=== PATIENT | female | born 1960 | race Caucasian/White ===

== ENCOUNTER 2024-11-28 14:58 | Emergency (ER) | payer OTHER, SELFPAY ==
[2024-11-28 15:00] VITALS: BP 120/83
[2024-11-28 15:05] VITALS: BP 120/83
--- NOTE | 2024-11-28 15:10 | ED.GENMED ---
History of Present Illness
General
Chief Complaint: Change in Mental Status
Time Seen by Provider: 11/28/24 15:04
History of Present Illness
History of Present Illness:
64-year-old female presents to the emergency department for evaluation of multiple falls. EMS responded to 2 occasions due to reported falls, they were called to the house by family. Patient has been complaining of right leg paresthesias
intermittently since earlier this afternoon but denies this complaint currently. She apparently fell into a dresser but had no reported head strike. 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 She is quite somnolent on arrival
and falls asleep almost immediately after discussion
Review of Systems
Review of Systems
Allergies reviewed?: Yes
All Other Systems: ROS reviewed and negative except as documented in HPI and ROS
Phy Exam
Physical Exam
Physical Exam:
GEN: Somnolent, arouses to voice, falls asleep almost immediately after removal of stimulus
HEENT: Oral mucosa moist, no scleral icterus, no nasal congestion
Cardiac: Regular rate and rhythm, no murmurs
Lung: No respiratory distress, no tachypnea, lungs clear to auscultation bilaterally
MSK: No gross deformity or injuries. Sensation to right leg intact entirely, dorsalis pedis and posterior tibialis pulses are strong by Doppler on the right
Skin: Good color, no pallor or jaundice, no rashes
Neuro: Somnolent but easily aroused AO x3; baseline right facial droop with minimal correction with smile, otherwise cranial nerves II through XII grossly intact BUE strength 5/5 in all canales, sensation intact and symmetric. BLE strength 5/5 in all
canales, sensation intact and symmetric
Psych: Calm, cooperative
Course
Orders/Labs/Results
Orders:
Orders
11/28/24 15:09
CT Head W/o Iv Contrast Urgent
Comment:
Reason For Exam: fall, AMS
11/28/24 15:13
Alcohol Urgent
Ammonia Urgent
Complete Blood Count/With Diff Urgent
Comprehensive Metabolic Panel Urgent
Venous Blood Gas Urgent
%Oxygen/Room Air: 95
11/28/24 15:26
CR Chest Portable - 1 View Urgent
Comment:
Reason For Exam: SOB/AMS
Reason Study Needs to be Portable: Other
11/28/24 15:37
Electrocardiogram (*1) Urgent
Reason for Study: QTc Monitoring
EKG- Treatment ONCE
11/28/24 15:55
Urinalysis Reflex To Culture Urgent
Date Specimen was Collected: 11/28/24
Time Specimen was Collected: 15:55
Urine Microscopic Reflex Cult Urgent
Urine Culture Urgent
[email or web address] Source: U
Specimen Description:
Date Specimen was Collected: 11/28/24
Time Specimen was Collected: 15:55
11/28/24 18:44
Cefdinir [Omnicef] 300 mg PO NOW STA
Doxycycline [Vibramycin] 100 mg PO NOW STA
Abnormal Lab Results
11/28/24 11/28/24
15:13 15:55
WBC 19.0 H 10^3/uL
(4.8-10.8)
MCHC 31.1 L g/dL
(33.0-37.0)
Abs Immat Gran (auto) 0.1 H 10^3/uL
(0-0.05)
Absolute Neuts (auto) 15.2 H 10^3/uL
(1.4-6.5)
Absolute Monos (auto) 1.5 H 10^3/uL
(0.1-0.6)
Immature Gran % 0.6 H %
(0-0.5)
Neutrophils % 79.9 H %
(42.2-75.2)
Lymphocytes % 11.3 L %
(20.5-51.1)
VBG pCO2 59 H mmHg
(35-48)
VBG HCO3 31.8 H mmol/L
(22-27)
Chloride 96 L mmol/L
(98-107)
Carbon Dioxide 32 H mmol/L
(22-30)
Creatinine 1.1 H mg/dL
(0.6-1.0)
Glucose 102 H mg/dl
(70-99)
AST 143 H U/L
(14-36)
ALT 95 H U/L
(0-35)
Ammonia < 9 L umol/L
(9-30)
Ur Occult Blood Reflex 4+ A
(Negative)
Leukocyte Esterase Rfl 1+ A
(Negative)
Urine Albumin (Reflex) 2+ A
(Neg - Trace)
11/28/24 15:13
11/28/24 15:13
Vital Signs
Initial and Last Documented VS:
Initial Vital Signs
BP
120/83
11/28/24 15:00
Last Documented Vital Signs
Temp Pulse Resp BP Pulse Ox
99.7 F 74 21 130/67 96
11/28/24 15:05 11/28/24 17:30 11/28/24 17:30 11/28/24 16:00 11/28/24 17:30
MDM/Problems Addressed
MDM/Problems Addressed:
Patient's mental status gradually improved during emergency department stay. I suspect the alteration mental status is predominantly polypharmacy given she is on short and long-acting opioids as well as cyclobenzaprine, gabapentin, and has been
using dextromethorphan based cough triggers. She is advised to discontinue dextromethorphan use. She does have leukocytosis which I suspect to be due to pneumonia based on her wet cough although chest x-ray was not revealing of any acute
infiltrate. Her major workup is reassuring. She was able to ambulate with walker assistance department. I suspect her right lower extremity paresthesias are related to chronic lumbar degenerative disc disease as she has strong pulses by Doppler
and intact sensation/motor function in the ED. Patient was offered admission however she declined which is reasonable medically at this time.
*Critical Care Note
Total Time (30-74mins, 75-104mins- exclusive of procedures): Not Applicable
ED Attending Note
-
Portions of this chart may have been created with voice recognition software.� Occasional wrong word or��sound alike� substitutions may have occurred due to the inherent limitations of voice recognition software.
Discharge Plan
Departure
Patient Disposition: Home (Routine Discharge)
Date of Disposition: 11/28/24
Time of Disposition: 18:44
Patient with high blood pressure during this ER visit?: No
Discharge Problem:
Pneumonia, Chronic right-sided lumbar radiculopathy
Instructions: Pneumonia in adults
Prescriptions:
New
cefdinir 300 mg capsule
300 mg PO BID Qty: 9 0RF
doxycycline hyclate 100 mg capsule
100 mg PO BID Qty: 9 0RF
Referrals:
Gabriel Campbell DO [Family Provider] -
Interventions
Interventions:
*Risk Screen - Suicide Last Done: 11/28/24 15:15
*General Assessment Last Done: 11/28/24 15:15
*Neglect/Abuse Screening Last Done: 11/28/24 15:15
ED- Fall Risk Assessment Last Done: 11/28/24 15:15
*ED COVID-19 Vaccine History Last Done: 11/28/24 15:15
ED- Neurological Assessment Last Done: 11/28/24 15:15
ED- Cardiac Assessment Last Done: 11/28/24 15:15
Discharge Date and Time
Print Language: ROMANIAN
[2024-11-28 15:15] VITALS: BMI 48.7
[2024-11-28 15:21] LABS: % Basophils 0.4 % (0-2); % Eosinophils 0.2 % (0-6); % Immature Granulocytes 0.6 % (0-0.5); % Lymphocytes 11.3 % (20.5-51.1); % Monocytes 7.6 % (1.7-9.3); % Neutrophils 79.9 % (42.2-75.2); Absolute Basophils 0.1 10^3/uL (0-0.2); Absolute Immature Granulocytes 0.1 10^3/uL (0-0.05); Absolute Lymphocytes 2.1 10^3/uL (1.2-3.4); Absolute Monocytes 1.5 10^3/uL (0.1-0.6); Absolute Neutrophils 15.2 10^3/uL (1.4-6.5); Hematocrit 42.1 % (37.0-47.0); Hemoglobin 13.1 g/dL (12.0-16.0); Mean Corp Hgb Conc. 31.1 g/dL (33.0-37.0); Mean Corpuscular Hgb 28.5 pg (27.0-31.0); Mean Corpuscular Volume 91.7 fL (81.0-99.0); Mean Platelet Volume 8.6 fL (7.4-10.4); Nucleated Red Blood Cells % 0 %; Platelet Count 230 10^3/uL (130-400); Red Blood Cell Count 4.59 10^6/uL (4.20-5.40); Red Cell Dist. Width 12.4 % (11.5-14.5); Venous Blood Gas B.E. 4.4 mmol/L (-4 to +4); Venous Blood Gas HCO3 31.8 mmol/L (22-27); Venous Blood Gas O2 Sat % 67.8 %; Venous Blood Gas pCO2 59 mmHg (35-48); Venous Blood Gas pH 7.34 (7.32-7.43); Venous Blood Gas pO2 38 mmHg (30-50)
[2024-11-28 15:30] VITALS: BP 135/79
[2024-11-28 15:39] LABS: Blood Urea Nitrogen 16 mg/dl (7-17); Estimated Creatinine Clearance 75 ml/min; Glucose 102 mg/dl (70-99); Sodium 136 mmol/L (135-145); eGFR 56.46
[2024-11-28 15:40] LABS: ALT (SGPT) 95 U/L (0-35); AST (SGOT) 143 U/L (14-36); Albumin 4.2 g/dl (3.5-5.0); Alkaline Phosphatase 110 U/L (38-126); Calcium 9.7 mg/dl (8.4-10.2); Carbon Dioxide 32 mmol/L (22-30); Chloride 96 mmol/L (98-107); Potassium 3.7 mmol/L (3.5-5.1); Total Bilirubin 1.1 mg/dl (0.2-1.3); Total Protein 6.3 g/dl (6.3-8.2)
[2024-11-28 16:00] VITALS: BP 130/67
[2024-11-28 16:03] LABS: Ammonia < 9 umol/L (9-30)
[2024-11-28 16:07] LABS: Alcohol None Detected
[2024-11-28 16:09] LABS: Urine Albumin 2+ (Neg - Trace); Urine Bilirubin Negative (Negative); Urine Character Clear (Clear); Urine Color Yellow; Urine Glucose Negative (Negative); Urine Ketone Negative (Negative); Urine Leukocyte 1+ (Negative); Urine Nitrite Negative (Negative); Urine Occult Blood 4+ (Negative); Urine Specific Gravity 1.015 (<1.030); Urine Urobilinogen 1+ (Neg - 1+)
[2024-11-28 17:56] LABS: Urine Red Blood Cell 0-2 /HPF (0-2); Urine Squamous Cell 0-2 /LPF (Few)
[2024-11-28] MEDS: VIBRAMYCIN 100 MG PO (19:08)
[2024-11-28] MEDS: OMNICEF 300 MG PO (19:08)
== END 2024-11-28 20:00 | disposition home or self-care (01) ==
LOC: EMR 14:58
PROVIDERS: Physician Assistant; EMERGENCY PHYSICIAN Emergency Medicine; FAMILY PHYSICIAN Family Medicine
DX: J18.9 Pneumonia, unspecified organism (principal); M54.16 Radiculopathy, lumbar region; R29.6 Repeated falls; W22.03XA Walked into furniture, initial encounter
CPT/HCPCS: 99285; 70450; 71045; 80053; 81003; 81015; 82077; 82140; 82805; 85025; 87086; 93005

== ENCOUNTER 2024-12-02 12:33 | Emergency (ER) | payer OTHER, SELFPAY ==
[2024-12-02 12:38] VITALS: BP 151/92
--- NOTE | 2024-12-02 14:33 | ED.MUSCINJ ---
HPI-Injury
General
Chief Complaint: Fall
Source: patient
Exam Limitations: none
Time Seen by Provider: 12/02/24 13:21
History of Present Illness-Injury
Initial Injury comments:
64-year-old female on Xarelto presents via EMS after fall at home. She was moving around heavy bags of groceries and sliding boxes sewed across the floor lost her balance and fell. She hit her head on the cabinet on the way down. She is brought
here in cervical collar by EMS. No loss conscious. She denies headache. No other complaints at this time
Phy Exam
Physical Exam
Physical Exam:
General: Well-appearing female no acute respiratory distress
HEENT: Normocephalic abrasion noted to the right posterior scalp. Pupils equal round reactive to light
Heart: Regular rate and rhythm
Lungs: Clear no wheeze
Musculoskeletal exam: The spine is nontender. Good range of motion all extremities
Injury Course
Orders/Labs/Results
Orders:
Orders
12/02/24 12:34
CT Cervical Spine W/o Iv Contr Urgent
Comment:
Reason For Exam: Head strike, fall on xarelto
CT Head W/o Iv Contrast Urgent
Comment:
Reason For Exam: Trauma/ on xarelto
MDM/Problems Addressed
Differential Diagnosis Includes:
Mechanical fall. CT of head and cervical spine ordered without evidence of intracranial hemorrhage or cervical spine fracture. Patient reassured. She expresses her desire to go home. No indication for admission
*Critical Care Note
Total Time (30-74mins, 75-104mins- exclusive of procedures): Not Applicable
ED Attending Note
-
Portions of this chart may have been created with voice recognition software.� Occasional wrong word or��sound alike� substitutions may have occurred due to the inherent limitations of voice recognition software.
Discharge Plan
Departure
Patient Disposition: Home (Routine Discharge)
Date of Disposition: 12/02/24
Time of Disposition: 14:37
Patient with high blood pressure during this ER visit?: No
Discharge Problem:
Fall
Instructions: Preventing falls in adults
Prescriptions:
No Action
cefdinir 300 mg capsule
300 mg PO BID Qty: 9 0RF
doxycycline hyclate 100 mg capsule
100 mg PO BID Qty: 9 0RF
Referrals:
Gabriel Campbell DO [Family Provider] -
Activity Restrictions/Additional Instructions:
You may use Tylenol if needed for pain. Return if worse otherwise follow-up with your doctor
Discharge Date and Time
Print Language: UZBEK
== END 2024-12-02 17:01 | disposition home or self-care (01) ==
LOC: EMR 12:33
PROVIDERS: EMERGENCY PHYSICIAN Emergency Medicine; FAMILY PHYSICIAN Family Medicine
DX: Z04.89 Encounter for examination and observation for other specified reasons (principal); W18.39XA Other fall on same level, initial encounter; Z79.01 Long term (current) use of anticoagulants
CPT/HCPCS: 99284; 70450; 72125

== ENCOUNTER 2025-04-17 21:30 | Emergency (ER) | payer OTHER, SELFPAY ==
[2025-04-17 21:32] VITALS: BP 119/83
--- NOTE | 2025-04-17 23:54 | ED.GENMED ---
History of Present Illness
General
Chief Complaint: Fall
Time Seen by Provider: 04/17/25 23:54
History of Present Illness
History of Present Illness:
TIME OF INITIAL EVALUATION
- 12 AM
REVIEW OF OLD RECORDS
- I reviewed records, the patient was seen here after a fall in November.
CHIEF COMPLAINT(S)
- Rib pain following a fall.
HISTORY OF PRESENT ILLNESS
The patient is a 64-year-old female who presented with rib pain after a fall earlier today. She explained that she was walking with her walker when it tilted, causing her to fall and strike the right side of her back on a wooden part of the sofa.
She reported immediate pain in the area and difficulty breathing due to the pain. The pain was exacerbated by deep breaths. She denied any loss of consciousness or head injury. She also denied any injury to her arms or legs and reported no abdominal
pain. The patient was brought to the hospital by ambulance.
On examination and imaging, she was found to have three subtle rib fractures that were minimally displaced, which were confirmed to not require surgical intervention. She is currently on medications including oxycodone and morphine for chronic pain
management and expressed concern about returning home due to potential issues with ambulation and pain control.
CHRONIC MEDICAL CONDITIONS SIGNIFICANTLY AFFECTING CARE
The patient is on chronic pain management with oxycodone and morphine.
SOCIAL DETERMINANTS AFFECTING HEALTH
The patient resides with her 85-year-old mother and 53-year-old sister, who assist in caring for her mother. She is unable to drive due to her current condition and expressed concerns about transportation. There were no steps in her home, and all
living areas are on the first floor.
MEDICATIONS
- Oxycodone 10 mg, four times a day.
- Morphine, 10-15 mg, as needed, once a day.
REVIEW OF SYSTEMS
- Respiratory: Right-sided back pain and difficulty breathing due to pain.
- Musculoskeletal: Pain in the right side of the back, confirmed rib fractures.
PHYSICAL EXAM
- General: She appears somewhat chronically debilitated, but does not appear to be in any significant distress
- Head: No craniofacial trauma
- C-spine: No midline c-spine tenderness; normal AROM of C-spine
- Back: Normal AROM thoracolumbar spine
- HEENT: Moist oral mucosa, no blood
- Cardiovascular: No murmurs, normal heart rate, regular rhythm, mild to moderate chest wall tenderness on the right side
- Pulmonary: No respiratory distress, breath sounds are clear and equal
- Abdomen: Soft with no peritoneal signs, no tenderness
- Neurologic: Fair strength all extremities, no coordination deficits
- Psychiatric: Appropriate mental status, normal insight and judgement
- Extremities: Nontender, no edema, moves all extremities equally
- Skin: No rash, no lesions
PROBLEM LIST
Acute:
- Right-sided rib fractures (three, minimally displaced).
PLAN
- Administer a dose of oxycodone for pain management.
- Provide a drink as requested by the patient.
- Arrange for ambulance transportation to return the patient home.
- Ensure home care support is in place for mobility and safety due to the patients inability to drive and pain management needs.
DIFFERENTIAL DIAGNOSIS
The Differential Diagnosis includes, in no particular order and is not limited to:
- Rib fractures
- Contusion
- Costochondritis
- Pleurisy
- Pneumothorax
- Muscular strain
- Osteoporosis-related fracture
- Hemothorax
- Lung contusion
- Soft tissue injury
RADIOLOGY
- Chest x-ray with rib series shows fractures on the right 5th, 6th and 7th that are minimally if any bit displaced
- X-rays of left hip, pelvis, femur show advanced DJD at the left hip
UPDATE
-SUMMARY OF ENCOUNTER
The patient, a 64-year-old female, presented to the emergency department with right-sided rib pain following a fall. She was walking with her walker when it tilted and she fell, striking her right side on a wooden part of the sofa, causing immediate
pain and difficulty breathing. The pain worsened with deep breaths. Imaging revealed three subtly displaced rib fractures that did not require surgical intervention. She is on chronic pain management with oxycodone and morphine. Concerns were raised
about her ability to manage pain and ambulate safely at home however she did state that she feels comfortable going home.
DISPOSITION
Discharge
ASSESSMENT
The patient has minimally displaced right-sided rib fractures secondary to a fall.
EMERGENCY TREATMENTS ADMINISTERED
A dose of oxycodone was administered for pain management.
PLAN
To administer pain management medication and arrange for ambulance transportation for the patient to return home. Ensure home care support is in place to assist with mobility and safety, considering the patient�s inability to drive and manage pain
effectively without assistance.
INDEPENDENT REVIEW OF LABS AND INTERPRETATION OF TESTS
My independent interpretation of the chest x-ray indicates three subtle, minimally displaced rib fractures.
PATIENT EDUCATION AND COUNSELING
The patient was educated about the nature of her rib fractures and the importance of managing pain. Counseling was provided on the risks of further injury and the need for assistance at home until her condition improves.
FOLLOW-UP INSTRUCTIONS
The patient is advised to follow up with her primary care provider to monitor her recovery and reassess her pain management strategy.
MEDICATION RECONCILIATION
Administered medications include oxycodone. The patient continues on her chronic pain management regimen of oxycodone 10 mg four times a day and morphine 10-15 mg as needed once a day. No additional narcotics provided
MEDICAL DECISION MAKING
- Number and Complexity of Problems Addressed: Chronic conditions affecting care include ongoing management with oxycodone and morphine. Differential diagnosis considered rib fractures, contusion, pleurisy, pneumothorax, muscular strain,
osteoporosis-related fracture.
- Data:
Category 1:
My independent interpretation of the chest x-ray shows minimally displaced rib fractures.
Category 3:
Discussion of management occurred with the patient regarding pain management and the risk factors associated with her inability to drive and ambulate independently.
- Risk: Prescription medication management includes oxycodone and morphine, which require careful monitoring due to potential for overuse and dependency.
Consideration of Admission/Observation: Escalation of care including admission/observation was considered given the complexity and risk of the patients presenting complaint, exam findings, and/or their underlying comorbidities. However, ultimately I
feel the patient is safe for outpatient management with close follow-up. Reasoning: Work-up reassuring, does not reveal any acute life/organ threatening processes, patients symptoms well controlled upon reevaluation, reexamination is reassuring,
vitals are stable, patient agreeable with discharge, reliable for follow-up.
DIAGNOSIS
Rib fractures, right side, minimally displaced (S22.41XA).
I did inform patient of the rather significant degenerative joint disease in the left hip�she states she has had Ortho evaluation but likely will not proceed with hip replacement
Phy Exam
Physical Exam
Physical Exam:
See HPI
Course
Orders/Labs/Results
Orders:
Orders
04/17/25 21:35
CR Ribs-right 3 Vw W/pa Chest* Urgent
Comment:
Reason For Exam: injury
04/18/25 00:13
Oxycodone [Roxicodone] 10 mg PO NOW STA
04/18/25 00:45
CR Femur - Left Min 2 Vw Urgent
Comment:
Reason For Exam: trauma
CR Hip - LT w/wo Pel 2-3 Vw* Urgent
Comment:
Reason For Exam: fall
Include a pelvis x-ray?: Yes
Vital Signs
Initial and Last Documented VS:
Initial Vital Signs
Temp Pulse Resp BP Pulse Ox
36.7 C 73 20 119/83 97
04/17/25 21:32 04/17/25 21:32 04/17/25 21:32 04/17/25 21:32 04/17/25 21:32
Last Documented Vital Signs
Temp Pulse Resp BP Pulse Ox
36.7 C 76 14 136/74 97
04/17/25 21:32 04/18/25 00:45 04/18/25 00:45 04/18/25 00:09 04/18/25 00:08
*Pulse Oximetry
SaO2: 97
Oxygen Mode of Delivery: Room air
Patient hypoxic: no
*Critical Care Note
Total Time (30-74mins, 75-104mins- exclusive of procedures): Not Applicable
ED Attending Note
-
Portions of this chart may have been created with voice recognition software.� Occasional wrong word or��sound alike� substitutions may have occurred due to the inherent limitations of voice recognition software.
Discharge Plan
Departure
Patient Disposition: Home (Routine Discharge)
Date of Disposition: 04/18/25
Time of Disposition: 00:13
Patient with high blood pressure during this ER visit?: Yes
Discharge Problem:
Multiple rib fractures
Instructions: Rib Fracture
Prescriptions:
No Action
cefdinir 300 mg capsule
300 mg PO BID Qty: 9 0RF
doxycycline hyclate 100 mg capsule
100 mg PO BID Qty: 9 0RF
Activity Restrictions/Additional Instructions:
You do have subtle rib fractures which are minimally displaced if at all on the right side (#5, #6 and #7). Use incentive spirometer to help exercise the lung. Continue your normal pain medication. There is no sign of lung injury or need for any
other procedure to treat these injuries.
Interventions
Interventions:
*Risk Screen - Suicide Last Done: 04/18/25 00:05
*General Assessment Last Done: 04/17/25 21:32
*Neglect/Abuse Screening Last Done: 04/18/25 00:05
*ED- Fall Risk Assessment Last Done: 04/18/25 00:05
*ED COVID-19 Vaccine History Last Done: 04/18/25 00:05
ED-Musculoskeletal Assessment Last Done: 04/18/25 00:09
ED- Neurological Assessment Last Done: 04/18/25 00:09
ED-Skin Assessment Last Done: 04/18/25 00:09
Discharge Date and Time
Print Language: MAORI
[2025-04-18 00:02] VITALS: BMI 47.9
[2025-04-18 00:09] VITALS: BP 136/74
[2025-04-18] MEDS: ROXICODONE 10 MG PO (00:19)
[2025-04-18 02:15] VITALS: BP 124/76
== END 2025-04-18 03:04 | disposition home or self-care (01) ==
LOC: EMR 21:30
PROVIDERS: EMERGENCY PHYSICIAN Emergency Medicine; FAMILY PHYSICIAN Nurse Practitioner Adult Health
DX: S22.41XA Multiple fractures of ribs, right side, initial encounter for closed fracture (principal); W01.190A Fall on same level from slipping, tripping and stumbling with subsequent striking against furniture, initial encounter; G89.29 Other chronic pain; Z79.891 Long term (current) use of opiate analgesic
CPT/HCPCS: 99284; 71101; 73502; 73552

== ENCOUNTER 2025-06-16 17:41 | Inpatient (IN) | payer OTHER, SELFPAY ==
[2025-06-16] VITALS (17 sets, daily range): BP systolic 113–171; BP diastolic 66–128; BMI 46.8
--- NOTE | 2025-06-16 11:50 | ED.GENMED ---
History of Present Illness
General
Chief Complaint: Weakness
Source: patient and records
Exam Limitations: none
Time Seen by Provider: 06/16/25 11:39
Nursing documentation reviewed up to this point in time: agreed with
History of Present Illness
History of Present Illness:
65-year-old female with a past medical history of hypertension, hyperlipidemia, atrial fibrillation, asthma, Lewis's palsy with facial droop and prior TIA history who presents to the emergency department via EMS for evaluation of weakness and
lethargy. Patient reports symptoms started this morning and have been constant all morning�she says that she sat on the couch and was very lethargic and it sounds like her parents had trouble waking her which prompted EMS call. She denies any
falls or injuries. She does take chronic pain medications but says there has not been any acute change and that she did not take any of her medication for pain this morning. She was noted to be febrile on arrival and notes that she has been
coughing recently. She denies any recent vomiting or diarrhea. She denies any recent urinary symptoms. No chest pain, shortness of breath, abdominal pain or any other acute complaints.
Review of Systems
Review of Systems
All Other Systems: ROS reviewed and negative except as documented in HPI and ROS
Constitutional: Reports fever and fatigue
EENT: Denies sore throat
Respiratory: Reports cough; Denies trouble breathing
Cardiac: Denies chest pain
ABD/GI: Denies abdominal pain, nausea, vomiting or diarrhea
: Denies dysuria or flank pain
Neurological: Reports other (Lethargic); Denies headache
Phy Exam
Physical Exam
Physical Exam:
General: Laying in bed sleeping on my entering but arousable to voice, oriented x 3, not acutely in distress
Head: Normocephalic, atraumatic
Eyes: Conjunctiva normal, pupils approximately 4 mm and reactive to light bilaterally
Throat: Airway intact, somewhat dry mucous membranes
Neck: Trachea midline, supple without meningismus
Lungs: Left focal rhonchi appreciated, hacking cough throughout assessment, low normal pulse ox 92% on room air, mild tachypnea respiratory rate 22-24 on my assessment
Heart: Regular rate and rhythm, no murmurs, gallops, or rubs appreciated
Abd: Soft, non distended, nontender
Neuro: Chronic mild right facial droop, cranial nerves otherwise intact, moving all extremities equally with no focal deficit noted
Extremities: No edema in extremities, warm and well-perfused
Scores
Heart Failure Risk
Heart Failure Risk Score: Not Applicable
Heart Score for Chest Pain Patients
STEMI patient?: Not applicable
Withdrawal Assessment of Alcohol
Withdrawal Assessment Completed?: Not applicable
Sepsis
Sepsis Screening
Sepsis Assessment: Sepsis
Sepsis Screen
Sepsis Screen: Sepsis
Date: 06/16/25
Time: 17:23
Course
Orders/Labs/Results
Orders:
Orders
06/16/25 11:43
Electrocardiogram (*1) Urgent
Reason for Study: Fatigue / Weakness
EKG- Treatment ONCE
06/16/25 11:49
CR Chest Single View Urgent
Reason For Exam: one view due to safety issue---cough, fever
06/16/25 11:50
Acetaminophen [Tylenol] 1,000 mg PO NOW STA
06/16/25 11:55
0.9% Sodium Chloride 1000 ml [Nss] 1,000 ml IV BOLUS
06/16/25 13:23
Complete Blood Count/With Diff Urgent
Comprehensive Metabolic Panel Urgent
Influenza A+B Rapid Molecular Urgent
RAYMUNDO Source: Nasal Swab
Specimen Description:
06/16/25 13:24
COVID-19 Antigen Urgent
Source: Nasal Swab
Lactate Level [Lactic Acid] Urgent
Urinalysis Reflex To Culture Urgent
Date Specimen was Collected: 06/16/25
Time Specimen was Collected: 12:59
Urine Microscopic Reflex Cult Urgent
Urine Culture Urgent
RAYMUNDO Source: U
Specimen Description:
Date Specimen was Collected: 06/16/25
Time Specimen was Collected: 12:59
06/16/25 13:38
Acetaminophen 1000MG/100Ml [Ofirmev] 1,000 mg in 100 ml IV ONCE
Acetaminophen IV Indication:: ED Narcotic Naive Pt-ONCE
06/16/25 14:03
Naloxone [Narcan] 2 mg .ROUTE .STK-MED ONE
06/16/25 14:08
Naloxone [Narcan] 0.2 mg IV NOW STA
06/16/25 14:09
Azithromycin 500 mg/250 ml [Zithromax Infusion] 500 mg in 250 ml IV NOW
CefTRIAXone [Rocephin] 1,000 mg IV NOW STA
06/16/25 14:10
CT Chest W/o Iv Contrast Urgent
Comment:
Reason For Exam: cough, fever, cf pna (CXR limited)
CT Head W/o Iv Contrast Urgent
Comment:
Reason For Exam: CHANGE IN MENTATION
06/16/25 14:28
Blood Culture Q30M
RAYMUNDO Source: Blood/Venous
Specimen Description:
Sputum Culture [Respiratory Culture/Gram Stain] Urgent
RAYMUNDO Source: Sputum
Specimen Description:
Date Specimen was Collected: 06/16/25
Time Specimen was Collected: 14:27
06/16/25 14:29
Blood Culture Q30M
RAYMUNDO Source: Blood/Venous
Specimen Description:
06/16/25 16:47
ABG [Arterial Blood Gas] Urgent
%Oxygen/Room Air: 92%
06/16/25 17:03
Naloxone [Narcan] 0.4 mg IV NOW STA
06/16/25 17:17
Admit/Transfer Patient As Directed
Co-Sign Provider:
Level of Care: Inpatient admission
Assign to:: ICU
Physician / Group: Dr Frye
Diagnosis: Sepsis. Encephalopathy.
Reason for Hospitalization: Sepsis. Encephalopathy.
Expected length of stay greater than two midnights?: Yes
ELOS- Estimated Length of Stay in days: 2
I certify the patient meets the requirements for IP care: Yes
PRN Pain Medication Management As Directed
May give lesser potent ordered pain med per pt: Yes
preference::
Protocol:: Medication orders for pain may be administered in a
manner that supports deferring to patient preference
when the pt is:
- Requesting an ordered lesser potent pain medication.
Least to most potent pain medications are defined
as: acetaminophen < NSAID < tramadol < opioids
(morphine, oxycodone, hydromorphone).
- Requesting a lesser dose of the same medication IF
ORDERED.
- Requesting a less intrusive route of administration
if both routes are prescribed by the provider (PO <
IV).
06/16/25 17:18
Code Status As Directed
Resuscitation Status: Full Code
Consult Africana Studies Professor [Africana Studies Professor Consult] Urgent
Consulting Provider: Kolton Maharaj
Was physician already notified: Yes
06/16/25 17:19
Consult Africana Studies Professor [Africana Studies Professor Consult] Urgent
Consulting Provider: Kolton Maharaj
Was physician already notified: Yes
Reason for consult: Sepsis and concerns for airway protection due to encephalopathy
06/16/25 18:00
Lactated Ringers [Lr] 1,000 ml IV 125 mls/hr
Abnormal Lab Results
06/16/25 06/16/25 06/16/25
13:23 13:24 16:47
WBC 18.0 H 10^3/uL
(4.8-10.8)
MCHC 31.7 L g/dL
(33.0-37.0)
Abs Immat Gran (auto) 0.1 H 10^3/uL
(0-0.05)
Absolute Neuts (auto) 14.3 H 10^3/uL
(1.4-6.5)
Absolute Monos (auto) 1.0 H 10^3/uL
(0.1-0.6)
Neutrophils % 79.7 H %
(42.2-75.2)
Lymphocytes % 13.7 L %
(20.5-51.1)
pH 7.32 L
(7.35-7.45)
pCO2 52 H mmHg
(32-35)
pO2 80 L mmHg
(83-108)
Glucose 115 H mg/dl
(70-99)
AST 41 H U/L
(14-36)
Alkaline Phosphatase 133 H U/L
(38-126)
Leukocyte Esterase Rfl 2+ A
(Negative)
Urine Bacteria (Reflex) Few A
(Negative)
06/16/25 13:23
06/16/25 13:23
Vital Signs
Initial and Last Documented VS:
Initial Vital Signs
Temp Pulse Resp BP Pulse Ox
38.1 C H 81 20 136/117 92
06/16/25 11:43 06/16/25 11:43 06/16/25 11:43 06/16/25 11:43 06/16/25 11:43
Last Documented Vital Signs
Temp Pulse Resp BP Pulse Ox
38.1 C H 71 26 117/71 96
06/16/25 11:43 06/16/25 15:30 06/16/25 15:30 06/16/25 15:00 06/16/25 15:30
MDM/Problems Addressed
Differential Diagnosis Includes:
Fever and lethargy: Viral syndrome, UTI, pneumonia
MDM/Problems Addressed:
65-year-old female presents for increased lethargy this morning noted to be febrile on arrival here. She has had a recent cough. Vitals and exam as above. Will plan to check labs including CBC and a CMP, lactate and blood cultures. Will check
COVID and flu swabs. Check chest x-ray and EKG. Will send off a urinalysis. Will provide Tylenol for fever. Provide IV fluids. Monitor closely reassess after the above.
Labs reviewed: CBC shows leukocytosis to 18. Lactate less than 2. Chemistry no clinically significant abnormalities. Her urinalysis is contaminated but not clearly infected. Chest x-ray very limited by body habitus. She is continue to have
significant coughing with increased secretions. Will order sputum culture. Treat empirically for pneumonia and concern for sepsis. She is having some increased lethargy here. Pupils are somewhat constricted and she has a history of opioid use
will trial a low-dose of Narcan. She has a history of falls with a denies any recent falls and no signs of acute trauma; nevertheless we will check CT head. Will also send for CT chest to better visualize lungs. Plan for admission.
CT head no acute abnormalities noted. CT chest shows signs consistent with pneumonia. Clinical reassessment patient has had periods of severe lethargy to the point that she even received some Narcan here. At the same time she has periods where
she is much more awake�when she returned from CT she had a full phone call. Case was discussed at bedside at length with the hospitalist. Currently she is very lethargic but she does completely wake to physical stimulation before quickly drifting
off again. She appears to be protecting her airway for the time being but concerned that mental status is decompensating. We checked a blood gas and her pH is 7.34 pCO2 only 43. Will discuss with social research assistant for evaluation and if mental status
not improving may need intubation.
Discussed with social research assistant will admit to ICU plan for close monitoring and serial gases with low threshold for intubation if clinical status worsening.
*Radiology
Radiology exam reviewed: preliminary read by ED provider and radiology read reviewed
*Pulse Oximetry
SaO2: 92
Oxygen Mode of Delivery: Room air
Patient hypoxic: no (92%)
*Critical Care Note
Total Time (30-74mins, 75-104mins- exclusive of procedures): Not Applicable
Data Reviewed
Source: patient, records and ambulance crew
Patient Management
Discussion with other providers: Hospitalist (Discussed with hospitalist) and [employer] T[employer] T[employer] (Discussed with social research assistant)
Escalation/DeEscalation of care consider admission/obs:
Admission indicated
ED Attending Note
-
Portions of this chart may have been created with voice recognition software.� Occasional wrong word or��sound alike� substitutions may have occurred due to the inherent limitations of voice recognition software.
Discharge Plan
Departure
Patient Disposition: Admit
Date of Disposition: 06/16/25
Time of Disposition: 16:06
Admit to doctor: Igor
Presentation/result/management discussed w/ accepting MD/DO: Hospitalist
Discharge Problem:
Sepsis, Pneumonia, Encephalopathy
Prescriptions:
No Action
cyclobenzaprine [Flexeril] 10 mg Tablet
10 mg PO TIDPRN PRN (Reason: spasms)
atorvastatin [Lipitor] 40 mg Tablet
40 mg PO DAILY
gabapentin 600 mg Tablet
600 mg PO TID
alprazolam [Xanax] 1 mg Tablet
1 mg PO TIDPRN PRN (Reason: anxiety)
ferrous sulfate 325 mg (65 mg iron) Tablet
650 mg PO DAILY
montelukast [Singulair] 10 mg Tablet
10 mg PO HS
morphine 15 mg Tablet Extended Release
15 mg PO DAILY
metoprolol succinate [Toprol XL] 25 mg Tablet Extended Release 24 Hr
25 mg PO DAILY
paroxetine HCl [Paxil] 40 mg Tablet
40 mg PO DAILY
ezetimibe [Zetia] 10 mg Tablet
10 mg PO DAILY
budesonide-formoterol [Symbicort] 160-4.5 mcg/actuation Hfa Aerosol Inhaler
1 inh INHALATION R DAILY
oxycodone 10 mg Tablet
10 mg PO Q6HPRN PRN (Reason: severe pains)
Xarelto 20 mg Tablet
20 mg PO DAILY
potassium chloride 20 mEq Tablet Extended Release
20 meq PO DAILY
Interventions
Interventions:
*Risk Screen - Suicide Last Done: 06/16/25 11:43
*General Assessment Last Done: 06/16/25 11:43
*Neglect/Abuse Screening Last Done: 06/16/25 11:43
*ED- Fall Risk Assessment Last Done: 06/16/25 11:43
ED- Cardiac Assessment Last Done: 06/16/25 11:43
ED- Neurological Assessment Last Done: 06/16/25 16:00
ED- Pulmonary Assessment Last Done: 06/16/25 11:43
Discharge Date and Time
Print Language: NEPALI
[2025-06-16] MEDS: NSS 1000 IV (13:00)
[2025-06-16 13:44] LABS: Hematocrit 39.8 % (37.0-47.0); Hemoglobin 12.6 g/dL (12.0-16.0); Mean Corp Hgb Conc. 31.7 g/dL (33.0-37.0); Mean Corpuscular Volume 87.3 fL (81.0-99.0); Nucleated Red Blood Cells % 0 %; Platelet Count 258 10^3/uL (130-400); Red Cell Dist. Width 12.7 % (11.5-14.5)
[2025-06-16 13:45] LABS: Urine Character Clear (Clear)
[2025-06-16] MEDS: OFIRMEV 100 IV (13:45)
[2025-06-16 13:56] LABS: ALT (SGPT) 24 U/L (0-35); AST (SGOT) 41 U/L (14-36); Albumin 4.1 g/dl (3.5-5.0); Alkaline Phosphatase 133 U/L (38-126); Blood Urea Nitrogen 15 mg/dl (7-17); Calcium 9.5 mg/dl (8.4-10.2); Carbon Dioxide 29 mmol/L (22-30); Chloride 103 mmol/L (98-107); Estimated Creatinine Clearance 97 ml/min; Glucose 115 mg/dl (70-99); Potassium 3.8 mmol/L (3.5-5.1); Sodium 139 mmol/L (135-145); Total Protein 6.6 g/dl (6.3-8.2); eGFR > 60.00
[2025-06-16 13:58] LABS: Urine Squamous Cell >30 /LPF (Few)
[2025-06-16 14:02] LABS: Urine Red Blood Cell 0-2 /HPF (0-2)
[2025-06-16 14:10] LABS: COVID-19 Antigen Negative (Negative)
[2025-06-16] MEDS: NARCAN 0.2 MG IV (14:12)
[2025-06-16] MEDS: ROCEPHIN 1000 MG IV (14:26)
[2025-06-16] MEDS: ZITHROMAX INFUSION 250 IV (14:43)
--- NOTE | 2025-06-16 16:28 | HPS.HSE ---
Addendum entered and electronically signed by Montrell Frye MD 06/16/25 18:15:
Discussed with test examiner and placed consult in
Original Note:
Family Physician
-
Family Physician: Bree Martinez
Chief Complaint
-
Fever
History of Present Illness
Patient is 65 years old female history of hypertension, hyperlipidemia, A-fib, asthma, Lewis's palsy, TIA, came into the hospital with fever and mental status changes. Unable to obtain accurate information from patient due to her mental status. She
does open eyes to verbal stimuli but then quickly falls asleep. She is semi-obtunded and diaphoretic but at time of my evaluation but she also had received some Narcan. I discussed with the ER physician at bedside as well. She moves spontaneously
all 4 extremities. As per report patient has been complaining of cough and shortness of breath for the last few days and she has been having some generalized weakness. She was noticed to have fever in the ER 100.6 Fahrenheit. Patient also was
noted to have white count of 18,000 and tachypneic. She is on chronic narcotics and given Narcan. Chest x-ray no acute chest pathology and CT scan of the chest ordered. She was also given broad-spectrum IV antibiotics and IV fluids. She had a CT
scan of the head. She was referred to the hospitalist service for further evaluation.
Medical History
Past Medical History
Past Medical History: Reports Other (Hypertension, hyperlipidemia, asthma/COPD, depression anxiety, paroxysmal atrial fibrillation, Lewis's palsy, TIA.)
Past Surgical History: Reports None
Social History
Tobacco: Non-smoker
Alcohol: None
Drug: None
Family History
Family History: Not pertinent
Allergies / Home Medications
Allergies reflects when Allergies were last updated in [employer].
Home Medications with original date entered in [employer]
Allergy/Medication List:
Allergies
Allergy/AdvReac Type Severity Reaction Status Date / Time
carbamazepine (From Tegretol) Allergy Reports Verified 04/17/25 21:32
acts like
she's on
LSD.
moxifloxacin (From Avelox) Allergy Unknown Verified 04/17/25 21:32
Home Medications
alprazolam 1 mg tablet (Xanax) 1 mg PO TIDPRN PRN anxiety 06/16/25
atorvastatin 40 mg tablet (Lipitor) 40 mg PO DAILY 06/16/25
budesonide-formoterol HFA 160 mcg-4.5 mcg/actuation aerosol inhaler (Symbicort) 1 inh inhalation R DAILY 06/16/25
cyclobenzaprine 10 mg tablet 10 mg PO TIDPRN PRN spasms 06/16/25
ezetimibe 10 mg tablet (Zetia) 10 mg PO DAILY 06/16/25
ferrous sulfate 325 mg (65 mg iron) tablet 650 mg PO DAILY 06/16/25
gabapentin 600 mg tablet 600 mg PO TID 06/16/25
metoprolol succinate 25 mg tablet,extended release 24 hr (Toprol XL) 25 mg PO DAILY 06/16/25
montelukast 10 mg tablet (Singulair) 10 mg PO HS 06/16/25
morphine 15 mg tablet,extended release 15 mg PO DAILY 06/16/25
oxycodone 10 mg tablet 10 mg PO Q6HPRN PRN severe pains 06/16/25
paroxetine HCl 40 mg tablet (Paxil) 40 mg PO DAILY 06/16/25
potassium chloride 20 mEq tablet,extended release 20 meq PO DAILY 06/16/25
rivaroxaban 20 mg tablet (Xarelto) 20 mg PO DAILY 06/16/25
Review of Systems
-
A 12 point ROS was completed and negative except as noted: Yes
Physical Exam
Vital Signs
Vital Signs
Temp Pulse Resp BP Pulse Ox
100.6 F H 71 26 117/71 96
06/16/25 11:43 06/16/25 15:30 06/16/25 15:30 06/16/25 15:00 06/16/25 15:30
Physical exam:
General: Acutely ill
HEENT: Normocephalic, Atraumatic and Moist Mucous Membranes. Pupils reactive to light but also they are mildly dilated.
Respiratory: Few rhonchi in the right base; Negative Wheezes, Rales
Cardiac: Regular Rhythm and S1/S2
GI: Soft, Nontender and Nondistended. Obese
Musculoskeletal: Bilateral erythema in both legs. She is currently diaphoretic. No Clubbing, No Cyanosis and mild bilateral lower extremity edema
Neuro: Lethargic, does respond to questions and was spontaneously all 4 extremity
Psych: Limited judgment and insight at the moment
Physical Exam
General: Other
Laboratory Results
-
06/16/25 13:23
06/16/25 13:23
Laboratory Results
Lactic Acid 1.1 mmol/L (0.7-2.0) 06/16/25 13:24
Total Bilirubin 0.8 mg/dl (0.2-1.3) 06/16/25 13:23
AST 41 U/L (14-36) H 06/16/25 13:23
ALT 24 U/L (0-35) 06/16/25 13:23
Alkaline Phosphatase 133 U/L (38-126) H 06/16/25 13:23
Data Reviewed
-
Diagnostic Radiology: Image Personally Visualized and interpreted
CT Scan: Image Personally Visualized and interpreted
Lab Data: Labs Reviewed by me
Impression/Plan
-
IMPRESSION:
Patient is 65 years old female with multiple comorbidities came into the hospital with fever and leukocytosis SIRS likely related to sepsis and acute encephalopathy. Patient had increased risk morbidity mortality and life-threatening condition that
will require inpatient hospitalization and careful monitoring.
PLAN:
Sepsis:
Likely source aspiration pneumonia.
Patient with fever, tachypneic, (not tachycardic but on beta-blockers), leukocytosis with left shift, mental status changes.
Continue broad-spectrum IV antibiotics with Rocephin and azithromycin. Consider switching to ampicillin sulbactam or piperacillin tazobactam if worsening.
Lactate 1.1
Follow-up blood cultures
Seen chest x-ray and difficult to interpret based on body habitus and technique
Seen CT scan of the chest and on my interpretation it appears to have a right lower lobe consolidation but pending radiology report
Continue IV fluid
Acute toxic metabolic encephalopathy:
Suspect related to sepsis but cannot rule out other etiologies such as opiates or other
Low threshold to intubate her for airway protection but currently she is maintaining so we will watch her very closely.
Cultures with narcotics and benzodiazepines
Seen CT scan of the head and no acute intracranial abnormalities but chronic changes although pending radiology report as well
Monitor mental status
Obtain ABG and do ETCO2 and serial gases if necessary
Chronic pain with narcotic dependence:
Given Narcan already
Watch her before restarting narcotics
Paroxysmal atrial fibrillation:
On rate control, beta-blockers
On anticoagulation, Xarelto
Hypertension:
Continue home antihypertensives
Hyperlipidemia:
Continue home statin
Trend LFTs
Depression anxiety:
Will resume home antidepressant
DVT prophylaxis:
Xarelto-currently on hold. SCDs for now
CODE STATUS:
Full code
Total Critical Care Time___55__ minutes. I was immediately available to the patient and staff. I personally examined, reviewed labs, diagnostic images/reports, interpretations, treatment plans, discussed patient care with other providers and
family or caregivers (if patient is unable to make decisions), entered orders as appropriate and documented the medical record.
[2025-06-16 16:55] LABS: B.E. -0.1 mmol/L; HCO3 26.8 mmol/L (21-28); O2 Saturation % 98.0 % (94-98); PCO2 52 mmHg (32-35); PO2 80 mmHg (83-108)
--- NOTE | 2025-06-16 19:27 | PTCARENOTE ---
Patient received from the ED via stretcher accompanied by RN x 2, transferred and admitted to ICU 3361. Placed on CM, Afib on CM. See cloth painter charted on worklist flowsheet. Patient is currently awake and alert, cooperative and oriented.
However, noted that some conversation is confused and she is forgetful. Sats 98% on 4L/nc, decreased oxygen to 2L/nc. BBS diminished with right lung with fine scattered crackles t/o and left lung with expiratory wheezes. Prolonged expiratory phase.
S1S2 distant. Positive pulses x 4 extremities, BLE edema 2+. Abdomen obese with positive bowel sounds. Left buttock with area of purplish discoloration that is blanchable. Right knee with abrasions secondary to old fall. Perineum/labia with MASD.
Purewick catheter in place. IVF hung per order. IV sites left arm x 2 with good blood return and flush easily. Currently denies pain. During conversation, patient falls asleep. Rouses easily but falls asleep easily. Labs and orders noted. Bed in low
and locked position, bed alarm on, call rosas within reach.
[2025-06-16] MEDS: LR 1000 IV (19:39)
[2025-06-16 20:12] LABS: Magnesium 1.8 mg/dl (1.6-2.3)
[2025-06-16 20:58] LABS: INR 1.60; PT 19.3 Sec (11.4-14.6)
[2025-06-16 20:59] LABS: APTT 36.5 Sec (23.4-35.0)
--- NOTE | 2025-06-16 23:30 | PTCARENOTE ---
Patient appears to be sleeping comfortably, lying still, respirations with prolonged expiration and occasional snoring but non labored. Sats 97% on 2L/nc. Rouses from sleep easily. Repositioned. No complaints offered. No other notable change in
patient physical assessment. Afebrile, VSS.
[2025-06-17] VITALS (20 sets, daily range): BP systolic 109–165; BP diastolic 67–141; PULSE 73–74; O2SAT 99–100
[2025-06-17] MEDS: LR 1000 IV ×3 (02:57→20:02)
--- NOTE | 2025-06-17 04:00 | PTCARENOTE ---
Addendum entered by Negra Quintanilla RN 06/17/25 04:28:
Am labs drawn.
Original Note:
Patient has slept well t/o night. Rouses easily. Remains afebrile. HNV since arrival to ICU. Patient states slight urge to void but states is unfamiliar with purewick. Instructed with regard to external catheter. Advised will need to bladder scan if
unable to void soon. Verbalizes understanding. Occasional loose NPC. Sats 100% on 2L/nc. VSS. Afib on CM. BBS with fine scattered crackles and diminished t/o right, left lung diminished but clear. No c/o pain.
[2025-06-17 05:01] LABS: Blood Urea Nitrogen 12 mg/dl (7-17); Calcium 8.6 mg/dl (8.4-10.2); Carbon Dioxide 30 mmol/L (22-30); Chloride 105 mmol/L (98-107); Estimated Creatinine Clearance 113 ml/min; Glucose 98 mg/dl (70-99); Hematocrit 32.9 % (37.0-47.0); Hemoglobin 10.6 g/dL (12.0-16.0); Magnesium 1.9 mg/dl (1.6-2.3); Mean Corp Hgb Conc. 32.2 g/dL (33.0-37.0); Mean Corpuscular Volume 88.7 fL (81.0-99.0); Nucleated Red Blood Cells % 0 %; Platelet Count 181 10^3/uL (130-400); Potassium 3.5 mmol/L (3.5-5.1); Red Cell Dist. Width 12.6 % (11.5-14.5); Sodium 138 mmol/L (135-145); eGFR > 60.00
--- NOTE | 2025-06-17 05:30 | PTCARENOTE ---
Patient has yet to void. Denies discomfort with mild urge to void. Purewick in place. Bladder scanned for 411cc. Skyler DHILLON notified. Since patient is not uncomfortable will hold off on straight cath for now.
--- NOTE | 2025-06-17 07:12 | PTCARENOTE ---
Report given verbally to oncoming shift, Humberto TORRES. Bedside rounds complete. Questions answered.
[2025-06-17] MEDS: STERILE WATER FOR INJECTION 10 ML IV (08:44)
[2025-06-17] MEDS: ROCEPHIN 1000 MG IV (08:44)
--- NOTE | 2025-06-17 08:51 | PTOTSP ---
Speech-Language Therapy Evaluation
Pt seen for bedside swallow assessment. Pt presents with baseline right sided facial paralysis secondary to Lewis's Palsy. Oral phase WFL with adequate acceptance, mastication, bolus formation, transfers, and clearance. No overt s/sx of aspiration
observed. Pt at risk for aspiration given history of asthma, missing dentition, and current results of CXR (right lung consistent with pneumonia). Pt has a wet cough at baseline. Per pt report, wet cough started about a month ago. Results of CXR
06/16 indicated 'consolidative opacities with surrounding groundglass opacities throughout the right lung consistent with pneumonia.'�
Recommendations:�
1. IDDSI Level 7 Regular Solids, IDDSI Level 0 Thin liquids
2. Medication as best tolerated
3. Standard aspiration precautions
4. SALON ASSISTANT to follow up to ensure diet tolerance
[2025-06-17] MEDS: ZITHROMAX INFUSION 250 IV (09:28)
[2025-06-17] MEDS: SYMBICORT 160/4.5 MCG INHALER 1 PUFF INH (10:02)
[2025-06-17] MEDS: TOPROL XL 25 MG PO (10:38)
[2025-06-17] MEDS: DESENEX/MITRAZOL/ZEASORB 1 APPLIC TOPICAL ×2 (10:38→20:03)
[2025-06-17] MEDS: LIPITOR 40 MG PO (10:38)
[2025-06-17] MEDS: FEOSOL 650 MG PO (10:38)
[2025-06-17] MEDS: KCL 20 MEQ PO (10:39)
[2025-06-17] MEDS: PAXIL 40 MG PO (10:39)
[2025-06-17] MEDS: ZETIA 10 MG PO (10:39)
[2025-06-17] MEDS: ROXICODONE 10 MG PO ×3 (10:44→23:58)
[2025-06-17] MEDS: MS CONTIN (EXTENDED RELEASE) 15 MG PO (11:17)
--- NOTE | 2025-06-17 11:46 | W.PN.HOSP.TC ---
Today's Communication/Plan
-
Antibiotics. PT OT
Assessment / Plan
Assessment / Plan
Physical exam:
General: Acutely ill
HEENT: Normocephalic, Atraumatic and Moist Mucous Membranes
Respiratory: Crackles on the right base; Negative Wheezes, Rales or Rhonchi
Cardiac: Regular Rhythm and S1/S2
GI: Soft, Nontender and Nondistended
Musculoskeletal: No Clubbing, No Cyanosis and No Edema
Neuro: Awake, Alert and Oriented, no neurological deficit
Psych: Calm
A/P:
Sepsis due to pneumonia:
Continue IV antibiotics
Stop IV fluid
Transfer out of ICU
PT OT eval
Acute toxic metabolic encephalopathy:
Improved
Back to her baseline
Resume rest of chronic medications including narcotics and benzos and monitor
Chronic pain with narcotic dependence:
Resume her medications
Paroxysmal atrial fibrillation:
On rate control, beta-blockers
On anticoagulation, Xarelto
Hypertension:
Resume home antihypertensives
Hyperlipidemia:
Continue home statin
Trend LFTs
Depression anxiety:
Will resume home antidepressant
DVT prophylaxis:
Xarelto
CODE STATUS:
Full code
Total time spent on today's encounter was 55 minutes which included time spent in counseling the patient/family regarding diagnosis and treatment plan as listed above, goals of care, and symptom management. Case was discussed with nursing staff,
specialists, and care coordinators/case management. All labs and imaging personally reviewed by me. Remainder the time spent in detailed review of previous records, lab data, imaging, and other medical provider documentation.
Anticipated Discharge: 24 - 48 hours
Subjective/Interval History
-
Date of Service: June 17, 2025
Patient more alert today. She is having some cough with yellow and greenish sputum production. Feels better overall today.
Objective Data
-
Labs:
Laboratory Results
06/17/25
04:03
WBC 6.9
Hgb 10.6 L
Hct 32.9 L
Plt Count 181 D
Sodium 138
Potassium 3.5
Chloride 105
Carbon Dioxide 30
BUN 12
Creatinine 0.7
Glucose 98
Calcium 8.6
Vital Signs:
Vital Signs
Temp Pulse Resp BP Pulse Ox
99 F 75 18 157/93 98
06/17/25 11:09 06/17/25 11:19 06/17/25 11:19 06/17/25 11:19 06/17/25 11:00
I&O
06/16/25 06/17/25 06/18/25
06:59 06:59 06:59
Intake Total 50 / 50
Balance 50 / 50
--- NOTE | 2025-06-17 14:06 | CM ---
Initial assessment completed with patient who lives with her mother in a 1 story home with no basement, 1 step to enter. BEADER patient was independent in ADL's and ambulation with the use of a RW all the time. She also has an electric w/ch and
rollator. No in-home services. No VA benefits. No psychiatric hospitalizations. No HC-POA. PROOFER APPRENTICE is Bree Martinez. Pharmacy is [facility] on [address] in [place].
Discharge POC: NN vs HH.
--- NOTE | 2025-06-17 15:17 | TRANSFER ---
Report given to RN, patient transferred with all belongings via bed accompanied by RN and PCT. Transferred directly to room 336-1.
--- NOTE | 2025-06-17 15:26 | PTCARENOTE ---
Patient transferred from ICU to 3 West this shift. Report received from BRIAN Paul. Patient oriented to room and staff. No pain reported at this time, all needs met. Plan of care ongoing.
[2025-06-17] MEDS: NEURONTIN 600 MG PO ×2 (16:03→21:18)
[2025-06-17] MEDS: XARELTO 20 MG PO (17:30)
[2025-06-17] MEDS: SINGULAIR 10 MG PO (21:18)
[2025-06-18] MEDS: XANAX 1 MG PO
[2025-06-18] MEDS: SYMBICORT 160/4.5 MCG INHALER 1 PUFF INH ×3 (00:16→20:10)
[2025-06-18 03:15] VITALS: BP 156/78
[2025-06-18 06:36] LABS: Hematocrit 34.0 % (37.0-47.0); Hemoglobin 11.2 g/dL (12.0-16.0); Mean Corp Hgb Conc. 32.9 g/dL (33.0-37.0); Mean Corpuscular Volume 87.6 fL (81.0-99.0); Nucleated Red Blood Cells % 0 %; Platelet Count 190 10^3/uL (130-400); Red Cell Dist. Width 12.5 % (11.5-14.5)
[2025-06-18 07:01] LABS: ALT (SGPT) 15 U/L (0-35); AST (SGOT) 17 U/L (14-36); Albumin 3.2 g/dl (3.5-5.0); Alkaline Phosphatase 107 U/L (38-126); Blood Urea Nitrogen 7 mg/dl (7-17); Calcium 8.6 mg/dl (8.4-10.2); Carbon Dioxide 29 mmol/L (22-30); Chloride 106 mmol/L (98-107); Estimated Creatinine Clearance > 125 ml/min; Glucose 87 mg/dl (70-99); Potassium 3.3 mmol/L (3.5-5.1); Sodium 140 mmol/L (135-145); Total Protein 5.4 g/dl (6.3-8.2); eGFR > 60.00
--- NOTE | 2025-06-18 07:20 | W.PN.HOSP.TC ---
Today's Communication/Plan
-
Antibiotics. Discharge planning
Assessment / Plan
Assessment / Plan
Physical exam:
General: No acute distress. Nontoxic appearance
HEENT: Normocephalic, Atraumatic and Moist Mucous Membranes
Respiratory: Clear to auscultation bilateral; Negative Wheezes, Rales or Rhonchi
Cardiac: Regular Rhythm and S1/S2
GI: Soft, Nontender and Nondistended
Musculoskeletal: No Clubbing, No Cyanosis and No Edema
Neuro: Awake, Alert and Oriented, no neurological deficit
Psych: Calm
A/P:
Sepsis due to pneumonia:
Improving
Continue IV antibiotics, Rocephin and azithromycin. Will change to oral cefdinir and azithromycin tomorrow.
Off IV fluid
PT OT recommends skilled rehab. Patient hesitant and would like to go home but she understands that she is very weak so we will reevaluate over the next 24 hours. She needs moderate to max assistance today for mobility assistance. She is also the
caregiver for her mother.
Acute toxic metabolic encephalopathy:
Improved
Back to her baseline
Resume rest of chronic medications including narcotics and benzos and stable so far
Hypokalemia:
Replete extra and trend in a.m.
Check mag level
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
Resumed her chronic narcotic medications and doing well
Paroxysmal atrial fibrillation:
On rate control, beta-blockers
On anticoagulation, Xarelto
Hypertension:
Continue home antihypertensives
Hyperlipidemia:
Continue home statin
Depression anxiety:
Continue home antidepressant
DVT prophylaxis:
Xarelto
CODE STATUS:
Full code
Time spent 36 minutes
Anticipated Discharge: Within 24 hours
Subjective/Interval History
-
Date of Service: June 18, 2025
Patient overall much better. Less cough and shortness of breath. No chest pain. Afebrile. Generalized weakness present. On room air
Objective Data
-
Labs:
Laboratory Results
06/18/25
05:24
WBC 6.0
Hgb 11.2 L
Hct 34.0 L
Plt Count 190
Sodium 140
Potassium 3.3 L
Chloride 106
Carbon Dioxide 29
BUN 7
Creatinine 0.6
Glucose 87
Calcium 8.6
Total Bilirubin 0.7
AST 17
ALT 15
Alkaline Phosphatase 107
Vital Signs:
Vital Signs
Temp Pulse Resp BP Pulse Ox
98.5 F 62 16 156/78 95
06/18/25 03:15 06/18/25 03:15 06/18/25 03:15 06/18/25 03:15 06/18/25 03:15
I&O
06/17/25 06/18/25 06/19/25
06:59 06:59 06:59
Intake Total 50 / 50 240 / 240
Output Total 1100 / 1100
Balance 50 / 50 -860 / -860
[2025-06-18 08:09] VITALS: BP 137/67
[2025-06-18] MEDS: MS CONTIN (EXTENDED RELEASE) 15 MG PO (09:07)
[2025-06-18] MEDS: ZETIA 10 MG PO (09:07)
[2025-06-18] MEDS: TOPROL XL 25 MG PO (09:07)
[2025-06-18] MEDS: NEURONTIN 600 MG PO ×3 (09:07→21:09)
[2025-06-18] MEDS: LIPITOR 40 MG PO (09:08)
[2025-06-18] MEDS: KCL 40 MEQ PO (09:08)
[2025-06-18] MEDS: KCL 20 MEQ PO (09:08)
[2025-06-18] MEDS: FEOSOL 650 MG PO (09:09)
[2025-06-18] MEDS: PAXIL 40 MG PO (09:09)
[2025-06-18] MEDS: DESENEX/MITRAZOL/ZEASORB 1 APPLIC TOPICAL ×2 (09:12→21:08)
[2025-06-18] MEDS: ZITHROMAX INFUSION 250 IV (10:19)
[2025-06-18] MEDS: ROCEPHIN 1000 MG IV (10:21)
[2025-06-18] MEDS: STERILE WATER FOR INJECTION 10 ML IV (10:21)
--- NOTE | 2025-06-18 10:53 | VATNOTE ---
Attempted PIV restart x2 unsuccessfully, 2nd VAT RN to attempt.
[2025-06-18 12:19] VITALS: BP 152/80
--- NOTE | 2025-06-18 12:57 | PTCARENOTE ---
pt with less cough, less SOB, still weak. requiring mod assists x2 with rolling walker with transfer from bed to [facility], has refused to sit oob as recommended. vss, will continue to monitor.
[2025-06-18] MEDS: ROXICODONE 10 MG PO (15:31)
[2025-06-18 16:17] VITALS: BP 117/86
[2025-06-18] MEDS: XARELTO 20 MG PO (17:06)
[2025-06-18 19:10] VITALS: BP 121/71
[2025-06-18] MEDS: SINGULAIR 10 MG PO (21:09)
[2025-06-18 23:04] VITALS: BP 144/80
[2025-06-19] VITALS (8 sets, daily range): BP systolic 108–166; BP diastolic 63–108; PULSE 63–65; O2SAT 97–98; BMI 46.8
[2025-06-19] MEDS: ROXICODONE 10 MG PO ×3 (00:10→21:21)
[2025-06-19] MEDS: SYMBICORT 160/4.5 MCG INHALER 2 PUFF INH ×2 (07:27→19:19)
[2025-06-19 07:38] LABS: Hematocrit 34.8 % (37.0-47.0); Hemoglobin 11.2 g/dL (12.0-16.0); Mean Corp Hgb Conc. 32.2 g/dL (33.0-37.0); Mean Corpuscular Volume 85.9 fL (81.0-99.0); Nucleated Red Blood Cells % 0 %; Platelet Count 195 10^3/uL (130-400); Red Cell Dist. Width 12.6 % (11.5-14.5)
[2025-06-19 08:01] LABS: Blood Urea Nitrogen 7 mg/dl (7-17); Calcium 8.8 mg/dl (8.4-10.2); Carbon Dioxide 30 mmol/L (22-30); Chloride 106 mmol/L (98-107); Estimated Creatinine Clearance > 125 ml/min; Glucose 104 mg/dl (70-99); Magnesium 2.0 mg/dl (1.6-2.3); Potassium 3.7 mmol/L (3.5-5.1); Sodium 140 mmol/L (135-145); eGFR > 60.00
[2025-06-19] MEDS: NEURONTIN 600 MG PO ×3 (08:19→22:31)
[2025-06-19] MEDS: ZITHROMAX 500 MG PO (08:21)
[2025-06-19] MEDS: PAXIL 40 MG PO (08:21)
[2025-06-19] MEDS: LIPITOR 40 MG PO (08:21)
[2025-06-19] MEDS: OMNICEF 300 MG PO ×2 (08:22→20:26)
[2025-06-19] MEDS: MS CONTIN (EXTENDED RELEASE) 15 MG PO (08:23)
[2025-06-19] MEDS: ZETIA 10 MG PO (08:23)
[2025-06-19] MEDS: TOPROL XL 25 MG PO (08:23)
[2025-06-19] MEDS: KCL 20 MEQ PO (08:23)
[2025-06-19] MEDS: FEOSOL 650 MG PO (08:24)
[2025-06-19] MEDS: DESENEX/MITRAZOL/ZEASORB 1 APPLIC TOPICAL ×2 (08:25→20:26)
[2025-06-19] MEDS: XANAX 1 MG PO ×2 (12:30→22:31)
--- NOTE | 2025-06-19 13:24 | W.PN.HOSP.TC ---
Today's Communication/Plan
-
Continue antibiotic
Discharge tomorrow
Assessment / Plan
Assessment / Plan
A/P:
Sepsis due to pneumonia:
Improving
Continue IV antibiotics, Rocephin and azithromycin. Will change to oral cefdinir and azithromycin tomorrow.
Off IV fluid
PT OT recommends skilled rehab. Patient hesitant and would like to go home but she understands that she is very weak so we will reevaluate over the next 24 hours. She needs moderate to max assistance today for mobility assistance. She is also the
caregiver for her mother.
Discharge tomorrow
Acute toxic metabolic encephalopathy:
Improved
Back to her baseline
Resume rest of chronic medications including narcotics and benzos and stable so far
Hypokalemia:
Replete extra and trend in a.m.
Check mag level
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
Resumed her chronic narcotic medications and doing well
Paroxysmal atrial fibrillation:
On rate control, beta-blockers
On anticoagulation, Xarelto
Hypertension:
Continue home antihypertensives
Hyperlipidemia:
Continue home statin
Depression anxiety:
Continue home antidepressant
CODE STATUS: Full code
DVT prophylaxis: Xarelto
Diet: Regular diet
Total time spent on today's encounter was 55 minutes which included time spent in counseling the patient/family regarding diagnosis and treatment plan as listed above, goals of care, and symptom management. Case was discussed with nursing staff,
specialists, and care coordinators/case management. All labs and imaging personally reviewed by me. Remainder the time spent in detailed review of previous records, lab data, imaging, and other medical provider documentation.
Anticipated Discharge: Within 24 hours
Subjective/Interval History
-
Date of Service: June 19, 2025
Patient seen and examined at bedside, denies any chest pain, improved coughing and shortness of breath, no abdominal pain, no nausea, no vomiting, no diarrhea or constipation.
Objective Data
-
Labs:
Laboratory Results
06/19/25
07:17
WBC 5.2
Hgb 11.2 L
Hct 34.8 L
Plt Count 195
Sodium 140
Potassium 3.7
Chloride 106
Carbon Dioxide 30
BUN 7
Creatinine 0.6
Glucose 104 H
Calcium 8.8
Vital Signs:
Vital Signs
Temp Pulse Resp BP Pulse Ox
99.9 F 71 18 123/76 98
06/19/25 11:00 06/19/25 11:00 06/19/25 11:00 06/19/25 11:00 06/19/25 11:00
I&O
06/18/25 06/19/25 06/20/25
06:59 06:59 06:59
Intake Total 240 / 240 480 / 480
Output Total 1100 / 1100
Balance -860 / -860 480 / 480
Physical Exam
-
General: Well Developed, Well Nourished, No Apparent Distress and Comfortable
HEENT: Normocephalic, Atraumatic, Moist Mucous Membranes, No Ptosis, PERRLA and Nose Appears Normal
Respiratory: Rales, Rhonchi and Non Labored Respirations
Cardiac: Regular Rhythm and S1/S2
Breast: Deferred by me
GI: Soft, Nontender, Nondistended and Normal Bowel Sounds
Genito-urinary: No Costovertebral Tender
Musculoskeletal: No Clubbing, No Cyanosis and No Edema
Skin: Warm
Neuro: Awake, Alert, Oriented, AO x 3 and No Motor Deficits
Psych: Calm
--- NOTE | 2025-06-19 14:36 | CM ---
CM following for discharge planning. Concepcion is agreeable to home health services at discharge and has chosen [facility].
Order for home care requested for insurance authorization.
Plan: Pt to return home tomorrow with [facility].
--- NOTE | 2025-06-19 14:53 | VNURNOTE ---
Home Health Liaison met with patient at bedside to discuss [facility] nurse/therapy, visits, schedule and homebound status. Patient is agreeable and understands that visits at home will be 2-3 x per week to assess and teach medical management. Patient
is aware that [facility] will contact them for start of care in 1-2 days after discharge from . Provided contact number for [facility].
[facility] referral completed in [facility].
[2025-06-19] MEDS: XARELTO 20 MG PO (17:14)
[2025-06-19] MEDS: SINGULAIR 10 MG PO (22:31)
[2025-06-20 03:04] VITALS: BP 133/80
[2025-06-20] MEDS: ROXICODONE 10 MG PO ×2 (04:59→14:45)
[2025-06-20 07:00] VITALS: BP 158/91
[2025-06-20] MEDS: SYMBICORT 160/4.5 MCG INHALER INH (07:58)
[2025-06-20] MEDS: DESENEX/MITRAZOL/ZEASORB 1 APPLIC TOPICAL (08:00)
[2025-06-20] MEDS: MS CONTIN (EXTENDED RELEASE) 15 MG PO (08:00)
[2025-06-20] MEDS: ZITHROMAX 500 MG PO (08:01)
[2025-06-20] MEDS: LIPITOR 40 MG PO (08:01)
[2025-06-20] MEDS: KCL 20 MEQ PO (08:01)
[2025-06-20] MEDS: FEOSOL 650 MG PO (08:01)
[2025-06-20] MEDS: OMNICEF 300 MG PO (08:01)
[2025-06-20] MEDS: NEURONTIN 600 MG PO ×2 (08:01→16:24)
[2025-06-20] MEDS: PAXIL 40 MG PO (08:02)
[2025-06-20] MEDS: ZETIA 10 MG PO (08:02)
[2025-06-20] MEDS: TOPROL XL 25 MG PO (08:03)
[2025-06-20 09:03] LABS: Hematocrit 36.3 % (37.0-47.0); Hemoglobin 11.9 g/dL (12.0-16.0); Mean Corp Hgb Conc. 32.8 g/dL (33.0-37.0); Mean Corpuscular Volume 85.8 fL (81.0-99.0); Platelet Count 195 10^3/uL (130-400); Red Cell Dist. Width 12.5 % (11.5-14.5)
--- NOTE | 2025-06-20 09:34 | W.DCSUMMARY ---
Addendum entered and electronically signed by Edmundo Romero MD 06/21/25 12:35:
BMI: 46.8
Morbid obesity, POA
Original Note:
Discharge Summary
Discharge Data
Date of Admission: 06/16/25
Date of Discharge: 06/20/25
Total time spent discharging patient (in min): 40
-
Pending Results: No
Hospital Course
Physical Exam
-
General: Well Developed, Well Nourished, No Apparent Distress and Comfortable
HEENT: Normocephalic, Atraumatic, Moist Mucous Membranes, No Ptosis, PERRLA and Nose Appears Normal
Respiratory: Rales, Rhonchi, wheezing and Non Labored Respirations
Cardiac: Regular Rhythm and S1/S2
Breast: Deferred by me
GI: Soft, Nontender, Nondistended and Normal Bowel Sounds
Genito-urinary: No Costovertebral Tender
Musculoskeletal: No Clubbing, No Cyanosis and No Edema
Skin: Warm
Neuro: Awake, Alert, Oriented, AO x 3 and No Motor Deficits
Psych: Calm
Hospital course
Patient is 65 years old female history of hypertension, hyperlipidemia, A-fib, asthma, Lewis's palsy, TIA, came into the hospital with fever and mental status changes. Unable to obtain accurate information from patient due to her mental status. She
does open eyes to verbal stimuli but then quickly falls asleep. She is semi-obtunded and diaphoretic but at time of my evaluation but she also had received some Narcan. I discussed with the ER physician at bedside as well. She moves spontaneously
all 4 extremities. As per report patient has been complaining of cough and shortness of breath for the last few days and she has been having some generalized weakness. She was noticed to have fever in the ER 100.6 Fahrenheit. Patient also was
noted to have white count of 18,000 and tachypneic. She is on chronic narcotics and given Narcan. Chest x-ray no acute chest pathology and CT scan of the chest ordered. She was also given broad-spectrum IV antibiotics and IV fluids. She had a CT
scan of the head. She was referred to the hospitalist service for further evaluation.
Patient started on IV antibiotic, mental status continue to improve, seen by physical therapy recommended rehab but patient wants to go home.
Will discharge home on cefdinir and azithromycin to complete antibiotic course for pneumonia.
Arrange for home health nurse.
During hospitalization patient was treated from the following
Sepsis due to pneumonia:
Improving
Continue IV antibiotics, Rocephin and azithromycin. Will change to oral cefdinir and azithromycin tomorrow.
Off IV fluid
PT OT recommends skilled rehab. Patient hesitant and would like to go home but she understands that she is very weak so we will reevaluate over the next 24 hours. She needs moderate to max assistance today for mobility assistance. She is also the
caregiver for her mother.
Discharge tomorrow
Acute toxic metabolic encephalopathy:
Improved
Back to her baseline
Resume rest of chronic medications including narcotics and benzos and stable so far
Hypokalemia:
Replete extra and trend in a.m.
Check mag level
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
Resumed her chronic narcotic medications and doing well
Paroxysmal atrial fibrillation:
On rate control, beta-blockers
On anticoagulation, Xarelto
Hypertension:
Continue home antihypertensives
Hyperlipidemia:
Continue home statin
Depression anxiety:
Continue home antidepressant
CODE STATUS: Full code
DVT prophylaxis: Xarelto
Diet: Regular diet
Total time spent on today's encounter was 40 minutes which included time spent in counseling the patient/family regarding diagnosis and treatment plan as listed above, goals of care, and symptom management. Case was discussed with nursing staff,
specialists, and care coordinators/case management. All labs and imaging personally reviewed by me. Remainder the time spent in detailed review of previous records, lab data, imaging, and other medical provider documentation.
Anticipated Discharge: Today
Discharge Plan
-
Patient Disposition: Home with Home Care
Discharge Diagnosis/Procedures: Sepsis due to pneumonia.
Acute toxic metabolic encephalopathy.
Hypokalemia
Diet: As tolerated
Activity: As tolerated
Other Services: PT and OT
Referrals:
Bree Martinez CRNP [Family Provider, General]
Prescriptions:
New
azithromycin 250 mg Tablet
500 mg PO DAILY 3 Days Qty: 6 0RF
cefdinir 300 mg Capsule
300 mg PO Q12 5 Days Qty: 10 0RF
Continued
cyclobenzaprine 10 mg Tablet
10 mg PO TIDPRN PRN (Reason: spasms)
atorvastatin [Lipitor] 40 mg Tablet
40 mg PO DAILY
gabapentin 600 mg Tablet
600 mg PO TID
alprazolam [Xanax] 1 mg Tablet
1 mg PO TIDPRN PRN (Reason: anxiety)
ferrous sulfate 325 mg (65 mg iron) Tablet
650 mg PO DAILY
montelukast [Singulair] 10 mg Tablet
10 mg PO HS
morphine 15 mg Tablet Extended Release
15 mg PO DAILY
metoprolol succinate [Toprol XL] 25 mg Tablet Extended Release 24 Hr
25 mg PO DAILY
paroxetine HCl [Paxil] 40 mg Tablet
40 mg PO DAILY
ezetimibe [Zetia] 10 mg Tablet
10 mg PO DAILY
budesonide-formoterol [Symbicort] 160-4.5 mcg/actuation Hfa Aerosol Inhaler
1 inh INHALATION BID
oxycodone 10 mg Tablet
10 mg PO Q6HPRN PRN (Reason: severe pains)
Xarelto 20 mg Tablet
20 mg PO DAILY
potassium chloride 20 mEq Tablet Extended Release
20 meq PO DAILY
Discharge Orders:
Discharge Patient (As Directed); Ordered 06/20/25
Ordered By: Edmundo Romero
Discharge Date and Time
Print Language: MALTESE
[2025-06-20 09:49] LABS: Blood Urea Nitrogen 6 mg/dl (7-17); Calcium 9.0 mg/dl (8.4-10.2); Carbon Dioxide 32 mmol/L (22-30); Chloride 105 mmol/L (98-107); Estimated Creatinine Clearance > 125 ml/min; Glucose 91 mg/dl (70-99); Potassium 4.0 mmol/L (3.5-5.1); Sodium 139 mmol/L (135-145); eGFR > 60.00
[2025-06-20 11:00] VITALS: BP 135/65
--- NOTE | 2025-06-20 14:50 | PN.CDI ---
CDI
- -
CDI:
Physician Documentation Request
Admit Date: 06/16/25 17:41
Dear Doctor Heather,
Patient admitted with sepsis.
Please review the following and provide your response in the progress notes.
Clinical Indicators:
Height: 5'6'
Weight: 290 lb 2 oz
BMI: 46.8
If possible, please provide an associated diagnosis related to the abnormal BMI, such as:
Morbid obesity
Obesity
Other
BMI > or = to 40
Overweight
Obesity:
Due to excess calories
Drug induced
Due to other cause
Severe or morbid obesity:
With alveolar hypoventilation (Obesity hypoventilation syndrome)
Without alveolar hypoventilation
Use of terms such as suspected, likely, concern for, or probable (associated with a specific diagnosis that is being evaluated, monitored, or treated as if it exists) are acceptable and can be coded in the inpatient setting, when documented at the
time of discharge.
Thank you,
Shiloh PADILLA,RN,CCDS
CDI Specialist
Available via [employer] text
Please use your independent medical judgment in providing your response.
[2025-06-20 15:00] VITALS: BP 136/68
== END 2025-06-20 16:59 | disposition home health service (06) | DRG 871 ==
LOC: 3 WEST ACU 17:41
PROVIDERS: ADMITTING PHYSICIAN Hospitalist; ATTENDING PHYSICIAN General Practice; EMERGENCY PHYSICIAN Emergency Medicine; FAMILY PHYSICIAN Nurse Practitioner Adult Health
DX: A41.9 Sepsis, unspecified organism (principal); G92.8 Other toxic encephalopathy; J69.0 Pneumonitis due to inhalation of food and vomit; J44.0 Chronic obstructive pulmonary disease with (acute) lower respiratory infection; F11.20 Opioid dependence, uncomplicated; Z68.42 Body mass index [BMI] 45.0-49.9, adult; I10 Essential (primary) hypertension; E66.01 Morbid (severe) obesity due to excess calories; E78.5 Hyperlipidemia, unspecified; I48.0 Paroxysmal atrial fibrillation; E87.6 Hypokalemia; F32.A Depression, unspecified; F41.9 Anxiety disorder, unspecified; G51.0 Bell's palsy; G89.29 Other chronic pain; Z79.01 Long term (current) use of anticoagulants; Z79.51 Long term (current) use of inhaled steroids; Z79.899 Other long term (current) drug therapy; Z11.52 Encounter for screening for COVID-19; Z86.73 Personal history of transient ischemic attack (TIA), and cerebral infarction without residual deficits
CPT/HCPCS: 70450; 71045; 71250; 80048; 80053; 81003; 81015; 82805; 83605; 83735; 84100; 85025; 85027; 85610; 85730; 87040; 87070; 87086; 87147; 87186; 87205; 87502; 87811; 92610; 93005; 94640; 96361; 96365; 96375; 96376; 97116; 97163; 97167; 97535; 99285

== ENCOUNTER 2025-06-27 13:38 | Inpatient (IN) | payer OTHER, SELFPAY ==
[2025-06-27] VITALS (10 sets, daily range): BP systolic 95–157; BP diastolic 51–83; BMI 48.2
[2025-06-27 07:43] LABS: Hematocrit 37.5 % (37.0-47.0); Hemoglobin 12.0 g/dL (12.0-16.0); Mean Corp Hgb Conc. 32.0 g/dL (33.0-37.0); Mean Corpuscular Volume 87.6 fL (81.0-99.0); Nucleated Red Blood Cells % 0 %; Platelet Count 203 10^3/uL (130-400); Red Cell Dist. Width 13.1 % (11.5-14.5)
[2025-06-27 07:58] LABS: ALT (SGPT) 11 U/L (0-35); AST (SGOT) 18 U/L (14-36); Albumin 4.1 g/dl (3.5-5.0); Alkaline Phosphatase 100 U/L (38-126); Blood Urea Nitrogen 11 mg/dl (7-17); Calcium 9.3 mg/dl (8.4-10.2); Carbon Dioxide 29 mmol/L (22-30); Chloride 101 mmol/L (98-107); Estimated Creatinine Clearance 115 ml/min; Glucose 121 mg/dl (70-99); Potassium 3.8 mmol/L (3.5-5.1); Sodium 135 mmol/L (135-145); Total Protein 6.7 g/dl (6.3-8.2); eGFR > 60.00
--- NOTE | 2025-06-27 08:02 | ED.GENMED ---
History of Present Illness
General
Chief Complaint: Fever
Source: patient and records
Exam Limitations: none
Time Seen by Provider: 06/27/25 07:52
History of Present Illness
History of Present Illness:
65yoF with a history of atrial fibrillation, hypertension, hyperlipidemia, TIA, asthma, and chronic back pain on oxycodone presenting via EMS for evaluation of confusion. Patient was recently hospitalized from 06/16-06/20/25 after presenting for
mental status change and fever. She was treated for pneumonia during her hospitalization with IV Rocephin and azithromycin. Physical therapy recommended rehab which patient declined. Patient states her fevers have continued since being
discharged. She was discharged in cefdinir and azithromycin which she states she finished yesterday. She reports generalized malaise but denies other symptoms. She is wheezing on arrival which patient states she gets from time to time from the
weather changes. She denies any chest pain, shortness of breath, abdominal pain, vomiting, diarrhea, dysuria.
Phy Exam
General Physical Exam
General Presentation: no apparent distress
General age: appears older than age
General Skin: warm and dry
General Habitus: elderly
General Mental: alert
ENT Exam
ENT Exam: normocephalic
Cardiovascular Exam
Cardiovascular Exam: regular rate/rhythm
Pulmonary Exam
Pulmonary Exam: generalized wheezing and other (Diffuse wheezing and cough noted. Speaking in full sentences without difficulty. )
Gastrointestinal Exam
Gastrointestinal Exam: non tender, soft and non distended
Neurological Exam
Neurological Exam: other (Oriented to person and place. Able to state that it is June but thought 2020 was the year. )
Skin Exam
Skin Exam: normal color and warm/dry
Psychiatric Exam
Psychiatric Exam: normal mood/affect
Course
Orders/Labs/Results
Orders:
Orders
06/27/25 07:29
Electrocardiogram (*1) Urgent
Reason for Study: Other
Other Reason for Exam: Possible Sepsis
Cardiac Monitoring- Treatment ONCE
CR Chest - 2 Views Urgent
Comment:
Reason For Exam: suspected infection
06/27/25 07:30
EKG- Treatment ONCE
06/27/25 07:31
Complete Blood Count/With Diff Urgent
Comprehensive Metabolic Panel Urgent
Lactic Acid Q4H
Comment: ON ICE, CANCEL 2ND ORDER IF FIRST LACTIC ACID LEVEL <2
Blood Culture Q20M
RAYMUNDO Source: Blood/Venous
Specimen Description:
Comment: Urgent from separate sites. If patient screens positive for possible sepsis
06/27/25 07:33
COVID-19 Antigen Urgent
Source: Nasal Swab
Blood Culture Q20M
RAYMUNDO Source: Blood/Venous
Specimen Description:
Comment: Urgent from separate sites. If patient screens positive for possible sepsis
Influenza A+B Rapid Molecular Urgent
RAYMUNDO Source: Nasal Swab
Specimen Description:
06/27/25 08:01
0.9% Sodium Chloride 1000 ml [Nss] 1,000 ml IV BOLUS
Acetaminophen [Tylenol] 1,000 mg PO NOW STA
06/27/25 09:23
Cefepime HCl [Maxipime] 2,000 mg IV NOW STA
06/27/25 09:27
CT Chest W/o Iv Contrast Urgent
Comment:
Reason For Exam: fever, suspected pneumonia
06/27/25 09:49
Urinalysis Reflex To Culture Urgent
Date Specimen was Collected: 06/27/25
Time Specimen was Collected: 09:27
Urine Microscopic Reflex Cult Urgent
Urine Culture Urgent
RAYMUNDO Source: U
Specimen Description:
Date Specimen was Collected: 06/27/25
Time Specimen was Collected: 09:27
06/27/25 09:57
Vancomycin [Vancocin] 2,000 mg 0.9% Sodium Chloride 500 ml [Nss] 500 ml IV NOW
06/27/25 11:30
Lactic Acid Q4H
Comment: ON ICE, CANCEL 2ND ORDER IF FIRST LACTIC ACID LEVEL <2
06/27/25 12:02
Oxycodone [Roxicodone] 10 mg PO NOW STA
06/27/25 13:02
Admit/Transfer Patient As Directed
Co-Sign Provider:
Level of Care: Inpatient admission
Assign to:: Telemetry
Physician / Group: rashel
Diagnosis: sepsis pneumonia
Reason for Telemetry: Arrhythmia
Date to Stop Telemetry: 06/30/25
Time to Stop Telemetry: 11:00
Reason for Hospitalization: sepsis pneumonia
Expected length of stay greater than two midnights?: Yes
ELOS- Estimated Length of Stay in days: 2
I certify the patient meets the requirements for IP care: Yes
Code Status As Directed
Resuscitation Status: Full Code
PRN Pain Medication Management As Directed
May give lesser potent ordered pain med per pt: Yes
preference::
Protocol:: Medication orders for pain may be administered in a
manner that supports deferring to patient preference
when the pt is:
- Requesting an ordered lesser potent pain medication.
Least to most potent pain medications are defined
as: acetaminophen < NSAID < tramadol < opioids
(morphine, oxycodone, hydromorphone).
- Requesting a lesser dose of the same medication IF
ORDERED.
- Requesting a less intrusive route of administration
if both routes are prescribed by the provider (PO <
IV).
06/27/25 13:05
Legionella Urinary Antigen Urgent
RAYMUNDO Source: Urine
Specimen Description:
MRSA Screen Routine
RAYMUNDO Source: Nose
Specimen Description:
Respiratory Culture/Gram Stain Urgent
RAYMUNDO Source: Sputum
Specimen Description:
Strep pneumoniae Antigen Urgent
RAYMUNDO Source: Urine
Specimen Description:
06/30/25 11:00
DC Protocol for Telemetry ONCE
Abnormal Lab Results
06/27/25 06/27/25
07:31 09:49
WBC 14.1 H 10^3/uL
(4.8-10.8)
MCHC 32.0 L g/dL
(33.0-37.0)
Absolute Neuts (auto) 11.8 H 10^3/uL
(1.4-6.5)
Absolute Monos (auto) 0.7 H 10^3/uL
(0.1-0.6)
Neutrophils % 83.4 H %
(42.2-75.2)
Lymphocytes % 10.1 L %
(20.5-51.1)
Glucose 121 H mg/dl
(70-99)
Ur Occult Blood Reflex 2+ A
(Negative)
Leukocyte Esterase Rfl 2+ A
(Negative)
Urine Bacteria (Reflex) Few A
(Negative)
Urine Albumin (Reflex) 1+ A
(Neg - Trace)
06/27/25 07:31
06/27/25 07:31
Vital Signs
Initial and Last Documented VS:
Initial Vital Signs
Temp Pulse Resp Pulse Ox
102.3 F H 88 20 96
06/27/25 07:19 06/27/25 07:19 06/27/25 07:19 06/27/25 07:19
Last Documented Vital Signs
Temp Pulse Resp BP Pulse Ox
102.1 F H 89 13 117/79 94
06/27/25 10:50 06/27/25 13:00 06/27/25 13:00 06/27/25 13:00 06/27/25 12:00
MDM/Problems Addressed
Differential Diagnosis Includes:
65yoF presenting after daughter called EMS for confusion. Febrile to 102.3 on arrival. Recently hospitalized for similar presentation and treated for pneumonia. She is oriented to person and place. Thought it was 2020 but able to accurately state
month. Diffuse wheezing noted on lung exam. Differential diagnosis includes but is not limited to: Sepsis, pneumonia, UTI, viral syndrome
Initial ED plan: Septic workup including blood cultures, UA, COVID/flu swab, and chest x-ray. Tylenol and IV fluid bolus.
*Pulse Oximetry
SaO2: 94
Oxygen Mode of Delivery: Room air
Patient hypoxic: no
*Critical Care Note
Total Time (30-74mins, 75-104mins- exclusive of procedures): Not Applicable
Update Note
Update Note:
Labs reveal a leukocytosis with a white count of 14.1 with a left shift. Lactate normal. Viral testing negative. No overt signs of infection on urinalysis. Chest x-ray is limited although no obvious abnormalities noted. A follow-up chest CT was
ordered which shows nonspecific red glass opacities in the right lung which may represent pneumonia or pneumonitis. IV cefepime and vancomycin ordered. Patient admitted for further management.
ED Attending Note
-
Portions of this chart may have been created with voice recognition software.� Occasional wrong word or��sound alike� substitutions may have occurred due to the inherent limitations of voice recognition software.
Discharge Plan
Departure
Patient Disposition: Admit
Date of Disposition: 06/27/25
Time of Disposition: 12:33
Presentation/result/management discussed w/ accepting MD/DO: Hospitalist
Discharge Problem:
Sepsis
Interventions
Interventions:
*Risk Screen - Suicide Last Done: 06/27/25 07:19
*General Assessment Last Done: 06/27/25 07:19
*Neglect/Abuse Screening Last Done: 06/27/25 07:19
*ED- Fall Risk Assessment Last Done: 06/27/25 13:42
*ED COVID-19 Vaccine History Last Done: 06/27/25 07:19
*Nursing Disposition Last Done: 06/27/25 13:55
ED- Neurological Assessment Last Done: 06/27/25 07:39
ED-Skin Assessment Last Done: 06/27/25 07:39
[2025-06-27 08:05] LABS: COVID-19 Antigen Negative (Negative)
[2025-06-27] MEDS: TYLENOL 1000 MG PO (08:10)
[2025-06-27] MEDS: NSS 1000 IV ×2 (08:13→16:11)
[2025-06-27] MEDS: MAXIPIME 2000 MG IV (09:53)
[2025-06-27 10:04] LABS: Urine Character Clear (Clear)
[2025-06-27 10:43] LABS: Urine Squamous Cell >30 /LPF (Few)
[2025-06-27 10:44] LABS: Urine Urothelial Cell 0-2 /LPF (FEW)
--- NOTE | 2025-06-27 10:44 | PHANOTE ---
Med History Note
Patient unable to answer questions. Medication list compiled from pharmacy records. All have been filled within the time frame for medication fill and amount dispensed.
[2025-06-27 10:45] LABS: Urine Red Blood Cell 0-2 /HPF (0-2)
[2025-06-27] MEDS: VANCOCIN 540 MG IV (11:32)
[2025-06-27] MEDS: ROXICODONE 10 MG PO ×2 (12:05→21:59)
--- NOTE | 2025-06-27 13:06 | HPS.HSE ---
Family Physician
-
Family Physician: NOT KNOW UNKNOWN - PT DOES
Chief Complaint
-
Allergies
Allergy/AdvReac Type Severity Reaction Status Date / Time
carbamazepine (From Tegretol) Allergy Reports Verified 06/27/25 07:39
acts like
she's on
LSD.
moxifloxacin (From Avelox) Allergy Unknown Verified 06/27/25 07:39
Home Medications
alprazolam 1 mg tablet (Xanax) 1 mg PO TIDPRN PRN anxiety 06/16/25
atorvastatin 40 mg tablet (Lipitor) 40 mg PO DAILY High Cholesterol 06/16/25
budesonide-formoterol HFA 160 mcg-4.5 mcg/actuation aerosol inhaler (Symbicort) 1 inh inhalation BID Lung/Breathing Issues 06/16/25
cyclobenzaprine 10 mg tablet 10 mg PO TIDPRN PRN spasms 06/16/25
ezetimibe 10 mg tablet (Zetia) 10 mg PO DAILY High Cholesterol 06/16/25
ferrous sulfate 325 mg (65 mg iron) tablet 650 mg PO DAILY Supplement 06/16/25
gabapentin 600 mg tablet 600 mg PO TID Neurological Condition 06/16/25
metoprolol succinate 25 mg tablet,extended release 24 hr (Toprol XL) 25 mg PO DAILY Blood Pressure 06/16/25
montelukast 10 mg tablet (Singulair) 10 mg PO HS Allergies 06/16/25
morphine 15 mg tablet,extended release 15 mg PO DAILY Pain 06/16/25
oxycodone 10 mg tablet 10 mg PO Q6HPRN PRN severe pains 06/16/25
paroxetine HCl 40 mg tablet (Paxil) 40 mg PO DAILY Depression 06/16/25
potassium chloride 20 mEq tablet,extended release 20 meq PO DAILY Electrolyte Repletion 06/16/25
rivaroxaban 20 mg tablet (Xarelto) 20 mg PO DAILY Blood Clot Prevention/Tx 06/16/25
pantoprazole 40 mg tablet,delayed release 40 mg PO DAILY 06/27/25
History of Present Illness
65-year-old female past medical history of hypertension, hyperlipidemia, paroxysmal atrial fibrillation, asthma, Lewis's palsy, TIA, chronic pain with RSD, anxiety/depression presenting to the hospital for confusion and feeling wobbly. Sister called
[phone].
She has cough which is improved from recent admission.
She was recently hospitalized from 06/16 to 06/20 for mental status change and fever. She was treated for pneumonia Rocephin and azithromycin. Physical therapy recommended rehab which patient declined. Her fevers have continued since being
discharged. Discharged on cefdinir and azithromycin which she completed yesterday. She has generalized malaise but denies any other complaints. She is wheezing on arrival. She denies any chest pain or shortness of breath or abdominal pain or
vomiting or diarrhea or urinary symptoms.
Denies smoking or alcohol use.
Medical History
Past Medical History
Past Medical History: Reports Other (hypertension, hyperlipidemia, paroxysmal atrial fibrillation, asthma, Lewis's palsy, TIA, chronic pain with RSD, anxiety/depression)
Past Surgical History: Reports None
Social History
Tobacco: Non-smoker
Alcohol: None
Drug: None
Family History
Family History: Not pertinent
Allergies / Home Medications
Allergies reflects when Allergies were last updated in [facility].
Home Medications with original date entered in [facility]
Allergy/Medication List:
Allergies
Allergy/AdvReac Type Severity Reaction Status Date / Time
carbamazepine (From Tegretol) Allergy Reports Verified 06/27/25 07:39
acts like
she's on
LSD.
moxifloxacin (From Avelox) Allergy Unknown Verified 06/27/25 07:39
Home Medications
alprazolam 1 mg tablet (Xanax) 1 mg PO TIDPRN PRN anxiety 06/16/25
atorvastatin 40 mg tablet (Lipitor) 40 mg PO DAILY High Cholesterol 06/16/25
budesonide-formoterol HFA 160 mcg-4.5 mcg/actuation aerosol inhaler (Symbicort) 1 inh inhalation BID Lung/Breathing Issues 06/16/25
cyclobenzaprine 10 mg tablet 10 mg PO TIDPRN PRN spasms 06/16/25
ezetimibe 10 mg tablet (Zetia) 10 mg PO DAILY High Cholesterol 06/16/25
ferrous sulfate 325 mg (65 mg iron) tablet 650 mg PO DAILY Supplement 06/16/25
gabapentin 600 mg tablet 600 mg PO TID Neurological Condition 06/16/25
metoprolol succinate 25 mg tablet,extended release 24 hr (Toprol XL) 25 mg PO DAILY Blood Pressure 06/16/25
montelukast 10 mg tablet (Singulair) 10 mg PO HS Allergies 06/16/25
morphine 15 mg tablet,extended release 15 mg PO DAILY Pain 06/16/25
oxycodone 10 mg tablet 10 mg PO Q6HPRN PRN severe pains 06/16/25
paroxetine HCl 40 mg tablet (Paxil) 40 mg PO DAILY Depression 06/16/25
potassium chloride 20 mEq tablet,extended release 20 meq PO DAILY Electrolyte Repletion 06/16/25
rivaroxaban 20 mg tablet (Xarelto) 20 mg PO DAILY Blood Clot Prevention/Tx 06/16/25
pantoprazole 40 mg tablet,delayed release 40 mg PO DAILY 06/27/25
Review of Systems
-
History Source: Patient
A 12 point ROS was completed and negative except as noted: Yes
Constitutional: Reports No Symptoms
EENT: Reports No Symptoms
Respiratory: Reports See HPI
Cardiac: Reports No Symptoms
Abdomen/GI: Reports No Symptoms
: Reports No Symptoms
Musculoskeletal: Reports No Symptoms
Skin: Reports No Symptoms
Neurological: Reports No Symptoms
Endocrine: Reports No Symptoms
Hematologic/Lymphatic: Reports No Symptoms
Psych: Reports No Symptoms
Physical Exam
Vital Signs
Vital Signs
Temp Pulse Resp BP Pulse Ox
102.1 F H 81 16 116/64 94
06/27/25 10:50 06/27/25 12:00 06/27/25 12:03 06/27/25 12:00 06/27/25 12:00
Physical Exam
General: Well Developed, Well Nourished and No Apparent Distress
HEENT: NormoCephalic, Moist mucous membranes and Atraumatic
Respiratory: Wheezes
Cardiac: S1/S2 and Regular Rhythm; No Murmur or Rub
GI: Soft, Non Tender, Non Distended and Normal Bowel Sounds; No Organomegaly
Rectal: Deferred by Provider
Musculoskeletal: No Clubbing, No Cyanosis and No Edema
Skin: No Rash
Neuro: Nonfocal/grossly intact
Laboratory Results
-
06/27/25 07:31
06/27/25 07:31
Laboratory Results
Lactic Acid 1.4 mmol/L (0.7-2.0) 06/27/25 07:31
Total Bilirubin 1.3 mg/dl (0.2-1.3) 06/27/25 07:31
AST 18 U/L (14-36) 06/27/25 07:31
ALT 11 U/L (0-35) 06/27/25 07:31
Alkaline Phosphatase 100 U/L (38-126) 06/27/25 07:31
Data Reviewed
-
Lab Data: Labs Reviewed by me
Old Records: Reviewed
Impression/Plan
-
IMPRESSION:
PLAN:
# Sepsis (persistent fever, leukocytosis) unclear if inadequate treatment of PNA vs cryptogenic organizing pneumonia versus pneumonitis ILD versus other process
- CT scan shows nonspecific ground glass opacities and centrilobular nodules within the right lung, small focus of patchy consolidative changes within the posterior right upper lobe adjacent to the fissure, patchy alveolar consolidation within the
posterior right lower lobe improved compared to prior CT
-COVID-negative
- Completed course of antibiotics
-Check blood cultures
-Check sputum culture, strep antigen, Legionella, MRSA
-IV fluids
-Empiric vancomycin/Zosyn
- May require steroids
- Pulmonary consulted
Essential hypertension
- Continue metoprolol
Hyperlipidemia
- Continue statin, Zetia
Paroxysmal atrial fibrillation
- Continue Xarelto
Asthma
- Continue Symbicort, montelukast
Lewis's palsy
History of TIA
Chronic pain/RSD
- Continue gabapentin, oxycodone, morphine
Anxiety/depression
- Continue Xanax, paroxetine
Full code
DVT prophylaxis�close
Regular diet
--- NOTE | 2025-06-27 13:55 | CM ---
CM reviewed chart and met with pt bedside in ED. Lives with her parents and sister in 1 story home, no basement, 1 TOYA.
Independent in ADLs, personal care and ambulation, uses RW. Also has electric wheelchair.
Confirms prescription coverage.
Current with [facility] since recent hospital discharge 06/20, no hx SNF
PCP: Bree Martinez [employer]
Pharmacy: [facility], CM will continue to follow.
--- NOTE | 2025-06-27 15:17 | PHA.VAN.IN ---
Assessment
- Assessment
Renal Function: Appears similar to baseline
Maximum Temperature: 102.3F
Concomitant Antimicrobials: Zosyn
AUC Dosing Plan
- Dosing Variables
Dosing Weight (kg): 135.4
Dosing CrCl (ml/min): 115
Vd coefficient (L/kg): 0.5
- Empiric Dosing
Initial / Loading Dose: 2000 mg
Maintenance Regimen: 1500 mg Q12H
Estimated AUC (mcg*h/mL): 477
Estimated Peak (mcg*h/mL): 31.7
Estimated Trough (mcg/ml): 11.7
Estimated Half Life (H): 6.9
- Monitoring
No levels ordered at this time: Awaiting steady state
MRSA Screen: Ordered per protocol
Pharmacokinetics Vancomycin I
- -
Patient Age: 65
Patient Sex: Female
Vancomycin Day #: 1
Indication: Pulmonary/Respiratory
Requesting Provider: Toan
Pertinent Antimicrobial Allergies:
Moxifloxacin (unknown reaction)
Height / Weight:
Height 5 ft 6 in
Actual Weight 135.4 kg
Adjusted BW in k.9
Pertinent Past Medical History: Recent admission for PNA (CTX > cefdinir, azithromycin course complete)
- Vital Signs / Lab Results
Temp Pulse Resp BP Pulse Ox
102.1 F H 89 13 117/79 94
06/27/25 10:50 06/27/25 13:00 06/27/25 13:00 06/27/25 13:00 06/27/25 12:00
Lab Results - Hematology
06/27/25
07:31
WBC 14.1 H
Lab Results - Chemistry
06/27/25
07:31
BUN 11
Creatinine 0.7
Estimated Creat Clear 115
Albumin 4.1
06/27/25
07:31
Lactic Acid 1.4
Lab Results - Urine
06/27/25
09:49
Urine Nitrite (Reflex) Negative
Leukocyte Esterase Rfl 2+ A
Urine WBC (Reflex) 3-5
Ur Squamous Epith Cells >30
Urine Bacteria (Reflex) Few A
Microbiology Results
06/27/25 07:33 Influenza Types A & B (LINDA) - Final
Nasal Swab Negative for Influenza A & B, NAAT
Negative results must be combined with clinical observations
and patient history.
Nucleic Acid Amplification test (NAAT)performed on the
[employer] platform.
[2025-06-27] MEDS: NEURONTIN 600 MG PO ×2 (16:12→21:59)
[2025-06-27] MEDS: ZOSYN 50 IV ×2 (16:12→22:28)
[2025-06-27] MEDS: SYMBICORT 160/4.5 MCG INHALER 1 PUFF INH (19:52)
[2025-06-27] MEDS: VANCOCIN 530 MG IV (20:34)
[2025-06-27] MEDS: SINGULAIR 10 MG PO (21:59)
[2025-06-28 03:00] VITALS: BP 138/61
[2025-06-28] MEDS: ZOSYN 50 IV ×4 (04:17→22:07)
[2025-06-28] MEDS: NSS 1000 IV ×2 (04:17→18:14)
[2025-06-28] MEDS: VANCOCIN 530 MG IV ×2 (05:59→18:06)
[2025-06-28] MEDS: SYMBICORT 160/4.5 MCG INHALER 1 PUFF INH ×2 (07:11→19:57)
[2025-06-28 07:49] LABS: Hematocrit 33.1 % (37.0-47.0); Hemoglobin 10.8 g/dL (12.0-16.0); Mean Corp Hgb Conc. 32.6 g/dL (33.0-37.0); Mean Corpuscular Volume 88.7 fL (81.0-99.0); Nucleated Red Blood Cells % 0 %; Platelet Count 175 10^3/uL (130-400); Red Cell Dist. Width 13.0 % (11.5-14.5)
[2025-06-28 07:53] VITALS: BP 139/68
[2025-06-28 08:00] VITALS: BMI 48.2
[2025-06-28 08:09] LABS: ALT (SGPT) < 10 U/L (0-35); AST (SGOT) 13 U/L (14-36); Albumin 3.0 g/dl (3.5-5.0); Alkaline Phosphatase 82 U/L (38-126); Blood Urea Nitrogen 8 mg/dl (7-17); Calcium 8.5 mg/dl (8.4-10.2); Carbon Dioxide 29 mmol/L (22-30); Chloride 108 mmol/L (98-107); Estimated Creatinine Clearance > 125 ml/min; Glucose 97 mg/dl (70-99); Potassium 3.4 mmol/L (3.5-5.1); Sodium 139 mmol/L (135-145); Total Protein 5.3 g/dl (6.3-8.2); eGFR > 60.00
[2025-06-28] MEDS: NEURONTIN 600 MG PO ×3 (08:10→22:07)
[2025-06-28] MEDS: LIPITOR 40 MG PO (08:10)
[2025-06-28] MEDS: FEOSOL 650 MG PO (08:10)
[2025-06-28] MEDS: DESENEX/MITRAZOL/ZEASORB 1 APPLIC TOPICAL ×2 (08:10→19:53)
[2025-06-28] MEDS: MS CONTIN (EXTENDED RELEASE) 15 MG PO (08:11)
[2025-06-28] MEDS: ZETIA 10 MG PO (08:11)
[2025-06-28] MEDS: PAXIL 40 MG PO (08:11)
[2025-06-28] MEDS: PROTONIX 40 MG PO (08:11)
[2025-06-28] MEDS: TOPROL XL 25 MG PO (08:11)
[2025-06-28] MEDS: KCL 20 MEQ PO ×2 (08:18→12:56)
--- NOTE | 2025-06-28 08:52 | PHA.VAN.FU ---
Vancomycin Assessment / Plan
- Assessment
Renal Function: Stable
WBC's are: Trending Down (7.1 from 14.1)
In the past 24 hrs, patient has been: Febrile (Tmax 102.1 06/27/25 @1050, afebrile since then)
Concomitant Antimicrobials: Zosyn
- Dosing Plan
Continue: 1500MG Q12H
- Monitoring Plan
Peak Level: 06/28/25 @2130
Trough Level: 06/29/25 @0530
- Follow Up
Pharmacy will continue to follow.
Vancomycin Follow UP
- -
Patient Age: 65
Patient Sex: Female
Vancomycin Day #: 2
Indication: Pulmonary/Respiratory
Requesting Provider: Toan
Pertinent Antimicrobial Allergies:
Moxifloxacin (unknown reaction)
Height / Weight:
Height 5 ft 6 in
Actual Weight 135.4 kg
Adjusted BW in k.9
Pertinent Past Medical History: Recent admission for PNA (CTX > cefdinir, azithromycin course complete)
- Vital Signs / Lab Results
Temp Pulse Resp BP Pulse Ox
98.4 F 61 16 139/68 95
06/28/25 07:53 06/28/25 08:11 06/28/25 07:53 06/28/25 08:11 06/28/25 07:53
Lab Results - Hematology
06/27/25 06/28/25
07:31 07:23
WBC 14.1 H 7.1
Lab Results - Chemistry
06/27/25 06/28/25
07:31 07:23
BUN 11 8
Creatinine 0.7 0.6
Estimated Creat Clear 115 > 125
Albumin 4.1 3.0 L
06/27/25 06/27/25
07:31 15:51
Lactic Acid 1.4 1.0
Lab Results - Urine
06/27/25
09:49
Urine Nitrite (Reflex) Negative
Leukocyte Esterase Rfl 2+ A
Ur Squamous Epith Cells >30
Microbiology Results
06/27/25 07:31 Blood Culture - Preliminary
Blood/Venous No Growth in 24 hours- Final report to follow
06/27/25 07:33 Blood Culture - Preliminary
Blood/Venous No Growth in 24 hours- Final report to follow
06/27/25 Unknown Legionella Urinary Antigen - Final
Urine Negative for Legionella pneumophila Serogroup 1 antigen.
A negative result does not rule out the possiblity of
Legionella infection due to other serogroups or species of
Legionella. Clinical correlation is recommended.
Streptococcus pneumoniae Antigen (M - Final
Negative for Streptococcus pneumoniae antigen.
A negative result does not exclude infection with
Streptococcus pneumoniae. Clinical correlation is
recommended.
06/27/25 16:43 Nasal Screen MRSA (PCR) - Final
Nose
06/27/25 07:33 Influenza Types A & B (LINDA) - Final
Nasal Swab Negative for Influenza A & B, NAAT
Negative results must be combined with clinical observations
and patient history.
Nucleic Acid Amplification test (NAAT)performed on the
[employer] platform.
--- NOTE | 2025-06-28 10:45 | VNURNOTE ---
Chart reviewed. Patient is current with [facility]. Will continue to follow hospital course and DC plans.
--- NOTE | 2025-06-28 11:11 | CM ---
Patient seen at bedside
current with [facility]
notified liaison - referral to be entered in [facility]
PLAN: Home, [facility] when stable
[2025-06-28 11:29] VITALS: BP 134/67
--- NOTE | 2025-06-28 11:56 | W.PN.HOSP.TC ---
Today's Communication/Plan
-
Monitor vital signs see plan
Continue with antibiotics
Follow cultures
Replete potassium
Speech evaluation
Pulmonary
Assessment / Plan
Assessment / Plan
General: Well Developed, Well Nourished and No Apparent Distress
HEENT: NormoCephalic, Moist mucous membranes and Atraumatic
Respiratory: Wheezes
Cardiac: S1/S2 and Regular Rhythm; No Murmur or Rub
GI: Soft, Non Tender, Non Distended and Normal Bowel Sounds
Rectal: Deferred by Provider
Musculoskeletal: No Clubbing, No Cyanosis and No Edema
Skin: No Rash
Neuro: Nonfocal/grossly intact
Sepsis (persistent fever, leukocytosis) unclear if inadequate treatment of PNA vs cryptogenic organizing pneumonia versus pneumonitis ILD versus other process
- CT scan shows nonspecific ground glass opacities and centrilobular nodules within the right lung, small focus of patchy consolidative changes within the posterior right upper lobe adjacent to the fissure, patchy alveolar consolidation within the
posterior right lower lobe improved compared to prior CT
-COVID-negative
- Completed course of antibiotics from last admission
-blood cultures NGTD
Strep, Legionella negative, COVID, flu neg
-IV fluids
-Empiric vancomycin/Zosyn
- May require steroids
- Pulmonary consulted
speech evaluation
Hypokalemia
Monitor
Essential hypertension
- Continue metoprolol
Hyperlipidemia
- Continue statin, Zetia
Paroxysmal atrial fibrillation
- Continue Xarelto
Asthma
- Continue Symbicort, montelukast
Lewis's palsy
History of TIA
Chronic pain/RSD
- Continue gabapentin, oxycodone, morphine, monitor for excessive sedation
Anxiety/depression
- Continue Xanax, paroxetine
Full code
DVT prophylaxis�xarelto
Anticipated Discharge: 24 - 48 hours
Subjective/Interval History
-
Date of Service: June 28, 2025
denies pain
Objective Data
-
Labs:
Laboratory Results
06/28/25
07:23
WBC 7.1
Hgb 10.8 L
Hct 33.1 L
Plt Count 175
Sodium 139
Potassium 3.4 L
Chloride 108 H
Carbon Dioxide 29
BUN 8
Creatinine 0.6
Glucose 97
Calcium 8.5
Total Bilirubin 0.8
AST 13 L
ALT < 10
Alkaline Phosphatase 82
Vital Signs:
Vital Signs
Temp Pulse Resp BP Pulse Ox
98.2 F 69 16 134/67 95
06/28/25 11:29 06/28/25 11:29 06/28/25 11:29 06/28/25 11:29 06/28/25 11:29
I&O
06/27/25 06/28/25 06/29/25
06:59 06:59 06:59
Intake Total 2540 / 2540
Balance 2540 / 2540
--- NOTE | 2025-06-28 12:13 | CON.PUL ---
Consultation
Consultation Request
Date/Time Consultation Requested: 06/28/2025
Date/Time Consultation Performed: 06/28/2025
Requesting Provider: Dr. Samaniego
Performing Provider: Dr. Alexi Hull
Reason for Consultation: Abnormal CT chest-pneumonia
Medical History
-
History of Present Illness:
65-year-old female with past medical history significant for hypertension, hyperlipidemia, atrial fibrillation, asthma, Lewis's palsy, TIA chronic pain syndrome from RSD, anxiety and depression presented with confusion and feeling unsteady. Her
sister called 911 for evaluation.
Patient reports coughing. She was admitted from 06/16/2025 to 06/20/2025 for mental status change and fever. She was found to have right sided pneumonia and treated with Rocephin and azithromycin with improvement.
She was advised to go to rehab but she declined.
Patient reports the fever had continued.
Denies any swallowing problems, nausea, vomiting or diarrhea.
Patient is a non-smoker.
No reports of swallowing problems per patient.
CT of the chest continues to report right sided infiltrate. Slightly improved compared to prior.
-
We were consulted for evaluation of abnormal CT chest and persistent respiratory symptoms.
Past Medical History
Past Medical History: Other (See assessment and plan)
Social History
Tobacco: Non-smoker
Alcohol: None
Drug: None
Family History
Family History: Reviewed & Not Pertinent
Allergies / Home Medications
Allergies
Allergy/AdvReac Type Severity Reaction Status Date / Time
carbamazepine (From Tegretol) Allergy Reports Verified 06/27/25 07:39
acts like
she's on
LSD.
moxifloxacin (From Avelox) Allergy Unknown Verified 06/27/25 07:39
Home Medications
�Medication �Instructions �Recorded �Confirmed �Last Taken �Type
alprazolam 1 mg tablet (Xanax) 1 mg PO TIDPRN PRN anxiety 06/16/25 06/27/25 Unknown History
atorvastatin 40 mg tablet (Lipitor) 40 mg PO DAILY High Cholesterol 06/16/25 06/27/25 Unknown History
budesonide-formoterol HFA 160 1 inh inhalation BID 06/16/25 06/27/25 Unknown History
mcg-4.5 mcg/actuation aerosol Lung/Breathing Issues
inhaler (Symbicort)
cyclobenzaprine 10 mg tablet 10 mg PO TIDPRN PRN spasms 06/16/25 06/27/25 Unknown History
ezetimibe 10 mg tablet (Zetia) 10 mg PO DAILY High Cholesterol 06/16/25 06/27/25 Unknown History
ferrous sulfate 325 mg (65 mg 650 mg PO DAILY Supplement 06/16/25 06/27/25 Unknown History
iron) tablet
gabapentin 600 mg tablet 600 mg PO TID Neurological 06/16/25 06/27/25 Unknown History
Condition
metoprolol succinate 25 mg 25 mg PO DAILY Blood Pressure 06/16/25 06/27/25 Unknown History
tablet,extended release 24 hr
(Toprol XL)
montelukast 10 mg tablet 10 mg PO HS Allergies 06/16/25 06/27/25 Unknown History
(Singulair)
morphine 15 mg tablet,extended 15 mg PO DAILY Pain 06/16/25 06/27/25 Unknown History
release
oxycodone 10 mg tablet 10 mg PO Q6HPRN PRN severe pains 06/16/25 06/27/25 Unknown History
paroxetine HCl 40 mg tablet (Paxil) 40 mg PO DAILY Depression 06/16/25 06/27/25 Unknown History
potassium chloride 20 mEq 20 meq PO DAILY Electrolyte 06/16/25 06/27/25 Unknown History
tablet,extended release Repletion
rivaroxaban 20 mg tablet (Xarelto) 20 mg PO DAILY Blood Clot 06/16/25 06/27/25 Unknown History
Prevention/Tx
pantoprazole 40 mg tablet,delayed 40 mg PO DAILY 06/27/25 06/27/25 Unknown History
release
Review of Systems
-
History Source: Patient
All other systems: Negative unless noted
Vitals / Labs / Diagnostic Testing
Vital Signs
Temp Pulse Resp BP Pulse Ox
98.2 F 69 16 134/67 95
06/28/25 11:29 06/28/25 11:29 06/28/25 11:29 06/28/25 11:29 06/28/25 11:29
Lab Data
06/28/25 07:23
06/28/25 07:23
Microbiology
06/27/25 09:49 Urine Urine Culture - Final
06/27/25 07:31 Blood/Venous Blood Culture - Preliminary
No Growth in 24 hours- Final report to follow
06/27/25 07:33 Blood/Venous Blood Culture - Preliminary
No Growth in 24 hours- Final report to follow
06/27/25 Unknown Urine Legionella Urinary Antigen - Final
Negative for Legionella pneumophila Serogroup 1 antigen.
A negative result does not rule out the possiblity of
Legionella infection due to other serogroups or species of
Legionella. Clinical correlation is recommended.
06/27/25 Unknown Urine Streptococcus pneumoniae Antigen (M - Final
Negative for Streptococcus pneumoniae antigen.
A negative result does not exclude infection with
Streptococcus pneumoniae. Clinical correlation is
recommended.
06/27/25 16:43 Nose Nasal Screen MRSA (PCR) - Final
06/27/25 07:33 Nasal Swab Influenza Types A & B (LINDA) - Final
Negative for Influenza A & B, NAAT
Negative results must be combined with clinical observations
and patient history.
Nucleic Acid Amplification test (NAAT)performed on the
[employer] platform.
Diagnostic Testing:
Physical Exam
-
HEENT: Normocephalic
Cardiovascular: S1/S2
Respiratory: Non-Labored Respirations
GI: Soft and Non Distended
Neurology: Awake and AO x 3
Skin: Warm
General: Comfortable
Assessment
-
Abnormal CT chest 06/27/2025
Ground glass opacities and centrilobular nodules within the right lung. Small focus of patchy consolidation in the right upper lobe. Patchy alveolar consolidation right lower lobe improved compared to prior CT. Left lung is clear. Prominent
mediastinal lymph nodes. Multiple subacute appearing right sided rib fractures.
Recent admission for pneumonia status post antibiotics 06/2024
Sputum + 06/16/2025 MSSA
Fevers
Conditions present prior admission:
Hypertension
Hyperlipidemia
Paroxysmal atrial fibrillation on Xarelto
Mild persistent asthma
Lewis's palsy
History of TIA
Chronic pain syndrome-RSD
Anxiety and depression
Non-smoker
Assessment and plan:
Unilateral lung abnormalities suggest more infectious etiology done inflammatory pneumonitis or cryptogenic pneumonia.
-
Comparing CAT scans from 06/16/2025 to 06/26/2025 consolidations have improved there is residual ground glass opacities which are nonspecific.
With fevers should think about partially treated pneumonia.
Continues to have a wet cough and difficulty expectorating at times.
Not bronchospastic on exam.
Not requiring supplemental oxygen
No respiratory distress able to speak in full sentences-has a strong cough effort.
-
Other possibilities recurrent microaspiration-speech evaluation during last admission place her at high risk for aspiration.
Will reevaluate-Will place speech therapy consult
I discussed above with patient but she denies any swallowing dysfunction. Patient does have poor dentition
Patient unable to ambulate due to orthopedic issues only uses a walker and eventually states that she will be transition to a scooter.
-
Repeated sputum culture/blood cultures- pending.
-
Currently on vancomycin/Zosyn.
Fever improved
Monitor leukocytosis
-
Repeat MRSA screening if negative discontinue vancomycin
May need to treat with Unasyn or Augmentin upon discharge if she improves with antibiotics.
Negative Legionella and strep antigen
Negative influenza
Negative COVID
Blood cultures so far negative urine culture contaminant
Repeat sputum culture-sputum culture from previous admission showed MSSA.
UA: Few bacteria. 3-5 white blood cells does not suggest active infection.
-
Continue inhaler
No indication for IV corticosteroids so far
Nebulizers as needed-she is reluctant to use nebulizers [id number] due to atrial fibrillation
Will add Acapella device
-
Will continue to monitor closely
Will need follow-up for radiographic clearance
-
Not bronchospastic on exam continue inhalers
-

Data review:
CT chest 06/27/2025
Ground glass opacities and centrilobular nodules within the right lung. Small focus of patchy consolidation in the right upper lobe. Patchy alveolar consolidation right lower lobe improved compared to prior CT. Left lung is clear. Prominent
mediastinal lymph nodes. Multiple subacute appearing right sided rib fractures.
-
CT chest 06/16/2025:
Consolidative opacity within surrounding ground glass throughout the right lung consistent with pneumonia.
Right perihilar mass like consolidation related to pneumonia or lymph node.
Multiple mildly enlarged mediastinal lymph nodes which may be reactive. Numerous prior right sided rib fractures likely subacute.
-
-
[2025-06-28 15:26] VITALS: BP 144/82
--- NOTE | 2025-06-28 15:42 | PTOTSP ---
Dysphagia Evaluation:
During bedside swallow evaluation, pt demonstrated no overt s/s of aspiration. However, pt presents w/ repeated PNAs and additional risk factors (TIA, Lewis's Palsy) for dysphagia. Instrumental swallow study (FEES) is recommended to objectively rule
out silent aspiration.
Recommendations:
1. Regular, Thins
2. Medications as best tolerated
3. Partial assistance/supervision w/ meals
4. Strategies: Sitting upright when eating, small sips/bites, slowed rate, alternating sips and bites
5. Instrumental swallow study to objectively determine aspiration occurrence and identify best tolerated diet level.
[2025-06-28] MEDS: ROXICODONE 10 MG PO ×2 (16:32→22:36)
[2025-06-28] MEDS: XARELTO 20 MG PO (18:08)
[2025-06-28 19:25] VITALS: BP 116/86
[2025-06-28] MEDS: SINGULAIR 10 MG PO (22:07)
[2025-06-28 23:31] VITALS: BP 129/67
[2025-06-28] MEDS: XANAX 1 MG PO (23:36)
[2025-06-29 03:23] VITALS: BP 124/74
[2025-06-29] MEDS: ZOSYN 50 IV ×4 (04:04→22:29)
[2025-06-29] MEDS: NSS 1000 IV (06:29)
[2025-06-29 06:53] LABS: Hematocrit 35.3 % (37.0-47.0); Hemoglobin 11.3 g/dL (12.0-16.0); Mean Corp Hgb Conc. 32.0 g/dL (33.0-37.0); Mean Corpuscular Volume 89.6 fL (81.0-99.0); Nucleated Red Blood Cells % 0 %; Platelet Count 201 10^3/uL (130-400); Red Cell Dist. Width 13.0 % (11.5-14.5)
[2025-06-29] MEDS: VANCOCIN 530 MG IV (07:03)
[2025-06-29 07:13] LABS: ALT (SGPT) 11 U/L (0-35); AST (SGOT) 15 U/L (14-36); Albumin 3.2 g/dl (3.5-5.0); Alkaline Phosphatase 84 U/L (38-126); Blood Urea Nitrogen 6 mg/dl (7-17); Calcium 8.3 mg/dl (8.4-10.2); Carbon Dioxide 27 mmol/L (22-30); Chloride 110 mmol/L (98-107); Estimated Creatinine Clearance 115 ml/min; Glucose 80 mg/dl (70-99); Potassium 3.8 mmol/L (3.5-5.1); Sodium 140 mmol/L (135-145); Total Protein 5.5 g/dl (6.3-8.2); eGFR > 60.00
[2025-06-29] MEDS: SYMBICORT 160/4.5 MCG INHALER 1 PUFF INH ×2 (07:31→19:19)
[2025-06-29 07:48] VITALS: BP 140/73
[2025-06-29] MEDS: MS CONTIN (EXTENDED RELEASE) 15 MG PO (07:50)
[2025-06-29] MEDS: PAXIL 40 MG PO (07:51)
[2025-06-29] MEDS: ZETIA 10 MG PO (07:51)
[2025-06-29] MEDS: NEURONTIN 600 MG PO ×3 (07:51→22:29)
[2025-06-29] MEDS: LIPITOR 40 MG PO (07:51)
[2025-06-29] MEDS: PROTONIX 40 MG PO (07:51)
[2025-06-29] MEDS: KCL 20 MEQ PO ×2 (07:51→13:03)
[2025-06-29] MEDS: DESENEX/MITRAZOL/ZEASORB 1 APPLIC TOPICAL ×2 (07:52→22:31)
[2025-06-29] MEDS: TOPROL XL 25 MG PO (07:52)
[2025-06-29] MEDS: FEOSOL 650 MG PO (07:52)
--- NOTE | 2025-06-29 09:19 | PN.CDI ---
CDI
- -
CDI:
Physician Documentation Request
Admit Date: 06/27/25 13:38
Dear Doctor Aden,
Clinical Indicators:
Height: 5 ft 6 in
Weight: 298 lbs 8.0 oz
BMI: 48.2
If possible, please provide an associated diagnosis related to the abnormal BMI, such as:
Morbid obesity
Obesity
Other
BMI > or = to 40
Overweight
Obesity:
Due to excess calories
Drug induced
Due to other cause
Severe or morbid obesity:
With alveolar hypoventilation (Obesity hypoventilation syndrome)
Without alveolar hypoventilation
Use of terms such as suspected, likely, concern for, or probable (associated with a specific diagnosis that is being evaluated, monitored, or treated as if it exists) are acceptable and can be coded in the inpatient setting, when documented at the
time of discharge.
Thank you,
Amber Castillo RN
CDI Specialist
available via tiger text
Please use your independent medical judgment in providing your response.
--- NOTE | 2025-06-29 09:23 | PN.CDI ---
CDI
- -
CDI:
Physician Documentation Request
Admit Date: 06/27/25 13:38
Dear Doctor Aden,
Clinical Indicators:
Patient admitted with sepsis.
PMH includes: Chronic pain/RSD
Home medications include: Morphine 15 mg tablet,extended release 15 mg PO DAILY
Oxycodone 10 mg tablet 10 mg PO Q6HPRN PRN severe
Based on the above, could you clarify in the progress notes, the appropriate diagnosis, if significant, that supports the above medication usage:
Opioid use with dependence
Opioid use only
Other
Use of terms such as suspected, likely, concern for, or probable (associated with a specific diagnosis that is being evaluated, monitored, or treated as if it exists) are acceptable and can be coded in the inpatient setting, when documented at the
time of discharge.
Thank you,
VALERIE Moreno RN
CDI Specialist
available via tiger text
Please use your independent medical judgment in providing your response.
[2025-06-29 10:55] VITALS: BP 142/84
--- NOTE | 2025-06-29 11:12 | W.PN.PUL3 ---
Today's Communication / Plan
-
Nebulizers as needed
Consider transition to oral antibiotics Augmentin and complete 7 days
Incentive spirometry
Symptomatic management for coughing
Continue inhalers
Okay to discharge from my perspective
Patient needs close outpatient follow-up and radiographic [id number] pulmonary evaluation.
Assessment
-
Abnormal CT chest 06/27/2025
Ground glass opacities and centrilobular nodules within the right lung. Small focus of patchy consolidation in the right upper lobe. Patchy alveolar consolidation right lower lobe improved compared to prior CT. Left lung is clear. Prominent
mediastinal lymph nodes. Multiple subacute appearing right sided rib fractures.
Recent admission for pneumonia status post antibiotics 06/2024
Sputum + 06/16/2025 MSSA
Fevers
Conditions present prior admission:
Hypertension
Hyperlipidemia
Paroxysmal atrial fibrillation on Xarelto
Mild persistent asthma
Lewis's palsy
History of TIA
Chronic pain syndrome-RSD
Anxiety and depression
Non-smoker
Assessment and plan:
Unilateral lung abnormalities suggest more infectious etiology than inflammatory pneumonitis or cryptogenic pneumonia(Less likely).
-
Comparing CAT scans from 06/16/2025 to 06/26/2025 consolidations have improved there is residual ground glass opacities which are nonspecific.
With fevers should think about partially treated pneumonia.
Fever resolved 06/29/2024
Leukocytosis resolved 06/29/2025
Continues to have a wet cough and difficulty expectorating at times.
Not bronchospastic on exam.
Not requiring supplemental oxygen
No respiratory distress able to speak in full sentences-has a strong cough effort.
During my exam laying down flat in bed without distress.
-
Still suspect recurrent microaspiration-speech evaluation during last admission place her at high risk for aspiration.
Speech evaluation noted-modified barium swallow without overt aspiration.
Still can occur intermittently due to poor dentition.
-
Patient unable to ambulate due to orthopedic issues only uses a walker and eventually states that she will be transition to a scooter.
-
Repeated sputum culture/blood cultures-has not been able to expectorate
-
Currently on vancomycin/Zosyn.
Due to clinical improvement can consider transition to Augmentin at discharge and complete total 7 days-close outpatient monitoring recommended.
Fever improved
Monitor leukocytosis
-
MRSA screen negative-discontinue vancomycin.
Negative Legionella and strep antigen
Negative influenza
Negative COVID
Blood cultures so far negative urine culture contaminant
Repeat sputum culture-sputum culture from previous admission showed MSSA.
UA: Few bacteria. 3-5 white blood cells does not suggest active infection.
-
Continues to have harsh cough: Symptomatic management.
If continues to have bronchitic symptoms can consider prolonged macrolide therapy with azithromycin 250 mg every other day until symptoms improved. This could be decided in the outpatient setting.
Continue inhaler
Montelukast continue
No indication for IV corticosteroids so far
Nebulizers as needed-she is reluctant to use nebulizers [id number] due to atrial fibrillation
Continue Acapella device
If continues to have bronchitic symptoms can consider mucolytic/antitussives as necessary.
Not bronchospastic on exam continue inhalers-Symbicort.
-
Will need follow-up for radiographic clearance in the outpatient setting. Recommend pulmonary evaluation.
-
Hopefully discharge planning soon

Data review:
CT chest 06/27/2025
Ground glass opacities and centrilobular nodules within the right lung. Small focus of patchy consolidation in the right upper lobe. Patchy alveolar consolidation right lower lobe improved compared to prior CT. Left lung is clear. Prominent
mediastinal lymph nodes. Multiple subacute appearing right sided rib fractures.
-
CT chest 06/16/2025:
Consolidative opacity within surrounding ground glass throughout the right lung consistent with pneumonia.
Right perihilar mass like consolidation related to pneumonia or lymph node.
Multiple mildly enlarged mediastinal lymph nodes which may be reactive. Numerous prior right sided rib fractures likely subacute.
-
-
Subjective Data
-
Date of Service:
Date of Service: June 29, 2025
Chief Complaint: Pulmonary Follow Up (Abnormal CT chest)
Review of Systems
Cardiopulmonary: Dyspnea (Improved), Cough (Ongoing) and Sputum Production (Difficulty expected)
Objective Data
Data Reviewed
Vital Signs / I&O / Oxygen:
Vital Signs
Temp Pulse Resp BP Pulse Ox
98.3 F 104 16 142/84 98
06/29/25 10:55 06/29/25 10:55 06/29/25 10:55 06/29/25 10:55 06/29/25 10:55
Intake and Output
06/28/25 06/29/25 06/30/25
06:59 06:59 06:59
Intake Total 2540 / 2540 1060 / 1060
Balance 2540 / 2540 1060 / 1060
SaO2 98
Nasal Cannula flow liters per 2
minute
Physical Exam
General: Comfortable
HEENT: Normocephalic
Cardiovascular: S1-S2
Respiratory: Non-Labored Respirations
GI: Soft and Non Distended
Neurology: Awake and Oriented
Skin: Warm
Labs/Micro/Reports
Lab Data
06/29/25 06:13
06/29/25 06:13
Microbiology
06/27/25 07:33 Blood/Venous Blood Culture - Preliminary
No Growth in 48 hours- Final report to follow
06/27/25 07:31 Blood/Venous Blood Culture - Preliminary
No Growth in 48 hours- Final report to follow
06/27/25 16:43 Nose MRSA Screen - Final
No Methicillin Resistant Staphylococcus aureus isolated.
06/27/25 09:49 Urine Urine Culture - Final
06/27/25 Unknown Urine Legionella Urinary Antigen - Final
Negative for Legionella pneumophila Serogroup 1 antigen.
A negative result does not rule out the possiblity of
Legionella infection due to other serogroups or species of
Legionella. Clinical correlation is recommended.
06/27/25 Unknown Urine Streptococcus pneumoniae Antigen (M - Final
Negative for Streptococcus pneumoniae antigen.
A negative result does not exclude infection with
Streptococcus pneumoniae. Clinical correlation is
recommended.
06/27/25 16:43 Nose Nasal Screen MRSA (PCR) - Final
06/27/25 07:33 Nasal Swab Influenza Types A & B (LINDA) - Final
Negative for Influenza A & B, NAAT
Negative results must be combined with clinical observations
and patient history.
Nucleic Acid Amplification test (NAAT)performed on the
[employer] platform.
--- NOTE | 2025-06-29 11:18 | CM ---
Patient seen at bedside
ST eval-Oral Intake Recommendations: Regular, Thin
tt hospitalist PT/OT orders
current with VN
PLAN: Await PT/OT
[2025-06-29] MEDS: LOPRESSOR 5 MG IV (11:50)
[2025-06-29] MEDS: NSS IV (12:06)
--- NOTE | 2025-06-29 12:25 | W.PN.HOSP.TC ---
Today's Communication/Plan
-
Monitor vital signs and see plan
Lopressor
Check echo
Monitor telemetry
Continue with antibiotic
check Mag,TSH
Assessment / Plan
Assessment / Plan
General: Well Developed, Well Nourished and No Apparent Distress
HEENT: NormoCephalic, Moist mucous membranes and Atraumatic
Respiratory: CTA,mild wheezing
Cardiac: S1/S2 and irregular Rhythm
GI: Soft, Non Tender, Non Distended and Normal Bowel Sounds
Musculoskeletal: No Edema
Neuro: Nonfocal/grossly intact
Sepsis (persistent fever, leukocytosis) unclear if inadequate treatment of PNA vs cryptogenic organizing pneumonia versus pneumonitis ILD versus other process
- CT scan shows nonspecific ground glass opacities and centrilobular nodules within the right lung, small focus of patchy consolidative changes within the posterior right upper lobe adjacent to the fissure, patchy alveolar consolidation within the
posterior right lower lobe improved compared to prior CT
-COVID-negative
- Completed course of antibiotics from last admission
-blood cultures NGTD
Strep, Legionella negative, COVID, flu neg
DC further vancomycin
zosyn
Pulmonary following
Speech evaluated, status post FEES. ok for regular
speech evaluation
Hypokalemia
With
Essential hypertension
- Continue metoprolol
Hyperlipidemia
- Continue statin, Zetia
Paroxysmal atrial fibrillation
Went into A-fib with RVR 06/29
- Continue Xarelto
cw metoprolol
Check mag, TSH
Check echo
Asthma
- Continue Symbicort, montelukast
Lewis's palsy
History of TIA
Chronic pain/RSD
Opioid use with dependence
- Continue gabapentin, oxycodone, morphine, monitor for excessive sedation
Anxiety/depression
- Continue Xanax, paroxetine
Full code
DVT prophylaxis�xarelto
I spent a total of 52 minutes with the patient or on the floor. More than 50% of this time involved counseling and coordination of care.
Anticipated Discharge: Within 24 hours
Subjective/Interval History
-
Date of Service: June 29, 2025
denies pain
Objective Data
-
Labs:
Laboratory Results
06/29/25
06:13
WBC 6.6
Hgb 11.3 L
Hct 35.3 L
Plt Count 201
Sodium 140
Potassium 3.8
Chloride 110 H
Carbon Dioxide 27
BUN 6 L
Creatinine 0.7
Glucose 80
Calcium 8.3 L
Total Bilirubin 0.6
AST 15
ALT 11
Alkaline Phosphatase 84
Vital Signs:
Vital Signs
Temp Pulse Resp BP Pulse Ox
98.3 F 101 16 128/94 98
06/29/25 10:55 06/29/25 11:50 06/29/25 10:55 06/29/25 11:50 06/29/25 10:55
I&O
06/28/25 06/29/25 06/30/25
06:59 06:59 06:59
Intake Total 2540 / 2540 1060 / 1060
Balance 2540 / 2540 1060 / 1060
[2025-06-29 13:01] LABS: Magnesium 2.2 mg/dl (1.6-2.3)
[2025-06-29] MEDS: ROXICODONE 10 MG PO ×2 (13:41→22:30)
[2025-06-29 15:22] VITALS: BP 143/91
[2025-06-29] MEDS: XARELTO 20 MG PO (17:36)
--- NOTE | 2025-06-29 18:20 | PTCARENOTE ---
Around 11am, pt's HR afib on the monitor 90s-110s. Rate increases to 130s when getting to bedside commode. Pt denied chest pain but felt SOB with movement. made aware. ECG obtained- pt in afib with RVR. IV lopressor ordered and administered. Pt
sent to echo. Rate now 65 on monitor. Pt denies chest pain and SOB at this time. Call rosas is within reach. POC ongoing.
[2025-06-29 19:00] VITALS: BP 110/61
[2025-06-29 22:26] VITALS: BP 138/80
[2025-06-29] MEDS: SINGULAIR 10 MG PO (22:29)
[2025-06-29] MEDS: XANAX 1 MG PO (23:40)
[2025-06-30] VITALS (7 sets, daily range): BP systolic 97–150; BP diastolic 71–80; PULSE 68; O2SAT 99
[2025-06-30] MEDS: ZOSYN 50 IV ×2 (05:13→10:49)
[2025-06-30 07:17] LABS: Hematocrit 35.9 % (37.0-47.0); Hemoglobin 11.9 g/dL (12.0-16.0); Mean Corp Hgb Conc. 33.1 g/dL (33.0-37.0); Mean Corpuscular Volume 85.1 fL (81.0-99.0); Nucleated Red Blood Cells % 0 %; Platelet Count 202 10^3/uL (130-400); Red Cell Dist. Width 13.0 % (11.5-14.5)
[2025-06-30 07:44] LABS: ALT (SGPT) 11 U/L (0-35); AST (SGOT) 14 U/L (14-36); Albumin 3.4 g/dl (3.5-5.0); Alkaline Phosphatase 95 U/L (38-126); Blood Urea Nitrogen 6 mg/dl (7-17); Calcium 8.6 mg/dl (8.4-10.2); Carbon Dioxide 28 mmol/L (22-30); Chloride 108 mmol/L (98-107); Estimated Creatinine Clearance 115 ml/min; Glucose 88 mg/dl (70-99); Potassium 3.9 mmol/L (3.5-5.1); Sodium 140 mmol/L (135-145); Total Protein 5.8 g/dl (6.3-8.2); eGFR > 60.00
[2025-06-30] MEDS: SYMBICORT 160/4.5 MCG INHALER 1 PUFF INH (08:16)
[2025-06-30] MEDS: PROTONIX 40 MG PO (08:47)
[2025-06-30] MEDS: ZETIA 10 MG PO (08:48)
[2025-06-30] MEDS: LIPITOR 40 MG PO (08:48)
[2025-06-30] MEDS: NEURONTIN 600 MG PO ×2 (08:48→15:18)
[2025-06-30] MEDS: PAXIL 40 MG PO (08:48)
[2025-06-30] MEDS: FEOSOL 650 MG PO (08:49)
[2025-06-30] MEDS: KCL 20 MEQ PO (08:51)
[2025-06-30] MEDS: TOPROL XL 25 MG PO (08:53)
[2025-06-30] MEDS: MS CONTIN (EXTENDED RELEASE) 15 MG PO (08:53)
[2025-06-30] MEDS: DESENEX/MITRAZOL/ZEASORB 1 APPLIC TOPICAL (08:56)
--- NOTE | 2025-06-30 11:36 | W.PN.HOSP.TC ---
Addendum entered and electronically signed by Lasha Samaniego MD 06/30/25 13:13:
Vital stable, discharge today
Time of discharge 38 minutes
Original Note:
Today's Communication/Plan
-
Monitor vital signs and see plan
Going in and out of the A-fib however rate is much better controlled. Denies any palpitation, dizziness. Continue with metoprolol
Switch to p.o. antibiotic on discharge
Likely discharge later today if heart rate stable
Assessment / Plan
Assessment / Plan
General: Well Developed, Well Nourished and No Apparent Distress
HEENT: Normocephalic, Moist mucous membranes and Atraumatic
Respiratory: CTA,mild wheezing
Cardiac: S1/S2 and irregular Rhythm
GI: Soft, Non Tender, Non Distended and Normal Bowel Sounds
Musculoskeletal: No Edema
Neuro: Nonfocal/grossly intact
Sepsis (persistent fever, leukocytosis) unclear if inadequate treatment of PNA vs cryptogenic organizing pneumonia versus pneumonitis ILD versus other process
- CT scan shows nonspecific ground glass opacities and centrilobular nodules within the right lung, small focus of patchy consolidative changes within the posterior right upper lobe adjacent to the fissure, patchy alveolar consolidation within the
posterior right lower lobe improved compared to prior CT
-COVID-negative
- Completed course of antibiotics from last admission
-blood cultures NGTD
Strep, Legionella negative, COVID, flu neg
DC further vancomycin
zosyn, switch to augmentin on dc
Pulmonary following
Speech evaluated, status post FEES. ok for regular
speech evaluation
Hypokalemia
improving
Essential hypertension
- Continue metoprolol
Hyperlipidemia
- Continue statin, Zetia
Paroxysmal atrial fibrillation
Went into A-fib with RVR 06/29. now rates much controlled.
- Continue Xarelto
cw metoprolol
TSH normal
Echo with preserved EF, no regional wall motion normality
f/u with cardilology outpatient
Asthma
- Continue Symbicort, montelukast
Lewis's palsy
History of TIA
Chronic pain/RSD
Opioid use with dependence
- Continue gabapentin, oxycodone, morphine, monitor for excessive sedation
Anxiety/depression
- Continue Xanax, paroxetine
Morbid obesity secondary to excess calories
Full code
DVT prophylaxis�xarelto
Anticipated Discharge: Today
Subjective/Interval History
-
Date of Service: June 30, 2025
denies pain
Objective Data
-
Labs:
Laboratory Results
06/30/25
07:04
WBC 5.8
Hgb 11.9 L
Hct 35.9 L
Plt Count 202
Sodium 140
Potassium 3.9
Chloride 108 H
Carbon Dioxide 28
BUN 6 L
Creatinine 0.7
Glucose 88
Calcium 8.6
Total Bilirubin 0.8
AST 14
ALT 11
Alkaline Phosphatase 95
Vital Signs:
Vital Signs
Temp Pulse Resp BP Pulse Ox
98.3 F 65 19 97/71 98
06/30/25 11:00 06/30/25 11:00 06/30/25 11:00 06/30/25 11:00 06/30/25 11:00
I&O
06/29/25 06/30/25 07/01/25
06:59 06:59 06:59
Intake Total 1060 / 1060 720 / 720 960 / 960
Balance 1060 / 1060 720 / 720 960 / 960
--- NOTE | 2025-06-30 13:47 | CM ---
patient discharged today
IMM n/a
current with [facility]
PT rec home health
PLAN: Home with [facility]
--- NOTE | 2025-06-30 15:14 | W.DCSUMMARY ---
Discharge Summary
Discharge Data
Date of Admission: 06/27/25
Date of Discharge: 06/30/25
-
Pending Results: No
Hospital Course
65-year-old female with past medical history of asthma, Lewis's palsy, TIA, chronic pain/RSD, anxiety, depression, morbid obesity, paroxysmal atrial fibrillation came to the hospital with sepsis secondary to possible pneumonia. Patient was seen by
pulmonary throughout hospitalization. Patient was also seen by speech therapy who recommended swallow study however after further evaluation speech cleared the patient for regular diet. Patient was initially treated with IV antibiotic which was
later transitioned to p.o. antibiotic prior to discharge. While she was in the hospital she also went into A-fib with which continue to improve with metoprolol. Echocardiogram was done which showed preserved EF without any wall motion abnormality.
Patient instructed to follow-up with cardiology outpatient. Patient was also evaluated by physical therapy who recommended home. Once her symptoms continue to improve, she was then discharged home with instructions to follow-up with all her
physicians outpatient.
Discharge Plan
-
Patient Disposition: Home (Routine Discharge)
Discharge Diagnosis/Procedures: Pneumonia
Paroxysmal atrial fibrillation
Condition: Fair
Diet: As tolerated
Activity: As tolerated
Driving Restrictions: As prior to admission
Bathing Restrictions: None
Others Tests: Chest x-ray in 1 month with pulmonary
Activity Restrictions/Additional Instructions:
Follow-up with your activity leader outpatient
Referrals:
Alexi Arriaza MD [Active, Pulmonary Medicine] - in two to three weeks
Referral Note: May see [facility]TELLIGENCE ANALYST
UNKNOWN - PT DOES,NOT KNOW [Family Provider] - in less than 1 week
Prescriptions:
New
miconazole nitrate [Miconazorb AF] 2 % Powder
1 applic topical BID Qty: 85 0RF
amoxicillin-pot clavulanate 875-125 mg tablet
1 tab PO BID Qty: 10 0RF
Continued
cyclobenzaprine 10 mg Tablet
10 mg PO TIDPRN PRN (Reason: spasms)
atorvastatin [Lipitor] 40 mg Tablet
40 mg PO DAILY
gabapentin 600 mg Tablet
600 mg PO TID
alprazolam [Xanax] 1 mg Tablet
1 mg PO TIDPRN PRN (Reason: anxiety)
ferrous sulfate 325 mg (65 mg iron) Tablet
650 mg PO DAILY
montelukast [Singulair] 10 mg Tablet
10 mg PO HS
morphine 15 mg Tablet Extended Release
15 mg PO DAILY
metoprolol succinate [Toprol XL] 25 mg Tablet Extended Release 24 Hr
25 mg PO DAILY
paroxetine HCl [Paxil] 40 mg Tablet
40 mg PO DAILY
ezetimibe [Zetia] 10 mg Tablet
10 mg PO DAILY
budesonide-formoterol [Symbicort] 160-4.5 mcg/actuation Hfa Aerosol Inhaler
1 inh INHALATION BID
oxycodone 10 mg Tablet
10 mg PO Q6HPRN PRN (Reason: severe pains)
Xarelto 20 mg Tablet
20 mg PO DAILY
potassium chloride 20 mEq Tablet Extended Release
20 meq PO DAILY
pantoprazole 40 mg tablet,delayed release (DR/EC)
40 mg PO DAILY
Discharge Orders:
Discharge Patient (As Directed); Ordered 06/30/25
Ordered By: Lasha Samaniego
Discharge Date and Time
Discharge Date/Time: 06/30/25 16:31
Print Language: THAI
[2025-06-30] MEDS: ROXICODONE 10 MG PO (15:29)
== END 2025-06-30 16:31 | disposition home health service (06) | DRG 871 ==
LOC: 3 WEST ACU 13:38
PROVIDERS: Physician Assistant; ADMITTING PHYSICIAN Hospitalist; ATTENDING PHYSICIAN Internal Medicine; CONSULT PHYSICIAN Internal Medicine Critical Care Medicine; EMERGENCY PHYSICIAN Emergency Medicine
DX: A41.9 Sepsis, unspecified organism (principal); J18.9 Pneumonia, unspecified organism; Z68.42 Body mass index [BMI] 45.0-49.9, adult; F11.20 Opioid dependence, uncomplicated; E87.6 Hypokalemia; I48.0 Paroxysmal atrial fibrillation; I10 Essential (primary) hypertension; D72.829 Elevated white blood cell count, unspecified; E78.00 Pure hypercholesterolemia, unspecified; G51.0 Bell's palsy; F41.9 Anxiety disorder, unspecified; F32.A Depression, unspecified; E66.01 Morbid (severe) obesity due to excess calories; G89.4 Chronic pain syndrome; J45.30 Mild persistent asthma, uncomplicated; Z79.01 Long term (current) use of anticoagulants; Z79.899 Other long term (current) drug therapy; Z86.73 Personal history of transient ischemic attack (TIA), and cerebral infarction without residual deficits; Z11.52 Encounter for screening for COVID-19
CPT/HCPCS: 71046; 71250; 80053; 80202; 81003; 81015; 83605; 83735; 84443; 85025; 87040; 87070; 87086; 87449; 87502; 87641; 87811; 87899; 92610; 93005; 93306; 94640; 96361; 96374; 96375; 97163; 97167; 99285

== ENCOUNTER 2025-07-07 00:39 | Inpatient (IN) | payer OTHER, SELFPAY ==
[2025-07-06] VITALS (11 sets, daily range): BP systolic 111–157; BP diastolic 61–132; BMI 50.2
[2025-07-06 21:27] LABS: Hematocrit 37.0 % (37.0-47.0); Hemoglobin 12.1 g/dL (12.0-16.0); Mean Corp Hgb Conc. 32.7 g/dL (33.0-37.0); Mean Corpuscular Volume 85.8 fL (81.0-99.0); Nucleated Red Blood Cells % 0 %; Platelet Count 176 10^3/uL (130-400); Red Cell Dist. Width 13.3 % (11.5-14.5)
[2025-07-06 21:52] LABS: Urine Character Clear (Clear)
[2025-07-06 21:58] LABS: Urine Squamous Cell 0-2 /LPF (Few)
[2025-07-06 21:59] LABS: Urine White Cell 0-2 /HPF (0-5)
[2025-07-06] MEDS: TYLENOL 1000 MG PO (22:10)
[2025-07-06] MEDS: NSS 1000 IV (22:14)
[2025-07-06 22:25] LABS: ALT (SGPT) 12 U/L (0-35); AST (SGOT) 23 U/L (14-36); Albumin 3.9 g/dl (3.5-5.0); Alkaline Phosphatase 116 U/L (38-126); Blood Urea Nitrogen 12 mg/dl (7-17); Calcium 8.9 mg/dl (8.4-10.2); Carbon Dioxide 25 mmol/L (22-30); Chloride 102 mmol/L (98-107); Estimated Creatinine Clearance 118 ml/min; Glucose 97 mg/dl (70-99); Potassium 4.1 mmol/L (3.5-5.1); Sodium 135 mmol/L (135-145); Total Protein 6.3 g/dl (6.3-8.2); eGFR > 60.00
[2025-07-06 22:37] LABS: COVID-19 Antigen Negative (Negative)
--- NOTE | 2025-07-06 23:29 | ED.GENMED ---
History of Present Illness
General
Chief Complaint: Weakness
Time Seen by Provider: 07/06/25 21:34
History of Present Illness
History of Present Illness:
65-year-old female with past medical history of asthma, Lewis's palsy, TIA, chronic pain/RSD, anxiety, depression, morbid obesity, paroxysmal atrial fibrillation on Eliquis presenting to the hospital for change in mental status. Patient is living
with her sister and was found down in one of the rooms of the house, altered. Unclear if patient fell. Patient on arrival is awake and alert, limited historian. She does not remember preceding events. Patient arrives with fever, recent history
of admission 06/27 to 06/30 for sepsis from pneumonia. Patient denies any present cough or difficulty breathing. Denies abdominal pain. Denies any pain with urination. Denies any chest pain. No additional history obtained at this time
Phy Exam
Physical Exam
Physical Exam:
General: Well-appearing, no clinical signs of dehydration, nontoxic and in no acute distress
HEENT: protecting airway, right facial droop reported as chronic
Neck: appears supple
CV: Normal heart rate, regular rhythm, no evidence of cyanosis
Resp: No accessory muscle use, no increased work of breathing
Abd: Soft and non-distended, no tenderness to palpation, normal bowel sounds
Extremities: No deformities, bilateral symmetric swelling to the lower extremities
Neuro: alert, disoriented to self and time
: deferred
Rectal: deferred
Psych: Normal affect
Skin: Intact
Sepsis
Sepsis Screening
Sepsis Assessment: Sepsis
Sepsis Screen
Sepsis Screen: Sepsis
Date: 07/07/25
Time: 02:50
Course
Orders/Labs/Results
Orders:
Orders
07/06/25 21:13
Electrocardiogram (*1) Urgent
Reason for Study: Other
Other Reason for Exam: Possible Sepsis
Cardiac Monitoring- Treatment ONCE
EKG- Treatment ONCE
IV Insert/Care/Rem.- Treatment PRN
Straight cath- Treatment ONCE
CR Chest - 2 Views Urgent
Comment:
Reason For Exam: suspected infection
O2 Therapy [RESP] Urgent
Titrate/Wean O2 to maintain O2 sat greater than (%): 93
Special Instructions: TO MAINTAIN CONTINUOUS O2 SATS > OR = 93%
Pulse Ox/cont/shift [RESP] Urgent
Quantity: 1
Special Instructions: CONTINUOUS
07/06/25 21:17
Complete Blood Count/With Diff Urgent
Lactic Acid Q4H
Comment: ON ICE, CANCEL 2ND ORDER IF FIRST LACTIC ACID LEVEL <2
Blood Culture Q20M
RAYMUNDO Source: Blood/Venous
Specimen Description:
Comment: Urgent from separate sites. If patient screens positive for possible sepsis
07/06/25 21:45
Urinalysis Reflex To Culture Urgent
Date Specimen was Collected: 07/06/25
Time Specimen was Collected: 21:13
Urine Microscopic Reflex Cult Urgent
07/06/25 21:49
Comprehensive Metabolic Panel Urgent
Blood Culture Q20M
RAYMUNDO Source: Blood/Venous
Specimen Description:
Comment: Urgent from separate sites. If patient screens positive for possible sepsis
07/06/25 22:05
CT Head W/o Iv Contrast Urgent
Comment:
Reason For Exam: fall on eliquis
07/06/25 22:06
0.9% Sodium Chloride 1000 ml [Nss] 1,000 ml IV BOLUS
Acetaminophen [Tylenol] 1,000 mg PO NOW STA
07/06/25 22:17
COVID-19 Antigen Urgent
Source: Nasal Swab
Influenza A+B Rapid Molecular Urgent
RAYMUNDO Source: Nasal Swab
Specimen Description:
07/06/25 23:29
Cefepime HCl [Maxipime] 2,000 mg IV NOW STA
07/06/25 23:35
Vancomycin [Vancocin] 2,000 mg 0.9% Sodium Chloride 500 ml [Nss] 500 ml IV NOW
07/07/25 00:11
Admit/Transfer Patient As Directed
Co-Sign Provider:
Level of Care: Inpatient admission
Assign to:: Telemetry
Physician / Group: Gray
Diagnosis: Sepsis, Pneumonia
Reason for Telemetry: Arrhythmia
Date to Stop Telemetry: 07/10/25
Time to Stop Telemetry: 11:00
Reason for Hospitalization: Sepsis, Pneumonia
Expected length of stay greater than two midnights?: Yes
ELOS- Estimated Length of Stay in days: 3
I certify the patient meets the requirements for IP care: Yes
PRN Pain Medication Management As Directed
May give lesser potent ordered pain med per pt: Yes
preference::
Protocol:: Medication orders for pain may be administered in a
manner that supports deferring to patient preference
when the pt is:
- Requesting an ordered lesser potent pain medication.
Least to most potent pain medications are defined
as: acetaminophen < NSAID < tramadol < opioids
(morphine, oxycodone, hydromorphone).
- Requesting a lesser dose of the same medication IF
ORDERED.
- Requesting a less intrusive route of administration
if both routes are prescribed by the provider (PO <
IV).
07/07/25 00:15
Code Status As Directed
Resuscitation Status: Full Code
07/07/25 02:00
Acetaminophen [Tylenol] 650 mg PO Q4HPRN PRN
Albuterol Nebs [Ventolin Nebules] 2.5 mg INH R Q4HPRN PRN
VANCOMYCIN Pharmacy to Dose [VANCOCIN Pharmacy to Dose] 1 each Pharmacy To Prepare [Call Pharmacy To Prepare] 0 ml IV PER PROTOCOL
07/07/25 02:00
Consult Notification Routine
Specialty to Notify: Pulmonary
PULMONARY CONSULT Routine
Consulting Provider: Park Butterfield
Was physician already notified: No
Reason for consult: Recurrent Pneumonia
TSH Reflex To Free T4 Routine
Activity As Directed
Activity Level: Ambulate
With Assistance
EKG with chest pain [ECG as needed] As Directed
ECG as needed for:: Chest Pain
I/O [Intake/ Output] As Directed
Frequency: Per unit guidelines
Precautions As Directed
Type of Precautions: Aspiration
Vital Signs As Directed
Frequency: Per unit guidelines
Weight As Directed
Frequency: Daily
Chest PT [Rx Chest Pt] [RESP] Routine
Special Instructions: BID
Incentive Spirometry [Rx Incentive Spirometry] [RESP] Routine
Frequency: q1h while awake
Oxygen Therapy [O2 Therapy] [RESP] Routine
Titrate/Wean O2 to maintain O2 sat greater than (%): 94
07/07/25 Breakfast
NPO
Allow oral meds: Yes
Allow clear liquids: Sips of Clears
Basic Metabolic Panel IN AM
Complete Blood Count/No Diff IN AM
07/07/25 08:00
Atorvastatin [Lipitor] 40 mg PO DAILY
Budesonide [Pulmicort] 0.5 mg INH R BID
Gabapentin [Neurontin] 600 mg PO TID
Metoprolol Xl [Toprol Xl] 25 mg PO DAILY
Morphine Sulfate Extended Rel. [Ms Contin (Extended Release)] 15 mg PO DAILY
Paroxetine [Paxil] 40 mg PO DAILY
Potassium Chloride [KCl] 20 meq PO DAILY
Rivaroxaban [Xarelto] 20 mg PO DAILY
07/07/25 12:00
Cefepime HCl [Maxipime] 2,000 mg IV Q12H
07/07/25 22:00
Montelukast Sodium [Singulair] 10 mg PO HS
07/10/25 11:00
DC Protocol for Telemetry ONCE
Abnormal Lab Results
07/06/25 07/06/25
21:17 21:45
WBC 11.0 H 10^3/uL
(4.8-10.8)
MCHC 32.7 L g/dL
(33.0-37.0)
Absolute Neuts (auto) 8.8 H 10^3/uL
(1.4-6.5)
Neutrophils % 80.0 H %
(42.2-75.2)
Lymphocytes % 12.8 L %
(20.5-51.1)
Ur Occult Blood Reflex 2+ A
(Negative)
Urine RBC 3-6 A /HPF
(0-2)
Urine Bacteria (Reflex) Few A
(Negative)
07/06/25 21:17
07/06/25 21:49
Vital Signs
Initial and Last Documented VS:
Initial Vital Signs
Temp Pulse Resp BP Pulse Ox
100.2 F 91 20 139/97 90
07/06/25 21:05 07/06/25 21:05 07/06/25 21:05 07/06/25 21:05 07/06/25 21:05
Last Documented Vital Signs
Temp Pulse Resp BP Pulse Ox
98.4 F 69 19 104/69 99
07/07/25 02:07 07/07/25 02:07 07/07/25 02:07 07/07/25 02:07 07/07/25 02:07
MDM/Problems Addressed
MDM/Problems Addressed:
65-year-old female with past medical history of asthma, Lewis's palsy, TIA, chronic pain/RSD, anxiety, depression, morbid obesity, paroxysmal atrial fibrillation presenting to the hospital for confusion. Vital signs on arrival significant for fever.
On exam patient is in no acute distress, however does appear confused. No physical signs of trauma, however reportedly found on the ground. Patient known to be on Eliquis, prior history of CVA so will obtain CT brain imaging. However, suspect
confusion is more likely to infection with presenting fever. Possibly pneumonia versus UTI. Plan for laboratory analysis, cultures, lactic acid, chest x-ray, viral swabs, urinalysis.
23:30 - Patient's labs consistent with leukocytosis, however lactic acid within normal limit blood pressure remains normal without concern for severe sepsis or septic shock. Urine without signs of infection. Chest x-ray shows concern for possible
pneumonia. We will treat with broad-spectrum antibiotics and admit to the hospital given presenting confusion. CT brain negative for acute process
*Pulse Oximetry
SaO2: 93
Nasal Cannula flow liters per minute: 2
Oxygen Mode of Delivery: Room air
Patient hypoxic: yes
*Critical Care Note
Total Time (30-74mins, 75-104mins- exclusive of procedures): Not Applicable
ED Attending Note
-
Portions of this chart may have been created with voice recognition software.� Occasional wrong word or��sound alike� substitutions may have occurred due to the inherent limitations of voice recognition software.
Discharge Plan
Departure
Patient Disposition: Admit
Date of Disposition: 07/06/25
Time of Disposition: 23:41
Presentation/result/management discussed w/ accepting MD/DO: Hospitalist
Patient with high blood pressure during this ER visit?: No
Condition: Fair
Discharge Problem:
Altered mental status, Pneumonia
Interventions
Interventions:
*Risk Screen - Suicide Last Done: 07/06/25 21:52
*General Assessment Last Done: 07/06/25 21:52
*Neglect/Abuse Screening Last Done: 07/06/25 21:52
*ED- Fall Risk Assessment Last Done: 07/06/25 21:52
*ED COVID-19 Vaccine History Last Done: 07/06/25 21:52
*ED Influenza Vaccine History Last Done: 07/06/25 21:52
*Nursing Disposition Last Done: 07/07/25 01:41
ED- Cardiac Assessment Last Done: 07/06/25 21:52
ED- Neurological Assessment Last Done: 07/06/25 21:52
ED- Pulmonary Assessment Last Done: 07/06/25 21:52
Discharge Date and Time
Discharge Date/Time: 07/07/25 01:43
[2025-07-06] MEDS: MAXIPIME 2000 MG IV (23:36)
[2025-07-06] MEDS: VANCOCIN 540 MG IV (23:53)
[2025-07-07] VITALS (11 sets, daily range): BP systolic 103–127; BP diastolic 46–81; PULSE 60; O2SAT 100; BMI 48.9; BMI 50.2
--- NOTE | 2025-07-07 00:21 | HPS.HSE ---
Family Physician
-
Family Physician: Bree Martinez
Chief Complaint
-
Found down
History of Present Illness
Patient is a 65y F with PMH significant for RSD / chronic pain and chronic opioid dependence who presents to ED after being 'found down' at home. Patient lives with her sister and was found lying on the floor of the bedroom earlier this evening.
It is not clear whether the patient suffered an initial fall / injury / syncope / etc. Patient was admitted at 06/16 - 06/20 and again 06/27 - 06/30 for pneumonia / sepsis. She was evaluated by Pulmonary and Speech therapy on the second stay.
Patient completed courses of abx on both occasions. Her most recent course of Augmentin completed yesterday.
In the ED, patient offers no complaints. She has variable confusion - at times seeming oriented per nursing but confused during my exam. Oriented to self and place only. Unable to provide any significant historical details leading up to today's
visit.
Patient was febrile in the ED to 102.7.
Medical History
Past Medical History
Past Medical History: Reports Other
Additional Past Medical History:
Hypertension
Paroxysmal Atrial Fibrillation
Reflex Sympathetic Dystrophy
Chronic Pain Syndrome
Chronic Opioid Dependence
Mild Persistent Asthma
Lewis's Palsy
Anxiety / Depression
Past Surgical History: Reports Other
Additional Past Surgical History:
None Known
Social History
Tobacco: Non-smoker
Alcohol: None
Drug: None
Family History
Family History: Unable to Obtain
Allergies / Home Medications
Allergies reflects when Allergies were last updated in [employer].
Home Medications with original date entered in [employer]
Allergy/Medication List:
Allergies
Allergy/AdvReac Type Severity Reaction Status Date / Time
carbamazepine (From Tegretol) Allergy Reports Verified 06/27/25 07:39
acts like
she's on
LSD.
moxifloxacin (From Avelox) Allergy Unknown Verified 06/27/25 07:39
Home Medications
alprazolam 1 mg tablet (Xanax) 1 mg PO TIDPRN PRN anxiety 06/16/25
atorvastatin 40 mg tablet (Lipitor) 40 mg PO DAILY High Cholesterol 06/16/25
budesonide-formoterol HFA 160 mcg-4.5 mcg/actuation aerosol inhaler (Symbicort) 1 inh inhalation BID Lung/Breathing Issues 06/16/25
cyclobenzaprine 10 mg tablet 10 mg PO TIDPRN PRN spasms 06/16/25
ezetimibe 10 mg tablet (Zetia) 10 mg PO DAILY High Cholesterol 06/16/25
ferrous sulfate 325 mg (65 mg iron) tablet 650 mg PO DAILY Supplement 06/16/25
gabapentin 600 mg tablet 600 mg PO TID Neurological Condition 06/16/25
metoprolol succinate 25 mg tablet,extended release 24 hr (Toprol XL) 25 mg PO DAILY Blood Pressure 06/16/25
montelukast 10 mg tablet (Singulair) 10 mg PO HS Allergies 06/16/25
morphine 15 mg tablet,extended release 15 mg PO DAILY Pain 06/16/25
oxycodone 10 mg tablet 10 mg PO Q6HPRN PRN severe pains 06/16/25
paroxetine HCl 40 mg tablet (Paxil) 40 mg PO DAILY Depression 06/16/25
potassium chloride 20 mEq tablet,extended release 20 meq PO DAILY Electrolyte Repletion 06/16/25
rivaroxaban 20 mg tablet (Xarelto) 20 mg PO DAILY Blood Clot Prevention/Tx 06/16/25
pantoprazole 40 mg tablet,delayed release 40 mg PO DAILY Gastrointestinal Issue 06/27/25
miconazole nitrate 2 % topical powder (Miconazorb AF) 1 applic topical BID #85 grams 06/30/25
Review of Systems
-
Unable to obtain full review of systems at this time due to: Other (confusion)
History Source: Patient
A 12 point ROS was completed and negative except as noted: Yes
Constitutional: Reports Fever and Fatigue; Denies Chills
Respiratory: Reports Cough; Denies Trouble Breathing
Cardiac: Denies Chest Pain or Palpitations
Abdomen/GI: Denies Abdominal Pain, Nausea, Vomiting or Diarrhea
: Reports Dysuria and Frequency
Physical Exam
Vital Signs
Vital Signs
Temp Pulse Resp BP Pulse Ox
102.7 F H 78 14 111/77 93
07/06/25 21:55 07/07/25 00:00 07/07/25 00:00 07/06/25 23:45 07/06/25 23:33
Physical Exam
General: Other (65y F in no acute distress. Diaphoretic. Wakes to verbal stimuli. Answers some questions - occasionally staring / unresponsive. )
HEENT: Other (Dry MM. Thick neck. )
Respiratory: Other (Decreased at both bases. Scattered rhonchi. No wheezing.)
Cardiac: S1/S2 and Irregular Rhythm; No Murmur
GI: Soft, Non Tender, Non Distended and Normal Bowel Sounds
Musculoskeletal: No Clubbing, No Cyanosis and Other (RUE ecchymoses / edema.)
Neuro: Awake, Alert and Other (R facial asymmetry / known Lewis's Palsy); No Oriented
Laboratory Results
-
07/06/25 21:17
07/06/25 21:49
Laboratory Results
Lactic Acid 1.9 mmol/L (0.7-2.0) 07/06/25 21:17
Total Bilirubin 0.8 mg/dl (0.2-1.3) 07/06/25 21:49
AST 23 U/L (14-36) 07/06/25 21:49
ALT 12 U/L (0-35) 07/06/25 21:49
Alkaline Phosphatase 116 U/L (38-126) 07/06/25 21:49
Impression/Plan
-
A/P: Patient is a 65y F with PMH significant for asthma, chronic pain and recent admissions for recurrent pneumonia who presents to ED for evaluation after being found down at home today.
RLL Pneumonia
Sepsis secondary to the above
Acute Hypoxemic Respiratory Insufficiency secondary to the above
- Admit for further evaluation and treatment.
- 3rd admission with similar presentation in the past 30 days.
- Patient presents with fever, tachypnea and CXR with R sided infiltrates.
- IV abx with Vanco / cefepime for now and follow fever curve, clinical improvement, etc.
- COVID, flu negative in the ED today. Urine studies done and were normal last admission.
- With recurrent presentations question A) recurrent aspiration due to sedating meds versus B) R hilar mass lesion / partial obstruction?
- Will ask Pulmonary to re-evaluate.
- Follow for clinical improvement.
Acute Metabolic Encephalopathy
- ? secondary to sepsis / fever versus secondary to med effect / sedation and resulting in aspiration / infection / fever.
- Attempt to significantly decrease sedating medications.
- Speech eval during recent visit with no evidence of mechanical / functional aspiration.
- Follow for improvement in clarity / cognition.
RSD / Chronic Pain Syndrome
Chronic Opioid Dependence
- Continue morphine and gabapentin - holding for excessive sedation.
- Hold other / as-needed sedating medications acutely.
Asthma
- Stable. No wheezing on exam. Observe off of IV steroids.
- Continue inhaled steroids, nebs PRN.
Paroxysmal Atrial Fibrillation
- Stable. Continue metoprolol and Xarelto.
Lewis's Palsy
- Chronic R facial paralysis - unchanged.
Morbid Obesity due to excess calories
- Affects all aspects of care.
- Encourage healthy diet and increased exercise with goal of weight loss.
DVT Prophylaxis: On Xarelto
Code Status: Full
--- NOTE | 2025-07-07 02:30 | PTCARENOTE ---
patient arrived from ED via stretcher. patient pulled over into bed by staff members. patient AOx3 although slightly confused. bed alarm placed. patient on O2 at 2liters. tele placed per order. patient oriented to room. call rosas within reach.
[2025-07-07 05:57] LABS: Hematocrit 33.6 % (37.0-47.0); Hemoglobin 10.8 g/dL (12.0-16.0); Mean Corp Hgb Conc. 32.1 g/dL (33.0-37.0); Mean Corpuscular Volume 89.8 fL (81.0-99.0); Platelet Count 183 10^3/uL (130-400); Red Cell Dist. Width 13.4 % (11.5-14.5)
[2025-07-07 06:02] LABS: Blood Urea Nitrogen 13 mg/dl (7-17); Calcium 8.6 mg/dl (8.4-10.2); Carbon Dioxide 27 mmol/L (22-30); Chloride 105 mmol/L (98-107); Estimated Creatinine Clearance 102 ml/min; Glucose 104 mg/dl (70-99); Potassium 3.9 mmol/L (3.5-5.1); Sodium 138 mmol/L (135-145); eGFR > 60.00
--- NOTE | 2025-07-07 07:31 | W.PN.HOSP.TC ---
Today's Communication/Plan
-
Continue antibiotics.
Oxygen
Assessment / Plan
Assessment / Plan
Impression:
Patient is a 65y F with PMH significant for RSD / chronic pain and chronic opioid dependence who presents to ED after being 'found down' at home. Patient lives with her sister and was found lying on the floor of the bedroom earlier this evening.
It is not clear whether the patient suffered an initial fall / injury / syncope / etc. Patient was admitted at 06/16 - 06/20 and again 06/27 - 06/30 for pneumonia / sepsis. She was evaluated by Pulmonary and Speech therapy on the second stay.
Patient completed courses of abx on both occasions. Her most recent course of Augmentin the day before admission.
Seen by speech and cleared for regular
Assessment/plan:
Severe sepsis with acute organ dysfunction secondary to right lower lobe pneumonia.
Acute organ dysfunction in form of acute metabolic encephalopathy and acute Hypoxemic Respiratory failure.
Patient meets sepsis criteria on admission with fever, leukocytosis
3 admissions on last 30 days, will cover hospital-acquired pneumonia
CXR with R sided infiltrates.
Continue IV abx with Vanco / cefepime for now and follow fever curve, clinical improvement, etc.
COVID, flu negative.
Concern if there is recurrent aspiration due to sedating meds versus hilar mass lesion / partial obstruction?
Seen by speech, and passed swallow
Pulmonology consulted, note appreciated
Acute hypoxemic respiratory failure.
Continue oxygen for now.
Wean as able
Acute Metabolic Encephalopathy
Secondary to sepsis.
Also secondary to medications.
Attempt to decrease sedating medications
Mental status improved
RSD / Chronic Pain Syndrome
Chronic Opioid Dependence
- Continue morphine and gabapentin - holding for excessive sedation.
- Hold other / as-needed sedating medications acutely.
Asthma
- Stable. No wheezing on exam. Observe off of IV steroids.
- Continue inhaled steroids, nebs PRN.
Paroxysmal Atrial Fibrillation
- Stable. Continue metoprolol and Xarelto.
Lewis's Palsy
- Chronic R facial paralysis - unchanged.
Morbid Obesity due to excess calories
- Affects all aspects of care.
- Encourage healthy diet and increased exercise with goal of weight loss.
CODE STATUS: Full code
DVT prophylaxis: Xarelto
Diet: cardiac diet
Disposition: Continue antibiotic
Total time spent on today's encounter was 55 minutes which included time spent in counseling the patient/family regarding diagnosis and treatment plan as listed above, goals of care, and symptom management. Case was discussed with nursing staff,
specialists, and care coordinators/case management. All labs and imaging personally reviewed by me. Remainder the time spent in detailed review of previous records, lab data, imaging, and other medical provider documentation.
Anticipated Discharge: > 48 hours
Subjective/Interval History
-
Date of Service: July 07, 2025
Patient seen and examined at bedside, denies any chest pain , shortness of breath and cough improved, more awake and oriented
Objective Data
-
Labs:
Laboratory Results
07/06/25 07/06/25 07/07/25
21:17 21:49 05:30
WBC 11.0 H 12.6 H
Hgb 12.1 10.8 L
Hct 37.0 33.6 L
Plt Count 176 183
Sodium Cancelled 135 138
Potassium Cancelled 4.1 3.9
Chloride Cancelled 102 105
Carbon Dioxide Cancelled 25 27
BUN Cancelled 12 13
Creatinine Cancelled 0.7 0.8
Glucose Cancelled 97 104 H
Calcium Cancelled 8.9 8.6
Total Bilirubin Cancelled 0.8
AST Cancelled 23
ALT Cancelled 12
Alkaline Phosphatase Cancelled 116
Vital Signs:
Vital Signs
Temp Pulse Resp BP Pulse Ox
98.4 F 69 19 104/69 99
07/07/25 02:07 07/07/25 02:07 07/07/25 02:07 07/07/25 02:07 07/07/25 02:07
Physical Exam
-
General: Well Developed, Well Nourished, No Apparent Distress and Comfortable
HEENT: Normocephalic, Atraumatic, Moist Mucous Membranes, No Ptosis, PERRLA and Nose Appears Normal
Respiratory: Rales, Rhonchi and Non Labored Respirations
Cardiac: Regular Rhythm and S1/S2
Breast: Deferred by me
GI: Soft, Nontender, Nondistended and Normal Bowel Sounds
Genito-urinary: No Costovertebral Tender
Musculoskeletal: No Clubbing, No Cyanosis and No Edema
Skin: Warm
Neuro: Awake, Alert, Oriented, AO x 3 and No Motor Deficits
Psych: Calm
Data Reviewed
-
Diagnostic Radiology: Image personally visualized and interpreted and Report Reviewed by me
CT Scan: Image personally visualized and interpreted and Report Reviewed by me
Ultrasound: Image personally visualized and interpreted and Report Reviewed by me
MRI: Image personally visualized and interpreted and Report Reviewed by me
Medical Tests (Nuc Med, Echo etc): Image personally visualized and interpreted and Report Reviewed by me
Labs: Labs Reviewed by me
Old Records: Reviewed
[2025-07-07] MEDS: PULMICORT 0.5 MG INH ×2 (08:06→19:27)
--- NOTE | 2025-07-07 08:17 | VNURNOTE ---
Addendum entered by Shiloh Forde RN 07/11/25 16:17:
[facility] Resumption referral placed in [facility].
Original Note:
Chart reviewed. Patient is current with [facility]. Will continue to follow hospital course and DC plans.
[2025-07-07] MEDS: LIPITOR 40 MG PO (08:53)
[2025-07-07] MEDS: NEURONTIN 600 MG PO ×3 (08:53→21:27)
[2025-07-07] MEDS: MS CONTIN (EXTENDED RELEASE) 15 MG PO (08:54)
[2025-07-07] MEDS: TOPROL XL 25 MG PO (08:54)
[2025-07-07] MEDS: PAXIL 40 MG PO (08:54)
[2025-07-07] MEDS: KCL 20 MEQ PO (08:54)
[2025-07-07] MEDS: XARELTO 20 MG PO (08:54)
[2025-07-07] MEDS: DESENEX/MITRAZOL/ZEASORB 1 APPLIC TOPICAL ×2 (08:55→20:03)
--- NOTE | 2025-07-07 09:45 | CON.PUL ---
Consultation
Consultation Request
Date/Time Consultation Requested: 07/07/2025
Date/Time Consultation Performed: 07/07/2025
Requesting Provider: Dr. Castellano
Performing Provider: Dr. Alexi Hull
Reason for Consultation: Recurrent respiratory sufficiency/pneumonia
Medical History
-
History of Present Illness:
65-year-old female with past medical history significant for hypertension, hyperlipidemia, atrial fibrillation, asthma, Lewis's palsy, TIA chronic pain syndrome from RSD, anxiety and depression presented recently discharged from the hospital
06/30/2025 for possible pneumonia. She was admitted from 06/16/2025 to 06/20/2025 for mental status change and fever as well . Both admissions treated with antibiotics for pneumonia with improvement.
There was suspicion of possible recurrent microaspiration.
-
Now readmitted on 07/06/2025--> after she was found down at home. Patient lives with her sister and she was found in the floor of the bathroom.
It is noted that she completed her course of Augmentin yesterday.
In the emergency room apparently there was no complaints.
Intermittently confused.
Unable to provide detailed history.
She was found to be febrile up to 102 �F.
Chest x-ray with a right lower lobe infiltrate similar to prior.
-
Prior history:
She was advised to go to rehab but she declined.
Denies any swallowing problems, nausea, vomiting or diarrhea.
Patient is a non-smoker.
-
We were consulted for recurrent infiltrate/pneumonia 07/06/2025
Past Medical History
Past Medical History: Other (See assessment and plan)
Social History
Tobacco: Non-smoker
Alcohol: None
Drug: None
Family History
Family History: Reviewed & Not Pertinent
Allergies / Home Medications
Allergies
Allergy/AdvReac Type Severity Reaction Status Date / Time
carbamazepine (From Tegretol) Allergy Reports Verified 06/27/25 07:39
acts like
she's on
LSD.
moxifloxacin (From Avelox) Allergy Unknown Verified 06/27/25 07:39
Home Medications
�Medication �Instructions �Recorded �Confirmed �Last Taken �Type
alprazolam 1 mg tablet (Xanax) 1 mg PO TIDPRN PRN anxiety 06/16/25 07/07/25 Unknown History
atorvastatin 40 mg tablet (Lipitor) 40 mg PO DAILY High Cholesterol 06/16/25 07/07/25 Unknown History
budesonide-formoterol HFA 160 1 inh inhalation BID 06/16/25 07/07/25 Unknown History
mcg-4.5 mcg/actuation aerosol Lung/Breathing Issues
inhaler (Symbicort)
cyclobenzaprine 10 mg tablet 10 mg PO TIDPRN PRN spasms 06/16/25 07/07/25 Unknown History
ezetimibe 10 mg tablet (Zetia) 10 mg PO DAILY High Cholesterol 06/16/25 07/07/25 Unknown History
ferrous sulfate 325 mg (65 mg 650 mg PO DAILY Supplement 06/16/25 07/07/25 Unknown History
iron) tablet
gabapentin 600 mg tablet 600 mg PO TID Neurological 06/16/25 07/07/25 Unknown History
Condition
metoprolol succinate 25 mg 25 mg PO DAILY Blood Pressure 06/16/25 07/07/25 Unknown History
tablet,extended release 24 hr
(Toprol XL)
montelukast 10 mg tablet 10 mg PO HS Allergies 06/16/25 07/07/25 Unknown History
(Singulair)
morphine 15 mg tablet,extended 15 mg PO DAILY Pain 06/16/25 07/07/25 Unknown History
release
oxycodone 10 mg tablet 10 mg PO Q6HPRN PRN severe pains 06/16/25 07/07/25 Unknown History
paroxetine HCl 40 mg tablet (Paxil) 40 mg PO DAILY Depression 06/16/25 07/07/25 Unknown History
potassium chloride 20 mEq 20 meq PO DAILY Electrolyte 06/16/25 07/07/25 Unknown History
tablet,extended release Repletion
rivaroxaban 20 mg tablet (Xarelto) 20 mg PO DAILY Blood Clot 06/16/25 07/07/25 Unknown History
Prevention/Tx
pantoprazole 40 mg tablet,delayed 40 mg PO DAILY Gastrointestinal 06/27/25 07/07/25 Unknown History
release Issue
miconazole nitrate 2 % topical 1 applic topical BID #85 grams 06/30/25 07/07/25 Unknown Rx
powder (Miconazorb AF)
Review of Systems
-
Unable to Obtain full review of systems at this time due to: Other (Difficult to obtain due to acuity)
Vitals / Labs / Diagnostic Testing
Vital Signs
Temp Pulse Resp BP Pulse Ox
97.9 F 65 16 119/64 99
07/07/25 08:09 07/07/25 08:54 07/07/25 08:11 07/07/25 08:54 07/07/25 08:11
Lab Data
07/07/25 05:30
07/07/25 05:30
Microbiology
07/06/25 22:17 Nasal Swab Influenza Types A & B (LINDA) - Final
Negative for Influenza A & B, NAAT
Negative results must be combined with clinical observations
and patient history.
Nucleic Acid Amplification test (NAAT)performed on the
[employer] platform.
Diagnostic Testing:
Physical Exam
-
HEENT: Normocephalic
Cardiovascular: S1/S2
Respiratory: Clear and Non-Labored Respirations
GI: Soft and Non Distended
Neurology: Awake, Alert and Other (Intermittently confused)
Skin: Warm
General: Comfortable
Assessment
-
65-year-old female with past medical history significant for hypertension, hyperlipidemia, atrial fibrillation, asthma, Lewis's palsy, TIA chronic pain syndrome from RSD, anxiety and depression presented recently discharged from the hospital
06/30/2025 for possible pneumonia. She was admitted from 06/16/2025 to 06/20/2025 for mental status change and fever as well . Both admissions treated with antibiotics for pneumonia with improvement.
There was suspicion of possible recurrent microaspiration.
-
Now readmitted on 07/06/2025--> after she was found down at home
Found to be febrile and with a right lower lobe infiltrate similar to prior.
?Recurrent pneumonia-fever/persistent right lower lobe infiltrate.
Chest x-ray 07/06/2025: Right mid to lower lung field infiltrate-fairly stable compared to CAT scan June 27, 2025.
CT chest 06/27/2025:ground glass opacities and centrilobular nodules within the right lung. Small focus of patchy consolidation in the right upper lobe. Patchy alveolar consolidation right lower lobe improved compared to prior CT. Left lung is
clear. Prominent mediastinal lymph nodes. Multiple subacute appearing right sided rib fractures.
Recent admission for pneumonia status post antibiotics 06/2024 twice.
Sputum + 06/16/2025 MSSA
Influenza negative/COVID-negative
Previous Legionella/strep urine antigen - 06/27/2025.
MRSA screening negative
Leukocytosis/fever
Fevers/altered mental status-suspect toxic metabolic
CT head 07/06/2025: No acute intracranial abnormality.
Conditions present prior admission:
Admission to [facility] 06/16/2025, also discharged on 06/30/2025 for recurrent fever/mental status and abnormal chest x-ray.
Hypertension
Hyperlipidemia
Paroxysmal atrial fibrillation on Xarelto
Mild persistent asthma- Symbicort.
Lewis's palsy
History of TIA
Chronic pain syndrome-RSD
Anxiety and depression
Non-smoker
Assessment and plan:
Again, unilateral lung abnormalities suggest more infectious etiology than inflammatory pneumonitis or cryptogenic pneumonia(Less likely).
Chest x-ray this admission similar to previous CT of the chest from 06/27/2025.
-
Comparing CAT scans from 06/16/2025 to 06/27/2025 consolidations have improved there is residual ground glass opacities which are nonspecific.
Again admitted with fevers.
Previously fever resolved 06/29/2024 with antibiotics. Suggest infectious etiology.
Never received corticosteroids.
In previous admission leukocytosis resolved 06/29/2025 after antibiotics.
-
Continues to have a wet cough and difficulty expectorating at times.
Not bronchospastic on exam.
Not requiring supplemental oxygen
No respiratory distress able to speak in full sentences-has a strong cough effort.
During my exam laying down flat in bed without distress.
-
Again, unilateral abnormality suggest more of an infectious etiology more than interstitial lung disease or cryptogenic pneumonia.
Still suspect recurrent microaspiration-speech evaluation during last admission place her at high risk for aspiration.
Speech evaluation noted-modified barium swallow without overt aspiration.
Still can occur intermittently due to poor dentition, use of sedatives, chronic narcotic use for pain.
-
Patient unable to ambulate due to orthopedic issues only uses a walker and eventually states that she will be transition to a scooter.
-
Patient just completed a course of Augmentin day prior to admission.
For now continue broad-spectrum antibiotics-cefepime/vancomycin
I favor discontinue vancomycin rather quickly if cultures negative. Previous MRSA screening negative.
-
Will obtain a sputum culture if patient able to expectorate
Currently urinalysis does not suggest infection.
-
Previous microbiology: 06/27/2025.
MRSA screen negative-discontinue vancomycin.
Negative Legionella and strep antigen
Negative influenza
Negative COVID
Blood cultures so far negative urine culture contaminant
Repeat sputum culture-sputum culture from previous admission showed MSSA.
UA: Few bacteria. 3-5 white blood cells does not suggest active infection.
-
Will obtain procalcitonin.
Will obtain CRP sedimentation rate
Will obtain PRISCILA as well
-
Will plan for repeat CAT scan in the next 24 hours-if there is new/persistent infiltrates can consider bronchoscopy for cultures and perhaps transbronchial biopsies depending on appearance of CAT scan.
I will place an order for a CAT scan without IV contrast for tomorrow. Hopefully by then mental status will be back to baseline.
-
Continues to have harsh cough: Symptomatic management.
Upon discharge would start azithromycin 250 mg every other day for anti-inflammatory properties.
hold Symbicort.
Start DuoNebs as needed to aid with secretion clearance -she is reluctant to use nebulizers [id number] due to atrial fibrillation
Acapella device if able.
Montelukast continue
No indication for IV corticosteroids. Not bronchospastic on exam.
Nebulizers as needed-
-
Will need follow-up for radiographic clearance in the outpatient setting. Recommend pulmonary evaluation.
-
Will continue to follow.

Data review:
-
Chest x-ray 07/06/2025: Persistent right lower lobe infiltrate similar to prior CAT scan.
-
CT chest 06/27/2025
Ground glass opacities and centrilobular nodules within the right lung. Small focus of patchy consolidation in the right upper lobe. Patchy alveolar consolidation right lower lobe improved compared to prior CT. Left lung is clear. Prominent
mediastinal lymph nodes. Multiple subacute appearing right sided rib fractures.
-
CT chest 06/16/2025:
Consolidative opacity within surrounding ground glass throughout the right lung consistent with pneumonia.
Right perihilar mass like consolidation related to pneumonia or lymph node.
Multiple mildly enlarged mediastinal lymph nodes which may be reactive. Numerous prior right sided rib fractures likely subacute.
-
-
--- NOTE | 2025-07-07 10:02 | PTOTSP ---
Addendum entered and electronically signed by Stephanie Perkins MS, ST, CCC, [employer] [employer] 07/07/25 10:24:
5. Intermittent throat clear during meals.
Original Note:
Speech Therapy Swallowing Assessment
Oral pharyngeal swallow deemed within functional limits during today's bedsides assessment without signs of aspiration. This correlates with findings of FEES completed during last admission 06/29 that did not show aspiration. Aspiration and reflux
precautions recommended given risk factors for dysphagia and reflux.
Recommend
1. Regular solids and thin liquids
2. Meds as tolerated -
3. Upright with meals and for 30 minutes post intake.
4. Oral care at least 3 times daily
[address] not indicated. Reconsult as needed.
--- NOTE | 2025-07-07 10:05 | PHA.VAN.IN ---
Assessment
- Assessment
Renal Function: Appears similar to baseline
Maximum Temperature: 102.7
Minimum Temperature: 97.9
Concomitant Antimicrobials: cefepime
AUC Dosing Plan
- Dosing Variables
Dosing Weight (kg): 137
Dosing CrCl (ml/min): 100
Vd coefficient (L/kg): 0.5 (BMI 49)
- Empiric Dosing
Initial / Loading Dose: 2000 mg 10/3 (23:53)
Maintenance Regimen: vanc 1500 mg q12h
Estimated AUC (mcg*h/mL): 534
Estimated Peak (mcg*h/mL): 33.7
Estimated Trough (mcg/ml): 13.5
Estimated Half Life (H): 7.9
- Monitoring
No levels ordered at this time: consider level in a few days
MRSA Screen: Ordered per protocol (PCR)
Pharmacokinetics Vancomycin I
- -
Patient Age: 65
Patient Sex: Female
Vancomycin Day #: 1
Indication: Pulmonary/Respiratory
Requesting Provider: Dr Castellano
Pertinent Antimicrobial Allergies:
moxifloxacin (From Avelox) Allergy (Verified 06/27/25 07:39) Unknown
Height / Weight:
Height 5 ft 6 in
Actual Weight 137.438 kg
Pertinent Past Medical History: recent hospitalizations for PNA; BMI ~49
- Vital Signs / Lab Results
Temp Pulse Resp BP Pulse Ox
97.9 F 65 16 119/64 99
07/07/25 08:09 07/07/25 08:54 07/07/25 08:11 07/07/25 08:54 07/07/25 08:11
Lab Results - Hematology
07/06/25 07/07/25
21:17 05:30
WBC 11.0 H 12.6 H
Lab Results - Chemistry
07/06/25 07/06/25 07/07/25
21:17 21:49 05:30
BUN Cancelled 12 13
Creatinine Cancelled 0.7 0.8
Estimated Creat Clear Cancelled 118 102
Albumin Cancelled 3.9
07/06/25
21:17
Lactic Acid 1.9
Lab Results - Urine
07/06/25
21:45
Urine Nitrite (Reflex) Negative
Leukocyte Esterase Rfl Negative
Urine WBC (Reflex) 0-2
Ur Squamous Epith Cells 0-2
Urine Bacteria (Reflex) Few A
Microbiology Results
07/06/25 22:17 Influenza Types A & B (LINDA) - Final
Nasal Swab Negative for Influenza A & B, NAAT
Negative results must be combined with clinical observations
and patient history.
Nucleic Acid Amplification test (NAAT)performed on the
[employer] platform.
[2025-07-07] MEDS: VANCOCIN 530 MG IV ×2 (11:10→18:01)
[2025-07-07] MEDS: STERILE WATER FOR INJECTION 10 ML IV (11:46)
[2025-07-07] MEDS: MAXIPIME 2000 MG IV (11:46)
[2025-07-07] MEDS: VENTOLIN NEBULES 2.5 MG INH (19:27)
[2025-07-07] MEDS: ROXICODONE 10 MG PO (20:07)
[2025-07-07] MEDS: SINGULAIR 10 MG PO (21:27)
[2025-07-08] MEDS: STERILE WATER FOR INJECTION 10 ML IV ×2 (00:01→13:15)
[2025-07-08] MEDS: ROXICODONE 10 MG PO ×2 (02:41→19:57)
[2025-07-08 03:00] VITALS: BP 152/69
[2025-07-08 03:21] VITALS: BMI 49.4
[2025-07-08] MEDS: VANCOCIN 530 MG IV (05:23)
[2025-07-08 07:16] LABS: Hematocrit 31.7 % (37.0-47.0); Hemoglobin 10.4 g/dL (12.0-16.0); Mean Corp Hgb Conc. 32.8 g/dL (33.0-37.0); Mean Corpuscular Volume 88.5 fL (81.0-99.0); Platelet Count 150 10^3/uL (130-400); Red Cell Dist. Width 13.1 % (11.5-14.5)
[2025-07-08 07:35] LABS: Blood Urea Nitrogen 9 mg/dl (7-17); Calcium 8.3 mg/dl (8.4-10.2); Carbon Dioxide 29 mmol/L (22-30); Chloride 108 mmol/L (98-107); Estimated Creatinine Clearance > 125 ml/min; Glucose 88 mg/dl (70-99); Magnesium 2.0 mg/dl (1.6-2.3); Potassium 3.5 mmol/L (3.5-5.1); Sodium 139 mmol/L (135-145); eGFR > 60.00
[2025-07-08 07:37] LABS: C-Reactive Protein 53.90 mg/L (0.0-10.00)
[2025-07-08 07:47] LABS: Procalcitonin 2.74 ng/ml (0.0-0.25)
--- NOTE | 2025-07-08 07:58 | PHA.VAN.FU ---
Vancomycin Assessment / Plan
- Assessment
Renal Function: Stable
WBC's are: Trending Down
In the past 24 hrs, patient has been: Afebrile
Concomitant Antimicrobials: CEFEPIME
- Dosing Plan
Continue: 1500MG Q12H
- Monitoring Plan
Peak Level: 07/09 @2130
Trough Level: 07/10 @0530
MRSA Screen: Ordered per protocol
- Follow Up
Pharmacy will continue to follow.
Vancomycin Follow UP
- -
Patient Age: 65
Patient Sex: Female
Vancomycin Day #: 2
Indication: Pulmonary/Respiratory
Requesting Provider: Dr Castellano
Pertinent Antimicrobial Allergies:
moxifloxacin (From Avelox) Allergy (Verified 06/27/25 07:39) Unknown
Height / Weight:
Height 5 ft 6 in
Actual Weight 138.709 kg
Pertinent Past Medical History: recent hospitalizations for PNA; BMI ~49
- Vital Signs / Lab Results
Temp Pulse Resp BP Pulse Ox
98.7 F 56 18 152/69 97
07/08/25 03:00 07/08/25 03:00 07/08/25 03:00 07/08/25 03:00 07/08/25 03:00
Lab Results - Hematology
07/06/25 07/07/25 07/08/25
21:17 05:30 06:55
WBC 11.0 H 12.6 H 5.8
Lab Results - Chemistry
07/06/25 07/06/25 07/07/25
21:17 21:49 05:30
BUN Cancelled 12 13
Creatinine Cancelled 0.7 0.8
Estimated Creat Clear Cancelled 118 102
Albumin Cancelled 3.9
07/08/25
06:55
BUN 9
Creatinine 0.6
Estimated Creat Clear > 125
Albumin
07/06/25
21:17
Lactic Acid 1.9
Microbiology Results
07/06/25 21:49 Blood Culture - Preliminary
Blood/Venous No Growth in 24 hours- Final report to follow
07/06/25 21:17 Blood Culture - Preliminary
Blood/Venous No Growth in 24 hours- Final report to follow
07/07/25 10:21 Nasal Screen MRSA (PCR) - Final
Nose MRSA not detected - performed by PCR methodology.
07/06/25 22:17 Influenza Types A & B (LINDA) - Final
Nasal Swab Negative for Influenza A & B, NAAT
Negative results must be combined with clinical observations
and patient history.
Nucleic Acid Amplification test (NAAT)performed on the
[employer] platform.
[2025-07-08 08:00] VITALS: BP 155/76
[2025-07-08] MEDS: PULMICORT 0.5 MG INH ×2 (08:01→18:09)
[2025-07-08] MEDS: MS CONTIN (EXTENDED RELEASE) 15 MG PO (08:42)
[2025-07-08] MEDS: NEURONTIN 600 MG PO ×3 (08:42→21:50)
[2025-07-08] MEDS: PAXIL 40 MG PO (08:42)
[2025-07-08] MEDS: LIPITOR 40 MG PO (08:42)
[2025-07-08] MEDS: TOPROL XL 25 MG PO (08:43)
[2025-07-08] MEDS: XARELTO 20 MG PO (08:44)
[2025-07-08] MEDS: DESENEX/MITRAZOL/ZEASORB 1 APPLIC TOPICAL ×2 (08:45→21:50)
[2025-07-08] MEDS: KCL 20 MEQ PO (08:45)
[2025-07-08 11:10] VITALS: BP 132/67
--- NOTE | 2025-07-08 11:21 | W.PN.HOSP.TC ---
Today's Communication/Plan
-
Continue antibiotic
CT chest
Possible need bronchoscopy.
Assessment / Plan
Assessment / Plan
Impression:
Patient is a 65y F with PMH significant for RSD / chronic pain and chronic opioid dependence who presents to ED after being 'found down' at home. Patient lives with her sister and was found lying on the floor of the bedroom earlier this evening.
It is not clear whether the patient suffered an initial fall / injury / syncope / etc. Patient was admitted at 06/16 - 06/20 and again 06/27 - 06/30 for pneumonia / sepsis. She was evaluated by Pulmonary and Speech therapy on the second stay.
Patient completed courses of abx on both occasions. Her most recent course of Augmentin the day before admission.
Seen by speech and cleared for regular
Resume home oxycodone.
Seen by pulmonology, with persistent pneumonia to consider bronchoscopy
Assessment/plan:
Severe sepsis with acute organ dysfunction secondary to right lower lobe pneumonia.
Acute organ dysfunction in form of acute metabolic encephalopathy and acute Hypoxemic Respiratory failure.
Patient meets sepsis criteria on admission with fever, leukocytosis
3 admissions on last 30 days, will cover hospital-acquired pneumonia
CXR with R sided infiltrates.
Continue IV abx with Vanco / cefepime for now and follow fever curve, clinical improvement, etc.
COVID, flu negative.
Concern if there is recurrent aspiration due to sedating meds versus hilar mass lesion / partial obstruction?
Seen by speech, and passed swallow
Pulmonology consulted, note appreciated
Pulmonology commending repeat CAT scan i
if there is new/persistent infiltrates can consider bronchoscopy for cultures -/+ transbronchial biopsies depending on appearance of CAT scan.
Acute hypoxemic respiratory failure.
Continue oxygen for now.
Wean as able
Acute Metabolic Encephalopathy
Secondary to sepsis.
Also secondary to medications.
Attempt to decrease sedating medications
Mental status improved
RSD / Chronic Pain Syndrome
Chronic Opioid Dependence
- Continue morphine and gabapentin - holding for excessive sedation.
- Hold other / as-needed sedating medications acutely.
Asthma
- Stable. No wheezing on exam. Observe off of IV steroids.
- Continue inhaled steroids, nebs PRN.
Paroxysmal Atrial Fibrillation
- Stable. Continue metoprolol and Xarelto.
Lewis's Palsy
- Chronic R facial paralysis - unchanged.
Morbid Obesity due to excess calories
- Affects all aspects of care.
- Encourage healthy diet and increased exercise with goal of weight loss.
CODE STATUS: Full code
DVT prophylaxis: Xarelto
Diet: cardiac diet
Disposition: Continue antibiotic
CT chest
Possible need bronchoscopy.
Total time spent on today's encounter was 55 minutes which included time spent in counseling the patient/family regarding diagnosis and treatment plan as listed above, goals of care, and symptom management. Case was discussed with nursing staff,
specialists, and care coordinators/case management. All labs and imaging personally reviewed by me. Remainder the time spent in detailed review of previous records, lab data, imaging, and other medical provider documentation.
Anticipated Discharge: > 48 hours
Subjective/Interval History
-
Date of Service: July 08, 2025
Patient seen and examined at bedside, denies any chest pain , coughing and shortness of breath Improved, no abdominal pain, no nausea, no vomiting, no diarrhea or constipation.
Objective Data
-
Labs:
Laboratory Results
07/08/25
06:55
WBC 5.8
Hgb 10.4 L
Hct 31.7 L
Plt Count 150
Sodium 139
Potassium 3.5
Chloride 108 H
Carbon Dioxide 29
BUN 9
Creatinine 0.6
Glucose 88
Calcium 8.3 L
Vital Signs:
Vital Signs
Temp Pulse Resp BP Pulse Ox
98.8 F 71 16 132/67 97
07/08/25 11:10 07/08/25 11:10 07/08/25 11:10 07/08/25 11:10 07/08/25 11:10
I&O
07/07/25 07/08/25 07/09/25
06:59 06:59 06:59
Intake Total 19890 / 1030
Balance 1989 103
Physical Exam
-
General: Well Developed, Well Nourished, No Apparent Distress and Comfortable
HEENT: Normocephalic, Atraumatic, Moist Mucous Membranes, No Ptosis, PERRLA and Nose Appears Normal
Respiratory: Rales, Rhonchi and Non Labored Respirations
Cardiac: Regular Rhythm and S1/S2
Breast: Deferred by me
GI: Soft, Nontender, Nondistended and Normal Bowel Sounds
Genito-urinary: No Costovertebral Tender
Musculoskeletal: No Clubbing, No Cyanosis and No Edema
Skin: Warm
Neuro: Awake, Alert, Oriented, AO x 3 and No Motor Deficits
Psych: Calm
--- NOTE | 2025-07-08 12:16 | W.PN.PUL3 ---
Today's Communication / Plan
-
- D/c Vancomycin
- Await CT
- Aspiration precautions
Assessment
-
65-year-old female with past medical history significant for hypertension, hyperlipidemia, atrial fibrillation, asthma, Lewis's palsy, TIA chronic pain syndrome from RSD, anxiety and depression presented recently discharged from the hospital
06/30/2025 for possible pneumonia. She was admitted from 06/16/2025 to 06/20/2025 for mental status change and fever as well . Both admissions treated with antibiotics for pneumonia with improvement.
There was suspicion of possible recurrent microaspiration.
-
Now readmitted on 07/06/2025--> after she was found down at home
Found to be febrile and with a right lower lobe infiltrate similar to prior.
?Recurrent pneumonia-fever/persistent right lower lobe infiltrate.
Chest x-ray 07/06/2025: Right mid to lower lung field infiltrate-fairly stable compared to CAT scan June 27, 2025.
CT chest 06/27/2025:ground glass opacities and centrilobular nodules within the right lung. Small focus of patchy consolidation in the right upper lobe. Patchy alveolar consolidation right lower lobe improved compared to prior CT. Left lung is
clear. Prominent mediastinal lymph nodes. Multiple subacute appearing right sided rib fractures.
Recent admission for pneumonia status post antibiotics 06/2024 twice.
Sputum + 06/16/2025 MSSA
Influenza negative/COVID-negative
Previous Legionella/strep urine antigen - 06/27/2025.
MRSA screening negative
Leukocytosis/fever
Fevers/altered mental status-suspect toxic metabolic
CT head 07/06/2025: No acute intracranial abnormality.
Conditions present prior admission:
Admission to [facility] 06/16/2025, also discharged on 06/30/2025 for recurrent fever/mental status and abnormal chest x-ray.
Hypertension
Hyperlipidemia
Paroxysmal atrial fibrillation on Xarelto
Mild persistent asthma- Symbicort.
Lewis's palsy
History of TIA
Chronic pain syndrome-RSD
Anxiety and depression
Non-smoker
Assessment and plan:
Again, unilateral lung abnormalities suggest more infectious etiology than inflammatory pneumonitis or cryptogenic pneumonia(Less likely).
Chest x-ray this admission similar to previous CT of the chest from 06/27/2025.
-
Comparing CAT scans from 06/16/2025 to 06/27/2025 consolidations have improved there is residual ground glass opacities which are nonspecific.
Again admitted with fevers.
Previously fever resolved 06/29/2024 with antibiotics. Suggest infectious etiology.
Never received corticosteroids.
In previous admission leukocytosis resolved 06/29/2025 after antibiotics.
-
Continues to have a wet cough and difficulty expectorating at times.
Not bronchospastic on exam.
Not requiring supplemental oxygen
No respiratory distress able to speak in full sentences-has a strong cough effort.
During my exam laying down flat in bed without distress.
-
Again, unilateral abnormality suggest more of an infectious etiology more than interstitial lung disease or cryptogenic pneumonia.
Still suspect recurrent microaspiration-speech evaluation during last admission place her at high risk for aspiration.
Speech evaluation noted-modified barium swallow without overt aspiration.
Still can occur intermittently due to poor dentition, use of sedatives, chronic narcotic use for pain.
-
Patient unable to ambulate due to orthopedic issues only uses a walker and eventually states that she will be transition to a scooter.
-
Patient just completed a course of Augmentin day prior to admission.
For now continue broad-spectrum antibiotics-cefepime/vancomycin
I favor discontinue vancomycin rather quickly if cultures negative. Previous MRSA screening negative.
-
Will obtain a sputum culture if patient able to expectorate
Currently urinalysis does not suggest infection.
-
Previous microbiology: 06/27/2025.
MRSA screen negative-discontinue vancomycin.
Negative Legionella and strep antigen
Negative influenza
Negative COVID
Blood cultures so far negative urine culture contaminant
Repeat sputum culture-sputum culture from previous admission showed MSSA.
UA: Few bacteria. 3-5 white blood cells does not suggest active infection.
-
Elevated procalcitonin. MRSA screen negative, d/c Vancomycin
Will obtain CRP sedimentation rate
Will obtain PRISCILA as well
-
Will plan for repeat CAT scan in the next 24 hours-if there is new/persistent infiltrates can consider bronchoscopy for cultures and perhaps transbronchial biopsies depending on appearance of CAT scan.
I will place an order for a CAT scan without IV contrast for tomorrow. Hopefully by then mental status will be back to baseline.
-
Continues to have harsh cough: Symptomatic management.
Upon discharge would start azithromycin 250 mg every other day for anti-inflammatory properties.
hold Symbicort.
Start DuoNebs as needed to aid with secretion clearance -she is reluctant to use nebulizers [id number] due to atrial fibrillation
Acapella device if able.
Montelukast continue
No indication for IV corticosteroids. Not bronchospastic on exam.
Nebulizers as needed-
-
Will need follow-up for radiographic clearance in the outpatient setting. Recommend pulmonary evaluation. Will consider inspection bronchoscopy in future based on her clinical course and radiological findings.
-
Will continue to follow.

Data review:
-
Chest x-ray 07/06/2025: Persistent right lower lobe infiltrate similar to prior CAT scan.
-
CT chest 06/27/2025
Ground glass opacities and centrilobular nodules within the right lung. Small focus of patchy consolidation in the right upper lobe. Patchy alveolar consolidation right lower lobe improved compared to prior CT. Left lung is clear. Prominent
mediastinal lymph nodes. Multiple subacute appearing right sided rib fractures.
-
CT chest 06/16/2025:
Consolidative opacity within surrounding ground glass throughout the right lung consistent with pneumonia.
Right perihilar mass like consolidation related to pneumonia or lymph node.
Multiple mildly enlarged mediastinal lymph nodes which may be reactive. Numerous prior right sided rib fractures likely subacute.
-
-
Subjective Data
-
Date of Service:
Date of Service: July 08, 2025
Subjective:
Patient comfortably lying in bed, in no acute distress
Review of Systems
Genitourinary: Other (Non new symptoms reported)
Objective Data
Data Reviewed
Vital Signs / I&O / Oxygen:
Vital Signs
Temp Pulse Resp BP Pulse Ox
98.8 F 71 16 132/67 97
07/08/25 11:10 07/08/25 11:10 07/08/25 11:10 07/08/25 11:10 07/08/25 11:10
Intake and Output
07/07/25 07/08/25 07/09/25
06:59 06:59 06:59
Intake Total 1989 1030 / 1030
Balance 1989 1030 / 1030
SaO2 97
Nasal Cannula flow liters per 2
minute
Physical Exam
General: Comfortable
HEENT: Normocephalic
Cardiovascular: S1-S2
Respiratory: Clear
GI: Soft and Non Distended
Neurology: Awake and Alert
Skin: Warm
Labs/Micro/Reports
Lab Data
07/08/25 06:55
07/08/25 06:55
Microbiology
07/06/25 21:49 Blood/Venous Blood Culture - Preliminary
No Growth in 24 hours- Final report to follow
07/06/25 21:17 Blood/Venous Blood Culture - Preliminary
No Growth in 24 hours- Final report to follow
07/07/25 10:21 Nose Nasal Screen MRSA (PCR) - Final
MRSA not detected - performed by PCR methodology.
07/06/25 22:17 Nasal Swab Influenza Types A & B (LINDA) - Final
Negative for Influenza A & B, NAAT
Negative results must be combined with clinical observations
and patient history.
Nucleic Acid Amplification test (NAAT)performed on the
[employer] platform.
[2025-07-08] MEDS: MAXIPIME 2000 MG IV ×2 (13:16)
[2025-07-08 15:12] VITALS: BP 132/69
[2025-07-08] MEDS: VENTOLIN NEBULES 2.5 MG INH (18:09)
[2025-07-08 19:40] VITALS: BP 150/69
[2025-07-08] MEDS: XANAX 1 MG PO (21:49)
[2025-07-08] MEDS: SINGULAIR 10 MG PO (21:50)
[2025-07-08 23:20] VITALS: BP 147/56
[2025-07-09] MEDS: MAXIPIME 2000 MG IV ×2 (00:05→11:17)
[2025-07-09] MEDS: STERILE WATER FOR INJECTION 10 ML IV ×2 (00:06→11:17)
[2025-07-09 03:48] VITALS: BMI 49.0
[2025-07-09 03:49] VITALS: BP 150/94
[2025-07-09 06:47] LABS: Hematocrit 33.8 % (37.0-47.0); Hemoglobin 10.8 g/dL (12.0-16.0); Mean Corp Hgb Conc. 32.0 g/dL (33.0-37.0); Mean Corpuscular Volume 86.9 fL (81.0-99.0); Platelet Count 161 10^3/uL (130-400); Red Cell Dist. Width 13.2 % (11.5-14.5)
[2025-07-09 07:00] VITALS: BP 146/74
[2025-07-09 07:29] LABS: Blood Urea Nitrogen 6 mg/dl (7-17); Calcium 8.6 mg/dl (8.4-10.2); Carbon Dioxide 31 mmol/L (22-30); Chloride 104 mmol/L (98-107); Estimated Creatinine Clearance > 125 ml/min; Glucose 87 mg/dl (70-99); Magnesium 2.1 mg/dl (1.6-2.3); Potassium 3.5 mmol/L (3.5-5.1); Sodium 139 mmol/L (135-145); eGFR > 60.00
[2025-07-09] MEDS: PULMICORT 0.5 MG INH ×2 (07:35→19:28)
[2025-07-09] MEDS: XARELTO 20 MG PO (08:48)
[2025-07-09] MEDS: MS CONTIN (EXTENDED RELEASE) 15 MG PO (08:48)
[2025-07-09] MEDS: LIPITOR 40 MG PO (08:48)
[2025-07-09] MEDS: NEURONTIN 600 MG PO ×3 (08:48→22:07)
[2025-07-09] MEDS: PAXIL 40 MG PO (08:48)
[2025-07-09] MEDS: KCL 20 MEQ PO (08:48)
[2025-07-09] MEDS: TOPROL XL 25 MG PO (08:49)
[2025-07-09] MEDS: DESENEX/MITRAZOL/ZEASORB 1 APPLIC TOPICAL ×2 (08:51→22:08)
--- NOTE | 2025-07-09 09:37 | CM ---
CM met with pt at bedside.
Pt lives alone in a 1SH with 1 small step to enter front door.
Pt is ind with RW for ambulation and ind with adl's.
Confirmed PC P is [facility] and pharmacy is [facility].
Pt explains she is currently looking to move closer to daughters homes in either [facility] or near [facility], but is limited by monthly SSI and moving in with daughter's is not feasible.
Currently open with [facility]. Preference is to return home and resume home care services. No SNF history.
Pt in agreement for sending a VN referral to [facility] for resumption of services via [facility].
[2025-07-09 11:00] VITALS: BP 141/62
--- NOTE | 2025-07-09 11:44 | W.PN.HOSP.TC ---
Today's Communication/Plan
-
Continue antibiotic
Plan for bronchoscopy.
Hold Xarelto for 48 hours
Assessment / Plan
Assessment / Plan
Impression:
Patient is a 65y F with PMH significant for RSD / chronic pain and chronic opioid dependence who presents to ED after being 'found down' at home. Patient lives with her sister and was found lying on the floor of the bedroom earlier this evening.
It is not clear whether the patient suffered an initial fall / injury / syncope / etc. Patient was admitted at 06/16 - 06/20 and again 06/27 - 06/30 for pneumonia / sepsis. She was evaluated by Pulmonary and Speech therapy on the second stay.
Patient completed courses of abx on both occasions. Her most recent course of Augmentin the day before admission.
Seen by speech and cleared for regular
Resume home oxycodone.
Seen by pulmonology, with persistent pneumonia to consider bronchoscopy
CT chest showed:
1. MODERATE RIGHT LUNG VOLUME LOSS with moderate left to right mediastinal shift and moderate elevation of the right hemidiaphragm.
2. SEVERE RIGHT LUNG BRONCHITIS in the right upper, lower, and middle lobes.
3. Severe narrowing of the proximal right middle lobe bronchus which could be secondary to extrinsic compression by soft tissue in the right hilum (possibly right hilar lymphadenopathy). Inflammatory or infectious luminal narrowing is also a
diagnostic possibility.
4. Moderate peribronchial ground-glass opacity in the right lung which could be subsegmental atelectasis or infection.
5. 1.3 cm centrilobular pulmonary nodule in the infrahilar right lower lobe. Diagnostic possibilities are (1) infection or (2) lung cancer.
6. Mild right paratracheal and subcarinal lymphadenopathy.
7. Severe calcific atherosclerotic plaque in the coronary arteries.
8. Small hiatal hernia.
9. Multiple subacute nondisplaced healing right posterior and lateral rib fractures.
Xarelto held for bronchoscopy.
Assessment/plan:
Severe sepsis with acute organ dysfunction secondary to right lower lobe pneumonia.
Acute organ dysfunction in form of acute metabolic encephalopathy and acute Hypoxemic Respiratory failure.
Patient meets sepsis criteria on admission with fever, leukocytosis
3 admissions on last 30 days, will cover hospital-acquired pneumonia
CXR with R sided infiltrates.
Continue IV abx with Vanco / cefepime for now and follow fever curve, clinical improvement, etc.
COVID, flu negative.
Concern if there is recurrent aspiration due to sedating meds versus hilar mass lesion / partial obstruction?
Seen by speech, and passed swallow
Pulmonology consulted, note appreciated
Pulmonology commending repeat CAT scan i
CT scan showed:
1. MODERATE RIGHT LUNG VOLUME LOSS with moderate left to right mediastinal shift and moderate elevation of the right hemidiaphragm.
2. SEVERE RIGHT LUNG BRONCHITIS in the right upper, lower, and middle lobes.
3. Severe narrowing of the proximal right middle lobe bronchus which could be secondary to extrinsic compression by soft tissue in the right hilum (possibly right hilar lymphadenopathy). Inflammatory or infectious luminal narrowing is also a
diagnostic possibility.
4. Moderate peribronchial ground-glass opacity in the right lung which could be subsegmental atelectasis or infection.
5. 1.3 cm centrilobular pulmonary nodule in the infrahilar right lower lobe. Diagnostic possibilities are (1) infection or (2) lung cancer.
6. Mild right paratracheal and subcarinal lymphadenopathy.
7. Severe calcific atherosclerotic plaque in the coronary arteries.
8. Small hiatal hernia.
9. Multiple subacute nondisplaced healing right posterior and lateral rib fractures.
Plan for bronchoscopy.
Hold Xarelto for 48 h
Acute hypoxemic respiratory failure.
Continue oxygen for now.
Wean as able
Acute Metabolic Encephalopathy
Secondary to sepsis.
Also secondary to medications.
Attempt to decrease sedating medications
Mental status improved
RSD / Chronic Pain Syndrome
Chronic Opioid Dependence
- Continue morphine and gabapentin - holding for excessive sedation.
- Hold other / as-needed sedating medications acutely.
Asthma
- Stable. No wheezing on exam. Observe off of IV steroids.
- Continue inhaled steroids, nebs PRN.
Paroxysmal Atrial Fibrillation
- Stable. Continue metoprolol and Xarelto.
Lewis's Palsy
- Chronic R facial paralysis - unchanged.
Morbid Obesity due to excess calories
- Affects all aspects of care.
- Encourage healthy diet and increased exercise with goal of weight loss.
CODE STATUS: Full code
DVT prophylaxis: Xarelto
Diet: cardiac diet
Disposition: Continue antibiotic
Plan for bronchoscopy.
Hold Xarelto for 48 hours
Total time spent on today's encounter was 55 minutes which included time spent in counseling the patient/family regarding diagnosis and treatment plan as listed above, goals of care, and symptom management. Case was discussed with nursing staff,
specialists, and care coordinators/case management. All labs and imaging personally reviewed by me. Remainder the time spent in detailed review of previous records, lab data, imaging, and other medical provider documentation.
Anticipated Discharge: > 48 hours
Subjective/Interval History
-
Date of Service: July 09, 2025
Patient seen and examined at bedside, denies any chest pain , coughing improved, shortness of breath Improved, no abdominal pain, no nausea, no vomiting, no diarrhea or constipation.
Reviewed CT finding with the patient and plan for bronchoscopy as per pulmonary.
Objective Data
-
Labs:
Laboratory Results
07/09/25
05:51
WBC 6.0
Hgb 10.8 L
Hct 33.8 L
Plt Count 161
Sodium 139
Potassium 3.5
Chloride 104
Carbon Dioxide 31 H
BUN 6 L
Creatinine 0.6
Glucose 87
Calcium 8.6
Vital Signs:
Vital Signs
Temp Pulse Resp BP Pulse Ox
99.0 F 64 18 141/62 97
07/09/25 11:00 07/09/25 11:00 07/09/25 11:00 07/09/25 11:00 07/09/25 11:00
I&O
07/08/25 07/09/25 07/10/25
06:59 06:59 06:59
Intake Total 1989 2950 / 2950
Balance 1989 2950 / 2950
Physical Exam
-
General: Well Developed, Well Nourished, No Apparent Distress and Comfortable
HEENT: Normocephalic, Atraumatic, Moist Mucous Membranes, No Ptosis, PERRLA and Nose Appears Normal
Respiratory: Rales, Rhonchi and Non Labored Respirations
Cardiac: Regular Rhythm and S1/S2
Breast: Deferred by me
GI: Soft, Nontender, Nondistended and Normal Bowel Sounds
Genito-urinary: No Costovertebral Tender
Musculoskeletal: No Clubbing, No Cyanosis and No Edema
Skin: Warm
Neuro: Awake, Alert, Oriented, AO x 3 and No Motor Deficits
Psych: Calm
--- NOTE | 2025-07-09 14:19 | W.PN.PUL3 ---
Today's Communication / Plan
-
- Continue current antibiotics
- Hold Xarelto
- Patient will need bronchoscopy, inpatient versus outpatient to be determined
Assessment
-
65-year-old female with past medical history significant for hypertension, hyperlipidemia, atrial fibrillation, asthma, Lewis's palsy, TIA chronic pain syndrome from RSD, anxiety and depression presented recently discharged from the hospital
06/30/2025 for possible pneumonia. She was admitted from 06/16/2025 to 06/20/2025 for mental status change and fever as well . Both admissions treated with antibiotics for pneumonia with improvement.
There was suspicion of possible recurrent microaspiration.
-
Now readmitted on 07/06/2025--> after she was found down at home
Found to be febrile and with a right lower lobe infiltrate similar to prior.
?Recurrent pneumonia-fever/persistent right lower lobe infiltrate.
Chest x-ray 07/06/2025: Right mid to lower lung field infiltrate-fairly stable compared to CAT scan June 27, 2025.
CT chest 06/27/2025:ground glass opacities and centrilobular nodules within the right lung. Small focus of patchy consolidation in the right upper lobe. Patchy alveolar consolidation right lower lobe improved compared to prior CT. Left lung is
clear. Prominent mediastinal lymph nodes. Multiple subacute appearing right sided rib fractures.
Recent admission for pneumonia status post antibiotics 06/2024 twice.
Sputum + 06/16/2025 MSSA
Influenza negative/COVID-negative
Previous Legionella/strep urine antigen - 06/27/2025.
MRSA screening negative
Leukocytosis/fever
Fevers/altered mental status-suspect toxic metabolic
CT head 07/06/2025: No acute intracranial abnormality.
Conditions present prior admission:
Admission to [facility] 06/16/2025, also discharged on 06/30/2025 for recurrent fever/mental status and abnormal chest x-ray.
Hypertension
Hyperlipidemia
Paroxysmal atrial fibrillation on Xarelto
Mild persistent asthma- Symbicort.
Lewis's palsy
History of TIA
Chronic pain syndrome-RSD
Anxiety and depression
Non-smoker
Assessment and plan:
#. Recurrent, persistent right lower lobe pneumonia
- Patient was treated with antibiotic in June for similar symptoms
- CT scan reviewed from June and then again from 07/08. Concern for right middle lobe syndrome with external compression from ?lymphadenopathy along with right lower lobe nodule, consolidation and axillary lymphadenopathy
- In view of persistent and recurrent pneumonia in same location, abnormal CT findings, need robotic bronchoscopy and EBUS-TBNA for further evaluation. Patient is clinically improving and responding well to antibiotics. Patient is afebrile, WBC
count has normalized, cough and expectoration both have improved.
- Inpatient versus outpatient bronchoscopy to be determined
- Continue cefepime. MRSA screen is negative hence vancomycin has been discontinued
- Microaspiration also a concern with recurrent right lower lobe pneumonia. Speech therapy on case
- Hold Xarelto starting 07/09
Cough and expectoration are improving
Not bronchospastic on exam.
No respiratory distress able to speak in full sentences-has a strong cough effort.
During my exam laying down flat in bed without distress.
-
Patient unable to ambulate due to orthopedic issues only uses a walker and eventually states that she will be transition to a scooter.
-
Patient just completed a course of Augmentin day prior to admission.
For now continue broad-spectrum antibiotics-cefepime/vancomycin
-
Will obtain a sputum culture if patient able to expectorate
Currently urinalysis does not suggest infection.
-
Previous microbiology: 06/27/2025.
MRSA screen negative-discontinued vancomycin.
Negative Legionella and strep antigen
Negative influenza
Negative COVID
Blood cultures so far negative urine culture contaminant
Repeat sputum culture-sputum culture from previous admission showed MSSA.
UA: Few bacteria. 3-5 white blood cells does not suggest active infection.
-
Elevated procalcitonin. MRSA screen negative, d/c Vancomycin
Will obtain CRP sedimentation rate
Will obtain PRISCILA as well
Start DuoNebs as needed to aid with secretion clearance -she is reluctant to use nebulizers [id number] due to atrial fibrillation
Acapella device if able.
Montelukast continue
No indication for IV corticosteroids. Not bronchospastic on exam.
Nebulizers as needed-
-
Will need follow-up for radiographic clearance in the outpatient setting. Recommend pulmonary evaluation. Will consider inspection bronchoscopy in future based on her clinical course and radiological findings.
-
Will continue to follow.

Data review:
CT Chest 07/08/2025: 1. MODERATE RIGHT LUNG VOLUME LOSS with moderate left to right mediastinal shift and moderate elevation of the right hemidiaphragm.
2. SEVERE RIGHT LUNG BRONCHITIS in the right upper, lower, and middle lobes.
3. Severe narrowing of the proximal right middle lobe bronchus which could be secondary to extrinsic compression by soft tissue in the right hilum (possibly right hilar lymphadenopathy). Inflammatory or infectious luminal narrowing is also a
diagnostic possibility.
4. Moderate peribronchial ground-glass opacity in the right lung which could be subsegmental atelectasis or infection.
5. 1.3 cm centrilobular pulmonary nodule in the infrahilar right lower lobe. Diagnostic possibilities are (1) infection or (2) lung cancer.
6. Mild right paratracheal and subcarinal lymphadenopathy.
7. Severe calcific atherosclerotic plaque in the coronary arteries.
8. Small hiatal hernia.
9. Multiple subacute nondisplaced healing right posterior and lateral rib fractures.
-
Chest x-ray 07/06/2025: Persistent right lower lobe infiltrate similar to prior CAT scan.
-
CT chest 06/27/2025
Ground glass opacities and centrilobular nodules within the right lung. Small focus of patchy consolidation in the right upper lobe. Patchy alveolar consolidation right lower lobe improved compared to prior CT. Left lung is clear. Prominent
mediastinal lymph nodes. Multiple subacute appearing right sided rib fractures.
-
CT chest 06/16/2025:
Consolidative opacity within surrounding ground glass throughout the right lung consistent with pneumonia.
Right perihilar mass like consolidation related to pneumonia or lymph node.
Multiple mildly enlarged mediastinal lymph nodes which may be reactive. Numerous prior right sided rib fractures likely subacute.
-
-
Subjective Data
-
Date of Service:
Date of Service: July 09, 2025
Objective Data
Data Reviewed
Vital Signs / I&O / Oxygen:
Vital Signs
Temp Pulse Resp BP Pulse Ox
99.0 F 64 18 141/62 97
07/09/25 11:00 07/09/25 11:00 07/09/25 11:00 07/09/25 11:00 07/09/25 11:00
Intake and Output
07/08/25 07/09/25 07/10/25
06:59 06:59 06:59
Intake Total 960 / 1989 2950 / 2950
Balance 960 / 1989 2950 / 2950
SaO2 97
Nasal Cannula flow liters per 2
minute
Physical Exam
General: Comfortable
HEENT: Normocephalic
Cardiovascular: S1-S2
Respiratory: Clear
GI: Soft and Non Distended
Neurology: Awake and Alert
Skin: Warm
Labs/Micro/Reports
Lab Data
07/09/25 05:51
07/09/25 05:51
Microbiology
07/06/25 21:49 Blood/Venous Blood Culture - Preliminary
No Growth in 48 hours- Final report to follow
07/06/25 21:17 Blood/Venous Blood Culture - Preliminary
No Growth in 48 hours- Final report to follow
07/07/25 10:21 Nose Nasal Screen MRSA (PCR) - Final
MRSA not detected - performed by PCR methodology.
07/06/25 22:17 Nasal Swab Influenza Types A & B (LINDA) - Final
Negative for Influenza A & B, NAAT
Negative results must be combined with clinical observations
and patient history.
Nucleic Acid Amplification test (NAAT)performed on the
[employer] platform.
[2025-07-09 15:00] VITALS: BP 137/86
[2025-07-09] MEDS: ROXICODONE 10 MG PO ×2 (15:57→22:06)
[2025-07-09 19:00] VITALS: BP 135/63
[2025-07-09] MEDS: SINGULAIR 10 MG PO (22:07)
[2025-07-09] MEDS: TYLENOL 650 MG PO (22:07)
[2025-07-09 22:49] VITALS: BP 150/72
[2025-07-10] MEDS: XANAX 1 MG PO (00:37)
[2025-07-10] MEDS: MAXIPIME 2000 MG IV ×2 (00:37→11:34)
[2025-07-10] MEDS: STERILE WATER FOR INJECTION 10 ML IV ×2 (00:38→11:33)
[2025-07-10 02:56] VITALS: BP 154/67
[2025-07-10 02:59] VITALS: BMI 48.8
[2025-07-10 07:18] VITALS: BP 155/68
[2025-07-10 07:23] LABS: Hematocrit 35.0 % (37.0-47.0); Hemoglobin 11.2 g/dL (12.0-16.0); Mean Corp Hgb Conc. 32.0 g/dL (33.0-37.0); Mean Corpuscular Volume 86.4 fL (81.0-99.0); Platelet Count 170 10^3/uL (130-400); Red Cell Dist. Width 13.1 % (11.5-14.5)
[2025-07-10 07:25] LABS: Blood Urea Nitrogen 8 mg/dl (7-17); Calcium 8.6 mg/dl (8.4-10.2); Carbon Dioxide 31 mmol/L (22-30); Chloride 106 mmol/L (98-107); Estimated Creatinine Clearance > 125 ml/min; Glucose 87 mg/dl (70-99); Magnesium 2.1 mg/dl (1.6-2.3); Potassium 3.6 mmol/L (3.5-5.1); Sodium 139 mmol/L (135-145); eGFR > 60.00
[2025-07-10] MEDS: PULMICORT 0.5 MG INH ×2 (07:33→19:37)
[2025-07-10] MEDS: MS CONTIN (EXTENDED RELEASE) 15 MG PO (07:49)
[2025-07-10] MEDS: TOPROL XL PO (07:49)
[2025-07-10] MEDS: PAXIL 40 MG PO (07:50)
[2025-07-10] MEDS: NEURONTIN 600 MG PO ×3 (07:50→20:33)
[2025-07-10] MEDS: KCL 20 MEQ PO (07:50)
[2025-07-10] MEDS: LIPITOR 40 MG PO (07:50)
[2025-07-10] MEDS: DESENEX/MITRAZOL/ZEASORB 1 APPLIC TOPICAL ×2 (07:51→20:34)
[2025-07-10 09:14] LABS: ANA, IgG Reflex to HEp-2 None Detected (None Detected)
--- NOTE | 2025-07-10 09:23 | W.PN.PUL3 ---
Today's Communication / Plan
-
Preoperative w/u for procedure, no prior PFTs or cardiac w/u noted
Repeat ABG, needs OP sleep study
Cardiac silhouette appears R sided, reviewed with Rads
She has RLL nodule ideally should be sampled as OP for ION capabilities, next available date 07/24
PET/CT would also be helpful given numerous nodes/axillary which would be helpful for EBUS planning
Discussed with care team
If there is a preference for her to stay as inpatient, she may receive an incomplete diagnostic procedure
Assessment
-
65-year-old female with past medical history significant for hypertension, hyperlipidemia, atrial fibrillation, asthma, Lewis's palsy, TIA chronic pain syndrome from RSD, anxiety and depression presented recently discharged from the hospital
06/30/2025 for possible pneumonia. She was admitted from 06/16/2025 to 06/20/2025 for mental status change and fever as well . Both admissions treated with antibiotics for pneumonia with improvement. There was suspicion of possible recurrent
microaspiration. Now readmitted on 07/06/2025--> after she was found down at home. Found to be febrile and with a right lower lobe infiltrate similar to prior. We are consulted for evaluation.
Recurrent pneumonia-fever/persistent right lower lobe infiltrate.
Chest x-ray 07/06/2025: Right mid to lower lung field infiltrate-fairly stable compared to CAT scan June 27, 2025.
CT chest 06/27/2025:ground glass opacities and centrilobular nodules within the right lung. Small focus of patchy consolidation in the right upper lobe. Patchy alveolar consolidation right lower lobe improved compared to prior CT. Left lung is
clear. Prominent mediastinal lymph nodes. Multiple subacute appearing right sided rib fractures.
Recent admission for pneumonia status post antibiotics 06/2024 twice.
Sputum + 06/16/2025 MSSA
Influenza negative/COVID-negative
Previous Legionella/strep urine antigen - 06/27/2025.
MRSA screening negative
Leukocytosis/fever
Fevers/altered mental status-suspect toxic metabolic
CT head 07/06/2025: No acute intracranial abnormality.
Conditions present prior admission:
Admission to 06/16/2025, also discharged on 06/30/2025 for recurrent fever/mental status and abnormal chest x-ray.
Hypertension
Hyperlipidemia
Paroxysmal atrial fibrillation on Xarelto
Mild persistent asthma- Symbicort
Lewis's palsy
History of TIA
Chronic pain syndrome-RSD
Anxiety and depression
Non-smoker
Plan
Recurrent, persistent right lower lobe pneumonia
Patient was treated with antibiotic in June for similar symptoms
CT scan reviewed from June and then again from 07/08--Concern for right middle lobe syndrome with external compression from ?lymphadenopathy along with right lower lobe nodule, consolidation and axillary lymphadenopathy
In view of persistent and recurrent pneumonia in same location, abnormal CT findings, need robotic bronchoscopy and EBUS-TBNA for further evaluation.
Patient is clinically improving and responding well to antibiotics. Patient is afebrile, WBC count has normalized, cough and expectoration both have improved.
She does not wish to be discharged to follow as OP ---she has not yet been seen as OP by our office
Will need to start pre-operative w/u and then proceed
Continue cefepime. MRSA screen is negative hence vancomycin has been discontinued
Microaspiration also a concern with recurrent right lower lobe pneumonia. Speech therapy on case
Hold Xarelto starting 07/10, she received 10/5 AM dose
ABG showing Co2 retention at baseline, at risk for NARENDRA/OHS has never had a sleep study
BMI 48
Will add on empiric BIPAP nightly, check ABG again
Last ECHO in 06/2025 normal function, has PAF
Would need cardiac clearance/holding OAC
We will obtain baseline PFT for history of asthma
None prior for review
Cough and expectoration are improving
Not bronchospastic on exam.
No respiratory distress able to speak in full sentences-has a strong cough effort.
During my exam laying down flat in bed without distress.
Patient unable to ambulate due to orthopedic issues only uses a walker and eventually states that she will be transition to a scooter.
Previous microbiology: 06/27/2025.
MRSA screen negative-discontinued vancomycin.
Negative Legionella and strep antigen
Negative influenza
Negative COVID
Blood cultures so far negative urine culture contaminant
Repeat sputum culture-sputum culture from previous admission showed MSSA.
UA: Few bacteria. 3-5 white blood cells does not suggest active infection.
Start DuoNebs as needed to aid with secretion clearance -she is reluctant to use nebulizers [id number] due to atrial fibrillation
Acapella device if able.
Montelukast continue
No indication for IV corticosteroids. Not bronchospastic on exam.
Nebulizers as needed-
-
Will need follow-up for radiographic clearance in the outpatient setting. Recommend pulmonary evaluation.
Will consider inspection bronchoscopy in future based on her clinical course and radiological findings.
-
Will continue to follow.
Data review:
CT Chest 07/08/2025: 1. MODERATE RIGHT LUNG VOLUME LOSS with moderate left to right mediastinal shift and moderate elevation of the right hemidiaphragm.
2. SEVERE RIGHT LUNG BRONCHITIS in the right upper, lower, and middle lobes.
3. Severe narrowing of the proximal right middle lobe bronchus which could be secondary to extrinsic compression by soft tissue in the right hilum (possibly right hilar lymphadenopathy). Inflammatory or infectious luminal narrowing is also a
diagnostic possibility.
4. Moderate peribronchial ground-glass opacity in the right lung which could be subsegmental atelectasis or infection.
5. 1.3 cm centrilobular pulmonary nodule in the infrahilar right lower lobe. Diagnostic possibilities are (1) infection or (2) lung cancer.
6. Mild right paratracheal and subcarinal lymphadenopathy.
7. Severe calcific atherosclerotic plaque in the coronary arteries.
8. Small hiatal hernia.
9. Multiple subacute nondisplaced healing right posterior and lateral rib fractures.
-
Chest x-ray 07/06/2025: Persistent right lower lobe infiltrate similar to prior CAT scan.
-
CT chest 06/27/2025: Ground glass opacities and centrilobular nodules within the right lung. Small focus of patchy consolidation in the right upper lobe. Patchy alveolar consolidation right lower lobe improved compared to prior CT. Left lung is
clear. Prominent mediastinal lymph nodes. Multiple subacute appearing right sided rib fractures.
-
CT chest 06/16/2025: Consolidative opacity within surrounding ground glass throughout the right lung consistent with pneumonia. Right perihilar mass like consolidation related to pneumonia or lymph node. Multiple mildly enlarged mediastinal lymph
nodes which may be reactive. Numerous prior right sided rib fractures likely subacute.
ECHO 06/29/25- 1. Normal biventricular size and function without regional wall motion abnormalities.
2. LVEF is 55-60% by visual estimation.
3. No significant valvular disease.
4. No prior study available for comparison.
Total time spent on this consultation/encounter __71__ minutes which includes review of history, physical exam, medications, laboratory data, personal review of imaging, extensive review of outpatient records, discussion with care team and
respiratory therapy.
Subjective Data
-
Date of Service:
Date of Service: July 10, 2025
Chief Complaint: Pulmonary Follow Up
Subjective:
No new complaints, stable on RA
Does not want to go home as she has lack of transport to obtain care as OP
Objective Data
Data Reviewed
Vital Signs / I&O / Oxygen:
Vital Signs
Temp Pulse Resp BP Pulse Ox
97.2 F 54 16 155/68 97
07/10/25 07:18 07/10/25 07:49 07/10/25 07:35 07/10/25 07:49 07/10/25 07:35
Intake and Output
07/09/25 07/10/25 07/11/25
06:59 06:59 06:59
Intake Total 2950 / 2950 1440 / 1440
Output Total 700 / 700
Balance 2950 / 2950 740 / 740
SaO2 97
Nasal Cannula flow liters per 2
minute
Physical Exam
General: Comfortable and Good Appetite
HEENT: Normocephalic, Anicteric and Moist Mucous Membranes
Cardiovascular: S1-S2 and Regular Rhythm
Respiratory: Clear and Non-Labored Respirations
GI: Soft, Non Distended and Non Tender
Neurology: Awake, Alert and Oriented
Skin: Warm, Dry and Good Color
Labs/Micro/Reports
Lab Data
07/10/25 06:32
07/10/25 06:32
Microbiology
07/06/25 21:49 Blood/Venous Blood Culture - Preliminary
No Growth in 72 hours- Final report to follow
07/06/25 21:17 Blood/Venous Blood Culture - Preliminary
No Growth in 72 hours- Final report to follow
07/07/25 10:21 Nose Nasal Screen MRSA (PCR) - Final
MRSA not detected - performed by PCR methodology.
[2025-07-10 11:06] VITALS: BP 151/84
[2025-07-10] MEDS: ROXICODONE 10 MG PO ×2 (13:13→22:01)
--- NOTE | 2025-07-10 14:23 | W.PN.HOSP.TC ---
Today's Communication/Plan
-
Continue antibiotic
Plan for bronchoscopy.
Cardiology consult for clearance
Assessment / Plan
Assessment / Plan
Impression:
Patient is a 65y F with PMH significant for RSD / chronic pain and chronic opioid dependence who presents to ED after being 'found down' at home. Patient lives with her sister and was found lying on the floor of the bedroom earlier this evening.
It is not clear whether the patient suffered an initial fall / injury / syncope / etc. Patient was admitted at 06/16 - 06/20 and again 06/27 - 06/30 for pneumonia / sepsis. She was evaluated by Pulmonary and Speech therapy on the second stay.
Patient completed courses of abx on both occasions. Her most recent course of Augmentin the day before admission.
Seen by speech and cleared for regular
Resume home oxycodone.
Seen by pulmonology, with persistent pneumonia to consider bronchoscopy
CT chest showed:
1. MODERATE RIGHT LUNG VOLUME LOSS with moderate left to right mediastinal shift and moderate elevation of the right hemidiaphragm.
2. SEVERE RIGHT LUNG BRONCHITIS in the right upper, lower, and middle lobes.
3. Severe narrowing of the proximal right middle lobe bronchus which could be secondary to extrinsic compression by soft tissue in the right hilum (possibly right hilar lymphadenopathy). Inflammatory or infectious luminal narrowing is also a
diagnostic possibility.
4. Moderate peribronchial ground-glass opacity in the right lung which could be subsegmental atelectasis or infection.
5. 1.3 cm centrilobular pulmonary nodule in the infrahilar right lower lobe. Diagnostic possibilities are (1) infection or (2) lung cancer.
6. Mild right paratracheal and subcarinal lymphadenopathy.
7. Severe calcific atherosclerotic plaque in the coronary arteries.
8. Small hiatal hernia.
9. Multiple subacute nondisplaced healing right posterior and lateral rib fractures.
Rin held for bronchoscopy.
Assessment/plan:
Severe sepsis with acute organ dysfunction secondary to right lower lobe pneumonia.
Acute organ dysfunction in form of acute metabolic encephalopathy and acute Hypoxemic Respiratory failure.
Patient meets sepsis criteria on admission with fever, leukocytosis
3 admissions on last 30 days, will cover hospital-acquired pneumonia
CXR with R sided infiltrates.
Continue IV abx with Vanco / cefepime for now and follow fever curve, clinical improvement, etc.
COVID, flu negative.
Concern if there is recurrent aspiration due to sedating meds versus hilar mass lesion / partial obstruction?
Seen by speech, and passed swallow
Pulmonology consulted, note appreciated
Pulmonology commending repeat CAT scan i
CT scan showed:
1. MODERATE RIGHT LUNG VOLUME LOSS with moderate left to right mediastinal shift and moderate elevation of the right hemidiaphragm.
2. SEVERE RIGHT LUNG BRONCHITIS in the right upper, lower, and middle lobes.
3. Severe narrowing of the proximal right middle lobe bronchus which could be secondary to extrinsic compression by soft tissue in the right hilum (possibly right hilar lymphadenopathy). Inflammatory or infectious luminal narrowing is also a
diagnostic possibility.
4. Moderate peribronchial ground-glass opacity in the right lung which could be subsegmental atelectasis or infection.
5. 1.3 cm centrilobular pulmonary nodule in the infrahilar right lower lobe. Diagnostic possibilities are (1) infection or (2) lung cancer.
6. Mild right paratracheal and subcarinal lymphadenopathy.
7. Severe calcific atherosclerotic plaque in the coronary arteries.
8. Small hiatal hernia.
9. Multiple subacute nondisplaced healing right posterior and lateral rib fractures.
Plan for bronchoscopy.
Hold Xarelto for 48 h
07/10
Patient with multiple admissions with pneumonia, pulmonology recommending bronchoscopy.
Patient has severe narrowing of the proximal right middle lobe bronchus which could be secondary to extrinsic compression.
Patient will need bronchoscopy and biopsy (Xarelto on hold).
Will consult cardiology for clearance as per pulmonology request.
Acute hypoxemic respiratory failure.
Continue oxygen for now.
Wean as able
Acute Metabolic Encephalopathy
Secondary to sepsis.
Also secondary to medications.
Attempt to decrease sedating medications
Mental status improved
RSD / Chronic Pain Syndrome
Chronic Opioid Dependence
- Continue morphine and gabapentin - holding for excessive sedation.
- Hold other / as-needed sedating medications acutely.
Asthma
- Stable. No wheezing on exam. Observe off of IV steroids.
- Continue inhaled steroids, nebs PRN.
Paroxysmal Atrial Fibrillation
- Stable. Continue metoprolol and Xarelto.
Lewis's Palsy
- Chronic R facial paralysis - unchanged.
Morbid Obesity due to excess calories
- Affects all aspects of care.
- Encourage healthy diet and increased exercise with goal of weight loss.
CODE STATUS: Full code
DVT prophylaxis: Xarelto
Diet: cardiac diet
Disposition: Continue antibiotic
Plan for bronchoscopy.
Cardiology consult for clearance
Total time spent on today's encounter was 55 minutes which included time spent in counseling the patient/family regarding diagnosis and treatment plan as listed above, goals of care, and symptom management. Case was discussed with nursing staff,
specialists, and care coordinators/case management. All labs and imaging personally reviewed by me. Remainder the time spent in detailed review of previous records, lab data, imaging, and other medical provider documentation.
Anticipated Discharge: 24 - 48 hours
Subjective/Interval History
-
Date of Service: July 10, 2025
Patient seen and examined at bedside, denies any chest pain , coughing and shortness of breath Improved, no abdominal pain, no nausea, no vomiting, no diarrhea or constipation.
Objective Data
-
Labs:
Laboratory Results
07/10/25 07/10/25
06:32 14:05
WBC 5.4
Hgb 11.2 L
Hct 35.0 L
Plt Count 170
HCO3 Pending
Sodium 139
Potassium 3.6
Chloride 106
Carbon Dioxide 31 H
BUN 8
Creatinine 0.6
Glucose 87
Calcium 8.6
Vital Signs:
Vital Signs
Temp Pulse Resp BP Pulse Ox
98.8 F 53 18 151/84 97
07/10/25 11:06 07/10/25 11:06 07/10/25 11:06 07/10/25 11:06 07/10/25 11:06
I&O
07/09/25 07/10/25 07/11/25
06:59 06:59 06:59
Intake Total 2950 / 2950 1440 / 1440
Output Total 700 / 700
Balance 2950 / 2950 740 / 740
Physical Exam
-
General: Well Developed, Well Nourished, No Apparent Distress and Comfortable
HEENT: Normocephalic, Atraumatic, Moist Mucous Membranes, No Ptosis, PERRLA and Nose Appears Normal
Respiratory: Rales, Rhonchi and Non Labored Respirations
Cardiac: Regular Rhythm and S1/S2
Breast: Deferred by me
GI: Soft, Nontender, Nondistended and Normal Bowel Sounds
Genito-urinary: No Costovertebral Tender
Musculoskeletal: No Clubbing, No Cyanosis and No Edema
Skin: Warm
Neuro: Awake, Alert, Oriented, AO x 3 and No Motor Deficits
Psych: Calm
[2025-07-10 14:26] LABS: B.E. 4.7 mmol/L; HCO3 29.2 mmol/L (21-28); O2 Saturation % 96.0 % (94-98); PCO2 42 mmHg (32-35); PO2 69 mmHg (83-108)
--- NOTE | 2025-07-10 14:41 | CON.CAR ---
Addendum entered and electronically signed by Ulysses Solis MD 07/10/25 15:43:
Cardiology will sign off at this time. Please call with any additional questions or concerns.
Addendum entered and electronically signed by Ulysses Solis MD 07/10/25 15:42:
I saw and evaluated the patient, and I provided the substantive portion of the medical decision making.
I reviewed and agree with the note by EMILIE and it accurately reflects our care.
I personally performed the medical decision making of the this encounter and my assessment and plan is below:
65-year-old female with paroxysmal atrial fibrillation on Xarelto who presents after being found down at home, found to have sepsis in the setting of pneumonia. Cardiology is consulted for preoperative risk stratification prior to bronchoscopy.
Patient denies any ongoing angina, heart failure symptoms, or palpitations.
Physical exam: RRR, no murmurs, rhonchorous lung sounds bilaterally, no lower extremity edema
Telemetry: Sinus rhythm with frequent supraventricular ectopy
ECG 07/06/2025: Sinus rhythm with frequent premature atrial complexes
TTE 06/29/2025: LVEF 55-60%, no VHD
Preoperative risk stratification: She has no signs/symptoms of unstable angina, decompensated heart failure, or unstable arrhythmias that would preclude a low risk procedure (bronchoscopy). She had a normal echocardiogram recently. She is at
acceptable risk to undergo bronchoscopy without any further cardiovascular testing.
Paroxysmal atrial fibrillation: Currently in sinus rhythm. Continue metoprolol as able with bradycardia. Okay to hold Xarelto for 48 hours prior to bronchoscopy. It should be resumed as soon as safe from a procedural standpoint.
Severe coronary artery calcifications: Seen on chest CT. She is already on statin. No aspirin due to systemic anticoagulation.
Original Note:
Consultation
Consultation Request
Date/Time Consultation Requested: 07/10/2025 14:20
Date/Time Consultation Performed: 07/10/2025 14:56
Requesting Provider: Dr. Romero
Performing Provider: EMILIE Vazquez for Dr. Solis
Reason for Consultation: Cardiac risk assessment
Medical History
-
Chief Complaint: Weakness
History of Present Illness:
Concepcion Ritchie is Danielle Joaquina Ritchie is a 65-year-old female (known to her primary photographic specialist, Dr. North) , with opioid dependence in the setting of RSD, Lewis's palsy, TIA, asthma, and paroxysmal atrial fibrillation who presented on 07/06/2025
after being found down at home. She was found on the floor by her sister. She reports that she had collapsed and did not have a syncopal episode. She did not lose consciousness. She became so profoundly weak that she fell to the floor and was
unable to get herself off the floor. She was admitted with sepsis in the setting of RLL PNA. She had 2 admissions last month with pneumonia. She completed a course of Augmentin the day prior to admission. Cardiology was consulted for risk
assessment. Pulmonary is planning for a bronchoscopy. Inpatient versus outpatient has yet to be determined.
Past Medical History
Past Medical History: Arrhythmias (Paroxysmal atrial fibrillation [on rivaroxaban]), Asthma and Other (RSD with opioid dependence, Lewis's palsy, TIA)
Social History
Tobacco: Non-Smoker
Living: Alone
Employment: Retired
Family History
Family History: Reviewed & Not Pertinent
Allergies / Home Medications
Allergy/AdvReac Type Severity Reaction Status Date / Time
carbamazepine (From Tegretol) Allergy Reports Verified 06/27/25 07:39
acts like
she's on
LSD.
moxifloxacin (From Avelox) Allergy Unknown Verified 06/27/25 07:39
�Medication �Instructions �Recorded �Confirmed �Type
alprazolam 1 mg tablet (Xanax) 1 mg PO TIDPRN PRN anxiety 06/16/25 07/07/25 History
atorvastatin 40 mg tablet (Lipitor) 40 mg PO DAILY High Cholesterol 06/16/25 07/07/25 History
budesonide-formoterol HFA 160 1 inh inhalation BID 06/16/25 07/07/25 History
mcg-4.5 mcg/actuation aerosol Lung/Breathing Issues
inhaler (Symbicort)
cyclobenzaprine 10 mg tablet 10 mg PO TIDPRN PRN spasms 06/16/25 07/07/25 History
ezetimibe 10 mg tablet (Zetia) 10 mg PO DAILY High Cholesterol 06/16/25 07/07/25 History
ferrous sulfate 325 mg (65 mg 650 mg PO DAILY Supplement 06/16/25 07/07/25 History
iron) tablet
gabapentin 600 mg tablet 600 mg PO TID Neurological 06/16/25 07/07/25 History
Condition
metoprolol succinate 25 mg 25 mg PO DAILY Blood Pressure 06/16/25 07/07/25 History
tablet,extended release 24 hr
(Toprol XL)
montelukast 10 mg tablet 10 mg PO HS Allergies 06/16/25 07/07/25 History
(Singulair)
morphine 15 mg tablet,extended 15 mg PO DAILY Pain 06/16/25 07/07/25 History
release
oxycodone 10 mg tablet 10 mg PO Q6HPRN PRN severe pains 06/16/25 07/07/25 History
paroxetine HCl 40 mg tablet (Paxil) 40 mg PO DAILY Depression 06/16/25 07/07/25 History
potassium chloride 20 mEq 20 meq PO DAILY Electrolyte 06/16/25 07/07/25 History
tablet,extended release Repletion
rivaroxaban 20 mg tablet (Xarelto) 20 mg PO DAILY Blood Clot 06/16/25 07/07/25 History
Prevention/Tx
pantoprazole 40 mg tablet,delayed 40 mg PO DAILY Gastrointestinal 06/27/25 07/07/25 History
release Issue
miconazole nitrate 2 % topical 1 applic topical BID #85 grams 06/30/25 07/07/25 Rx
powder (Miconazorb AF)
Review of Systems
-
History Source: Patient
All other systems: Negative unless noted
Constitutional: Fatigue
EENT: No Symptoms
Respiratory: Cough
Cardiac: No Symptoms
Abdomen/GI: No Symptoms
: No Symptoms
Musculoskeletal: No Symptoms
Skin: No Symptoms
Neurological: No Symptoms
Endocrine: No Symptoms
Hematologic/Lymphatic: No Symptoms
Physical Exam
Vital Signs
Temp Pulse Resp BP Pulse Ox
98.8 F 53 18 151/84 97
07/10/25 11:06 07/10/25 11:06 07/10/25 11:06 07/10/25 11:06 07/10/25 11:06
Lab Results
07/10/25 06:32
07/10/25 06:32
Physical Exam
General: Well Developed, Well Nourished, No Apparent Distress and Comfortable
HEENT: Normocephalic, Anicteric and Moist Mucous Membranes
Respiratory: Clear and Non Labored Respirations
Cardiac: S1/S2, Regular Rhythm and Peripheral Edema (trace LE)
Breast: Deferred by me
GI: Soft, Non Tender, Non Distended and Normal Bowel Sounds
Rectal: Deferred by Provider
Genito-urinary: No Costovertebral Tender
Musculoskeletal: No Clubbing and No Cyanosis
Skin: Warm and Dry
Neuro: AO x 3
Hematologic/Lymphatic: No Lymphadenopathy
Psych: Calm
Impression / Plan
-
I/P: 65F opioid dependence in the setting of RSD, Lewis's palsy, TIA, asthma, and paroxysmal atrial fibrillation who presented on 07/06/2025 after being found down at home. Admitted sepsis in the setting of RLL PNA. Cardiology consult for risk
assessment for bronchoscopy.
Outpatient photographic specialist:
Cardiac risk assessment - bronchoscopy, inpatient versus outpatient
- Does not appear to be in acute/decompensated heart failure, denies past diagnoses of heart failure
- She has never had an MS and denies anginal complaints
- EKG stable on admission with a stable TTE last week
- Rivaroxaban on hold, duration per pulmonary
- Preprocedure EKG ordered
Paroxysmal atrial fibrillation
- Sinus rhythm with PACs, metoprolol succinate was held this morning for heart rate <60 BPM
- Oral Anticoagulation: Rivaroxaban 20 mg
- [id number]: score at least 3 (prior Stroke/TIA, female gender)
Sepsis, in the setting of RLL PNA, per primary and pulmonology
Atherosclerotic plaque on coronary arteries on CT, continue atorvastatin and Zetia
Prior TIA, on atorvastatin, Zetia, and rivaroxaban for paroxysmal atrial fibrillation
Obesity, BMI 48, affects all aspects of care, she would benefit from weight loss
DATA:
TTE, 06/29/25:
SUMMARY
1. Normal biventricular size and function without regional wall motion abnormalities.
2. LVEF is 55-60% by visual estimation.
3. No significant valvular disease.
4. No prior study available for comparison.
Data Reviewed
-
EKG: Report Reviewed by me
Radiology: Report Reviewed by me
Medical Tests (Nuc Med, Echo etc): Report Reviewed by me
Labs: Labs Reviewed by me
Old Records: Reviewed
[2025-07-10 15:00] VITALS: BP 161/71
[2025-07-10 19:00] VITALS: BP 116/81
[2025-07-10] MEDS: SINGULAIR 10 MG PO (20:33)
[2025-07-10] MEDS: TYLENOL 650 MG PO (22:00)
[2025-07-10 23:00] VITALS: BP 138/71
[2025-07-11] MEDS: MAXIPIME 2000 MG IV ×2 (00:02→12:04)
[2025-07-11] MEDS: STERILE WATER FOR INJECTION 10 ML IV ×2 (00:02→12:04)
[2025-07-11] MEDS: XANAX 1 MG PO (00:07)
--- NOTE | 2025-07-11 02:29 | PTCARENOTE ---
Pt aaox3, able to make needs known. Residual R sided weakness. NSR/SB with PACs on monitor. Palpable pedals, trace blle edema. BARTON, occasional moist cough, nonproductive. Coarse lung sounds, inspiratory and expiratory wheezes throughout. Continent
of bowel/bladder. Assist x1 to BSC with RW. Round obese abdomen. Active bowel sounds. MASD to groin, desenex applied. Call rosas and belongings within reach, VSS, care ongoing.
[2025-07-11 03:00] VITALS: BP 158/64
[2025-07-11 05:45] VITALS: BMI 47.3
[2025-07-11 07:10] VITALS: BP 157/78
[2025-07-11 07:42] LABS: Hematocrit 35.7 % (37.0-47.0); Hemoglobin 12.0 g/dL (12.0-16.0); Mean Corp Hgb Conc. 33.6 g/dL (33.0-37.0); Mean Corpuscular Volume 85.6 fL (81.0-99.0); Platelet Count 174 10^3/uL (130-400); Red Cell Dist. Width 12.9 % (11.5-14.5)
[2025-07-11] MEDS: PULMICORT 0.5 MG INH (07:51)
--- NOTE | 2025-07-11 08:18 | W.PN.HOSP.TC ---
Today's Communication/Plan
-
Discharge planning
Assessment / Plan
Assessment / Plan
Physical exam:
General: Well Developed, Well Nourished and No Apparent Distress
HEENT: Normocephalic, Atraumatic and Moist Mucous Membranes
Respiratory: Clear to Auscultation; Negative Wheezes, Rales or Rhonchi
Cardiac: Regular Rhythm and S1/S2
GI: Soft, Nontender and Nondistended
Musculoskeletal: No Clubbing, No Cyanosis and No Edema
Neuro: Awake, Alert and Oriented, no neuro-deficit
Psych: Calm
Impression:
Patient is a 65y F with PMH significant for RSD / chronic pain and chronic opioid dependence who presents to ED after being 'found down' at home. Patient lives with her sister and was found lying on the floor of the bedroom earlier this evening.
It is not clear whether the patient suffered an initial fall / injury / syncope / etc. Patient was admitted at 06/16 - 06/20 and again 06/27 - 06/30 for pneumonia / sepsis. She was evaluated by Pulmonary and Speech therapy on the second stay.
Patient completed courses of abx on both occasions. Her most recent course of Augmentin the day before admission.
Seen by speech and cleared for regular
Resume home oxycodone.
Seen by pulmonology, with persistent pneumonia to consider bronchoscopy
CT chest showed:
1. MODERATE RIGHT LUNG VOLUME LOSS with moderate left to right mediastinal shift and moderate elevation of the right hemidiaphragm.
2. SEVERE RIGHT LUNG BRONCHITIS in the right upper, lower, and middle lobes.
3. Severe narrowing of the proximal right middle lobe bronchus which could be secondary to extrinsic compression by soft tissue in the right hilum (possibly right hilar lymphadenopathy). Inflammatory or infectious luminal narrowing is also a
diagnostic possibility.
4. Moderate peribronchial ground-glass opacity in the right lung which could be subsegmental atelectasis or infection.
5. 1.3 cm centrilobular pulmonary nodule in the infrahilar right lower lobe. Diagnostic possibilities are (1) infection or (2) lung cancer.
6. Mild right paratracheal and subcarinal lymphadenopathy.
7. Severe calcific atherosclerotic plaque in the coronary arteries.
8. Small hiatal hernia.
9. Multiple subacute nondisplaced healing right posterior and lateral rib fractures.
Xarelto held for bronchoscopy.
Assessment/plan:
Severe sepsis with acute organ dysfunction secondary to right lower lobe pneumonia.
Acute organ dysfunction in form of acute metabolic encephalopathy and acute Hypoxemic Respiratory failure.
Patient meets sepsis criteria on admission with fever, leukocytosis
3 admissions on last 30 days, will cover hospital-acquired pneumonia
CXR with R sided infiltrates.
Continue IV abx with Vanco / cefepime for now and follow fever curve, clinical improvement, etc.
COVID, flu negative.
Concern if there is recurrent aspiration due to sedating meds versus hilar mass lesion / partial obstruction?
Seen by speech, and passed swallow
Pulmonology consulted, note appreciated
Pulmonology commending repeat CAT scan i
CT scan showed:
1. MODERATE RIGHT LUNG VOLUME LOSS with moderate left to right mediastinal shift and moderate elevation of the right hemidiaphragm.
2. SEVERE RIGHT LUNG BRONCHITIS in the right upper, lower, and middle lobes.
3. Severe narrowing of the proximal right middle lobe bronchus which could be secondary to extrinsic compression by soft tissue in the right hilum (possibly right hilar lymphadenopathy). Inflammatory or infectious luminal narrowing is also a
diagnostic possibility.
4. Moderate peribronchial ground-glass opacity in the right lung which could be subsegmental atelectasis or infection.
5. 1.3 cm centrilobular pulmonary nodule in the infrahilar right lower lobe. Diagnostic possibilities are (1) infection or (2) lung cancer.
6. Mild right paratracheal and subcarinal lymphadenopathy.
7. Severe calcific atherosclerotic plaque in the coronary arteries.
8. Small hiatal hernia.
9. Multiple subacute nondisplaced healing right posterior and lateral rib fractures.
Plan for bronchoscopy.
Hold Xarelto for 48 h
07/10
Patient with multiple admissions with pneumonia, pulmonology recommending bronchoscopy.
Patient has severe narrowing of the proximal right middle lobe bronchus which could be secondary to extrinsic compression.
Patient will need bronchoscopy and biopsy (Xarelto on hold).
Will consult cardiology for clearance as per pulmonology request.
07/11
Cardiology cleared her for bronchoscopy but after discussion with pulmonary and patient arrangements have been made for outpatient bronchoscopy. Bronchoscopy tentatively for 07/[address] outpatient sleep testing.
Resume anticoagulation today upon discharge.
Pulmonary cleared her for discharge today.
Switch to oral antibiotic for 5 more days outpatient.
Continue inhalers including Symbicort and Spiriva.
Case management for home health services.
Plan to discharge today
Acute hypoxemic respiratory failure.
Continue oxygen for now.
Wean as able
Acute Metabolic Encephalopathy
Secondary to sepsis.
Also secondary to medications.
Attempt to decrease sedating medications
Mental status improved
RSD / Chronic Pain Syndrome
Chronic Opioid Dependence
- Continue morphine and gabapentin - holding for excessive sedation.
- Hold other / as-needed sedating medications acutely.
Asthma
- Stable. No wheezing on exam. Observe off of IV steroids.
- Continue inhaled steroids, nebs PRN.
Paroxysmal Atrial Fibrillation
- Stable. Continue metoprolol and Xarelto.
Lewis's Palsy
- Chronic R facial paralysis - unchanged.
Morbid Obesity due to excess calories
- Affects all aspects of care.
- Encourage healthy diet and increased exercise with goal of weight loss.
CODE STATUS: Full code
DVT prophylaxis: Xarelto
Diet: cardiac diet
Disposition: Discharge today
Anticipated Discharge: Today
Subjective/Interval History
-
Date of Service: July 11, 2025
Patient feels well overall. Afebrile.
Objective Data
-
Labs:
Laboratory Results
07/11/25
07:19
WBC 4.7 L
Hgb 12.0
Hct 35.7 L
Plt Count 174
Sodium Pending
Potassium Pending
Chloride Pending
Carbon Dioxide Pending
BUN Pending
Creatinine Pending
Glucose Pending
Calcium Pending
Vital Signs:
Vital Signs
Temp Pulse Resp BP Pulse Ox
98.2 F 61 14 157/78 97
07/11/25 07:10 07/11/25 07:53 07/11/25 07:53 07/11/25 07:10 07/11/25 07:53
I&O
07/10/25 07/11/25 07/12/25
06:59 06:59 06:59
Intake Total 1440 / 1440 1410 / 1410
Output Total 700 / 700
Balance 740 / 740 1410 / 1410
[2025-07-11 08:26] LABS: Blood Urea Nitrogen 9 mg/dl (7-17); Calcium 8.8 mg/dl (8.4-10.2); Carbon Dioxide 29 mmol/L (22-30); Chloride 105 mmol/L (98-107); Estimated Creatinine Clearance > 125 ml/min; Glucose 91 mg/dl (70-99); Potassium 3.6 mmol/L (3.5-5.1); Sodium 139 mmol/L (135-145); eGFR > 60.00
[2025-07-11] MEDS: KCL 20 MEQ PO (08:36)
[2025-07-11] MEDS: TOPROL XL 25 MG PO (08:36)
[2025-07-11] MEDS: NEURONTIN 600 MG PO ×2 (08:37→16:07)
[2025-07-11] MEDS: PAXIL 40 MG PO (08:37)
[2025-07-11] MEDS: MS CONTIN (EXTENDED RELEASE) 15 MG PO (08:37)
[2025-07-11] MEDS: LIPITOR 40 MG PO (08:37)
[2025-07-11] MEDS: DESENEX/MITRAZOL/ZEASORB 1 APPLIC TOPICAL (08:38)
--- NOTE | 2025-07-11 09:37 | W.PN.PUL3 ---
Today's Communication / Plan
-
PFT with moderate obstruction, will start maximum inhaler medications to continue at home
Cardiac evaluation appreciated
Will need OP sleep study as well
Outpatient ION, PET/CT eval
She was agreeable to be discharged home, to follow as OP
Earliest ION date is 07/24--she is aware
D/c planning per team
Assessment
-
65-year-old female with past medical history significant for hypertension, hyperlipidemia, atrial fibrillation, asthma, Lewis's palsy, TIA chronic pain syndrome from RSD, anxiety and depression presented recently discharged from the hospital
06/30/2025 for possible pneumonia. She was admitted from 06/16/2025 to 06/20/2025 for mental status change and fever as well . Both admissions treated with antibiotics for pneumonia with improvement. There was suspicion of possible recurrent
microaspiration. Now readmitted on 07/06/2025--> after she was found down at home. Found to be febrile and with a right lower lobe infiltrate similar to prior. We are consulted for evaluation.
Recurrent pneumonia-fever/persistent right lower lobe infiltrate.
Chest x-ray 07/06/2025: Right mid to lower lung field infiltrate-fairly stable compared to CAT scan June 27, 2025.
CT chest 06/27/2025:ground glass opacities and centrilobular nodules within the right lung. Small focus of patchy consolidation in the right upper lobe. Patchy alveolar consolidation right lower lobe improved compared to prior CT. Left lung is
clear. Prominent mediastinal lymph nodes. Multiple subacute appearing right sided rib fractures.
Recent admission for pneumonia status post antibiotics 06/2024 twice.
Sputum + 06/16/2025 MSSA
Influenza negative/COVID-negative
Previous Legionella/strep urine antigen - 06/27/2025.
MRSA screening negative
Leukocytosis/fever
Fevers/altered mental status-suspect toxic metabolic
CT head 07/06/2025: No acute intracranial abnormality.
Moderate persistent asthma
Conditions present prior admission:
Admission to 06/16/2025, also discharged on 06/30/2025 for recurrent fever/mental status and abnormal chest x-ray.
Hypertension
Hyperlipidemia
Paroxysmal atrial fibrillation on Xarelto
Mild persistent asthma- Symbicort
Lewis's palsy
History of TIA
Chronic pain syndrome-RSD
Anxiety and depression
Non-smoker
Plan
Recurrent, persistent right lower lobe pneumonia
Patient was treated with antibiotic in June for similar symptoms
CT scan reviewed from June and then again from 07/08--Concern for right middle lobe syndrome with external compression from ?lymphadenopathy along with right lower lobe nodule, consolidation and axillary lymphadenopathy
In view of persistent and recurrent pneumonia in same location, abnormal CT findings, need robotic bronchoscopy and EBUS-TBNA for further evaluation.
Patient is clinically improving and responding well to antibiotics. Patient is afebrile, WBC count has normalized, cough and expectoration both have improved.
She does not wish to be discharged to follow as OP ---she has not yet been seen as OP by our office
Will need to start pre-operative w/u and then proceed
I reviewed CT extensively with rads regarding her R sided structures, not likely situs inversus per rads
She has traction bronchiectasis and recurrent PNAs
She has RLL that would be best sampled via ION
PET/CT planning would be needed to evaluate her LNs for better EBUS planning, possibly access axillary as well
I reviewed this with her in detail, if we proceed with inpatient she is likely to have a limited incomplete diagnostic test
She understands needing to proceed as OP
Continue cefepime. MRSA screen is negative hence vancomycin has been discontinued
Microaspiration also a concern with recurrent right lower lobe pneumonia. Speech therapy on case
Hold Xarelto starting 07/10, she received 10/5 AM dose
ABG showing Co2 retention at baseline, at risk for NARENDRA/OHS has never had a sleep study
BMI 48
Repeat ABG without CO2 retention
Last ECHO in 06/2025 normal function, has PAF
Would need cardiac clearance/holding OAC
Appreciate eval, she has severe CAD on CT
We will obtain baseline PFT for history of asthma
Moderate obstruction with mild restriction noted
Add asthma medications today--was taking her Symbicort not as directed
None prior for review/comparison
Cough and expectoration are improving
Not bronchospastic on exam.
No respiratory distress able to speak in full sentences-has a strong cough effort.
During my exam laying down flat in bed without distress.
Patient unable to ambulate due to orthopedic issues only uses a walker and eventually states that she will be transition to a scooter.
Previous microbiology: 06/27/2025.
MRSA screen negative-discontinued vancomycin.
Negative Legionella and strep antigen
Negative influenza
Negative COVID
Blood cultures so far negative urine culture contaminant
Repeat sputum culture-sputum culture from previous admission showed MSSA.
UA: Few bacteria. 3-5 white blood cells does not suggest active infection.
Start DuoNebs as needed to aid with secretion clearance -she is reluctant to use nebulizers [id number] due to atrial fibrillation
Acapella device if able.
Montelukast continue
No indication for IV corticosteroids. Not bronchospastic on exam.
Nebulizers as needed-
-
Will need follow-up for radiographic clearance in the outpatient setting. Recommend pulmonary evaluation.
Will consider inspection bronchoscopy in future based on her clinical course and radiological findings.
Discharge planning
Data review:
CT Chest 07/08/2025: 1. MODERATE RIGHT LUNG VOLUME LOSS with moderate left to right mediastinal shift and moderate elevation of the right hemidiaphragm.
2. SEVERE RIGHT LUNG BRONCHITIS in the right upper, lower, and middle lobes.
3. Severe narrowing of the proximal right middle lobe bronchus which could be secondary to extrinsic compression by soft tissue in the right hilum (possibly right hilar lymphadenopathy). Inflammatory or infectious luminal narrowing is also a
diagnostic possibility.
4. Moderate peribronchial ground-glass opacity in the right lung which could be subsegmental atelectasis or infection.
5. 1.3 cm centrilobular pulmonary nodule in the infrahilar right lower lobe. Diagnostic possibilities are (1) infection or (2) lung cancer.
6. Mild right paratracheal and subcarinal lymphadenopathy.
7. Severe calcific atherosclerotic plaque in the coronary arteries.
8. Small hiatal hernia.
9. Multiple subacute nondisplaced healing right posterior and lateral rib fractures.
-
Chest x-ray 07/06/2025: Persistent right lower lobe infiltrate similar to prior CAT scan.
-
CT chest 06/27/2025: Ground glass opacities and centrilobular nodules within the right lung. Small focus of patchy consolidation in the right upper lobe. Patchy alveolar consolidation right lower lobe improved compared to prior CT. Left lung is
clear. Prominent mediastinal lymph nodes. Multiple subacute appearing right sided rib fractures.
-
CT chest 06/16/2025: Consolidative opacity within surrounding ground glass throughout the right lung consistent with pneumonia. Right perihilar mass like consolidation related to pneumonia or lymph node. Multiple mildly enlarged mediastinal lymph
nodes which may be reactive. Numerous prior right sided rib fractures likely subacute.
ECHO 06/29/25- 1. Normal biventricular size and function without regional wall motion abnormalities.
2. LVEF is 55-60% by visual estimation.
3. No significant valvular disease.
4. No prior study available for comparison.
Total time spent on this consultation/encounter __51__ minutes which includes review of history, physical exam, medications, laboratory data, personal review of imaging, extensive review of outpatient records, discussion with care team and
respiratory therapy.
Subjective Data
-
Date of Service:
Date of Service: July 11, 2025
Chief Complaint: Pulmonary Follow Up
Subjective:
No new complaints, remains stable on RA
Objective Data
Data Reviewed
Vital Signs / I&O / Oxygen:
Vital Signs
Temp Pulse Resp BP Pulse Ox
98.2 F 61 14 157/78 97
07/11/25 07:10 10/07/25 07:53 07/11/25 07:53 07/11/25 07:10 07/11/25 07:53
Intake and Output
07/10/25 07/11/25 07/12/25
06:59 06:59 06:59
Intake Total 1440 / 1440 1410 / 1410
Output Total 700 / 700
Balance 740 / 740 1410 / 1410
SaO2 97
Nasal Cannula flow liters per 2
minute
Physical Exam
General: Comfortable and Good Appetite
HEENT: Normocephalic, Anicteric and Moist Mucous Membranes
Cardiovascular: S1-S2 and Regular Rhythm
Respiratory: Clear and Non-Labored Respirations
GI: Soft, Non Distended and Non Tender
Neurology: Awake, Alert and Oriented
Skin: Warm, Dry and Good Color
Labs/Micro/Reports
Lab Data
07/11/25 07:19
07/11/25 07:19
Laboratory Results
07/10/25
14:05
pH 7.45
pCO2 42 H
pO2 69 L
HCO3 29.2 H
O2 Delivery Level
Microbiology
07/06/25 21:49 Blood/Venous Blood Culture - Preliminary
No Growth in 4 days- Final report to follow
07/06/25 21:17 Blood/Venous Blood Culture - Preliminary
No Growth in 4 days- Final report to follow
--- NOTE | 2025-07-11 13:53 | W.DCSUMMARY ---
Discharge Summary
Discharge Data
Date of Admission: 07/07/25
Date of Discharge: 07/11/25
Total time spent discharging patient (in min): 35
-
Pending Results: No
Hospital Course
Patient is 65 years old female history of A-fib, chronic pain, opioid dependence, RSD, Lewis's palsy, TIA, asthma, presented to the hospital found down at home. Patient was felt to be in sepsis due to pneumonia. Patient had completed a course of
antibiotics just recently for pneumonia as well. She was placed on broad-spectrum IV antibiotics. Pulmonary consulted. There was concerns on the area of right lower lung and also severe narrowing of the proximal right middle lobe bronchus that is
not clear the etiology so bronchoscopy was recommended. Pulmonary requested cardiology evaluation and cardiology cleared her for the procedure. Of note, pulmonary could not accommodate inpatient testing and since she is hemodynamically stable and
afebrile and oxygenating well she will be scheduled to have bronchoscopy as outpatient. I also recommend to pursue sleep testing as outpatient. Pulmonary cleared her for discharge today. Patient has participated in PT OT and they have recommended
home health and we asked case supervisor who help with this upon discharge. Patient otherwise is doing well and she is going to be discharged in stable condition today.
Discharge duration: 35 minutes
Discharge Plan
-
Patient Disposition: Home with Home Care
Discharge Diagnosis/Procedures: Regarding pneumonia.
Diet: Low Cholesterol
Activity: As tolerated
Blood Work: Please PCP to order CBC, BMP within 1 week
Referrals:
Dony North Jr., MD [Non-Admitting Privileges] - in less than 1 week
Ulysses Solis MD [Active, Cardiology] - in one to two months
Eli Renee DO [Active, Pulmonary Medicine] - in one to two weeks
Bree Martinez CRNP [Family Provider, General] - in less than 1 week
Additional Discharge Medication Instructions: Bronchoscopy as per pulmonary on 07/24/2025. Also needs arrangement for outpatient sleep testing through pulmonary.
Prescriptions:
New
cefdinir 300 mg Capsule
300 mg PO Q12 5 Days Qty: 10 0RF
Spiriva Respimat 2.5 mcg/actuation mist
2 puff inhalation DAILY Qty: 4 0RF
Continued
cyclobenzaprine 10 mg Tablet
10 mg PO TIDPRN PRN (Reason: spasms)
atorvastatin [Lipitor] 40 mg Tablet
40 mg PO DAILY
gabapentin 600 mg Tablet
600 mg PO TID
alprazolam [Xanax] 1 mg Tablet
1 mg PO TIDPRN PRN (Reason: anxiety)
ferrous sulfate 325 mg (65 mg iron) Tablet
650 mg PO DAILY
montelukast [Singulair] 10 mg Tablet
10 mg PO HS
morphine 15 mg Tablet Extended Release
15 mg PO DAILY
metoprolol succinate [Toprol XL] 25 mg Tablet Extended Release 24 Hr
25 mg PO DAILY
paroxetine HCl [Paxil] 40 mg Tablet
40 mg PO DAILY
ezetimibe [Zetia] 10 mg Tablet
10 mg PO DAILY
oxycodone 10 mg Tablet
10 mg PO Q6HPRN PRN (Reason: severe pains)
Xarelto 20 mg Tablet
20 mg PO DAILY
potassium chloride 20 mEq Tablet Extended Release
20 meq PO DAILY
pantoprazole 40 mg tablet,delayed release (DR/EC)
40 mg PO DAILY
miconazole nitrate [Miconazorb AF] 2 % Powder
1 applic topical BID Qty: 85 0RF
Changed
budesonide-formoterol [Symbicort] 160-4.5 mcg/actuation Hfa Aerosol Inhaler
2 inh INHALATION BID Qty: 10.2 0RF
Discharge Orders:
Discharge Patient (As Directed); Ordered 07/11/25
Ordered By: Montrell Frye
Discharge Date and Time
Print Language: UGANDAN
[2025-07-11 14:46] VITALS: BP 145/88; PULSE 60; O2SAT 97
[2025-07-11 14:47] VITALS: BP 145/88; PULSE 62; O2SAT 96
--- NOTE | 2025-07-11 14:57 | CM ---
Pt cleared for discharge today. Current with [facility] and services will resume after discharge. Shiloh Forde aware of resumption for [facility].
[2025-07-11 15:00] VITALS: BP 153/53
[2025-07-11] MEDS: SPIRIVA RESPIMAT 2.5 MCG 2 PUFF INH (15:05)
[2025-07-11] MEDS: ROXICODONE 10 MG PO (16:07)
== END 2025-07-11 18:22 | disposition home health service (06) | DRG 871 ==
LOC: 3 WEST ACU 00:39
PROVIDERS: General Practice; Internal Medicine; ADMITTING PHYSICIAN Hospitalist; ATTENDING PHYSICIAN Hospitalist; CONSULT PHYSICIAN Student in an Organized Health Care Education/Training Program; EMERGENCY PHYSICIAN Student in an Organized Health Care Education/Training Program; FAMILY PHYSICIAN Nurse Practitioner Adult Health; OTHER PHYSICIAN Internal Medicine Critical Care Medicine
DX: A41.9 Sepsis, unspecified organism (principal); J18.9 Pneumonia, unspecified organism; S22.41XA Multiple fractures of ribs, right side, initial encounter for closed fracture; F11.20 Opioid dependence, uncomplicated; Z68.42 Body mass index [BMI] 45.0-49.9, adult; Z87.01 Personal history of pneumonia (recurrent); I48.0 Paroxysmal atrial fibrillation; I10 Essential (primary) hypertension; G89.4 Chronic pain syndrome; J45.30 Mild persistent asthma, uncomplicated; G51.0 Bell's palsy; F32.A Depression, unspecified; F41.9 Anxiety disorder, unspecified; E78.00 Pure hypercholesterolemia, unspecified; E66.01 Morbid (severe) obesity due to excess calories; Z86.73 Personal history of transient ischemic attack (TIA), and cerebral infarction without residual deficits; W18.30XA Fall on same level, unspecified, initial encounter; Z79.01 Long term (current) use of anticoagulants; Z79.51 Long term (current) use of inhaled steroids; Z79.899 Other long term (current) drug therapy; Z11.52 Encounter for screening for COVID-19
CPT/HCPCS: 36600; 51701; 70450; 71046; 71250; 80048; 80053; 81003; 81015; 82805; 83605; 83735; 84145; 84443; 85025; 85027; 85652; 86038; 86140; 87040; 87502; 87641; 87811; 90656; 92610; 93005; 94060; 94640; 94727; 94729; 94760; 96361; 96365; 96366; 96375; 97163; 97167; 97530; 99285; G0008

== ENCOUNTER 2025-07-31 07:28 | Inpatient (IN) | payer OTHER, SELFPAY ==
[2025-07-31] VITALS (18 sets, daily range): BP systolic 94–135; BP diastolic 43–95; PULSE 56; O2SAT 92
[2025-07-31 04:33] LABS: Hematocrit 38.6 % (37.0-47.0); Hemoglobin 12.0 g/dL (12.0-16.0); Mean Corp Hgb Conc. 31.1 g/dL (33.0-37.0); Mean Corpuscular Volume 89.8 fL (81.0-99.0); Nucleated Red Blood Cells % 0 %; Platelet Count 185 10^3/uL (130-400); Red Cell Dist. Width 13.5 % (11.5-14.5)
[2025-07-31] MEDS: NSS 1000 IV ×2 (04:38→07:30)
[2025-07-31] MEDS: TYLENOL 1000 MG PO (04:38)
[2025-07-31 04:44] LABS: COVID-19 Antigen Negative (Negative)
[2025-07-31 04:45] LABS: ALT (SGPT) 15 U/L (0-35); AST (SGOT) 14 U/L (14-36); Albumin 3.8 g/dl (3.5-5.0); Alkaline Phosphatase 102 U/L (38-126); Blood Urea Nitrogen 10 mg/dl (7-17); Calcium 8.7 mg/dl (8.4-10.2); Carbon Dioxide 29 mmol/L (22-30); Chloride 103 mmol/L (98-107); Estimated Creatinine Clearance 100 ml/min; Glucose 163 mg/dl (70-99); Potassium 4.0 mmol/L (3.5-5.1); Sodium 137 mmol/L (135-145); Total Protein 6.1 g/dl (6.3-8.2); eGFR > 60.00
--- NOTE | 2025-07-31 05:20 | ED.GENMED ---
History of Present Illness
<Opal Arita PA-C - Last Filed: 07/31/25 06:32>
General
Chief Complaint: Fever
Source: patient
Exam Limitations: none
Time Seen by Provider: 07/31/25 04:02
Nursing documentation reviewed up to this point in time: agreed with
History of Present Illness
History of Present Illness:
65-year-old female with past medical history of asthma, anxiety, depression, prior CVA, A-fib on Xarelto, presents to the ER today with concerns of a fever and altered mental status. She lives at home with her sister and her father and sister was
concerned because she was reportedly per EMS 'talking nonsense' and 'not acting like herself'. I attempted to call patient's sister but could not locate her contact information. Of note, patient was recently admitted to the hospital for altered
mental status with sepsis secondary to pneumonia. She reports that when she went home, she was feeling better but then she noted that her cough seemed to come back and she started develop a fever. She has multiple episodes of recurrent right lower
lobe pneumonia and has been admitted multiple times for this. She has not yet had a bronchoscopy. Patient believes that she is taking amoxicillin however discharge paperwork states that she has both been taking cefdinir. Patient denies burning
with urination, urinary frequency, pelvic pain, abdominal pain, vomiting, chest pain, shortness of breath, chest pain. She denies dizziness or lightheadedness.
Review of Systems
<Opal Arita PA-C - Last Filed: 07/31/25 06:32>
Review of Systems
All Other Systems: ROS reviewed and negative except as documented in HPI and ROS
Phy Exam
<Opal Arita PA-C - Last Filed: 07/31/25 06:32>
Physical Exam
Physical Exam:
General: Patient appears older than stated age, is disheveled
Skin: Warm and dry, no rashes or lesions
Head: Normocephalic, atraumatic
Eyes: Sclera non-icteric. EOMs intact.
Cardiac: Patient is tachycardic otherwise regular rhythm, no murmurs
Peripheral Vascular: No lower extremity swelling or edema
Pulm: Increased respiratory rate, scattered rhonchi heard on the right
Abdomen: No abdominal tenderness to palpation, no palpable abdominal mass
Neuro: CN II-XII intact, no focal neurologic deficits.
Psychiatric: Appropriate mood and affect. Pleasanty confused, oriented to self but not place. Flight of ideas.
Sepsis
<Opal Arita PA-C - Last Filed: 07/31/25 06:32>
Sepsis Screening
Sepsis Assessment: Sepsis
Sepsis Screen
Sepsis Screen: Sepsis
Date: 07/31/25
Time: 06:32
<Jane Madrigal DO - Last Filed: 07/31/25 06:54>
Sepsis Screen
Sepsis Screen: Sepsis
Date: 07/31/25
Time: 06:54
Course
<Opal Arita PA-C - Last Filed: 07/31/25 06:32>
Orders/Labs/Results
Orders:
Orders
07/31/25 04:05
EKG [Electrocardiogram (*1)] Urgent
Reason for Study: Shortness of Breath
07/31/25 04:06
EKG- Treatment ONCE
07/31/25 04:14
Blood Culture Q30M
RAYMUNDO Source: Blood/Venous
Specimen Description:
07/31/25 04:15
Alcohol Urgent
COVID-19 Antigen Urgent
Source: Nasal Swab
Complete Blood Count/With Diff Urgent
Comprehensive Metabolic Panel Urgent
Lactic Acid Urgent
Blood Culture Q30M
RAYMUNDO Source: Blood/Venous
Specimen Description:
Influenza A+B Rapid Molecular Urgent
RAYMUNDO Source: Nasal Swab
Specimen Description:
07/31/25 04:25
Acetaminophen [Tylenol] 1,000 mg PO NOW STA
07/31/25 04:35
0.9% Sodium Chloride 1000 ml [Nss] 1,000 ml IV BOLUS
07/31/25 04:36
CT Chest W/o Iv Contrast Urgent
Comment:
Reason For Exam: cough, fever, recurrent rlq pneumonitis
CT Head W/o Iv Contrast Urgent
Comment:
Reason For Exam: altered mental status, on eliquis
07/31/25 04:37
Add On- LAB Urgent
Tests Added?: alcohol
07/31/25 04:54
Fentanyl, Urine Urgent
Urinalysis Reflex To Culture Urgent
Date Specimen was Collected: 07/31/25
Time Specimen was Collected: 04:35
Urine Drug Abuse Screen Urgent
Date Specimen was Collected: 07/31/25
Time Specimen was Collected: 04:54
Urine Microscopic Reflex Cult Urgent
07/31/25 06:18
Piperacillin/Tazo 4.5 Gram [Zosyn] 4.5 gram in 100 ml IV NOW
07/31/25 06:51
Consult Notification Routine
Specialty to Notify: Pulmonary
PULMONARY CONSULT Routine
Consulting Provider: Kolton Maharaj
Was physician already notified: No
Reason for consult: progression of miguelito pna, collapse of distal trachea & mainstem bronchi
Abnormal Lab Results
07/31/25 07/31/25
04:15 04:54
MCHC 31.1 L g/dL
(33.0-37.0)
Absolute Neuts (auto) 8.8 H 10^3/uL
(1.4-6.5)
Absolute Lymphs (auto) 0.9 L 10^3/uL
(1.2-3.4)
Neutrophils % 84.8 H %
(42.2-75.2)
Lymphocytes % 8.2 L %
(20.5-51.1)
Glucose 163 H mg/dl
(70-99)
Total Protein 6.1 L g/dl
(6.3-8.2)
Ur Occult Blood Reflex 3+ A
(Negative)
Urine RBC 30-40 A /HPF
(0-2)
Urine Bacteria (Reflex) Few A
(Negative)
Urine Opiates Screen Positive H
(Negative)
Ur Oxycodone Screen Positive H
(Negative)
Ur Tricyclics Screen Positive H
(Negative)
U Benzodiazepines Scrn Positive H
(Negative)
07/31/25 04:15
07/31/25 04:15
Vital Signs
Initial and Last Documented VS:
Initial Vital Signs
Temp Pulse Ox
102.8 F H 90
07/31/25 04:04 07/31/25 04:04
Last Documented Vital Signs
Temp Pulse Resp BP Pulse Ox
101.3 F H 79 16 105/58 93
07/31/25 05:45 07/31/25 06:10 07/31/25 06:10 07/31/25 06:10 07/31/25 06:10
<Jane Madrigal, DO - Last Filed: 07/31/25 06:54>
Orders/Labs/Results
Orders:
Orders
07/31/25 04:05
EKG [Electrocardiogram (*1)] Urgent
Reason for Study: Shortness of Breath
07/31/25 04:06
EKG- Treatment ONCE
07/31/25 04:14
Blood Culture Q30M
RAYMUNDO Source: Blood/Venous
Specimen Description:
07/31/25 04:15
Alcohol Urgent
COVID-19 Antigen Urgent
Source: Nasal Swab
Complete Blood Count/With Diff Urgent
Comprehensive Metabolic Panel Urgent
Lactic Acid Urgent
Blood Culture Q30M
RAYMUNDO Source: Blood/Venous
Specimen Description:
Influenza A+B Rapid Molecular Urgent
RAYMUNDO Source: Nasal Swab
Specimen Description:
07/31/25 04:25
Acetaminophen [Tylenol] 1,000 mg PO NOW STA
07/31/25 04:35
0.9% Sodium Chloride 1000 ml [Nss] 1,000 ml IV BOLUS
07/31/25 04:36
CT Chest W/o Iv Contrast Urgent
Comment:
Reason For Exam: cough, fever, recurrent rlq pneumonitis
CT Head W/o Iv Contrast Urgent
Comment:
Reason For Exam: altered mental status, on eliquis
07/31/25 04:37
Add On- LAB Urgent
Tests Added?: alcohol
07/31/25 04:54
Fentanyl, Urine Urgent
Urinalysis Reflex To Culture Urgent
Date Specimen was Collected: 07/31/25
Time Specimen was Collected: 04:35
Urine Drug Abuse Screen Urgent
Date Specimen was Collected: 07/31/25
Time Specimen was Collected: 04:54
Urine Microscopic Reflex Cult Urgent
07/31/25 06:18
Piperacillin/Tazo 4.5 Gram [Zosyn] 4.5 gram in 100 ml IV NOW
07/31/25 06:51
Consult Notification Routine
Specialty to Notify: Pulmonary
PULMONARY CONSULT Routine
Consulting Provider: Kolton Maharaj
Was physician already notified: No
Reason for consult: progression of miguelito pna, collapse of distal trachea & mainstem bronchi
Abnormal Lab Results
07/31/25 07/31/25
04:15 04:54
MCHC 31.1 L g/dL
(33.0-37.0)
Absolute Neuts (auto) 8.8 H 10^3/uL
(1.4-6.5)
Absolute Lymphs (auto) 0.9 L 10^3/uL
(1.2-3.4)
Neutrophils % 84.8 H %
(42.2-75.2)
Lymphocytes % 8.2 L %
(20.5-51.1)
Glucose 163 H mg/dl
(70-99)
Total Protein 6.1 L g/dl
(6.3-8.2)
Ur Occult Blood Reflex 3+ A
(Negative)
Urine RBC 30-40 A /HPF
(0-2)
Urine Bacteria (Reflex) Few A
(Negative)
Urine Opiates Screen Positive H
(Negative)
Ur Oxycodone Screen Positive H
(Negative)
Ur Tricyclics Screen Positive H
(Negative)
U Benzodiazepines Scrn Positive H
(Negative)
07/31/25 04:15
07/31/25 04:15
Vital Signs
Initial and Last Documented VS:
Initial Vital Signs
Temp Pulse Ox
102.8 F H 90
07/31/25 04:04 07/31/25 04:04
Last Documented Vital Signs
Temp Pulse Resp BP Pulse Ox
101.3 F H 79 16 105/58 93
07/31/25 05:45 07/31/25 06:10 07/31/25 06:10 07/31/25 06:10 07/31/25 06:10
Irinalt;Opal Arita PA-C - Last Filed: 07/31/25 06:32>
MDM/Problems Addressed
Differential Diagnosis Includes:
Differentials include COVID-19, influenza, recurrent pneumonia, UTI, intracerebral hemorrhage/CVA
MDM/Problems Addressed:
65-year-old female presents the ER today with concerns of altered mental status. She was febrile upon arrival. Of note, she was recently mated for right lower lobe pneumonia. Recurrent aspiration secondary to polypharmacy. On physical exam she
is febrile and conversational however is pleasantly confused. She does have rhonchi noted on the right side. She has no abdominal tenderness. She went for CAT scan of the chest which showed bilateral pulmonary ground glass nodularities concerning
for infectious bronchiolitis possibly component of aspiration slightly progressed from the prior exam. 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 CT scan of the head unremarkable.
Her lactic acid is normal. She has no elevated white blood cell count. Will initiate Zosyn for concern for aspiration pneumonitis. Patient referred for admission.
Chronic conditions affecting care:
Atrial fibrillation, anxiety, depression hypertension, hyperlipidemia, asthma
<Opal Arita PA-C - Last Filed: 07/31/25 06:32>
*Pulse Oximetry
SaO2: 90
Oxygen Mode of Delivery: Room air
Patient hypoxic: no
*EKG
Interpreted by ED Provider?: Yes
EKG Intrepretation Date: 07/31/25
Interpretation: normal
Comparison EKG: changes noted (PVCs no longer present)
Heart Rate: 92
Rate: normal
Rhythm: sinus
[place]: normal axis
*Critical Care Note
Total Time (30-74mins, 75-104mins- exclusive of procedures): Not Applicable
ED Attending Note
<Opal Arita PA-C - Last Filed: 07/31/25 06:32>
-
Portions of this chart may have been created with voice recognition software.� Occasional wrong word or��sound alike� substitutions may have occurred due to the inherent limitations of voice recognition software.
<Jane Madrigal DO - Last Filed: 07/31/25 06:54>
ED Attending Note
Patient seen and examined by attending physician: Yes
I performed a history and physical exam of patient and discussed management with resident, I reviewed resident's note and agree with documented findings and plan of care.: Yes
ED Attending Note:
65-year-old woman who resides at home. She has extensive past medical history including A-fib, chronically maintained on Xarelto, chronic pain syndrome, opioid dependent, RSD, TIA, asthma, anxiety, chronically maintained on Ativan daily.
Multiple recent hospitalizations, generally once per month for similar presentations of acute febrile illness accompanied with 'change in mental status'
Has been found to have recurrent right lower lobe pneumonia.
Most recent hospitalization July 07 to July 11. Discharged with 5-day course of cefdinir. At this point unclear if she had completed that course.
She presents with fever, cough, lethargy. According to the patient currently taking amoxicillin 3 times daily. Unclear as to when the amoxicillin was started or if she finished the cefdinir. History is somewhat sketchy, poor historian.
She resides with several family members who are all chronically disabled and 1 aspect or another.
65-year-old woman appears older than stated age. Febrile. Intermittent nonproductive cough is noted. Able to speak in full sentences in fact is quite chatty. No respiratory distress.
No evidence of traumatic findings on exam. No history of recent falls.
She is somewhat disheveled and unkempt.
Concern for recurrent pneumonia, recurrent sepsis, UTI, toxic metabolic encephalopathy.
I have significant concern for chronic opioid use as well as benzodiazepine use with prior history of falls, chronically maintained on Xarelto, recurrent pneumonias, must consider an element of aspiration.
As patient maintained on Xarelto, reported change in mental status, must consider occult injury, TIA/CVA. Will check CT of the head.
Will check CT of the lung.
Labs thus far unremarkable. Similar to previous.
Urinalysis is pending.
Due to recurrent febrile illness, acute confusion, unreliable family members at home, she is at risk for polypharmacy, worsening of condition thus will require acute hospitalization.
Discharge Plan
Departure
Patient Disposition: Admit
Date of Disposition: 07/31/25
Time of Disposition: 06:19
Admit to: Med/Surg
Presentation/result/management discussed w/ accepting MD/DO: Hospitalist
Patient with high blood pressure during this ER visit?: Yes
Condition: Fair
Discharge Problem:
Altered mental status, Aspiration pneumonitis
Prescriptions:
No Action
cyclobenzaprine 10 mg Tablet
10 mg PO TIDPRN PRN (Reason: spasms)
atorvastatin [Lipitor] 40 mg Tablet
40 mg PO DAILY
gabapentin 600 mg Tablet
600 mg PO TID
alprazolam [Xanax] 1 mg Tablet
1 mg PO TIDPRN PRN (Reason: anxiety)
ferrous sulfate 325 mg (65 mg iron) Tablet
650 mg PO DAILY
montelukast [Singulair] 10 mg Tablet
10 mg PO HS
morphine 15 mg Tablet Extended Release
15 mg PO DAILY
metoprolol succinate [Toprol XL] 25 mg Tablet Extended Release 24 Hr
25 mg PO DAILY
paroxetine HCl [Paxil] 40 mg Tablet
40 mg PO DAILY
ezetimibe [Zetia] 10 mg Tablet
10 mg PO DAILY
oxycodone 10 mg Tablet
10 mg PO Q6HPRN PRN (Reason: severe pains)
Xarelto 20 mg Tablet
20 mg PO DAILY
potassium chloride 20 mEq Tablet Extended Release
20 meq PO DAILY
pantoprazole 40 mg tablet,delayed release (DR/EC)
40 mg PO DAILY
miconazole nitrate [Miconazorb AF] 2 % Powder
1 applic topical BID Qty: 85 0RF
cefdinir 300 mg Capsule
300 mg PO Q12 5 Days Qty: 10 0RF
Spiriva Respimat 2.5 mcg/actuation mist
2 puff inhalation DAILY Qty: 4 0RF
budesonide-formoterol [Symbicort] 160-4.5 mcg/actuation Hfa Aerosol Inhaler
2 inh INHALATION BID Qty: 10.2 0RF
prednisone 10 mg Tablet
See Rx Instructions .ROUTE .COMPLEX Qty: 30 0RF
Rx Instructions:
Take By Mouth:
40 mg daily x3 days, 30 mg daily x3 days,
20 mg daily x3 days, 10 mg daily x3 days.
Referrals:
Bree Martinez CRNP [Family Provider, General]
Interventions
Interventions:
*Risk Screen - Suicide Last Done: 07/31/25 04:04
*General Assessment Last Done: 07/31/25 04:04
*Neglect/Abuse Screening Last Done: 07/31/25 04:04
*ED- Fall Risk Assessment Last Done: 07/31/25 04:04
*ED COVID-19 Vaccine History Last Done: 07/31/25 04:04
*ED Influenza Vaccine History Last Done: 07/31/25 04:04
ED- Neurological Assessment Last Done: 07/31/25 04:04
ED-Skin Assessment Last Done: 07/31/25 04:04
Discharge Date and Time
Print Language: PASHTO
[2025-07-31 05:23] LABS: Urine Character Clear (Clear)
[2025-07-31 05:42] LABS: Urine Squamous Cell >30 /LPF (Few)
[2025-07-31 05:43] LABS: Urine Red Blood Cell 30-40 /HPF (0-2)
[2025-07-31] MEDS: ZOSYN 100 IV (06:24)
--- NOTE | 2025-07-31 06:38 | HPS.HSE ---
Family Physician
-
Family Physician: Bree Martinez
Chief Complaint
-
Fever
History of Present Illness
This is a 65-year-old female with past medical history significant for hypertension, Lewis's palsy, TIA, paroxysmal atrial fibrillation, reflux and sympathetic dystrophy, mild intermittent asthma, hyperlipidemia, chronic pain requiring opioids who
presents to the emergency department with altered mental status per system.
Patient provides no reliable history. She was alert and oriented x 3 when she spoke to me both on initial arrival in the emergency department he was disoriented. She states that she had been in usual state of health up until awaking in the middle
of the night and then asked to be brought to the emergency department by her sister. She denied any specific symptoms at self. She denied any shortness of breath, cough, chest pain. She denies any nausea or vomiting. She denies any constipation.
She denies having any diarrhea. She denies any rash. Patient stated that she went to bed in usual state of health the previous evening. Although she denied all the symptoms medication history showed that she was started on Augmentin on July
.
According to EMS, sister noticed the patient was altered after waking up in the middle of the night. She called EMS and EMS found her to be febrile to 103.4. She was satting 90% on room air and they placed her on 4 L satting 94%. She was alert
and oriented x 1 on arrival to the emergency department.
Patient was admitted to the hospital late June to early July for pneumonia. He had previously been on antibiotics prior to that admission. She had sepsis and was on broad-spectrum antibiotics. She had proximal right middle lobe bronchus
narrowing of unclear etiology so bronchoscopy was recommended. At the time pulmonary could not accommodate inpatient testing and she was discharged to follow-up. She tells me that she is actually due for outpatient [facility] on Thursday but insurance
will not cover the procedure as an outpatient.
On arrival in the emergency department she was febrile to 102.8, blood pressure was as low as 84 systolic, pulse rate was in the 90's. She was satting in 90 to 92% on room air. ECG showed a normal sinus rhythm at a rate of 92. No acute ST or T
wave changes. Troponin negative. She had a CT of the head which showed no acute intracranial process. COVID test, flu test, UA negative. CBC unremarkable. Electrolyte BUN/creatinine all in the normal range.
CT of the chest without contrast showing bilateral pulmonary ground glass and tree-in-bud nodularity concerning for infectious bronchiolitis and possible complaint of aspiration. This has progressed since previous examination. There is a collapse
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
Medical History
Past Medical History
Past Medical History: Reports Other
Additional Past Medical History:
Hypertension
Paroxysmal Atrial Fibrillation
Reflex Sympathetic Dystrophy
Chronic Pain Syndrome
Chronic Opioid Dependence
Mild Persistent Asthma
Lewis's Palsy
Anxiety / Depression
Past Surgical History: Reports Other
Additional Past Surgical History:
None Known
Social History
Tobacco: Non-smoker
Alcohol: None
Drug: None
Family History
Family History: Unable to Obtain
Allergies / Home Medications
Allergies reflects when Allergies were last updated in [facility].
Home Medications with original date entered in [employer]
Allergy/Medication List:
Allergies
Allergy/AdvReac Type Severity Reaction Status Date / Time
carbamazepine (From Tegretol) Allergy Reports Verified 06/27/25 07:39
acts like
she's on
LSD.
moxifloxacin (From Avelox) Allergy Unknown Verified 06/27/25 07:39
Home Medications
alprazolam 1 mg tablet (Xanax) 1 mg PO TIDPRN PRN anxiety 06/16/25
atorvastatin 40 mg tablet (Lipitor) 40 mg PO DAILY High Cholesterol 06/16/25
budesonide-formoterol HFA 160 mcg-4.5 mcg/actuation aerosol inhaler (Symbicort) 1 inh inhalation BID Lung/Breathing Issues 06/16/25
cyclobenzaprine 10 mg tablet 10 mg PO TIDPRN PRN spasms 06/16/25
ezetimibe 10 mg tablet (Zetia) 10 mg PO DAILY High Cholesterol 06/16/25
ferrous sulfate 325 mg (65 mg iron) tablet 650 mg PO DAILY Supplement 06/16/25
gabapentin 600 mg tablet 600 mg PO TID Neurological Condition 06/16/25
metoprolol succinate 25 mg tablet,extended release 24 hr (Toprol XL) 25 mg PO DAILY Blood Pressure 06/16/25
montelukast 10 mg tablet (Singulair) 10 mg PO HS Allergies 06/16/25
morphine 15 mg tablet,extended release 15 mg PO DAILY Pain 06/16/25
oxycodone 10 mg tablet 10 mg PO Q6HPRN PRN severe pains 06/16/25
paroxetine HCl 40 mg tablet (Paxil) 40 mg PO DAILY Depression 06/16/25
potassium chloride 20 mEq tablet,extended release 20 meq PO DAILY Electrolyte Repletion 06/16/25
rivaroxaban 20 mg tablet (Xarelto) 20 mg PO DAILY Blood Clot Prevention/Tx 06/16/25
pantoprazole 40 mg tablet,delayed release 40 mg PO DAILY Gastrointestinal Issue 06/27/25
miconazole nitrate 2 % topical powder (Miconazorb AF) 1 applic topical BID #85 grams 06/30/25
Review of Systems
-
Constitutional: Reports Fever
EENT: Reports No Symptoms
Respiratory: Reports No Symptoms
Cardiac: Reports No Symptoms
Abdomen/GI: Reports No Symptoms
: Reports No Symptoms
Musculoskeletal: Reports No Symptoms
Skin: Reports No Symptoms
Neurological: Reports No Symptoms
Endocrine: Reports No Symptoms
Hematologic/Lymphatic: Reports No Symptoms
Psych: Reports No Symptoms
Physical Exam
Vital Signs
Vital Signs
Temp Pulse Resp BP Pulse Ox
101.3 F H 79 16 105/58 93
07/31/25 05:45 07/31/25 06:10 07/31/25 06:10 07/31/25 06:10 07/31/25 06:10
Physical Exam
General: Well Developed, No Apparent Distress and Morbidly Obese
HEENT: NormoCephalic, Anicteric, Atraumatic and PERRLA; No Moist mucous membranes
Respiratory: Clear (Clear anteriorly and posteriorly) and Non Labored Respirations; No Wheezes, Rales, Rhonchi or Crackles
Cardiac: S1/S2 and Regular Rhythm
Breast: Deferred by me
GI: Non Distended
Rectal: Deferred by Provider
Genito-urinary: Deferred by me
Musculoskeletal: No Clubbing, No Cyanosis and No Edema
Skin: Warm
Neuro: AO x 3 and Nonfocal/grossly intact
Psych: Calm
Laboratory Results
-
07/31/25 04:15
07/31/25 04:15
Laboratory Results
Lactic Acid 1.6 mmol/L (0.7-2.0) 07/31/25 04:15
Total Bilirubin 0.6 mg/dl (0.2-1.3) 07/31/25 04:15
AST 14 U/L (14-36) 07/31/25 04:15
ALT 15 U/L (0-35) 07/31/25 04:15
Alkaline Phosphatase 102 U/L (38-126) 07/31/25 04:15
Data Reviewed
-
CT Scan: Report Reviewed by me
Medical Tests (Nuc Med, Echo, EKG etc): Image Personally Visualized and interpreted
Lab Data: Labs Reviewed by me
Old Records: Reviewed
Impression/Plan
-
IMPRESSION:
This is a 65-year-old with past medical history significant for RSD, paroxysmal atrial fibrillation, morbid obesity, chronic pain chronic opioid use, who was recently admitted to the hospital for pneumonia twice in the last few months. She had
pneumonia with sepsis during her last admission with a right lower lobe opacity and some narrowing of the right bronchus with attempts for endoscopy but it due to patient improvement and plan for outpatient procedure who now returns to the emergency
department again with a fever to 102.8, confusion (now alert and oriented x 3 for me and with the good insights that she can describe the indication and possible outcome or for bronchoscope but she still demonstrates some confusion on history), low
BPs, and found to have increased ground glass opacities bilaterally in the lower lobes on the CT scan consistent with aspiration pneumonia with repeated demonstration of collapse of the distal trachea and mainstem bronchi concerning for
tracheobronchomalacia. There is concern she has significant sedative medications leading to aspiration although patient does not appear to fit this profile entirely.
PLAN:
Sepsis with hypotension and encephalopathy secondary to bilateral pneumonia. Fever, hypotension, confusion with miguelito pneumonia on CT. However patient is normal WBCs, no lactic acid elevation. She is mildly hypoxic to 90% on room air. Recently
completed course of cefdinir and has been on Augmentin since July 25.
- Admit to IMU
- Blood culture sent
- COVID and flu negative
- UA negative
- Check Legionella and pneumococcal antigen
- Prior MSSA on sputum cultures, continue with Zosyn for now, check MRSA swab
- Continue home Symbicort and Spiriva with as needed albuterol (she is currently has no significant wheezing or increased work of breathing on examination).
- Denies history of sleep apnea, obesity hypoventilation and is easily arousable on examination. Do not suspect significant CO2 retention
- Pulmonary consultation, she has a pending outpatient bronch
Paroxysmal afib
- Holding metoprolol temporarily and monitoring BP
- Continue Xarelto
Pain management
- Attempt to reduce sedative medications for now. Holding standing morphine, reduced gabapentin to 600 mg twice daily for now
� Will continue as needed oxycodone at 5 mg
- reduce Xanax prn
DVT PPX - on Xarelto
Code status - Full Code
--- NOTE | 2025-07-31 06:44 | W.PN.HOSP.TC ---
Addendum entered and electronically signed by Alyssa Palafox MD 07/31/25 09:43:
d/w Pulm, recc to hold HAND MOUNTER Xarelto in case of needing bronch etc.
HAND MOUNTER Xarelto stopped, cover with Lovenox SQ while off Xarelto for paroxysmal A fib
Original Note:
Documented by User: Demar Richardson MD 07/31/25 06:44
Subjective/Interval History
-
Date of Service: July 31, 2025
Objective Data
-
Labs:
Laboratory Results
07/31/25
04:15
WBC 10.3
Hgb 12.0
Hct 38.6
Plt Count 185
Sodium 137
Potassium 4.0
Chloride 103
Carbon Dioxide 29
BUN 10
Creatinine 0.8
Glucose 163 H
Calcium 8.7
Total Bilirubin 0.6
AST 14
ALT 15
Alkaline Phosphatase 102
Vital Signs:
Vital Signs
Temp Pulse Resp BP Pulse Ox
101.3 F H 79 16 105/58 93
07/31/25 05:45 07/31/25 06:10 07/31/25 06:10 07/31/25 06:10 07/31/25 06:10

Documented by User: Alyssa Palafox MD 07/31/25 08:09
Today's Communication/Plan
-
see A/P
Assessment / Plan
Assessment / Plan
HPI: 65-year-old F with past medical history significant for hypertension, Lewis's palsy, TIA, paroxysmal atrial fibrillation, reflux and sympathetic dystrophy, mild intermittent asthma, hyperlipidemia, morbid obesity, chronic pain requiring opioids
who presented to the emergency department with altered mental status per sister.
She was recently admitted to the hospital for pneumonia twice in the last few months. She had pneumonia during her last admission with a right lower lobe opacity and some narrowing of the right bronchus with plan for bronchoscopy outpatient.
She returned to the emergency department again with a fever to 102.8, confusion (now alert and oriented x 3 with good insights that she can describe the indication and possible outcome or for bronchoscope but she still demonstrates some confusion on
history), low BPs, and found to have increased ground glass opacities bilaterally in the lower lobes on the CT scan consistent with likely aspiration pneumonia with repeated demonstration of collapse of the distal trachea and mainstem bronchi
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
There is concern she has significant sedative medications leading to aspiration although patient does not appear to fit this profile entirely.
CT of the chest without contrast showing bilateral pulmonary ground glass and tree-in-bud nodularity concerning for infectious bronchiolitis and possible complaint of aspiration. This has progressed since previous examination. There is a collapse
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
A/P:
# Severe sepsis POA with hypotension and acute metabolic encephalopathy likely secondary to bilateral pneumonia.
# Mild Acute hypoxic respiratory insufficiency
Recently completed course of cefdinir and has been on Augmentin since July 25.
90% on room air POA
Follow formal CT Chest report
Follow formal CT head report. Prelim read showed no acute intracranial process.
COVID test, flu test, UA negative
Follow Blood cultures
Check Legionella and pneumococcal antigen
Check MRSA screen, sputum cultures,
continue with Zosyn for now
Continue home Symbicort and Spiriva with as needed albuterol (she is currently has no significant wheezing or increased work of breathing on examination).
Denies history of sleep apnea, obesity hypoventilation and is easily arousable on examination.
Pulmonary consultation, she has a pending outpatient bronch
# Paroxysmal afib
Holding metoprolol temporarily and monitoring BP
Continue Xarelto
# Pain management with chronic opiate dependence
reduce HAND MOUNTER sedative medications for now.
Holding standing morphine, continue PRN oxycodone at reduced dose 5 mg PRN
reduced gabapentin from 600 TID to 600 mg BID for now
reduce HAND MOUNTER Xanax prn from 1 to 0.5 mg PRN
DVT PPX - on Xarelto
Code status - Full Code
Anticipated Discharge: > 48 hours
Review of Systems
-
History Source: Patient
Constitutional: Reports Weakness
Physical Exam
-
General: Well Developed, Well Nourished, No Apparent Distress, Comfortable, Conversant and Other (lethargic)
HEENT: Normocephalic, Atraumatic, Moist Mucous Membranes, Nose Appears Normal and Ears Appear Normal
Respiratory: Clear to Auscultation and Non Labored Respirations
Cardiac: Regular Rhythm and S1/S2
Breast: Deferred by me
GI: Soft, Nontender, Nondistended and Normal Bowel Sounds
Musculoskeletal: No Clubbing, No Cyanosis and No Edema
Skin: Warm
Neuro: Awake and Alert
Psych: Calm and Intact Judgement/Insight (somewhat)
Data Reviewed
-
Labs: Labs Reviewed by me
--- NOTE | 2025-07-31 07:49 | PHANOTE ---
med rec note- patient recently admitted, patient also will not stay awake to go over medication list. patient has no ecw
--- NOTE | 2025-07-31 08:23 | CON.PUL ---
Consultation
Consultation Request
Date/Time Consultation Requested: 07/31/2025
Date/Time Consultation Performed: 07/31/2025
Medical History
-
Chief Complaint: Altered mental status, hypoxia
History of Present Illness:
Patient is a very pleasant 65-year-old female who was brought to the hospital for altered mental status at home. Patient reportedly was noted to be febrile with borderline oxygen saturation. EMS was called and patient was brought to the emergency
room. Patient was more awake, alert and oriented in the emergency room. Workup was suggestive of increasing pulmonary opacities concerning for pneumonia. Patient was noted to be febrile with temperature as high as 103.4. Patient reports that
since last discharge had cough had significantly improved with decreased expectoration. She feels that cough might be slightly worse over the last few days but does not report any significant expectoration, chills or difficulty breathing. In view
of CT scan showing worsening bilateral ground glass opacities more so on the right side than left, pulmonary consultation was requested for further input.
Patient has similar symptoms of pneumonia requiring antibiotic course in June, then again in early July. Patient was evaluated by pulmonary service and was recommended to have a bronchoscopy with EBUS TBNA in view of lymphadenopathy noted
on imaging as well as persistent and recurrent right middle and lower lobe infiltrates. Patient was referred to [facility] pulmonary service but she has decided not to follow-up there due to her prior poor experience with [facility]. Patient is
currently in the process of scheduling follow-up with pulmonary clinic as outpatient. In view of recurrent admission for the same pulmonary issue, patient needs further workup including a bronchoscopy, BAL and possibly an EBUS TBNA if any
lymphadenopathy noted.
Past Medical History
Past Medical History: Reports Other
Additional Past Medical History:
Hypertension
Paroxysmal Atrial Fibrillation
Reflex Sympathetic Dystrophy
Chronic Pain Syndrome
Chronic Opioid Dependence
Mild Persistent Asthma
Lewis's Palsy
Anxiety / Depression
Past Surgical History: Reports Other
Additional Past Surgical History:
None Known
Social History
Tobacco: Non-smoker
Alcohol: None
Drug: None
Family History
Family History: Unable to Obtain
Allergies / Home Medications
Allergies
Allergy/AdvReac Type Severity Reaction Status Date / Time
carbamazepine (From Tegretol) Allergy Reports Verified 07/31/25 04:03
acts like
she's on
LSD.
moxifloxacin (From Avelox) Allergy Unknown Verified 07/31/25 04:03
Home Medications
�Medication �Instructions �Recorded �Confirmed �Last Taken �Type
alprazolam 1 mg tablet (Xanax) 1 mg PO TIDPRN PRN anxiety 06/16/25 07/31/25 Unknown History
atorvastatin 40 mg tablet (Lipitor) 40 mg PO QPM High Cholesterol 06/16/25 07/31/25 Unknown History
cyclobenzaprine 10 mg tablet 10 mg PO TIDPRN PRN spasms 06/16/25 07/31/25 Unknown History
ezetimibe 10 mg tablet (Zetia) 10 mg PO DAILY High Cholesterol 06/16/25 07/31/25 Unknown History
ferrous sulfate 325 mg (65 mg 650 mg PO DAILY Supplement 06/16/25 07/31/25 Unknown History
iron) tablet
gabapentin 600 mg tablet 600 mg PO TID Neurological 06/16/25 07/31/25 Unknown History
Condition
metoprolol succinate 25 mg 25 mg PO DAILY Blood Pressure 06/16/25 07/31/25 Unknown History
tablet,extended release 24 hr
(Toprol XL)
montelukast 10 mg tablet 10 mg PO HS Allergies 06/16/25 07/31/25 Unknown History
(Singulair)
morphine 15 mg tablet,extended 15 mg PO DAILY severe Pain 06/16/25 07/31/25 Unknown History
release
oxycodone 10 mg tablet 10 mg PO Q6HPRN PRN severe pains 06/16/25 07/31/25 Unknown History
paroxetine HCl 40 mg tablet (Paxil) 40 mg PO DAILY Depression 06/16/25 07/31/25 Unknown History
potassium chloride 20 mEq 20 meq PO DAILY Electrolyte 06/16/25 07/31/25 Unknown History
tablet,extended release Repletion
rivaroxaban 20 mg tablet (Xarelto) 20 mg PO HS Blood Clot 06/16/25 07/31/25 Unknown History
Prevention/Tx
pantoprazole 40 mg tablet,delayed 40 mg PO DAILY Gastrointestinal 06/27/25 07/31/25 Unknown History
release Issue
amoxicillin 875 mg-potassium 1 tab PO BID 07/31/25 07/31/25 Unknown History
clavulanate 125 mg tablet
miconazole nitrate 2 % topical 1 applic topical BID folds 07/31/25 07/31/25 Unknown History
powder (Miconazorb AF)
tiotropium bromide 2.5 2 puff inhalation R DAILY 07/31/25 07/31/25 Unknown History
mcg/actuation mist for inhalation
(Spiriva Respimat)
Review of Systems
-
Hematologic/Lymphatic: Other (All 14 systems reviewed and negative except as stated above in the history of present illness.)
Vitals / Labs / Diagnostic Testing
Vital Signs
Temp Pulse Resp BP Pulse Ox
99.1 F 75 14 101/43 93
07/31/25 07:36 07/31/25 08:00 07/31/25 08:00 07/31/25 07:01 07/31/25 07:37
Lab Data
07/31/25 04:15
07/31/25 04:15
Microbiology
07/31/25 04:15 Nasal Swab Influenza Types A & B (LINDA) - Final
Negative for Influenza A & B, NAAT
Negative results must be combined with clinical observations
and patient history.
Nucleic Acid Amplification test (NAAT)performed on the
[employer] platform.
Diagnostic Testing:
Physical Exam
-
HEENT: Normocephalic
Cardiovascular: S1/S2
Respiratory: Rhonchi (Mostly centered around right hemithorax)
GI: Soft and Non Distended
Neurology: Awake, Alert and Oriented
Skin: Warm
General: Comfortable
Assessment
-
#1. Recurrent, persistent right lower lobe pneumonia with sepsis
- Patient was treated with antibiotic in June for similar symptoms, again in early July. Currently ground glass opacities seem to have progressed more on the right side than left. Encephalopathy felt to be related to underlying sepsis.
- CT scan reviewed from June and July 2025. Concern for right middle lobe syndrome with external compression from ?lymphadenopathy along with right lower lobe nodule, consolidation and hilar lymphadenopathy per CT 07/08/2025.
- More recent CT 07/31 reports no significant lymphadenopathy and no nodule reported. Suspect improving infection.
- In view of persistent and recurrent pneumonia in same location, abnormal CT findings, needs bronchoscopy and possibly EBUS-TBNA with BAL for further evaluation. Continue Abx for now.
- Continue Zosyn. Follow-up Legionella and strep pneumo antigen. Follow-up blood cultures and sputum cultures. MRSA screen pending.
- Microaspiration also a concern with recurrent right lower lobe pneumonia.
- [facility] currently not accepting her insurance, patient was referred to [facility]. Patient reports poor experience with [facility] and wants to look for a different pulmonary practice.
- Hold Xarelto in anticipation for Bronchoscopy in coming days
#2. Moderate persistent Asthma
- Not in exacerbation currently.
- Continue Spiriva and Symbicort.
#3. Restrictive lung disease.
- Mild restriction noted on spirometry likely related to obesity
#4. Suspect EDAC (Excessive dynamic airway collapse)
- CT reviewed, posterior wall of trachea noted to be significantly bulging at various levels, suggestive of EDAC
- Need to rule out sleep disordered breathing. Out patient sleep study.
- Morbid obesity, BMI 47.8 also contributing.
#5. Morbid obesity, high likelihood of sleep disordered breathing
- Out patient Sleep study
- VBG 7.35/49. Not suggestive of CO2 retention.
Other medical diagnoses:
Admission to [facility] 06/16/2025, also discharged on 06/30/2025 for recurrent fever/mental status and abnormal chest x-ray.
Hypertension
Hyperlipidemia
Paroxysmal atrial fibrillation on Xarelto
Mild persistent asthma- Symbicort.
Lewis's palsy
History of TIA
Chronic pain syndrome-RSD
Anxiety and depression
Non-smoker
Total time spent on this consultation/encounter __65__ minutes which includes review of history, physical exam, medications, laboratory data, personal review of imaging, extensive review of outpatient records, discussion with care team and
respiratory therapy.
Data:
PFT 07/2025: Spirometry demonstrates moderate obstruction. There was significant bronchodilator response in the FVC and FEV1. Lung volumes demonstrate mild restriction with air trapping. There is a mild diffusion impairment.
CT Chest 07/31/2025: 1. Patchy foci of groundglass consolidation, right greater than left, most consistent with infectious pneumonia/pneumonitis. Slightly progressed compared to prior CT. No associated pleural effusion.
2. Findings suggestive of tracheo-bronchiomalacia.
3. Moderate coronary arterial calcification. Please correlate with symptoms of and risk factors for coronary artery disease, with further workup as clinically appropriate.
CT Chest 07/08/2025: 1. MODERATE RIGHT LUNG VOLUME LOSS with moderate left to right mediastinal shift and moderate elevation of the right hemidiaphragm.
2. SEVERE RIGHT LUNG BRONCHITIS in the right upper, lower, and middle lobes.
3. Severe narrowing of the proximal right middle lobe bronchus which could be secondary to extrinsic compression by soft tissue in the right hilum (possibly right hilar lymphadenopathy). Inflammatory or infectious luminal narrowing is also a
diagnostic possibility.
4. Moderate peribronchial ground-glass opacity in the right lung which could be subsegmental atelectasis or infection.
5. 1.3 cm centrilobular pulmonary nodule in the infrahilar right lower lobe. Diagnostic possibilities are (1) infection or (2) lung cancer.
6. Mild right paratracheal and subcarinal lymphadenopathy.
7. Severe calcific atherosclerotic plaque in the coronary arteries.
8. Small hiatal hernia.
9. Multiple subacute nondisplaced healing right posterior and lateral rib fractures.
--- NOTE | 2025-07-31 09:01 | EDCM ---
CM reviewed chart and met with pt bedside in ED. Pt lives in a 1 story house with her mother, father and sister. 1 TOYA.
Independent in ADLs, personal care and ambulation. Uses rolling walker, also has electric wheelchair but has not been using it.
Confirms prescription coverage.
Current with [facility] since last admit (07/07-07/11).
PCP: Bree Martinez
Pharmacy: [facility]
Anticipate discharge hmoe with resumtion of [facility], CM will continue to follow for all discharge planning needs.
[2025-07-31 09:08] LABS: Venous Blood Gas B.E. 0.9 mmol/L (-4 to +4); Venous Blood Gas O2 Sat % 100.0 %
--- NOTE | 2025-07-31 09:40 | EDRN ---
Patient taken to room 3346 on monitor on stretcher on room air. Patient's mentation is improved.
[2025-07-31 09:41] LABS: Procalcitonin 2.53 ng/ml (0.0-0.25)
[2025-07-31] MEDS: SYMBICORT 160/4.5 MCG INHALER 2 PUFF INH ×2 (10:18→19:36)
[2025-07-31] MEDS: SPIRIVA RESPIMAT 2.5 MCG 2 PUFF INH (10:18)
[2025-07-31] MEDS: ZETIA 10 MG PO (10:34)
[2025-07-31] MEDS: TOPROL XL 25 MG PO (10:34)
[2025-07-31] MEDS: PAXIL 40 MG PO (10:34)
[2025-07-31] MEDS: LIPITOR 40 MG PO (10:34)
[2025-07-31] MEDS: PROTONIX 40 MG PO (10:34)
[2025-07-31] MEDS: ROXICODONE 5 MG PO ×2 (10:36→20:06)
--- NOTE | 2025-07-31 10:49 | PTCARENOTE ---
Received patient on admission from ED via stretcher; transferred to bed by 4 staff char puller. POx 95% on RA. CHG completed on arrival. Ox3, some forgetfulness. Patient requested her sister be removed from her contact list and provided 2nd daughter's
information to add to chart. Patient c/o pain; administered oxycodone as ordered prn.
[2025-07-31] MEDS: ZOSYN 50 IV ×2 (11:34→17:51)
--- NOTE | 2025-07-31 14:29 | PTOTSP ---
Speech Therapy Evaluation:
Pt with chronic risk factors of dysphagia including hx of Lewis's Palsy, TIA, asthma, acutely compounded by severe sepsis with current pneumonia and CT showing tracheobronchiomalasia. Given recurrent pneumonias, FEES was completed prior admission on
06/29/2025 with findings of functional oropharyngeal swallow, no aspiration, and trace laryngeal penetration with thin liquids. Recommendations made for regular solids and thin liquids with intermittent throat clear + re-swallow. At bedside, swallow
appeared consistent with FEES as demonstrated by grossly functional oral phase and no overt s/sx of aspiration. SHOWCASE TRIMMER to follow to monitor tolerance of diet and determine if repeat/alternative instrumental assessment warranted given pneumonia and
critical procalcitonin value, though unsure if VSE would be appropriate with body habitus.
Recommend:
1. Regular solids and thin liquids
2. Meds as tolerated
3. Strict aspiration precautions
4. Intermittent throat clear + reswallow
5. SHOWCASE TRIMMER to follow
--- NOTE | 2025-07-31 16:15 | PTCARENOTE ---
Patient OOB to chair with PT; assisted back to bed x2 assist and use of RW after using commode.
[2025-07-31] MEDS: LOVENOX 40 MG SC (17:50)
[2025-07-31] MEDS: NEURONTIN 600 MG PO (20:00)
[2025-07-31] MEDS: SINGULAIR 10 MG PO (20:00)
--- NOTE | 2025-07-31 20:25 | PTCARENOTE ---
Pt c/o 8/10 pain in hips and knees, requesting oxycodone. 5mg oxycodone given per order.
[2025-08-01] VITALS (15 sets, daily range): BP systolic 105–157; BP diastolic 69–94; PULSE 60–63; O2SAT 94–98; BMI 47.1
[2025-08-01] MEDS: ZOSYN 50 IV ×5 (00:50→23:10)
[2025-08-01] MEDS: ROXICODONE 5 MG PO ×3 (05:31→20:22)
[2025-08-01 06:31] LABS: Hematocrit 34.8 % (37.0-47.0); Hemoglobin 10.8 g/dL (12.0-16.0); Mean Corp Hgb Conc. 31.0 g/dL (33.0-37.0); Mean Corpuscular Volume 92.3 fL (81.0-99.0); Platelet Count 168 10^3/uL (130-400); Red Cell Dist. Width 13.3 % (11.5-14.5)
[2025-08-01 07:18] LABS: Blood Urea Nitrogen 11 mg/dl (7-17); Calcium 8.6 mg/dl (8.4-10.2); Carbon Dioxide 29 mmol/L (22-30); Chloride 106 mmol/L (98-107); Estimated Creatinine Clearance 113 ml/min; Glucose 103 mg/dl (70-99); Magnesium 2.2 mg/dl (1.6-2.3); Potassium 3.8 mmol/L (3.5-5.1); Sodium 136 mmol/L (135-145); eGFR > 60.00
[2025-08-01] MEDS: TOPROL XL 25 MG PO (07:52)
[2025-08-01] MEDS: PROTONIX 40 MG PO (07:52)
[2025-08-01] MEDS: PAXIL 40 MG PO (07:52)
[2025-08-01] MEDS: NEURONTIN 600 MG PO ×2 (07:52→20:22)
[2025-08-01] MEDS: LIPITOR 40 MG PO (07:52)
[2025-08-01] MEDS: ZETIA 10 MG PO (07:52)
--- NOTE | 2025-08-01 08:07 | W.PN.HOSP.TC ---
Today's Communication/Plan
-
see A/P
Assessment / Plan
Assessment / Plan
HPI: 65-year-old F with past medical history significant for hypertension, Lewis's palsy, TIA, paroxysmal atrial fibrillation, reflux and sympathetic dystrophy, mild intermittent asthma, hyperlipidemia, morbid obesity, chronic pain requiring opioids
who presented to the emergency department with altered mental status per sister.
She was recently admitted to the hospital for pneumonia twice in the last few months. She had pneumonia during her last admission with a right lower lobe opacity and some narrowing of the right bronchus with plan for bronchoscopy outpatient.
She returned to the emergency department again with a fever to 102.8, confusion (now alert and oriented x 3 with good insights that she can describe the indication and possible outcome or for bronchoscope but she still demonstrates some confusion on
history), low BPs, and found to have increased ground glass opacities bilaterally in the lower lobes on the CT scan consistent with likely aspiration pneumonia with repeated demonstration of collapse of the distal trachea and mainstem bronchi
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
There is concern she has significant sedative medications leading to aspiration although patient does not appear to fit this profile entirely.
CT of the chest without contrast showing bilateral pulmonary ground glass and tree-in-bud nodularity concerning for infectious bronchiolitis and possible complaint of aspiration. This has progressed since previous examination. There is a collapse
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
A/P:
# Severe sepsis POA with hypotension and acute metabolic encephalopathy likely secondary to bilateral pneumonia vs bacteremia
# Mild Acute hypoxic respiratory insufficiency
Recently completed course of cefdinir and has been on Augmentin since July 25.
90% on room air POA
Admission CT Chest showed Patchy foci of groundglass consolidation, right greater than left, most consistent with infectious pneumonia/pneumonitis. Slightly progressed compared to prior CT. Also tracheobronchiomalacia.
Noted admission blood culture one set positive for GPC in cluster
check repeat blood cultures x2 sets
COVID test, flu test negative. Urine Legionella and pneumococcal antigens negative. UA negative.
Admission CT head showed No acute intracranial abnormalities.
Follow MRSA screen, sputum cultures,
continue Zosyn, add vancomycin
Continue home Symbicort and Spiriva with as needed albuterol
Pulmonary on board, plan for inpatient Bronchoscopy in coming days
# Paroxysmal afib
Cont DESIGN MANAGER Toprol with holding parameter
Holding DESIGN MANAGER Xarelto in anticipation of bronch
# Pain management with chronic opiate dependence
reduce DESIGN MANAGER sedative medications for now.
Holding standing morphine, continue PRN oxycodone at reduced dose 5 mg PRN
reduced gabapentin from 600 mg TID to BID for now
reduce DESIGN MANAGER Xanax prn from 1 to 0.5 mg PRN
reduce DESIGN MANAGER Flexeril from 10 mg PRN to 5 mg PRN
DVT PPX - DESIGN MANAGER Xarelto on hold, cover with Lovenox SQ
Code status - Full Code
DW RN
Anticipated Discharge: > 48 hours
Subjective/Interval History
-
Date of Service: August 01, 2025
Objective Data
-
Labs:
Laboratory Results
08/01/25 08/01/25
05:32 05:33
WBC 6.3
Hgb 10.8 L
Hct 34.8 L
Plt Count 168
Sodium 136
Potassium 3.8
Chloride 106
Carbon Dioxide 29
BUN 11
Creatinine 0.7
Glucose 103 H
Calcium 8.6
Vital Signs:
Vital Signs
Temp Pulse Resp BP Pulse Ox
36.7 C 67 17 147/88 100
08/01/25 07:56 08/01/25 07:52 08/01/25 06:00 08/01/25 07:52 08/01/25 06:00
I&O
07/31/25 08/01/25 08/02/25
06:59 06:59 06:59
Intake Total 220 / 220
Balance 220 / 220
Review of Systems
-
History Source: Patient
All other systems: Reviewed and negative
Physical Exam
-
General: Well Developed, Well Nourished, No Apparent Distress, Comfortable, Conversant and Morbidly Obese
HEENT: Normocephalic, Atraumatic, Moist Mucous Membranes, Nose Appears Normal and Ears Appear Normal
Respiratory: Clear to Auscultation and Non Labored Respirations; Negative Accessory Resp Muscle Use
Cardiac: Regular Rhythm and S1/S2
Breast: Deferred by me
GI: Soft, Nontender, Nondistended and Normal Bowel Sounds
Musculoskeletal: No Clubbing, No Cyanosis and No Edema
Skin: Warm
Neuro: Awake and Alert
Psych: Calm and Intact Judgement/Insight
Data Reviewed
-
CT Scan: Report Reviewed by me
Labs: Labs Reviewed by me
[2025-08-01] MEDS: SPIRIVA RESPIMAT 2.5 MCG 2 PUFF INH (08:12)
[2025-08-01] MEDS: SYMBICORT 160/4.5 MCG INHALER 2 PUFF INH ×2 (08:12→20:36)
--- NOTE | 2025-08-01 08:20 | VNURNOTE ---
Chart reviewed. Patient is current with [facility]. Will continue to follow hospital course and DC plans.
--- NOTE | 2025-08-01 11:49 | PHA.VAN.IN ---
Assessment
- Assessment
Renal Function: Appears similar to baseline
Concomitant Antimicrobials: piperacillin/tazobactam
- Previous Dosing Experience
Previous Regimen: Vanc 1500mg Q12H
Date of Regimen: Jun 2025
Provided Trough of: 18.7
Provided AUC of: 611
Patient's SCR is: Similar to previous dosing experience
Patient's weight is: Similar to previous dosing experience
Half-life = 12.8 H
AUC Dosing Plan
- Empiric Dosing
Initial / Loading Dose: 2000mg - administration pending
Maintenance Regimen: Vanc 1000mg Q12H starting 08/02 600 based on prior experience
Estimated AUC (mcg*h/mL): 419
Estimated Peak (mcg*h/mL): 23.1
Estimated Trough (mcg/ml): 12.7
Estimated Half Life (H): 12.8
Will start with Q12H interval but patient may eventually require Q24H interval based on prior half-life
- Monitoring
No levels ordered at this time: may be slow to accumulate with weight > 100kg and prolonged half-life
Pharmacokinetics Vancomycin I
- -
Patient Age: 65
Patient Sex: Female
Vancomycin Day #: 1
Indication: Bacteremia
Requesting Provider: Dr. Palafox
Pertinent Antimicrobial Allergies:
moxifloxacin - unknown
Height / Weight:
Height 5 ft 6 in
Actual Weight 132.4 kg
Pertinent Past Medical History: BMI ~47
- Vital Signs / Lab Results
Temp Pulse Resp BP Pulse Ox
98.0 F 69 15 105/90 94
08/01/25 07:56 08/01/25 10:00 08/01/25 10:00 08/01/25 10:00 08/01/25 10:00
Lab Results - Hematology
07/31/25 08/01/25
04:15 05:33
WBC 10.3 6.3
Lab Results - Chemistry
07/31/25 08/01/25
04:15 05:32
BUN 10 11
Creatinine 0.8 0.7
Estimated Creat Clear 100 113
Albumin 3.8
07/31/25
04:15
Lactic Acid 1.6
Lab Results - Urine
07/31/25
04:54
Urine Nitrite (Reflex) Negative
Leukocyte Esterase Rfl Negative
Urine WBC (Reflex) 3-5
Ur Squamous Epith Cells >30
Urine Bacteria (Reflex) Few A
Microbiology Results
07/31/25 04:14 Blood Culture - Preliminary
Blood/Venous Staphylococcus epidermidis
Gram Stain - Preliminary
07/31/25 Unknown Legionella Urinary Antigen - Final
Urine Negative for Legionella pneumophila Serogroup 1 antigen.
A negative result does not rule out the possiblity of
Legionella infection due to other serogroups or species of
Legionella. Clinical correlation is recommended.
Streptococcus pneumoniae Antigen (M - Final
Negative for Streptococcus pneumoniae antigen.
A negative result does not exclude infection with
Streptococcus pneumoniae. Clinical correlation is
recommended.
07/31/25 04:15 Blood Culture - Preliminary
Blood/Venous No Growth in 24 hours- Final report to follow
07/31/25 04:15 Influenza Types A & B (LINDA) - Final
Nasal Swab Negative for Influenza A & B, NAAT
Negative results must be combined with clinical observations
and patient history.
Nucleic Acid Amplification test (NAAT)performed on the
[employer] platform.
[2025-08-01] MEDS: VANCOCIN 540 MG IV (13:17)
--- NOTE | 2025-08-01 14:27 | W.PN.PUL3 ---
Today's Communication / Plan
-
- Repeat blood cultures
- Anticipate bronchoscopy in 1 to 2 days, continue to hold Xarelto
Assessment
-
Patient is a very pleasant 65-year-old female who was brought to the hospital for altered mental status at home. Patient reportedly was noted to be febrile with borderline oxygen saturation. EMS was called and patient was brought to the emergency
room. Patient was more awake, alert and oriented in the emergency room. Workup was suggestive of increasing pulmonary opacities concerning for pneumonia. Patient was noted to be febrile with temperature as high as 103.4. Patient reports that
since last discharge had cough had significantly improved with decreased expectoration. She feels that cough might be slightly worse over the last few days but does not report any significant expectoration, chills or difficulty breathing. In view
of CT scan showing worsening bilateral ground glass opacities more so on the right side than left, pulmonary consultation was requested for further input.
Patient had similar symptoms of pneumonia requiring antibiotic course in June, then again in early July. Patient was evaluated by pulmonary service and was recommended to have a bronchoscopy with EBUS TBNA in view of lymphadenopathy noted
on imaging as well as persistent and recurrent right middle and lower lobe infiltrates. Patient was referred to [facility] service but she has decided not to follow-up there due to her prior poor experience with [facility]. Patient is
currently in the process of scheduling follow-up with pulmonary clinic as outpatient. In view of recurrent admission for the same pulmonary issue, patient needs further workup including a bronchoscopy, BAL and possibly an EBUS TBNA if any
lymphadenopathy noted.
#1. Recurrent, persistent right lower lobe pneumonia with sepsis
- Patient was treated with antibiotic in June for similar symptoms, again in early July. Currently ground glass opacities seem to have progressed more on the right side than left. Encephalopathy felt to be related to underlying sepsis.
- CT scan reviewed from June and July 2025. Concern for right middle lobe syndrome with external compression from ?lymphadenopathy along with right lower lobe nodule, consolidation and hilar lymphadenopathy per CT 07/08/2025.
- More recent CT 07/31 reports no significant lymphadenopathy and no nodule reported. Suspect improving infection.
- In view of persistent and recurrent pneumonia in same location, abnormal CT findings, needs bronchoscopy and possibly EBUS-TBNA with BAL for further evaluation. Continue Abx for now.
- Continue Zosyn. Follow-up Legionella and strep pneumo antigen. Follow-up blood cultures and sputum cultures. MRSA screen pending.
- Microaspiration also a concern with recurrent right lower lobe pneumonia.
- [facility] currently not accepting her insurance, patient was referred to [facility]. Patient reports poor experience with [facility] and wants to look for a different pulmonary practice.
- Hold Xarelto in anticipation for Bronchoscopy in next 1-2 days
- Doing well on room air today, more awake, alert and interactive. Reports improving dyspnea.
- Blood culture growth noted to be Staph epidermidis, suspect contaminant. Repeat cultures pending.
#2. Moderate persistent Asthma
- Not in exacerbation currently.
- Continue Spiriva and Symbicort.
#3. Restrictive lung disease.
- Mild restriction noted on spirometry likely related to obesity
#4. Suspect EDAC (Excessive dynamic airway collapse)
- CT reviewed, posterior wall of trachea noted to be significantly bulging at various levels, suggestive of EDAC
- Need to rule out sleep disordered breathing. Out patient sleep study.
- Morbid obesity, BMI 47.8 also contributing.
#5. Morbid obesity, high likelihood of sleep disordered breathing
- Out patient Sleep study
- VBG 7.35/49. Not suggestive of CO2 retention.
Other medical diagnoses:
Admission to [facility] 06/16/2025, also discharged on 06/30/2025 for recurrent fever/mental status and abnormal chest x-ray.
Hypertension
Hyperlipidemia
Paroxysmal atrial fibrillation on Xarelto
Mild persistent asthma- Symbicort.
Lewis's palsy
History of TIA
Chronic pain syndrome-RSD
Anxiety and depression
Non-smoker
Total time spent on this consultation/encounter __35__ minutes which includes review of history, physical exam, medications, laboratory data, personal review of imaging, extensive review of outpatient records, discussion with care team and
respiratory therapy.
Data:
PFT 07/2025: Spirometry demonstrates moderate obstruction. There was significant bronchodilator response in the FVC and FEV1. Lung volumes demonstrate mild restriction with air trapping. There is a mild diffusion impairment.
CT Chest 07/31/2025: 1. Patchy foci of groundglass consolidation, right greater than left, most consistent with infectious pneumonia/pneumonitis. Slightly progressed compared to prior CT. No associated pleural effusion.
2. Findings suggestive of tracheo-bronchiomalacia.
3. Moderate coronary arterial calcification. Please correlate with symptoms of and risk factors for coronary artery disease, with further workup as clinically appropriate.
CT Chest 07/08/2025: 1. MODERATE RIGHT LUNG VOLUME LOSS with moderate left to right mediastinal shift and moderate elevation of the right hemidiaphragm.
2. SEVERE RIGHT LUNG BRONCHITIS in the right upper, lower, and middle lobes.
3. Severe narrowing of the proximal right middle lobe bronchus which could be secondary to extrinsic compression by soft tissue in the right hilum (possibly right hilar lymphadenopathy). Inflammatory or infectious luminal narrowing is also a
diagnostic possibility.
4. Moderate peribronchial ground-glass opacity in the right lung which could be subsegmental atelectasis or infection.
5. 1.3 cm centrilobular pulmonary nodule in the infrahilar right lower lobe. Diagnostic possibilities are (1) infection or (2) lung cancer.
6. Mild right paratracheal and subcarinal lymphadenopathy.
7. Severe calcific atherosclerotic plaque in the coronary arteries.
8. Small hiatal hernia.
9. Multiple subacute nondisplaced healing right posterior and lateral rib fractures.
Subjective Data
-
Date of Service:
Date of Service: August 01, 2025
Subjective:
Patient comfortably lying in bed in no acute distress.
Review of Systems
Genitourinary: Other (All 14 systems reviewed and negative except as stated above in the history of present illness.)
Objective Data
Data Reviewed
Vital Signs / I&O / Oxygen:
Vital Signs
Temp Pulse Resp BP Pulse Ox
98.0 F 70 16 118/73 98
08/01/25 07:56 08/01/25 12:04 08/01/25 12:04 08/01/25 12:04 08/01/25 12:04
Intake and Output
07/31/25 08/01/25 08/02/25
06:59 06:59 06:59
Intake Total 220 / 220 590 / 590
Balance 220 / 220 590 / 590
SaO2 98
Physical Exam
General: Comfortable
HEENT: Normocephalic
Cardiovascular: S1-S2
Respiratory: Rhonchi (Mostly in right hemithorax)
GI: Soft and Non Distended
Neurology: Awake and Alert
Skin: Warm
Labs/Micro/Reports
Lab Data
08/01/25 05:33
08/01/25 05:32
Microbiology
07/31/25 10:48 Nose MRSA Screen - Final
No Methicillin Resistant Staphylococcus aureus isolated.
07/31/25 04:14 Blood/Venous Blood Culture - Preliminary
Staphylococcus epidermidis
07/31/25 04:14 Blood/Venous Gram Stain - Preliminary
07/31/25 Unknown Urine Legionella Urinary Antigen - Final
Negative for Legionella pneumophila Serogroup 1 antigen.
A negative result does not rule out the possiblity of
Legionella infection due to other serogroups or species of
Legionella. Clinical correlation is recommended.
07/31/25 Unknown Urine Streptococcus pneumoniae Antigen (M - Final
Negative for Streptococcus pneumoniae antigen.
A negative result does not exclude infection with
Streptococcus pneumoniae. Clinical correlation is
recommended.
07/31/25 04:15 Blood/Venous Blood Culture - Preliminary
No Growth in 24 hours- Final report to follow
07/31/25 04:15 Nasal Swab Influenza Types A & B (LINDA) - Final
Negative for Influenza A & B, NAAT
Negative results must be combined with clinical observations
and patient history.
Nucleic Acid Amplification test (NAAT)performed on the
[employer] platform.
--- NOTE | 2025-08-01 16:42 | CM ---
F/U: Patient came in septic and encephalopathic, now on Abx, and PT/OT recommend SNF. Patient is refusing this and prefers to be home with [facility]. Patient has been admitted prior multiple times and has discharge home for the same. PLAN: Home w/ [facility]
when ready.
[2025-08-01] MEDS: LOVENOX 40 MG SC (17:37)
--- NOTE | 2025-08-01 18:14 | PTCARENOTE ---
AOx3. Forgetful at times. Bed alarm on and audible. On RA with SpO2 greater than 92%. Sinus arrhythmia/afib on the monitor. BP stable. Assist x1 with RW to get to bedside commode. Refused to sit in chair. C/O of B/L LE pain. PRN oxy given per DEC.
Call rosas within reach, bed in lowest position, and bed of wheels locked.
[2025-08-01] MEDS: XANAX 0.5 MG PO (20:22)
[2025-08-01] MEDS: SINGULAIR 10 MG PO (20:22)
[2025-08-02] VITALS (15 sets, daily range): BP systolic 114–177; BP diastolic 70–104; BMI 46.6
--- NOTE | 2025-08-02 03:19 | PTCARENOTE ---
Assumed care of Pt from day RN. Pt AAOx3, able to make needs known. [place] TT for Pt to be NPO at midnight. Pt could be an add on case for Bronchoscopy tomorrow. Pt informed and NPO since midnight. Pt appearing to be in high spirits about
possible Bronchoscopy 08/02. Assessment care and vitals as charted.
[2025-08-02] MEDS: ZOSYN 50 IV ×3 (05:07→17:16)
[2025-08-02] MEDS: VANCOCIN 200 IV ×2 (05:44→18:15)
[2025-08-02 06:29] LABS: Hematocrit 34.7 % (37.0-47.0); Hemoglobin 11.0 g/dL (12.0-16.0); Mean Corp Hgb Conc. 31.7 g/dL (33.0-37.0); Mean Corpuscular Volume 88.3 fL (81.0-99.0); Platelet Count 170 10^3/uL (130-400); Red Cell Dist. Width 13.1 % (11.5-14.5)
[2025-08-02 06:59] LABS: Blood Urea Nitrogen 7 mg/dl (7-17); Calcium 8.7 mg/dl (8.4-10.2); Carbon Dioxide 29 mmol/L (22-30); Chloride 105 mmol/L (98-107); Estimated Creatinine Clearance 113 ml/min; Glucose 112 mg/dl (70-99); Magnesium 2.2 mg/dl (1.6-2.3); Potassium 3.6 mmol/L (3.5-5.1); Sodium 138 mmol/L (135-145); eGFR > 60.00
[2025-08-02] MEDS: SYMBICORT 160/4.5 MCG INHALER 2 PUFF INH ×2 (07:41→20:52)
[2025-08-02] MEDS: SPIRIVA RESPIMAT 2.5 MCG 2 PUFF INH (07:41)
--- NOTE | 2025-08-02 08:00 | W.PN.HOSP.TC ---
Today's Communication/Plan
-
see A/P
Assessment / Plan
Assessment / Plan
HPI: 65-year-old F with past medical history significant for hypertension, Lewis's palsy, TIA, paroxysmal atrial fibrillation, reflux and sympathetic dystrophy, mild intermittent asthma, hyperlipidemia, morbid obesity, chronic pain requiring opioids
who presented to the emergency department with altered mental status per sister.
She was recently admitted to the hospital for pneumonia twice in the last few months. She had pneumonia during her last admission with a right lower lobe opacity and some narrowing of the right bronchus with plan for bronchoscopy outpatient.
She returned to the emergency department again with a fever to 102.8, confusion (now alert and oriented x 3 with good insights that she can describe the indication and possible outcome or for bronchoscope but she still demonstrates some confusion on
history), low BPs, and found to have increased ground glass opacities bilaterally in the lower lobes on the CT scan consistent with likely aspiration pneumonia with repeated demonstration of collapse of the distal trachea and mainstem bronchi
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
There is concern she has significant sedative medications leading to aspiration although patient does not appear to fit this profile entirely.
CT of the chest without contrast showing bilateral pulmonary ground glass and tree-in-bud nodularity concerning for infectious bronchiolitis and possible complaint of aspiration. This has progressed since previous examination. There is a collapse
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
A/P:
# Severe sepsis POA with hypotension and acute metabolic encephalopathy likely secondary to bilateral pneumonia vs bacteremia
# Mild Acute hypoxic respiratory insufficiency
Recently completed course of cefdinir and has been on Augmentin since July 25.
90% on RA POA , now 99% on RA
MS has improved, awake/alert and orientated
Admission CT Chest showed Patchy foci of groundglass consolidation, right greater than left, most consistent with infectious pneumonia/pneumonitis. Slightly progressed compared to prior CT. Also tracheobronchiomalacia.
Noted admission blood culture one set positive for Staph epidermidis , likely contaminant
Follow repeat blood cultures x2 sets, if negative, could DC current vancomycin
COVID test, flu test negative. Urine Legionella and pneumococcal antigens negative. UA negative. MRSA screen negative
Admission CT head showed No acute intracranial abnormalities.
continue Zosyn,
Continue home Symbicort and Spiriva with as needed albuterol
Pulmonary on board, plan for inpatient Bronchoscopy in 1 to 2 days
# Paroxysmal afib
Cont CARPET REPAIRER Toprol with holding parameter
Holding CARPET REPAIRER Xarelto in anticipation of bronch
# Pain management with chronic opiate dependence
MS improved with reducing CARPET REPAIRER sedative medications.
Holding standing morphine, continue PRN oxycodone at reduced dose 5 mg PRN
reduced gabapentin from 600 mg TID to BID
reduce CARPET REPAIRER Xanax prn from 1 to 0.5 mg PRN
reduce CARPET REPAIRER Flexeril from 10 mg PRN to 5 mg PRN
DVT PPX - CARPET REPAIRER Xarelto on hold, cover with Lovenox SQ
Code status - Full Code
DW RN
Anticipated Discharge: > 48 hours
Subjective/Interval History
-
Date of Service: August 02, 2025
Objective Data
-
Labs:
Laboratory Results
08/02/25
06:15
WBC 5.8
Hgb 11.0 L
Hct 34.7 L
Plt Count 170
Sodium 138
Potassium 3.6
Chloride 105
Carbon Dioxide 29
BUN 7
Creatinine 0.7
Glucose 112 H
Calcium 8.7
Vital Signs:
Vital Signs
Temp Pulse Resp BP Pulse Ox
36.9 C 50 16 165/97 99
08/02/25 02:47 08/02/25 07:43 08/02/25 07:43 08/02/25 06:00 08/02/25 07:43
I&O
08/01/25 08/02/25 08/03/25
06:59 06:59 06:59
Intake Total 220 / 220 1410 / 141
Balance 1409 / 1409
Review of Systems
-
History Source: Patient
All other systems: Reviewed and negative
Physical Exam
-
General: Well Developed, Well Nourished, No Apparent Distress, Comfortable, Conversant and Morbidly Obese
HEENT: Normocephalic, Atraumatic, Moist Mucous Membranes, Nose Appears Normal and Ears Appear Normal; Negative Oxygen
Respiratory: Clear to Auscultation and Non Labored Respirations; Negative Accessory Resp Muscle Use
Cardiac: Regular Rhythm and S1/S2
Breast: Deferred by me
GI: Soft, Nontender, Nondistended and Normal Bowel Sounds
Musculoskeletal: No Clubbing, No Cyanosis and No Edema
Skin: Warm
Neuro: Awake and Alert
Psych: Calm and Intact Judgement/Insight
Data Reviewed
-
CT Scan: Report Reviewed by me
Labs: Labs Reviewed by me
[2025-08-02] MEDS: KCL 20 MEQ PO (08:22)
[2025-08-02] MEDS: NEURONTIN 600 MG PO ×2 (08:23→21:28)
[2025-08-02] MEDS: PAXIL 40 MG PO (08:23)
[2025-08-02] MEDS: LIPITOR 40 MG PO (08:23)
[2025-08-02] MEDS: PROTONIX 40 MG PO (08:23)
[2025-08-02] MEDS: TOPROL XL 25 MG PO (08:23)
[2025-08-02] MEDS: ZETIA 10 MG PO (08:23)
[2025-08-02] MEDS: ROXICODONE 5 MG PO ×3 (08:29→21:28)
--- NOTE | 2025-08-02 11:57 | PTCARENOTE ---
Pt to and from GI lab for Bronch via stretcher. VSS. Reports feeling well post procedure.
--- NOTE | 2025-08-02 13:32 | W.PN.PUL3 ---
Today's Communication / Plan
-
- Planned Bronchoscopy and BAL 08/02
- Can resume Xarelto 08/03.
Assessment
-
Patient is a very pleasant 65-year-old female who was brought to the hospital for altered mental status at home. Patient reportedly was noted to be febrile with borderline oxygen saturation. EMS was called and patient was brought to the emergency
room. Patient was more awake, alert and oriented in the emergency room. Workup was suggestive of increasing pulmonary opacities concerning for pneumonia. Patient was noted to be febrile with temperature as high as 103.4. Patient reports that
since last discharge had cough had significantly improved with decreased expectoration. She feels that cough might be slightly worse over the last few days but does not report any significant expectoration, chills or difficulty breathing. In view
of CT scan showing worsening bilateral ground glass opacities more so on the right side than left, pulmonary consultation was requested for further input.
Patient had similar symptoms of pneumonia requiring antibiotic course in June, then again in early July. Patient was evaluated by pulmonary service and was recommended to have a bronchoscopy with EBUS TBNA in view of lymphadenopathy noted
on imaging as well as persistent and recurrent right middle and lower lobe infiltrates. Patient was referred to [facility] service but she has decided not to follow-up there due to her prior poor experience with [facility]. Patient is
currently in the process of scheduling follow-up with pulmonary clinic as outpatient. In view of recurrent admission for the same pulmonary issue, patient needs further workup including a bronchoscopy, BAL and possibly an EBUS TBNA if any
lymphadenopathy noted.
#1. Recurrent, persistent right lower lobe pneumonia with sepsis
- Patient was treated with antibiotic in June for similar symptoms, again in early July. Currently ground glass opacities seem to have progressed more on the right side than left. Encephalopathy felt to be related to underlying sepsis.
- CT scan reviewed from June and July 2025. Concern for right middle lobe syndrome with external compression from ?lymphadenopathy along with right lower lobe nodule, consolidation and hilar lymphadenopathy per CT 07/08/2025.
- More recent CT 07/31 reports no significant lymphadenopathy and no nodule reported. Suspect improving infection.
- In view of persistent and recurrent pneumonia in same location, abnormal CT findings, needs bronchoscopy and possibly EBUS-TBNA with BAL for further evaluation. Continue Abx for now.
- Continue Zosyn. Follow-up Legionella and strep pneumo antigen. Follow-up blood cultures and sputum cultures. MRSA screen pending.
- Microaspiration also a concern with recurrent right lower lobe pneumonia.
- [facility] currently not accepting her insurance, patient was referred to [facility]. Patient reports poor experience with [facility] and wants to look for a different pulmonary practice.
- Hold Xarelto, Plan for Bronchoscopy today.
- Doing well on room air today, more awake, alert and interactive. Reports improving dyspnea.
- Blood culture growth noted to be Staph epidermidis, suspect contaminant. Repeat cultures pending.
#2. Moderate persistent Asthma
- Not in exacerbation currently.
- Continue Spiriva and Symbicort.
#3. Restrictive lung disease.
- Mild restriction noted on spirometry likely related to obesity
#4. Suspect EDAC (Excessive dynamic airway collapse)
- CT reviewed, posterior wall of trachea noted to be significantly bulging at various levels, suggestive of EDAC
- Need to rule out sleep disordered breathing. Out patient sleep study.
- Morbid obesity, BMI 47.8 also contributing.
#5. Morbid obesity, high likelihood of sleep disordered breathing
- Out patient Sleep study
- VBG 7.35/49. Not suggestive of CO2 retention.
Other medical diagnoses:
Admission to [facility] 06/16/2025, also discharged on 06/30/2025 for recurrent fever/mental status and abnormal chest x-ray.
Hypertension
Hyperlipidemia
Paroxysmal atrial fibrillation on Xarelto
Mild persistent asthma- Symbicort.
Lewis's palsy
History of TIA
Chronic pain syndrome-RSD
Anxiety and depression
Non-smoker
Total time spent on this consultation/encounter __36__ minutes which includes review of history, physical exam, medications, laboratory data, personal review of imaging, extensive review of outpatient records, discussion with care team and
respiratory therapy.
Data:
PFT 07/2025: Spirometry demonstrates moderate obstruction. There was significant bronchodilator response in the FVC and FEV1. Lung volumes demonstrate mild restriction with air trapping. There is a mild diffusion impairment.
CT Chest 07/31/2025: 1. Patchy foci of groundglass consolidation, right greater than left, most consistent with infectious pneumonia/pneumonitis. Slightly progressed compared to prior CT. No associated pleural effusion.
2. Findings suggestive of tracheo-bronchiomalacia.
3. Moderate coronary arterial calcification. Please correlate with symptoms of and risk factors for coronary artery disease, with further workup as clinically appropriate.
CT Chest 07/08/2025: 1. MODERATE RIGHT LUNG VOLUME LOSS with moderate left to right mediastinal shift and moderate elevation of the right hemidiaphragm.
2. SEVERE RIGHT LUNG BRONCHITIS in the right upper, lower, and middle lobes.
3. Severe narrowing of the proximal right middle lobe bronchus which could be secondary to extrinsic compression by soft tissue in the right hilum (possibly right hilar lymphadenopathy). Inflammatory or infectious luminal narrowing is also a
diagnostic possibility.
4. Moderate peribronchial ground-glass opacity in the right lung which could be subsegmental atelectasis or infection.
5. 1.3 cm centrilobular pulmonary nodule in the infrahilar right lower lobe. Diagnostic possibilities are (1) infection or (2) lung cancer.
6. Mild right paratracheal and subcarinal lymphadenopathy.
7. Severe calcific atherosclerotic plaque in the coronary arteries.
8. Small hiatal hernia.
9. Multiple subacute nondisplaced healing right posterior and lateral rib fractures.
Subjective Data
-
Date of Service:
Date of Service: August 02, 2025
Subjective:
Patient comfortably lying in bed in no acute distress.
Review of Systems
Genitourinary: Other (All 14 systems reviewed and negative except as stated above in the history of present illness.)
Objective Data
Data Reviewed
Vital Signs / I&O / Oxygen:
Vital Signs
Temp Pulse Resp BP Pulse Ox
97.6 F 58 13 137/94 98
08/02/25 11:29 08/02/25 11:15 08/02/25 11:15 08/02/25 11:15 08/02/25 11:29
Intake and Output
08/01/25 08/02/25 08/03/25
06:59 06:59 06:59
Intake Total 220 / 220 1410 / 1410 75 / 75
Balance 220 / 220 1410 / 1410 75 / 75
SaO2 98
Nasal Cannula flow liters per 2
minute
Physical Exam
General: Comfortable
HEENT: Normocephalic
Cardiovascular: S1-S2
Respiratory: Rhonchi (Mostly in right hemithorax)
GI: Soft and Non Distended
Neurology: Awake and Alert
Skin: Warm
Labs/Micro/Reports
Lab Data
08/02/25 06:15
08/02/25 06:15
Microbiology
08/02/25 10:37 Bronch Right Middle Lobe Fungal Culture - Preliminary
Culture in progress.
Positive cultures are reported as soon as detected.
Final report to follow in four to five weeks.
08/01/25 11:21 Blood/Venous Blood Culture - Preliminary
No Growth in 24 hours- Final report to follow
08/01/25 10:10 Blood/Venous Blood Culture - Preliminary
No Growth in 24 hours- Final report to follow
07/31/25 04:14 Blood/Venous Blood Culture - Preliminary
07/31/25 04:14 Blood/Venous Gram Stain - Preliminary
07/31/25 04:15 Blood/Venous Blood Culture - Preliminary
No Growth in 48 hours- Final report to follow
07/31/25 10:48 Nose MRSA Screen - Final
No Methicillin Resistant Staphylococcus aureus isolated.
07/31/25 Unknown Urine Legionella Urinary Antigen - Final
Negative for Legionella pneumophila Serogroup 1 antigen.
A negative result does not rule out the possiblity of
Legionella infection due to other serogroups or species of
Legionella. Clinical correlation is recommended.
07/31/25 Unknown Urine Streptococcus pneumoniae Antigen (M - Final
Negative for Streptococcus pneumoniae antigen.
A negative result does not exclude infection with
Streptococcus pneumoniae. Clinical correlation is
recommended.
07/31/25 04:15 Nasal Swab Influenza Types A & B (LINDA) - Final
Negative for Influenza A & B, NAAT
Negative results must be combined with clinical observations
and patient history.
Nucleic Acid Amplification test (NAAT)performed on the
[employer] platform.
--- NOTE | 2025-08-02 15:04 | PHA.VAN.FU ---
Vancomycin Assessment / Plan
- Assessment
Renal Function: Stable
WBC's are: WNL
In the past 24 hrs, patient has been: Afebrile
Concomitant Antimicrobials: piperacillin/tazobactam
- Dosing Plan
Continue: Vanc 1000mg Q12H
- Monitoring Plan
No level(s) ordered at this time: consider levels in next few days
- Follow Up
Pharmacy will continue to follow.
Vancomycin Follow UP
- -
Patient Age: 65
Patient Sex: Female
Vancomycin Day #: 2
Indication: Bacteremia
Requesting Provider: Dr. Palafox
Pertinent Antimicrobial Allergies:
moxifloxacin - unknown
Height / Weight:
Height 5 ft 6 in
Actual Weight 130.9 kg
Pertinent Past Medical History: BMI ~47
- Vital Signs / Lab Results
Temp Pulse Resp BP Pulse Ox
97.6 F 52 14 153/70 98
08/02/25 11:29 08/02/25 12:18 08/02/25 12:18 08/02/25 12:18 08/02/25 11:29
Lab Results - Hematology
07/31/25 08/01/25 08/02/25
04:15 05:33 06:15
WBC 10.3 6.3 5.8
Lab Results - Chemistry
07/31/25 08/01/25 08/02/25
04:15 05:32 06:15
BUN 10 11 7
Creatinine 0.8 0.7 0.7
Estimated Creat Clear 100 113 113
Albumin 3.8
07/31/25
04:15
Lactic Acid 1.6
Microbiology Results
08/02/25 10:37 Gram Stain - Preliminary
Bronch Right Middle Lobe
08/02/25 10:37 Fungal Culture - Preliminary
Bronch Right Middle Lobe Culture in progress.
Positive cultures are reported as soon as detected.
Final report to follow in four to five weeks.
08/01/25 11:21 Blood Culture - Preliminary
Blood/Venous No Growth in 24 hours- Final report to follow
08/01/25 10:10 Blood Culture - Preliminary
Blood/Venous No Growth in 24 hours- Final report to follow
07/31/25 04:14 Blood Culture - Preliminary
Blood/Venous Gram Stain - Preliminary
07/31/25 04:15 Blood Culture - Preliminary
Blood/Venous No Growth in 48 hours- Final report to follow
07/31/25 10:48 MRSA Screen - Final
Nose No Methicillin Resistant Staphylococcus aureus isolated.
07/31/25 Unknown Legionella Urinary Antigen - Final
Urine Negative for Legionella pneumophila Serogroup 1 antigen.
A negative result does not rule out the possiblity of
Legionella infection due to other serogroups or species of
Legionella. Clinical correlation is recommended.
Streptococcus pneumoniae Antigen (M - Final
Negative for Streptococcus pneumoniae antigen.
A negative result does not exclude infection with
Streptococcus pneumoniae. Clinical correlation is
recommended.
[2025-08-02] MEDS: SODIUM CHLORIDE 3% FOR INHALATION 1 VIAL INH ×2 (15:14→20:52)
--- NOTE | 2025-08-02 16:25 | PTCARENOTE ---
Pt's assessment as documented. Aox3, forgetful at times. Resting throughout the day. Family at bedside, updated on plan of care. Ringing appropriately, call rosas within reach.
[2025-08-02] MEDS: LOVENOX 40 MG SC (17:15)
[2025-08-02] MEDS: XANAX 0.5 MG PO (21:29)
[2025-08-02] MEDS: SINGULAIR 10 MG PO (21:29)
[2025-08-03] VITALS (9 sets, daily range): BP systolic 117–172; BP diastolic 50–99; PULSE 63
[2025-08-03] MEDS: ZOSYN 50 IV ×4 (00:14→18:06)
[2025-08-03 04:56] LABS: Hematocrit 38.4 % (37.0-47.0); Hemoglobin 12.5 g/dL (12.0-16.0); Mean Corp Hgb Conc. 32.6 g/dL (33.0-37.0); Mean Corpuscular Volume 87.7 fL (81.0-99.0); Platelet Count 213 10^3/uL (130-400); Red Cell Dist. Width 12.9 % (11.5-14.5)
[2025-08-03] MEDS: ROXICODONE 5 MG PO ×3 (05:00→21:17)
[2025-08-03 05:03] LABS: Blood Urea Nitrogen 8 mg/dl (7-17); Calcium 9.2 mg/dl (8.4-10.2); Carbon Dioxide 26 mmol/L (22-30); Chloride 105 mmol/L (98-107); Estimated Creatinine Clearance 113 ml/min; Glucose 103 mg/dl (70-99); Potassium 3.6 mmol/L (3.5-5.1); Sodium 137 mmol/L (135-145); eGFR > 60.00
--- NOTE | 2025-08-03 05:38 | PTCARENOTE ---
Pt getting rest over night. Respirations even unlabored. Pt has occasional harsh non productive cough. Assessment care and vitals as charted.
[2025-08-03] MEDS: VANCOCIN 200 IV (06:00)
[2025-08-03] MEDS: SYMBICORT 160/4.5 MCG INHALER 2 PUFF INH ×2 (07:28→19:23)
[2025-08-03] MEDS: SODIUM CHLORIDE 3% FOR INHALATION 1 VIAL INH ×3 (07:29→19:23)
[2025-08-03] MEDS: SPIRIVA RESPIMAT 2.5 MCG 2 PUFF INH (07:29)
--- NOTE | 2025-08-03 08:41 | W.PN.HOSP.TC ---
Today's Communication/Plan
-
see A/P
Discharge planning tmr after 5 days of Zosyn
Assessment / Plan
Assessment / Plan
HPI: 65-year-old F with past medical history significant for hypertension, Lewis's palsy, TIA, paroxysmal atrial fibrillation, reflux and sympathetic dystrophy, mild intermittent asthma, hyperlipidemia, morbid obesity, chronic pain requiring opioids
who presented to the emergency department with altered mental status per sister.
She was recently admitted to the hospital for pneumonia twice in the last few months. She had pneumonia during her last admission with a right lower lobe opacity and some narrowing of the right bronchus with plan for bronchoscopy outpatient.
She returned to the emergency department again with a fever to 102.8, confusion (now alert and oriented x 3 with good insights that she can describe the indication and possible outcome or for bronchoscope but she still demonstrates some confusion on
history), low BPs, and found to have increased ground glass opacities bilaterally in the lower lobes on the CT scan consistent with likely aspiration pneumonia with repeated demonstration of collapse of the distal trachea and mainstem bronchi
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
There is concern she has significant sedative medications leading to aspiration although patient does not appear to fit this profile entirely.
CT of the chest without contrast showing bilateral pulmonary ground glass and tree-in-bud nodularity concerning for infectious bronchiolitis and possible complaint of aspiration. This has progressed since previous examination. There is a collapse
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
A/P:
# Severe sepsis POA with hypotension and acute metabolic encephalopathy secondary to bilateral pneumonia R > L
# Mild Acute hypoxic respiratory insufficiency
Recently completed course of cefdinir and has been on Augmentin since July 25.
90% on RA POA , now 99% on RA
MS has improved, awake/alert and orientated
Admission CT Chest showed Patchy foci of groundglass consolidation, right greater than left, most consistent with infectious pneumonia/pneumonitis. Slightly progressed compared to prior CT. Also tracheobronchiomalacia.
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
Follow BAL results
Cont airway clearance measures
Cont current Zosyn
of note, COVID test, flu test negative. Urine Legionella and pneumococcal antigens negative. UA negative. MRSA screen negative
Noted admission blood culture one set positive for Staph epidermidis which is a contaminant given repeat blood cultures x2 sets negative
Stop further vancomycin
Pulmonary on board
# Paroxysmal afib
Cont COMPRESS ENGINEER Toprol with holding parameter
resume COMPRESS ENGINEER Xarelto
# Pain management with chronic opiate dependence
MS improved with reducing COMPRESS ENGINEER sedative medications.
Holding standing morphine, continue PRN oxycodone at reduced dose 5 mg PRN
reduced gabapentin from 600 mg TID to BID
reduce COMPRESS ENGINEER Xanax prn from 1 to 0.5 mg PRN
reduce COMPRESS ENGINEER Flexeril from 10 mg PRN to 5 mg PRN
DVT PPX - resume COMPRESS ENGINEER Xarelto
Code status - Full Code
Dispo: HH. 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
DW Pulm
DW RN
total time 51 min
Anticipated Discharge: > 48 hours
Subjective/Interval History
-
Date of Service: August 03, 2025
Objective Data
-
Labs:
Laboratory Results
08/03/25
04:22
WBC 7.2
Hgb 12.5
Hct 38.4
Plt Count 213 D
Sodium 137
Potassium 3.6
Chloride 105
Carbon Dioxide 26
BUN 8
Creatinine 0.7
Glucose 103 H
Calcium 9.2
Vital Signs:
Vital Signs
Temp Pulse Resp BP Pulse Ox
36.7 C 82 14 158/99 98
08/03/25 07:14 08/03/25 07:33 08/03/25 07:33 08/03/25 04:53 08/03/25 07:33
I&O
08/02/25 08/03/25 08/04/25
06:59 06:59 06:59
Intake Total 1410 / 1410 615 / 615
Balance 1410 / 1410 615 / 615
Review of Systems
-
History Source: Patient
All other systems: Reviewed and negative
Physical Exam
-
General: Well Developed, Well Nourished, No Apparent Distress, Comfortable, Conversant and Morbidly Obese
HEENT: Normocephalic, Atraumatic, Moist Mucous Membranes, Nose Appears Normal and Ears Appear Normal; Negative Oxygen
Respiratory: Clear to Auscultation and Non Labored Respirations; Negative Accessory Resp Muscle Use
Cardiac: Regular Rhythm and S1/S2
Breast: Deferred by me
GI: Soft, Nontender, Nondistended and Normal Bowel Sounds
Musculoskeletal: No Clubbing, No Cyanosis and No Edema
Skin: Warm
Neuro: Awake and Alert
Psych: Calm and Intact Judgement/Insight
Data Reviewed
-
CT Scan: Report Reviewed by me
Labs: Labs Reviewed by me
--- NOTE | 2025-08-03 08:54 | PTCARENOTE ---
Patient received from night order selector. Patient resting comfortably in bed. AAO, VSS. No events noted overnight. Some complaints of pain at this time in the knee and hip, see MAR. Continuing ABX. Currently on room air. OOB to chair today. No
testing scheduled at this time. Call rosas in reach.
[2025-08-03] MEDS: NEURONTIN 600 MG PO ×2 (09:47→21:17)
[2025-08-03] MEDS: TOPROL XL 25 MG PO (09:48)
[2025-08-03] MEDS: PROTONIX 40 MG PO (09:48)
[2025-08-03] MEDS: LIPITOR 40 MG PO (09:48)
[2025-08-03] MEDS: PAXIL 40 MG PO (09:49)
[2025-08-03] MEDS: ZETIA 10 MG PO (09:49)
--- NOTE | 2025-08-03 14:21 | W.PN.PUL3 ---
Today's Communication / Plan
-
- Hypertonic saline nebulized 3 times daily
- Incentive spirometry, flutter valve, PT/OT
- Avoid lying on right side, encourage sitting in chair, increase activity as tolerated
- Anticipate discharge 08/04
Assessment
-
Patient is a very pleasant 65-year-old female who was brought to the hospital for altered mental status at home. Patient reportedly was noted to be febrile with borderline oxygen saturation. EMS was called and patient was brought to the emergency
room. Patient was more awake, alert and oriented in the emergency room. Workup was suggestive of increasing pulmonary opacities concerning for pneumonia. Patient was noted to be febrile with temperature as high as 103.4. Patient reports that
since last discharge had cough had significantly improved with decreased expectoration. She feels that cough might be slightly worse over the last few days but does not report any significant expectoration, chills or difficulty breathing. In view
of CT scan showing worsening bilateral ground glass opacities more so on the right side than left, pulmonary consultation was requested for further input.
Patient had similar symptoms of pneumonia requiring antibiotic course in June, then again in early July. Patient was evaluated by pulmonary service and was recommended to have a bronchoscopy with EBUS TBNA in view of lymphadenopathy noted
on imaging as well as persistent and recurrent right middle and lower lobe infiltrates. Patient was referred to [facility] service but she has decided not to follow-up there due to her prior poor experience with [facility]. Patient is
currently in the process of scheduling follow-up with pulmonary clinic as outpatient. In view of recurrent admission for the same pulmonary issue, patient needs further workup including a bronchoscopy, BAL and possibly an EBUS TBNA if any
lymphadenopathy noted.
#1. Recurrent, persistent right lower lobe pneumonia with sepsis with Right middle lobe syndrome
- Patient was treated with antibiotic in June for similar symptoms, again in early July. Currently ground glass opacities seem to have progressed more on the right side than left. Encephalopathy felt to be related to underlying sepsis.
- CT scan reviewed from June and July 2025. Concern for right middle lobe syndrome with external compression from ?lymphadenopathy along with right lower lobe nodule, consolidation and hilar lymphadenopathy per CT 07/08/2025.
- More recent CT 07/31 reports no significant lymphadenopathy and no nodule reported. Suspect improving infection.
- 08/02, bronchoscopy showed slitlike opening for right middle lobe, very suggestive of right middle lobe syndrome. Ultrathin bronchoscope was used to intubate right middle lobe, further subsegments were patent and unremarkable. BAL sent, cultures
pending.
- Continue Zosyn. Follow-up BAL cultures
- Microaspiration also a concern with recurrent right lower lobe pneumonia.
- [facility] currently not accepting her insurance, patient was referred to [facility]. Patient reports poor experience with [facility] and wants to look for a different pulmonary practice.
- Hold Rin, Plan for Bronchoscopy today.
- Doing well on room air today, more awake, alert and interactive. Reports improving dyspnea.
- Patient again noted to be lying on her right side. Morbid obesity, constantly lying down on right side, limited mobility with extended. In bed, all contributing to right middle lobe syndrome.
- Initiated airway clearance with hypertonic saline 3 times daily, continue bronchodilation, continue antibiotics. Add incentive spirometry and flutter valve. PT/OT. Increase activity as tolerated. Counseled patient to sit in chair rather than
mostly lying in bed. Also patient advised to avoid lying down on right side always.
#2. Moderate persistent Asthma
- Not in exacerbation currently.
- Continue Spiriva and Symbicort.
#3. Restrictive lung disease.
- Mild restriction noted on spirometry likely related to obesity
#4. Suspect EDAC (Excessive dynamic airway collapse)
- CT reviewed, posterior wall of trachea noted to be significantly bulging at various levels, suggestive of EDAC
- Need to rule out sleep disordered breathing. Out patient sleep study.
- Morbid obesity, BMI 47.8 also contributing.
#5. Morbid obesity, high likelihood of sleep disordered breathing
- Out patient Sleep study
- VBG 7.35/49. Not suggestive of CO2 retention.
Other medical diagnoses:
Admission to [facility] 06/16/2025, also discharged on 06/30/2025 for recurrent fever/mental status and abnormal chest x-ray.
Hypertension
Hyperlipidemia
Paroxysmal atrial fibrillation on Xarelto
Mild persistent asthma- Symbicort.
Lewis's palsy
History of TIA
Chronic pain syndrome-RSD
Anxiety and depression
Non-smoker
Total time spent on this consultation/encounter __38_ minutes which includes review of history, physical exam, medications, laboratory data, personal review of imaging, extensive review of outpatient records, discussion with care team and
respiratory therapy.
Data:
PFT 07/2025: Spirometry demonstrates moderate obstruction. There was significant bronchodilator response in the FVC and FEV1. Lung volumes demonstrate mild restriction with air trapping. There is a mild diffusion impairment.
CT Chest 07/31/2025: 1. Patchy foci of groundglass consolidation, right greater than left, most consistent with infectious pneumonia/pneumonitis. Slightly progressed compared to prior CT. No associated pleural effusion.
2. Findings suggestive of tracheo-bronchiomalacia.
3. Moderate coronary arterial calcification. Please correlate with symptoms of and risk factors for coronary artery disease, with further workup as clinically appropriate.
CT Chest 07/08/2025: 1. MODERATE RIGHT LUNG VOLUME LOSS with moderate left to right mediastinal shift and moderate elevation of the right hemidiaphragm.
2. SEVERE RIGHT LUNG BRONCHITIS in the right upper, lower, and middle lobes.
3. Severe narrowing of the proximal right middle lobe bronchus which could be secondary to extrinsic compression by soft tissue in the right hilum (possibly right hilar lymphadenopathy). Inflammatory or infectious luminal narrowing is also a
diagnostic possibility.
4. Moderate peribronchial ground-glass opacity in the right lung which could be subsegmental atelectasis or infection.
5. 1.3 cm centrilobular pulmonary nodule in the infrahilar right lower lobe. Diagnostic possibilities are (1) infection or (2) lung cancer.
6. Mild right paratracheal and subcarinal lymphadenopathy.
7. Severe calcific atherosclerotic plaque in the coronary arteries.
8. Small hiatal hernia.
9. Multiple subacute nondisplaced healing right posterior and lateral rib fractures.
Subjective Data
-
Date of Service:
Date of Service: August 03, 2025
Subjective:
Patient comfortably sitting in bed in no acute distress.
Review of Systems
Genitourinary: Other (Overall feels better.)
Objective Data
Data Reviewed
Vital Signs / I&O / Oxygen:
Vital Signs
Temp Pulse Resp BP Pulse Ox
98.4 F 88 14 172/96 98
08/03/25 10:57 08/03/25 09:48 08/03/25 07:33 08/03/25 09:48 08/03/25 07:33
Intake and Output
08/02/25 08/03/25 08/04/25
06:59 06:59 06:59
Intake Total 1410 / 1410 615 / 615
Balance 1410 / 1410 615 / 615
SaO2 98
Nasal Cannula flow liters per 2
minute
Physical Exam
General: Comfortable
HEENT: Normocephalic
Cardiovascular: S1-S2
Respiratory: Clear and Rhonchi (Resolved)
GI: Soft and Non Distended
Neurology: Awake and Alert
Skin: Warm
Labs/Micro/Reports
Lab Data
08/03/25 04:22
08/03/25 04:22
Microbiology
08/01/25 11:21 Blood/Venous Blood Culture - Preliminary
No Growth in 48 hours- Final report to follow
08/01/25 10:10 Blood/Venous Blood Culture - Preliminary
No Growth in 48 hours- Final report to follow
08/02/25 10:37 Bronch Right Middle Lobe Respiratory Culture - Preliminary
NO GROWTH
08/02/25 10:37 Bronch Right Middle Lobe Gram Stain - Preliminary
07/31/25 04:14 Blood/Venous Blood Culture - Preliminary
Staphylococcus epidermidis
Additional testing on request
07/31/25 04:14 Blood/Venous Gram Stain - Preliminary
07/31/25 04:15 Blood/Venous Blood Culture - Preliminary
No Growth in 72 hours- Final report to follow
08/02/25 10:37 Bronch Right Middle Lobe Fungal Culture - Preliminary
Culture in progress.
Positive cultures are reported as soon as detected.
Final report to follow in four to five weeks.
07/31/25 10:48 Nose MRSA Screen - Final
No Methicillin Resistant Staphylococcus aureus isolated.
07/31/25 Unknown Urine Legionella Urinary Antigen - Final
Negative for Legionella pneumophila Serogroup 1 antigen.
A negative result does not rule out the possiblity of
Legionella infection due to other serogroups or species of
Legionella. Clinical correlation is recommended.
07/31/25 Unknown Urine Streptococcus pneumoniae Antigen (M - Final
Negative for Streptococcus pneumoniae antigen.
A negative result does not exclude infection with
Streptococcus pneumoniae. Clinical correlation is
recommended.
[2025-08-03] MEDS: DUONEB 3 ML INH (14:54)
--- NOTE | 2025-08-03 17:23 | CM ---
F/U: Patient still wants to discharge home. YAKELIN Osullivan informed the daughter: Denia who would want her mother to go to SNF so she will talk to mom. We discussed possible SNF and referrals were made. Denia will talk to her mother this evening and
if she is agreeable, there should be rehabs' to chose from then authorization from patient's insurance will be needed. IF patient chooses home, Case Management will inform [facility] to provide PT/OT. PLAN: Home PT vs. SNF
[2025-08-03] MEDS: XARELTO 20 MG PO (18:07)
--- NOTE | 2025-08-03 19:17 | CM ---
F/U: Patient still wants to discharge home w/ PT, the daughter: Denia wants her mother to go to SNF so she will talk to mom. Referrals have been made to SNF just in case, but likely discharge to home w/ [facility] for PT/OT. PLAN: Home PT vs. SNF
[2025-08-03] MEDS: SINGULAIR 10 MG PO (21:17)
[2025-08-03] MEDS: XANAX 0.5 MG PO (22:47)
--- NOTE | 2025-08-03 23:19 | PTCARENOTE ---
Assumed care of pt from dayshift RN after change of shift report. pt is aa0x3, nsr on monitor, satting 98% on RA. pt does c/o chronic back and leg pain, pain medication administered per order in DEC, see MAR. assessment as documented. call light in
reach. safe environment maintained.
[2025-08-04] VITALS (11 sets, daily range): BP systolic 115–157; BP diastolic 61–99
[2025-08-04] MEDS: ZOSYN 50 IV ×5 (01:15→23:53)
[2025-08-04 05:42] LABS: Hematocrit 35.0 % (37.0-47.0); Hemoglobin 11.1 g/dL (12.0-16.0); Mean Corp Hgb Conc. 31.7 g/dL (33.0-37.0); Mean Corpuscular Volume 86.6 fL (81.0-99.0); Platelet Count 204 10^3/uL (130-400); Red Cell Dist. Width 13.5 % (11.5-14.5)
[2025-08-04 06:04] LABS: Blood Urea Nitrogen 9 mg/dl (7-17); Calcium 8.7 mg/dl (8.4-10.2); Carbon Dioxide 31 mmol/L (22-30); Chloride 103 mmol/L (98-107); Estimated Creatinine Clearance 99 ml/min; Glucose 92 mg/dl (70-99); Potassium 3.4 mmol/L (3.5-5.1); Sodium 138 mmol/L (135-145); eGFR > 60.00
[2025-08-04] MEDS: SODIUM CHLORIDE 3% FOR INHALATION 1 VIAL INH ×2 (07:22→19:28)
[2025-08-04] MEDS: SPIRIVA RESPIMAT 2.5 MCG 2 PUFF INH (07:23)
[2025-08-04] MEDS: SYMBICORT 160/4.5 MCG INHALER 2 PUFF INH ×2 (07:23→19:28)
[2025-08-04] MEDS: ROXICODONE 5 MG PO ×3 (08:30→22:27)
[2025-08-04] MEDS: LIPITOR 40 MG PO (08:31)
[2025-08-04] MEDS: PAXIL 40 MG PO (08:31)
[2025-08-04] MEDS: NEURONTIN 600 MG PO ×2 (08:31→19:43)
[2025-08-04] MEDS: KCL 40 MEQ PO (08:31)
[2025-08-04] MEDS: ZETIA 10 MG PO (08:32)
[2025-08-04] MEDS: PROTONIX 40 MG PO (08:32)
[2025-08-04] MEDS: TOPROL XL PO (08:32)
--- NOTE | 2025-08-04 08:45 | W.PN.HOSP.TC ---
Today's Communication/Plan
-
Dispo: Pt has changed her mind and now wants to go to SNF.
CM updated
Assessment / Plan
Assessment / Plan
HPI: 65-year-old F with past medical history significant for hypertension, Lewis's palsy, TIA, paroxysmal atrial fibrillation, reflux and sympathetic dystrophy, mild intermittent asthma, hyperlipidemia, morbid obesity, chronic pain requiring opioids
who presented to the emergency department with altered mental status per sister.
She was recently admitted to the hospital for pneumonia twice in the last few months. She had pneumonia during her last admission with a right lower lobe opacity and some narrowing of the right bronchus with plan for bronchoscopy outpatient.
She returned to the emergency department again with a fever to 102.8, confusion (now alert and oriented x 3 with good insights that she can describe the indication and possible outcome or for bronchoscope but she still demonstrates some confusion on
history), low BPs, and found to have increased ground glass opacities bilaterally in the lower lobes on the CT scan consistent with likely aspiration pneumonia with repeated demonstration of collapse of the distal trachea and mainstem bronchi
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
There is concern she has significant sedative medications leading to aspiration although patient does not appear to fit this profile entirely.
CT of the chest without contrast showing bilateral pulmonary ground glass and tree-in-bud nodularity concerning for infectious bronchiolitis and possible complaint of aspiration. This has progressed since previous examination. There is a collapse
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
A/P:
# Severe sepsis POA with hypotension and acute metabolic encephalopathy secondary to bilateral pneumonia R > L
# Mild Acute hypoxic respiratory insufficiency
Recently completed course of cefdinir and has been on Augmentin since July 25.
90% on RA POA , now 99% on RA
MS has improved, awake/alert and orientated
Admission CT Chest showed Patchy foci of groundglass consolidation, right greater than left, most consistent with infectious pneumonia/pneumonitis. Slightly progressed compared to prior CT. Also tracheobronchiomalacia.
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
bronch resp culture no growth , AFB and fungal culture can be followed outpatient
Cont airway clearance measures
Cont current Zosyn x5 days total
of note, COVID test, flu test negative. Urine Legionella and pneumococcal antigens negative. UA negative. MRSA screen negative
Noted admission blood culture one set positive for Staph epidermidis which is likely a contaminant given repeat blood cultures x2 sets negative
Stopped further vancomycin
Pulmonary on board
# Paroxysmal afib
Cont EDUCATION INTERN Toprol with holding parameter
resume EDUCATION INTERN Xarelto
# Pain management with chronic opiate dependence
MS improved with reducing EDUCATION INTERN sedative medications.
Recc to cont reduced doses going forward:
Holding standing morphine, continue PRN oxycodone at reduced dose 5 mg PRN
reduced gabapentin from 600 mg TID to BID
reduce EDUCATION INTERN Xanax prn from 1 to 0.5 mg PRN
reduce EDUCATION INTERN Flexeril from 10 mg PRN to 5 mg PRN
# Hypokalemia
replete
DVT PPX - resumed EDUCATION INTERN Xarelto
Code status - Full Code
Dispo: Pt has changed her mind and now wants to go to SNF. CM updated
updated daughter Denia on the phone
Anticipated Discharge: Within 24 hours
Subjective/Interval History
-
Date of Service: August 04, 2025
Objective Data
-
Labs:
Laboratory Results
08/04/25
05:18
WBC 4.6 L
Hgb 11.1 L
Hct 35.0 L
Plt Count 204
Sodium 138
Potassium 3.4 L
Chloride 103
Carbon Dioxide 31 H
BUN 9
Creatinine 0.8
Glucose 92
Calcium 8.7
Vital Signs:
Vital Signs
Temp Pulse Resp BP Pulse Ox
36.8 C 50 21 115/82 92
08/04/25 07:29 08/04/25 08:32 08/04/25 08:00 08/04/25 08:00 08/04/25 08:00
I&O
08/03/25 08/04/25 08/05/25
06:59 06:59 06:59
Intake Total 615 / 615
Balance 615 / 615
Review of Systems
-
History Source: Patient
All other systems: Reviewed and negative
Physical Exam
-
General: Well Developed, Well Nourished, No Apparent Distress, Comfortable, Conversant and Morbidly Obese
HEENT: Normocephalic, Atraumatic, Moist Mucous Membranes, Nose Appears Normal and Ears Appear Normal; Negative Oxygen
Respiratory: Clear to Auscultation and Non Labored Respirations; Negative Accessory Resp Muscle Use
Cardiac: Regular Rhythm and S1/S2
Breast: Deferred by me
GI: Soft, Nontender, Nondistended and Normal Bowel Sounds
Musculoskeletal: No Clubbing, No Cyanosis and No Edema
Skin: Warm
Neuro: Awake and Alert
Psych: Calm and Intact Judgement/Insight
Data Reviewed
-
CT Scan: Report Reviewed by me
Labs: Labs Reviewed by me
--- NOTE | 2025-08-04 09:54 | W.PN.PUL3 ---
Today's Communication / Plan
-
- D/c antibiotics
- Continue Spiriva and Symbicort along with Montelukast
- Continue airway clearance with hypertonic saline BID, skilled nursing along with flutter valve
- Incentive spirometry
- Avoid prolonged lying on the right side
- Recommend out patient follow up with Pulmonary clinic. Patient currently looking for Pulmonary clinic covered by her insurance.
- Pulmonary team will sign off, please call as needed.
Assessment
-
Patient is a very pleasant 65-year-old female who was brought to the hospital for altered mental status at home. Patient reportedly was noted to be febrile with borderline oxygen saturation. EMS was called and patient was brought to the emergency
room. Patient was more awake, alert and oriented in the emergency room. Workup was suggestive of increasing pulmonary opacities concerning for pneumonia. Patient was noted to be febrile with temperature as high as 103.4. Patient reports that
since last discharge had cough had significantly improved with decreased expectoration. She feels that cough might be slightly worse over the last few days but does not report any significant expectoration, chills or difficulty breathing. In view
of CT scan showing worsening bilateral ground glass opacities more so on the right side than left, pulmonary consultation was requested for further input.
Patient had similar symptoms of pneumonia requiring antibiotic course in June, then again in early July. Patient was evaluated by pulmonary service and was recommended to have a bronchoscopy with EBUS TBNA in view of lymphadenopathy noted
on imaging as well as persistent and recurrent right middle and lower lobe infiltrates. Patient was referred to [facility] service but she has decided not to follow-up there due to her prior poor experience with [facility]. Patient is
currently in the process of scheduling follow-up with pulmonary clinic as outpatient. In view of recurrent admission for the same pulmonary issue, patient needs further workup including a bronchoscopy, BAL and possibly an EBUS TBNA if any
lymphadenopathy noted.
#1. Recurrent, persistent right lower lobe pneumonia with sepsis with Right middle lobe syndrome
- Patient was treated with antibiotic in June for similar symptoms, again in early July. Currently ground glass opacities seem to have progressed more on the right side than left. Encephalopathy felt to be related to underlying sepsis.
- CT scan reviewed from June and July 2025. Concern for right middle lobe syndrome with external compression from ?lymphadenopathy along with right lower lobe nodule, consolidation and hilar lymphadenopathy per CT 07/08/2025.
- More recent CT 07/31 reports no significant lymphadenopathy and no nodule reported. Suspect improving infection.
- 08/02, bronchoscopy showed slit-like opening for right middle lobe, very suggestive of right middle lobe syndrome. Ultrathin bronchoscope was used to intubate right middle lobe, further sub-segments were patent and unremarkable. BAL sent,
cultures negaticve so far
- Continue Zosyn for 5 dasy then d/c.
- Microaspiration also a concern with recurrent right lower lobe pneumonia.
- [facility] currently not accepting her insurance, patient was referred to [facility]. Patient reports poor experience with [facility] and wants to look for a different pulmonary practice.
- Doing well on room air today, more awake, alert and interactive. Reports improving dyspnea.
- Patient again noted to be lying on her right side. Morbid obesity, constantly lying down on right side, limited mobility with extended. In bed, all contributing to right middle lobe syndrome.
- Initiated airway clearance with hypertonic saline 2 times daily, continue bronchodilation, continue antibiotics. Added incentive spirometry and flutter valve. PT/OT. Increase activity as tolerated. Counseled patient to sit in chair rather than
mostly lying in bed. Also patient advised to avoid lying down on right side always.
#2. Moderate persistent Asthma
- Not in exacerbation currently.
- Continue Spiriva and Symbicort.
#3. Restrictive lung disease.
- Mild restriction noted on spirometry likely related to obesity
#4. Suspect EDAC (Excessive dynamic airway collapse)
- CT reviewed, posterior wall of trachea noted to be significantly bulging at various levels, suggestive of EDAC
- Need to rule out sleep disordered breathing. Out patient sleep study.
- Morbid obesity, BMI 47.8 also contributing.
#5. Morbid obesity, high likelihood of sleep disordered breathing
- Out patient Sleep study
- VBG 7.35/49. Not suggestive of CO2 retention.
Other medical diagnoses:
Admission to [facility] 06/16/2025, also discharged on 06/30/2025 for recurrent fever/mental status and abnormal chest x-ray.
Hypertension
Hyperlipidemia
Paroxysmal atrial fibrillation on Xarelto. Resumed post bronchoscopy
Mild persistent asthma- Symbicort.
Lewis's palsy
History of TIA
Chronic pain syndrome-RSD
Anxiety and depression
Non-smoker
Total time spent on this consultation/encounter __36_ minutes which includes review of history, physical exam, medications, laboratory data, personal review of imaging, extensive review of outpatient records, discussion with care team and
respiratory therapy.
Data:
PFT 07/2025: Spirometry demonstrates moderate obstruction. There was significant bronchodilator response in the FVC and FEV1. Lung volumes demonstrate mild restriction with air trapping. There is a mild diffusion impairment.
CT Chest 07/31/2025: 1. Patchy foci of groundglass consolidation, right greater than left, most consistent with infectious pneumonia/pneumonitis. Slightly progressed compared to prior CT. No associated pleural effusion.
2. Findings suggestive of tracheo-bronchiomalacia.
3. Moderate coronary arterial calcification. Please correlate with symptoms of and risk factors for coronary artery disease, with further workup as clinically appropriate.
CT Chest 07/08/2025: 1. MODERATE RIGHT LUNG VOLUME LOSS with moderate left to right mediastinal shift and moderate elevation of the right hemidiaphragm.
2. SEVERE RIGHT LUNG BRONCHITIS in the right upper, lower, and middle lobes.
3. Severe narrowing of the proximal right middle lobe bronchus which could be secondary to extrinsic compression by soft tissue in the right hilum (possibly right hilar lymphadenopathy). Inflammatory or infectious luminal narrowing is also a
diagnostic possibility.
4. Moderate peribronchial ground-glass opacity in the right lung which could be subsegmental atelectasis or infection.
5. 1.3 cm centrilobular pulmonary nodule in the infrahilar right lower lobe. Diagnostic possibilities are (1) infection or (2) lung cancer.
6. Mild right paratracheal and subcarinal lymphadenopathy.
7. Severe calcific atherosclerotic plaque in the coronary arteries.
8. Small hiatal hernia.
9. Multiple subacute nondisplaced healing right posterior and lateral rib fractures.
Subjective Data
-
Date of Service:
Date of Service: August 04, 2025
Subjective:
Comfortably lying in bed in no acute distress.
Review of Systems
Genitourinary: Other (All 14 systems reviewed and negative except as stated above in the history of present illness.)
Objective Data
Data Reviewed
Vital Signs / I&O / Oxygen:
Vital Signs
Temp Pulse Resp BP Pulse Ox
98.3 F 50 21 115/82 92
08/04/25 07:29 08/04/25 08:32 08/04/25 08:00 08/04/25 08:00 08/04/25 08:00
Intake and Output
08/03/25 08/04/25 08/05/25
06:59 06:59 06:59
Intake Total 615 / 615
Balance 615 / 615
SaO2 92
Nasal Cannula flow liters per 2
minute
Physical Exam
General: Comfortable
HEENT: Normocephalic
Cardiovascular: S1-S2
Respiratory: Clear and Rhonchi (Resolved)
GI: Soft and Non Distended
Neurology: Awake and Alert
Skin: Warm
Labs/Micro/Reports
Lab Data
08/04/25 05:18
08/04/25 05:18
Microbiology
07/31/25 04:15 Blood/Venous Blood Culture - Preliminary
No Growth in 4 days- Final report to follow
08/01/25 11:21 Blood/Venous Blood Culture - Preliminary
No Growth in 48 hours- Final report to follow
08/01/25 10:10 Blood/Venous Blood Culture - Preliminary
No Growth in 48 hours- Final report to follow
08/02/25 10:37 Bronch Right Middle Lobe Respiratory Culture - Preliminary
NO GROWTH
08/02/25 10:37 Bronch Right Middle Lobe Gram Stain - Preliminary
07/31/25 04:14 Blood/Venous Blood Culture - Preliminary
Staphylococcus epidermidis
Additional testing on request
07/31/25 04:14 Blood/Venous Gram Stain - Preliminary
08/02/25 10:37 Bronch Right Middle Lobe Fungal Culture - Preliminary
Culture in progress.
Positive cultures are reported as soon as detected.
Final report to follow in four to five weeks.
07/31/25 10:48 Nose MRSA Screen - Final
No Methicillin Resistant Staphylococcus aureus isolated.
07/31/25 Unknown Urine Legionella Urinary Antigen - Final
Negative for Legionella pneumophila Serogroup 1 antigen.
A negative result does not rule out the possiblity of
Legionella infection due to other serogroups or species of
Legionella. Clinical correlation is recommended.
07/31/25 Unknown Urine Streptococcus pneumoniae Antigen (M - Final
Negative for Streptococcus pneumoniae antigen.
A negative result does not exclude infection with
Streptococcus pneumoniae. Clinical correlation is
recommended.
--- NOTE | 2025-08-04 12:05 | PTCARENOTE ---
Assumed care of pt at 0700 this am. Pt vitals stable. SR/SB on the monitor. Assessment done. Pt does have complaints of pain to numerous areas of her body from her chronic conditions. Morning medications and pain medications given. Advised pt to
ring for any assistance needed.
--- NOTE | 2025-08-04 16:07 | CM ---
Patient is now agreeable to skilled placement, skilled referrals sent to [facility] and [facility].
Plan; Skilled placement, will need Auth from insurance.
[2025-08-04] MEDS: XARELTO 20 MG PO (17:43)
[2025-08-04] MEDS: XANAX 0.5 MG PO (21:01)
--- NOTE | 2025-08-04 22:21 | PTCARENOTE ---
Assumed care of pt from dayshift RN after change of shift report. Pt is aa0x3. VSS. NSR on monitor. Pt satting 98% on RA. denies current SOB. Pt brushed teeth. assessment as documented. call light in reach.
[2025-08-04] MEDS: SINGULAIR 10 MG PO (22:27)
[2025-08-05] VITALS (12 sets, daily range): BP systolic 98–173; BP diastolic 59–113; BMI 45.7
[2025-08-05 04:35] LABS: Hematocrit 35.4 % (37.0-47.0); Hemoglobin 11.7 g/dL (12.0-16.0); Mean Corp Hgb Conc. 33.1 g/dL (33.0-37.0); Mean Corpuscular Volume 87.6 fL (81.0-99.0); Platelet Count 188 10^3/uL (130-400); Red Cell Dist. Width 13.5 % (11.5-14.5)
[2025-08-05 04:57] LABS: Blood Urea Nitrogen 8 mg/dl (7-17); Calcium 8.7 mg/dl (8.4-10.2); Carbon Dioxide 29 mmol/L (22-30); Chloride 104 mmol/L (98-107); Estimated Creatinine Clearance 111 ml/min; Glucose 98 mg/dl (70-99); Potassium 3.5 mmol/L (3.5-5.1); Sodium 140 mmol/L (135-145); eGFR > 60.00
[2025-08-05] MEDS: ZOSYN 50 IV (05:26)
[2025-08-05] MEDS: SPIRIVA RESPIMAT 2.5 MCG 2 PUFF INH (07:57)
[2025-08-05] MEDS: SYMBICORT 160/4.5 MCG INHALER 2 PUFF INH ×2 (07:57→20:49)
[2025-08-05] MEDS: SODIUM CHLORIDE 3% FOR INHALATION 1 VIAL INH ×2 (07:57→20:49)
[2025-08-05] MEDS: KCL 270 MEQ IV (08:39)
[2025-08-05] MEDS: ZETIA 10 MG PO (08:42)
[2025-08-05] MEDS: ROXICODONE 5 MG PO ×3 (08:42→22:46)
[2025-08-05] MEDS: PAXIL 40 MG PO (08:43)
[2025-08-05] MEDS: NEURONTIN 600 MG PO ×2 (08:43→21:11)
[2025-08-05] MEDS: TOPROL XL PO (08:43)
[2025-08-05] MEDS: PROTONIX 40 MG PO (08:43)
[2025-08-05] MEDS: LIPITOR 40 MG PO (08:43)
--- NOTE | 2025-08-05 09:46 | W.PN.HOSP.TC ---
Today's Communication/Plan
-
OK to downgrade to tele
dispo plan to SNF
Assessment / Plan
Assessment / Plan
HPI: 65-year-old F with past medical history significant for hypertension, Lewis's palsy, TIA, paroxysmal atrial fibrillation, reflux and sympathetic dystrophy, mild intermittent asthma, hyperlipidemia, morbid obesity, chronic pain requiring opioids
who presented to the emergency department with altered mental status per sister.
She was recently admitted to the hospital for pneumonia twice in the last few months. She had pneumonia during her last admission with a right lower lobe opacity and some narrowing of the right bronchus with plan for bronchoscopy outpatient.
She returned to the emergency department again with a fever to 102.8, confusion (now alert and oriented x 3 with good insights that she can describe the indication and possible outcome or for bronchoscope but she still demonstrates some confusion on
history), low BPs, and found to have increased ground glass opacities bilaterally in the lower lobes on the CT scan consistent with likely aspiration pneumonia with repeated demonstration of collapse of the distal trachea and mainstem bronchi
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
There is concern she has significant sedative medications leading to aspiration although patient does not appear to fit this profile entirely.
CT of the chest without contrast showing bilateral pulmonary ground glass and tree-in-bud nodularity concerning for infectious bronchiolitis and possible complaint of aspiration. This has progressed since previous examination. There is a collapse
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
A/P:
# Severe sepsis POA with hypotension and acute metabolic encephalopathy secondary to bilateral pneumonia R > L
# Mild Acute hypoxic respiratory insufficiency
Recently completed course of cefdinir and has been on Augmentin since July 25.
90% on RA POA , now 99% on RA
MS has improved, awake/alert and orientated
Admission CT Chest showed Patchy foci of groundglass consolidation, right greater than left, most consistent with infectious pneumonia/pneumonitis. Slightly progressed compared to prior CT. Also tracheobronchiomalacia.
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
bronch resp culture no growth , AFB and fungal culture can be followed outpatient
Cont airway clearance measures
Cont current Zosyn x5 days total
of note, COVID test, flu test negative. Urine Legionella and pneumococcal antigens negative. UA negative. MRSA screen negative
Noted admission blood culture one set positive for Staph epidermidis which is likely a contaminant given repeat blood cultures x2 sets negative- stopped further vancomycin
Pulmonary on board
# Paroxysmal afib
Cont [employer]IATE Toprol with holding parameter
resume [employer] Xarelto
# Pain management with chronic opiate dependence
MS improved with reducing [employer] sedative medications.
Recc to cont reduced doses going forward:
Holding standing morphine, continue PRN oxycodone at reduced dose 5 mg PRN
reduced gabapentin from 600 mg TID to BID
reduce [employer] Xanax prn from 1 to 0.5 mg PRN
reduce [employer]ATE Flexeril from 10 mg PRN to 5 mg PRN
# Hypokalemia
replete
DVT PPX - resumed [employer] SAL[employer] Xarelto
Code status - Full Code
Dispo: Pt has changed her mind and now wants to go to SNF. CM updated
Anticipated Discharge: 24 - 48 hours
Subjective/Interval History
-
Date of Service: August 05, 2025
Objective Data
-
Labs:
Laboratory Results
08/05/25
03:43
WBC 5.7
Hgb 11.7 L
Hct 35.4 L
Plt Count 188
Sodium 140
Potassium 3.5
Chloride 104
Carbon Dioxide 29
BUN 8
Creatinine 0.7
Glucose 98
Calcium 8.7
Vital Signs:
Vital Signs
Temp Pulse Resp BP Pulse Ox
36.8 C 52 16 163/97 96
08/05/25 07:00 08/05/25 08:43 08/05/25 08:03 08/05/25 08:00 08/05/25 06:00
I&O
08/04/25 08/05/25 08/06/25
06:59 06:59 05:59
Intake Total 540 / 540
Output Total 700 / 700
Balance -160 / -160
Review of Systems
-
History Source: Patient
All other systems: Reviewed and negative
Physical Exam
-
General: Well Developed, Well Nourished, No Apparent Distress, Comfortable, Conversant and Morbidly Obese
HEENT: Normocephalic, Atraumatic, Moist Mucous Membranes, Nose Appears Normal and Ears Appear Normal; Negative Oxygen
Respiratory: Clear to Auscultation and Non Labored Respirations; Negative Accessory Resp Muscle Use
Cardiac: Regular Rhythm and S1/S2
Breast: Deferred by me
GI: Soft, Nontender, Nondistended and Normal Bowel Sounds
Musculoskeletal: No Clubbing, No Cyanosis and No Edema
Skin: Warm
Neuro: Awake and Alert
Psych: Calm and Intact Judgement/Insight
Data Reviewed
-
CT Scan: Report Reviewed by me
Labs: Labs Reviewed by me
--- NOTE | 2025-08-05 11:04 | PTCARENOTE ---
Assumed care of pt at 0700 this am. Pt vitals stable. SR/SB on the monitor. Assessment done. Pt does have complaints of pain to numerous areas of her body from her chronic conditions. Low back and knees hurt now. Oxy given. K+ pavan avila. Pt
awaiting placement to rehab and has been downgraded to telemetry. Advised pt to ring for any assistance needed. Sofia+ pavan avila. Pt awaiting placement to rehab and has been downgraded to telemetry.
--- NOTE | 2025-08-05 14:31 | PTCARENOTE ---
Pt BP has been trending up. Unable to give toprol this morning and Fri am due to heart rate in the 50's. Dr Palafox notified and [facility] ordered.
[2025-08-05] MEDS: NORVASC 2.5 MG PO (14:35)
--- NOTE | 2025-08-05 15:14 | PTCARENOTE ---
Report called to [facility] on . Pt transferred via WC With PCT . All belongings sent up with her.
[2025-08-05] MEDS: XARELTO 20 MG PO (17:31)
[2025-08-05] MEDS: DUONEB 3 ML INH (20:50)
[2025-08-05] MEDS: SINGULAIR 10 MG PO (22:42)
[2025-08-05] MEDS: XANAX 0.5 MG PO (23:34)
[2025-08-06] VITALS (7 sets, daily range): BP systolic 129–164; BP diastolic 65–99; PULSE 64; O2SAT 98; BMI 44.5
[2025-08-06] MEDS: SYMBICORT 160/4.5 MCG INHALER 2 PUFF INH ×2 (07:15→18:11)
[2025-08-06] MEDS: SODIUM CHLORIDE 3% FOR INHALATION 1 VIAL INH ×2 (07:16→18:11)
[2025-08-06] MEDS: SPIRIVA RESPIMAT 2.5 MCG 2 PUFF INH (07:16)
[2025-08-06] MEDS: DUONEB 3 ML INH ×2 (07:16→18:11)
[2025-08-06 07:43] LABS: Hematocrit 38.5 % (37.0-47.0); Hemoglobin 12.7 g/dL (12.0-16.0); Mean Corp Hgb Conc. 33.0 g/dL (33.0-37.0); Mean Corpuscular Volume 87.1 fL (81.0-99.0); Platelet Count 194 10^3/uL (130-400); Red Cell Dist. Width 13.3 % (11.5-14.5)
[2025-08-06 07:55] LABS: Blood Urea Nitrogen 6 mg/dl (7-17); Calcium 9.2 mg/dl (8.4-10.2); Carbon Dioxide 30 mmol/L (22-30); Chloride 104 mmol/L (98-107); Estimated Creatinine Clearance 110 ml/min; Glucose 95 mg/dl (70-99); Potassium 4.4 mmol/L (3.5-5.1); Sodium 137 mmol/L (135-145); eGFR > 60.00
[2025-08-06] MEDS: ROXICODONE 5 MG PO ×2 (09:23→15:25)
[2025-08-06] MEDS: NEURONTIN 600 MG PO ×2 (09:24→20:30)
[2025-08-06] MEDS: PAXIL 40 MG PO (09:25)
[2025-08-06] MEDS: TOPROL XL 25 MG PO (09:25)
[2025-08-06] MEDS: LIPITOR 40 MG PO (09:25)
[2025-08-06] MEDS: NORVASC 2.5 MG PO (09:26)
[2025-08-06] MEDS: PROTONIX 40 MG PO (09:26)
[2025-08-06] MEDS: ZETIA 10 MG PO (09:32)
--- NOTE | 2025-08-06 11:31 | W.PN.HOSP.TC ---
Today's Communication/Plan
-
see A/P
Assessment / Plan
Assessment / Plan
HPI: 65-year-old F with past medical history significant for hypertension, Lewis's palsy, TIA, paroxysmal atrial fibrillation, reflux and sympathetic dystrophy, mild intermittent asthma, hyperlipidemia, morbid obesity, chronic pain requiring opioids
who presented to the emergency department with altered mental status per sister.
She was recently admitted to the hospital for pneumonia twice in the last few months. She had pneumonia during her last admission with a right lower lobe opacity and some narrowing of the right bronchus with plan for bronchoscopy outpatient.
She returned to the emergency department again with a fever to 102.8, confusion (now alert and oriented x 3 with good insights that she can describe the indication and possible outcome or for bronchoscope but she still demonstrates some confusion on
history), low BPs, and found to have increased ground glass opacities bilaterally in the lower lobes on the CT scan consistent with likely aspiration pneumonia with repeated demonstration of collapse of the distal trachea and mainstem bronchi
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
There is concern she has significant sedative medications leading to aspiration although patient does not appear to fit this profile entirely.
CT of the chest without contrast showing bilateral pulmonary ground glass and tree-in-bud nodularity concerning for infectious bronchiolitis and possible complaint of aspiration. This has progressed since previous examination. There is a collapse
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
A/P:
# Severe sepsis POA with hypotension and acute metabolic encephalopathy secondary to bilateral pneumonia R > L
# Mild Acute hypoxic respiratory insufficiency
Recently completed course of cefdinir and has been on Augmentin since July 25.
90% on RA POA , now 99% on RA
MS has improved, awake/alert and orientated
Admission CT Chest showed Patchy foci of groundglass consolidation, right greater than left, most consistent with infectious pneumonia/pneumonitis. Slightly progressed compared to prior CT. Also tracheobronchiomalacia.
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
bronch resp culture no growth , AFB and fungal culture can be followed outpatient
Cont airway clearance measures
s/p Zosyn x5 days total
of note, COVID test, flu test negative. Urine Legionella and pneumococcal antigens negative. UA negative. MRSA screen negative
Noted admission blood culture one set positive for Staph epidermidis which is likely a contaminant given repeat blood cultures x2 sets negative- stopped further vancomycin
Pulmonary on board
# Paroxysmal afib
Cont [employer] Toprol with holding parameter
resumed [employer] Xarelto
# Pain management with chronic opiate dependence
MS improved with reducing [employer] sedative medications.
Recc to cont reduced doses going forward:
Holding standing morphine, continue PRN oxycodone at reduced dose 5 mg PRN
reduced gabapentin from 600 mg TID to BID
reduce [employer] Xanax prn from 1 to 0.5 mg PRN
reduce [employer] Flexeril from 10 mg PRN to 5 mg PRN
# Hypokalemia
repleted
DVT PPX - resumed P[employer] Xarelto
Code status - Full Code
Dispo: Pt has changed her mind and now wants to go to SNF. CM updated
Anticipated Discharge: Within 24 hours
Subjective/Interval History
-
Date of Service: August 06, 2025
Objective Data
-
Labs:
Laboratory Results
08/06/25
06:46
WBC 6.3
Hgb 12.7
Hct 38.5
Plt Count 194
Sodium 137
Potassium 4.4 D
Chloride 104
Carbon Dioxide 30
BUN 6 L
Creatinine 0.7
Glucose 95
Calcium 9.2
Vital Signs:
Vital Signs
Temp Pulse Resp BP Pulse Ox
37.0 C 69 19 156/87 95
08/06/25 11:00 08/06/25 11:00 08/06/25 11:00 08/06/25 11:00 08/06/25 11:00
I&O
08/05/25 08/06/25 08/07/25
06:59 05:59 06:59
Intake Total 540 / 540 1190 / 1190
Output Total 700 / 700 901 / 901
Balance -160 / -160 289 / 289
Review of Systems
-
History Source: Patient
All other systems: Reviewed and negative
Physical Exam
-
General: Well Developed, Well Nourished, No Apparent Distress, Comfortable, Conversant and Morbidly Obese
HEENT: Normocephalic, Atraumatic, Moist Mucous Membranes, Nose Appears Normal and Ears Appear Normal; Negative Oxygen
Respiratory: Clear to Auscultation and Non Labored Respirations; Negative Accessory Resp Muscle Use
Cardiac: Regular Rhythm and S1/S2
Breast: Deferred by me
GI: Soft, Nontender, Nondistended and Normal Bowel Sounds
Musculoskeletal: No Clubbing, No Cyanosis and No Edema
Skin: Warm
Neuro: Awake and Alert
Psych: Calm and Intact Judgement/Insight
Data Reviewed
-
CT Scan: Report Reviewed by me
Labs: Labs Reviewed by me
[2025-08-06] MEDS: XARELTO 20 MG PO (18:39)
[2025-08-06] MEDS: SINGULAIR 10 MG PO (20:31)
[2025-08-06] MEDS: TYLENOL 650 MG PO (20:40)
[2025-08-06] MEDS: XANAX 0.5 MG PO (22:22)
[2025-08-07 03:00] VITALS: BP 154/81
[2025-08-07 05:08] VITALS: BMI 43.8
[2025-08-07] MEDS: ROXICODONE 5 MG PO ×2 (05:50→13:18)
[2025-08-07 07:00] VITALS: BP 126/93
[2025-08-07] MEDS: SPIRIVA RESPIMAT 2.5 MCG 2 PUFF INH (07:28)
[2025-08-07] MEDS: SYMBICORT 160/4.5 MCG INHALER 2 PUFF INH ×2 (07:28→20:16)
[2025-08-07] MEDS: SODIUM CHLORIDE 3% FOR INHALATION 1 VIAL INH ×2 (07:28→20:16)
[2025-08-07] MEDS: NEURONTIN 600 MG PO ×2 (09:22→20:26)
[2025-08-07] MEDS: PAXIL 40 MG PO (09:22)
[2025-08-07] MEDS: LIPITOR 40 MG PO (09:23)
[2025-08-07] MEDS: PROTONIX 40 MG PO (09:23)
[2025-08-07] MEDS: ZETIA 10 MG PO (09:23)
[2025-08-07] MEDS: TOPROL XL 25 MG PO (09:23)
[2025-08-07] MEDS: NORVASC 2.5 MG PO (09:23)
[2025-08-07 11:00] VITALS: BP 146/68
[2025-08-07 15:00] VITALS: BP 158/75
[2025-08-07 15:36] VITALS: BMI 43.8
--- NOTE | 2025-08-07 15:46 | W.PN.HOSP.TC ---
Today's Communication/Plan
-
Continue pulmonary toilet
Assessment / Plan
Assessment / Plan
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
A/P:
Sepsis with acute metabolic encephalopathy secondary to bilateral pneumonia R > L
Recently completed course of cefdinir and has been on Augmentin since July 25.
CT Chest showed Patchy foci of groundglass consolidation, right greater than left, most consistent with infectious pneumonia/pneumonitis. Slightly progressed compared to prior CT. Also tracheobronchiomalacia.
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
COVID test, flu test negative. Urine Legionella and pneumococcal antigens negative. UA negative. MRSA screen negative
bronch resp culture no growth, AFB and fungal culture can be followed outpatient.
s/p Zosyn x5 days total
Noted admission blood culture one set positive for Staph epidermidis which is likely a contaminant given repeat blood cultures x2 sets negative- stopped further vancomycin
Pulmonary consulted appreciate recommendations
Still with mild wheezes, continue as needed nebs
Mental status has returned to baseline
Paroxysmal afib
Rate controlled with beta-marycarmen
Continue Xarelto
Chronic opioid dependence
MS improved with reducing [employer] sedative medications.
Holding standing morphine, continue PRN oxycodone at reduced dose 5 mg PRN
reduced gabapentin from 600 mg TID to BID
reduced [employer] Xanax prn from 1 to 0.5 mg PRN
reduced [employer] Flexeril from 10 mg PRN to 5 mg PRN
Hypokalemia
Resolved with repletion
DVT PPX - Xarelto
Code status - Full Code
Dispo: SNF, pending placement
Anticipated Discharge: Within 24 hours
Subjective/Interval History
-
Date of Service: August 07, 2025
Patient notes nonproductive cough, occasional wheezes. Overall feeling better.
Objective Data
-
Vital Signs:
Vital Signs
Temp Pulse Resp BP Pulse Ox
99.4 F 62 18 146/68 100
08/07/25 11:00 08/07/25 11:00 08/07/25 11:00 08/07/25 11:00 08/07/25 11:00
I&O
08/06/25 08/07/25 08/08/25
05:59 06:59 06:59
Intake Total 1190 / 1190 840 / 840 1440 / 1440
Output Total 901 / 901
Balance 289 / 289 840 / 840 1440 / 1440
Review of Systems
-
All other systems: Reviewed and negative
Physical Exam
-
General: No Apparent Distress
HEENT: Moist Mucous Membranes, Anicteric and PERRLA
Respiratory: Clear to Auscultation and Wheezes; Negative Rales or Rhonchi
Cardiac: Regular Rhythm and S1/S2; Negative Murmur, Rub or Gallop
GI: Soft, Nontender, Nondistended and Normal Bowel Sounds
Musculoskeletal: No Edema
Skin: Warm and Dry; Negative Rash, Ulcers or Lesions
Neuro: Awake and AO x 3
Hematologic / Lymphatic: No Lymphadenopathy
Psych: Calm
Data Reviewed
-
Old Records: Reviewed
[2025-08-07] MEDS: XARELTO 20 MG PO (18:15)
[2025-08-07 19:10] VITALS: BP 143/89
[2025-08-07] MEDS: SINGULAIR 10 MG PO (20:26)
[2025-08-07 23:45] VITALS: BP 133/89
[2025-08-08] MEDS: XANAX 0.5 MG PO ×2 (00:53→23:41)
[2025-08-08] MEDS: ROXICODONE 5 MG PO ×2 (01:45→10:35)
[2025-08-08 03:50] VITALS: BP 166/73
[2025-08-08 06:00] VITALS: BMI 43.6
[2025-08-08 07:00] VITALS: BP 138/88
[2025-08-08] MEDS: SPIRIVA RESPIMAT 2.5 MCG 2 PUFF INH (07:32)
[2025-08-08] MEDS: SODIUM CHLORIDE 3% FOR INHALATION 1 VIAL INH (07:32)
[2025-08-08] MEDS: SYMBICORT 160/4.5 MCG INHALER 2 PUFF INH ×2 (07:33→20:50)
[2025-08-08] MEDS: PAXIL 40 MG PO (09:27)
[2025-08-08] MEDS: NORVASC 2.5 MG PO (09:28)
[2025-08-08] MEDS: ZETIA 10 MG PO (09:28)
[2025-08-08] MEDS: TOPROL XL 25 MG PO (09:28)
[2025-08-08] MEDS: LIPITOR 40 MG PO (09:28)
[2025-08-08] MEDS: PROTONIX 40 MG PO (09:28)
[2025-08-08] MEDS: NEURONTIN 600 MG PO ×2 (09:28→20:21)
[2025-08-08] MEDS: TYLENOL 650 MG PO (09:29)
[2025-08-08 11:00] VITALS: BP 104/76
--- NOTE | 2025-08-08 13:10 | W.PN.HOSP.TC ---
Today's Communication/Plan
-
Add Medrol Dosepak
Awaiting SNF placement
Assessment / Plan
Assessment / Plan
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
A/P:
Sepsis with acute metabolic encephalopathy secondary to bilateral pneumonia R > L
Recently completed course of cefdinir and has been on Augmentin since July 25.
CT Chest showed Patchy foci of groundglass consolidation, right greater than left, most consistent with infectious pneumonia/pneumonitis. Slightly progressed compared to prior CT. Also tracheobronchiomalacia.
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
COVID test, flu test negative. Urine Legionella and pneumococcal antigens negative. UA negative. MRSA screen negative
bronch resp culture no growth, AFB and fungal culture can be followed outpatient.
s/p Zosyn x5 days total
Noted admission blood culture one set positive for Staph epidermidis which is likely a contaminant given repeat blood cultures x2 sets negative- stopped further vancomycin
Pulmonary consulted appreciate recommendations
Still with mild wheezes, continue as needed nebs. Add Medrol Dosepak.
Mental status has returned to baseline
Paroxysmal afib
Rate controlled with beta-marycarmen
Continue Xarelto
Chronic opioid dependence
MS improved with reducing SAW STRAIGHTENER sedative medications.
Holding standing morphine, continue PRN oxycodone at reduced dose 5 mg PRN
reduced gabapentin from 600 mg TID to BID
reduced SAW STRAIGHTENER Xanax prn from 1 to 0.5 mg PRN
reduced SAW STRAIGHTENER Flexeril from 10 mg PRN to 5 mg PRN
Hypokalemia
Resolved with repletion
DVT PPX - Xarelto
Code status - Full Code
Dispo: SNF, pending placement
Anticipated Discharge: Within 24 hours
Subjective/Interval History
-
Date of Service: August 08, 2025
Patient still notes cough and wheezing, especially with exertion
Objective Data
-
Vital Signs:
Vital Signs
Temp Pulse Resp BP Pulse Ox
98.8 F 67 18 104/76 97
08/08/25 11:00 08/08/25 11:00 08/08/25 11:00 08/08/25 11:00 08/08/25 11:00
I&O
08/07/25 08/08/25 08/09/25
06:59 06:59 06:59
Intake Total 840 / 840 2280 / 2280
Balance 840 / 840 2280 / 2280
Review of Systems
-
All other systems: Reviewed and negative
Physical Exam
-
General: No Apparent Distress
HEENT: Moist Mucous Membranes, Anicteric and PERRLA
Respiratory: Clear to Auscultation and Wheezes; Negative Rales or Rhonchi
Cardiac: Regular Rhythm and S1/S2; Negative Murmur, Rub or Gallop
GI: Soft, Nontender, Nondistended and Normal Bowel Sounds
Musculoskeletal: No Edema
Skin: Warm and Dry; Negative Rash, Ulcers or Lesions
Neuro: Awake and AO x 3
Hematologic / Lymphatic: No Lymphadenopathy
Psych: Calm
Data Reviewed
-
Old Records: Reviewed
[2025-08-08 15:00] VITALS: BP 144/75
[2025-08-08] MEDS: MEDROL 24 MG PO (15:48)
[2025-08-08] MEDS: XARELTO 20 MG PO (17:06)
[2025-08-08] MEDS: SINGULAIR 10 MG PO (20:21)
[2025-08-08 23:00] VITALS: BP 156/82
[2025-08-09] MEDS: ROXICODONE 5 MG PO ×4 (00:57→20:15)
[2025-08-09 06:00] VITALS: BMI 42.7
[2025-08-09 07:00] VITALS: BP 163/77
[2025-08-09] MEDS: PROTONIX 40 MG PO (07:45)
[2025-08-09] MEDS: PAXIL 40 MG PO (07:45)
[2025-08-09] MEDS: TOPROL XL 25 MG PO (07:45)
[2025-08-09] MEDS: LIPITOR 40 MG PO (07:45)
[2025-08-09] MEDS: NEURONTIN 600 MG PO ×2 (07:45→19:04)
[2025-08-09] MEDS: ZETIA 10 MG PO (07:46)
[2025-08-09] MEDS: SYMBICORT 160/4.5 MCG INHALER 2 PUFF INH ×2 (07:46→19:41)
[2025-08-09] MEDS: SPIRIVA RESPIMAT 2.5 MCG 2 PUFF INH (07:46)
[2025-08-09] MEDS: MEDROL 20 MG PO (07:59)
[2025-08-09] MEDS: NORVASC 2.5 MG PO (08:00)
--- NOTE | 2025-08-09 09:29 | CM ---
Addendum entered by Giselle Blum 08/09/25 11:17:
Awaiting PT/OT updates to send fax request for SNF to [facility].
[facility]
Addendum entered by Giselle Blum 08/09/25 09:50:
CM spoke with Dali at [facility] to try to obtain authorization. Per Dali, as of July 05, 2025, all prior authorization requests must go through the portal; fax and telephonic requests will not be honored.
Awaiting update regarding CM ability to utilize the HPP Portal which we do not currently have access to using.
Original Note:
Pt has been accepted for transfer to [facility] pending authorization.
[facility]
Dr. Gerber
CM unable to obtain authorization yesterday. Currently on hold (long hold time) with [facility] to obtain authorization for transfer to [facility].
[2025-08-09 11:46] VITALS: BP 149/79; PULSE 63; O2SAT 97
--- NOTE | 2025-08-09 12:03 | W.PN.HOSP.TC ---
Today's Communication/Plan
-
Wheezing better on medrol dosepak
d/c to SNF when arranged
Assessment / Plan
Assessment / Plan
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
A/P:
Sepsis with acute metabolic encephalopathy secondary to bilateral pneumonia R > L - resolved
Recently completed course of cefdinir and has been on Augmentin since July 25.
CT Chest showed Patchy foci of groundglass consolidation, right greater than left, most consistent with infectious pneumonia/pneumonitis. Slightly progressed compared to prior CT. Also tracheobronchiomalacia.
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
COVID test, flu test negative. Urine Legionella and pneumococcal antigens negative. UA negative. MRSA screen negative
bronch resp culture no growth, AFB and fungal culture can be followed outpatient.
s/p Zosyn x5 days total
Noted admission blood culture one set positive for Staph epidermidis which is likely a contaminant given repeat blood cultures x2 sets negative- stopped further vancomycin
Pulmonary consulted appreciate recommendations
Still with mild wheezes, continue as needed nebs. Continue Medrol Dosepak.
Mental status has returned to baseline
Paroxysmal afib
Rate controlled with beta-marycarmen
Continue Xarelto
Chronic opioid dependence
MS improved with reducing VETERINARY PARASITOLOGIST sedative medications.
Holding standing morphine, continue PRN oxycodone at reduced dose 5 mg PRN
reduced gabapentin from 600 mg TID to BID
reduced VETERINARY PARASITOLOGIST Xanax prn from 1 to 0.5 mg PRN
reduced VETERINARY PARASITOLOGIST Flexeril from 10 mg PRN to 5 mg PRN
Hypokalemia
Resolved with repletion
DVT PPX - Xarelto
Code status - Full Code
Dispo: SNF, pending placement
Anticipated Discharge: Within 24 hours
Subjective/Interval History
-
Date of Service: August 09, 2025
Objective Data
-
Vital Signs:
Vital Signs
Temp Pulse Resp BP Pulse Ox
98.4 F 58 16 163/77 98
08/09/25 07:00 08/09/25 07:49 08/09/25 07:49 08/09/25 07:00 08/09/25 08:15
I&O
08/08/25 08/09/25 08/10/25
06:59 06:59 06:59
Intake Total 2280 / 2280 1140 / 1140
Balance 2280 / 2280 1140 / 1140
[2025-08-09 12:39] VITALS: BP 149/79; PULSE 67; O2SAT 97
[2025-08-09 15:00] VITALS: BP 134/73
[2025-08-09] MEDS: XARELTO 20 MG PO (17:00)
--- NOTE | 2025-08-09 18:10 | PTCARENOTE ---
patient discharged report called to [facility] @[phone]. Faxed everything over to [phone]
[2025-08-09] MEDS: XANAX 0.5 MG PO (19:03)
[2025-08-09 20:17] VITALS: BP 130/76
== END 2025-08-09 20:39 | DRG 871 ==
LOC: 3 WEST ACU 07:28
PROVIDERS: Internal Medicine; Physician Assistant; ADMITTING PHYSICIAN Internal Medicine; ATTENDING PHYSICIAN Internal Medicine; EMERGENCY PHYSICIAN Emergency Medicine; FAMILY PHYSICIAN Nurse Practitioner Adult Health; OTHER PHYSICIAN Internal Medicine
PROC: 0B9D8ZX Drainage of Right Middle Lung Lobe, Via Natural or Artificial Opening Endoscopic, Diagnostic (ICD-10-PCS; 2025-08-04)
DX: A41.9 Sepsis, unspecified organism (principal); G93.41 Metabolic encephalopathy; J18.9 Pneumonia, unspecified organism; J69.0 Pneumonitis due to inhalation of food and vomit; F11.20 Opioid dependence, uncomplicated; Z68.42 Body mass index [BMI] 45.0-49.9, adult; G90.50 Complex regional pain syndrome I, unspecified; E87.6 Hypokalemia; I10 Essential (primary) hypertension; R65.20 Severe sepsis without septic shock; G51.0 Bell's palsy; I48.0 Paroxysmal atrial fibrillation; J98.8 Other specified respiratory disorders; E78.5 Hyperlipidemia, unspecified; F32.A Depression, unspecified; F41.9 Anxiety disorder, unspecified; E66.01 Morbid (severe) obesity due to excess calories; J45.40 Moderate persistent asthma, uncomplicated; J98.4 Other disorders of lung; G89.4 Chronic pain syndrome; Z79.899 Other long term (current) drug therapy; Z79.01 Long term (current) use of anticoagulants; Z87.891 Personal history of nicotine dependence; Z11.52 Encounter for screening for COVID-19
CPT/HCPCS: 70450; 71045; 71250; 80048; 80053; 80306; 80307; 81003; 81015; 82077; 82805; 83605; 83735; 83880; 84145; 85025; 85027; 87015; 87040; 87070; 87102; 87116; 87205; 87449; 87502; 87811; 87899; 92526; 92610; 93005; 94640; 96361; 96365; 97116; 97163; 97167; 97530; 97535; 99285

== ENCOUNTER 2025-09-26 17:28 | Inpatient (IN) | payer OTHER, SELFPAY ==
[2025-09-26] VITALS (7 sets, daily range): BP systolic 87–134; BP diastolic 51–89; BMI 46.5; BMI 45.4
[2025-09-26 14:13] LABS: Hematocrit 36.0 % (37.0-47.0); Hemoglobin 11.9 g/dL (12.0-16.0); Mean Corp Hgb Conc. 33.1 g/dL (33.0-37.0); Mean Corpuscular Volume 86.3 fL (81.0-99.0); Platelet Count 218 10^3/uL (130-400); Red Cell Dist. Width 13.4 % (11.5-14.5)
[2025-09-26 14:36] LABS: COVID-19 Antigen Negative (Negative)
--- NOTE | 2025-09-26 14:42 | EDRN ---
MEAGAN but doesn't really follow commands well- reaching out to grab at nurse when I'm moving her or trying to place IV. Tends to lean to the right. Has facial drrop on the right but has a documented BELLs palsy hx with this issue
[2025-09-26 14:52] LABS: ALT (SGPT) 17 U/L (0-35); AST (SGOT) 27 U/L (14-36); Albumin 3.8 g/dl (3.5-5.0); Alkaline Phosphatase 113 U/L (38-126); Blood Urea Nitrogen 8 mg/dl (7-17); Calcium 8.9 mg/dl (8.4-10.2); Carbon Dioxide 30 mmol/L (22-30); Chloride 99 mmol/L (98-107); Estimated Creatinine Clearance 113 ml/min; Glucose 118 mg/dl (70-99); Potassium 3.1 mmol/L (3.5-5.1); Sodium 135 mmol/L (135-145); Total Protein 6.4 g/dl (6.3-8.2); eGFR > 60.00
[2025-09-26 15:29] LABS: Urine Character Clear (Clear)
[2025-09-26 15:35] LABS: Urine Squamous Cell 16-20 /LPF (Few)
[2025-09-26 15:36] LABS: Urine Red Blood Cell 0-2 /HPF (0-2)
[2025-09-26] MEDS: ZOSYN 100 IV ×2 (15:47→22:15)
--- NOTE | 2025-09-26 15:53 | ED.GENMED ---
History of Present Illness
<Raza Berry DO - Last Filed: 09/26/25 15:57>
General
Chief Complaint: Weakness
Time Seen by Provider: 09/26/25 14:19
<Cheri Miller PA-C - Last Filed: 09/26/25 16:07>
History of Present Illness
History of Present Illness:
65-year-old female with past medical history of Lewis's palsy and chronic right facial droop, opioid dependence, A-fib and recent admission for pneumonia in early August who was brought in by EMS after caregiver noted that she was unable to
transfer from recliner where she typically spends her day to a wheelchair. Reported increased weakness this morning. Also noted to have a cough for the past several days. Patient is a poor historian but is reportedly at her normal baseline.
Patient lives with her family members who all have individual caregivers that come in and care for them daily.
Phy Exam
<Cheri Miller PA-C - Last Filed: 09/26/25 16:07>
Physical Exam
Physical Exam:
General: Patient appears older than stated age, is disheveled
Skin: Warm and dry, no rashes or lesions
Head: Normocephalic, atraumatic
Eyes: Sclera non-icteric. EOMs intact.
Cardiac: Patient is tachycardic otherwise regular rhythm, no murmurs
Peripheral Vascular: No lower extremity swelling or edema
Pulm: Increased respiratory rate, scattered rhonchi heard on the right
Abdomen: No abdominal tenderness to palpation, no palpable abdominal mass
Neuro: CN II-XII intact, no focal neurologic deficits.
Psychiatric: Appropriate mood and affect. Pleasanty confused, oriented to self but not place.
Course
<Raza Berry DO - Last Filed: 09/26/25 15:57>
Orders/Labs/Results
Orders:
Orders
09/26/25 13:50
Electrocardiogram (*1) Urgent
Reason for Study: Fatigue / Weakness
EKG- Treatment ONCE
09/26/25 14:01
CMP [Comprehensive Metabolic Panel] Urgent
COVID-19 Antigen Urgent
Source: Nasal Swab
Complete Blood Count/No Diff Urgent
Lactic Acid Urgent
Blood Culture Urgent
RAYMUNDO Source: Blood/Venous
Specimen Description:
Influenza A+B Rapid Molecular Urgent
[email or web address] Source: Nasal Swab
Specimen Description:
09/26/25 14:28
CR Chest - 2 Views Urgent
Comment:
Reason For Exam: weakness, cough
09/26/25 15:14
Urinalysis Reflex To Culture Urgent
Date Specimen was Collected: 09/26/25
Time Specimen was Collected: 14:00
Urine Microscopic Reflex Cult Urgent
Urine Culture Urgent
RAYMUNDO Source: U
Specimen Description:
Date Specimen was Collected: 09/26/25
Time Specimen was Collected: 14:00
09/26/25 15:39
Piperacillin/Tazo 4.5 Gram [Zosyn] 4.5 gram in 100 ml IV NOW
09/26/25 15:55
Vancomycin [Vancocin] 2,000 mg 0.9% Sodium Chloride 500 ml [Nss] 500 ml IV NOW
Abnormal Lab Results
09/26/25 09/26/25
14:01 15:14
WBC 16.3 H 10^3/uL
(4.8-10.8)
RBC 4.17 L 10^6/uL
(4.20-5.40)
Hgb 11.9 L g/dL
(12.0-16.0)
Hct 36.0 L %
(37.0-47.0)
Potassium 3.1 L mmol/L
(3.5-5.1)
Glucose 118 H mg/dl
(70-99)
Ur Occult Blood Reflex 1+ A
(Negative)
Leukocyte Esterase Rfl 1+ A
(Negative)
Urine Bacteria (Reflex) Few A
(Negative)
09/26/25 14:01
09/26/25 14:01
Vital Signs
Initial and Last Documented VS:
Initial Vital Signs
Pulse Resp BP Pulse Ox
91 17 87/54 96
09/26/25 13:44 09/26/25 13:44 09/26/25 13:44 09/26/25 13:44
Last Documented Vital Signs
Temp Pulse Resp BP Pulse Ox
37.2 C 85 22 120/89 96
09/26/25 13:46 09/26/25 14:45 09/26/25 14:45 09/26/25 14:40 09/26/25 15:54
<Cheri Miller PA-C - Last Filed: 09/26/25 16:07>
Orders/Labs/Results
Orders:
Orders
09/26/25 13:50
Electrocardiogram (*1) Urgent
Reason for Study: Fatigue / Weakness
EKG- Treatment ONCE
09/26/25 14:01
CMP [Comprehensive Metabolic Panel] Urgent
COVID-19 Antigen Urgent
Source: Nasal Swab
Complete Blood Count/No Diff Urgent
Lactic Acid Urgent
Blood Culture Urgent
RAYMUNDO Source: Blood/Venous
Specimen Description:
Influenza A+B Rapid Molecular Urgent
RAYMUNDO Source: Nasal Swab
Specimen Description:
09/26/25 14:28
CR Chest - 2 Views Urgent
Comment:
Reason For Exam: weakness, cough
09/26/25 15:14
Urinalysis Reflex To Culture Urgent
Date Specimen was Collected: 09/26/25
Time Specimen was Collected: 14:00
Urine Microscopic Reflex Cult Urgent
Urine Culture Urgent
RAYMUNDO Source: U
Specimen Description:
Date Specimen was Collected: 09/26/25
Time Specimen was Collected: 14:00
09/26/25 15:39
Piperacillin/Tazo 4.5 Gram [Zosyn] 4.5 gram in 100 ml IV NOW
09/26/25 15:55
Vancomycin [Vancocin] 2,000 mg 0.9% Sodium Chloride 500 ml [Nss] 500 ml IV NOW
Abnormal Lab Results
09/26/25 09/26/25
14:01 15:14
WBC 16.3 H 10^3/uL
(4.8-10.8)
RBC 4.17 L 10^6/uL
(4.20-5.40)
Hgb 11.9 L g/dL
(12.0-16.0)
Hct 36.0 L %
(37.0-47.0)
Potassium 3.1 L mmol/L
(3.5-5.1)
Glucose 118 H mg/dl
(70-99)
Ur Occult Blood Reflex 1+ A
(Negative)
Leukocyte Esterase Rfl 1+ A
(Negative)
Urine Bacteria (Reflex) Few A
(Negative)
09/26/25 14:01
09/26/25 14:01
Vital Signs
Initial and Last Documented VS:
Initial Vital Signs
Pulse Resp BP Pulse Ox
91 17 87/54 96
09/26/25 13:44 09/26/25 13:44 09/26/25 13:44 09/26/25 13:44
Last Documented Vital Signs
Temp Pulse Resp BP Pulse Ox
37.2 C 85 22 120/89 96
09/26/25 13:46 09/26/25 14:45 09/26/25 14:45 09/26/25 14:40 09/26/25 15:54
<Cheri Miller PA-C - Last Filed: 09/26/25 16:07>
MDM/Problems Addressed
Differential Diagnosis Includes:
Basic labs were drawn on arrival and showed leukocytosis of 16.3. She is afebrile and hemodynamically stable here. Reports weakness and cough. Chest x-ray shows right mid to lower lung airspace opacities representing pneumonia. EKG normal sinus
rhythm. Mildly hypokalemic at 3.1. No lactic acidosis. Given recent admission for pneumonia as well as comorbid conditions and patient's inability to function at her baseline level will admit to hospitalist for treatment of presumed hospital
associated pneumonia.
<Raza Berry DO - Last Filed: 09/26/25 15:57>
*Pulse Oximetry
SaO2: 96
Oxygen Mode of Delivery: Room air
<Cheri Miller PA-C - Last Filed: 09/26/25 16:07>
*Pulse Oximetry
Patient hypoxic: no
*Critical Care Note
Total Time (30-74mins, 75-104mins- exclusive of procedures): Not Applicable
ED Attending Note
<Raza Berry DO - Last Filed: 09/26/25 15:57>
ED Attending Note
Patient seen and examined by attending physician: Yes
I performed a history and physical exam of patient and discussed management with resident, I reviewed resident's note and agree with documented findings and plan of care.: Yes
ED Attending Note:
I evaluated the patient at bedside; appears very weak and debilitated; confused. Pneumonia on CXR. Placing on IV abx / admit.
-
Portions of this chart may have been created with voice recognition software.� Occasional wrong word or��sound alike� substitutions may have occurred due to the inherent limitations of voice recognition software.
Discharge Plan
Departure
Patient Disposition: Admit
Date of Disposition: 09/26/25
Time of Disposition: 15:59
Presentation/result/management discussed w/ accepting MD/DO: Hospitalist
Discharge Problem:
Pneumonia, Weakness
Prescriptions:
No Action
atorvastatin [Lipitor] 40 mg Tablet
40 mg PO QPM
ferrous sulfate 325 mg (65 mg iron) Tablet
650 mg PO DAILY
montelukast [Singulair] 10 mg Tablet
10 mg PO HS
metoprolol succinate [Toprol XL] 25 mg Tablet Extended Release 24 Hr
25 mg PO DAILY
paroxetine HCl [Paxil] 40 mg Tablet
40 mg PO DAILY
ezetimibe [Zetia] 10 mg Tablet
10 mg PO DAILY
Xarelto 20 mg Tablet
20 mg PO HS
pantoprazole 40 mg tablet,delayed release (DR/EC)
40 mg PO DAILY
Spiriva Respimat 2.5 mcg/actuation mist
2 puff inhalation R DAILY
cyclobenzaprine 10 mg Tablet
5 mg PO TIDPRN PRN (Reason: spasms) Qty: 0 0RF
amlodipine 2.5 mg Tablet
2.5 mg PO DAILY Qty: 0 0RF
gabapentin 300 mg Capsule
600 mg PO BID Qty: 0 0RF
budesonide-formoterol [Symbicort] 160-4.5 mcg/actuation Hfa Aerosol Inhaler
2 puff inhalation R BID Qty: 0 0RF
alprazolam [Xanax] 1 mg Tablet
0.5 mg PO TIDPRN PRN (Reason: anxiety) Qty: 0 0RF
Referrals:
Bree Martinez CRNP [Family Provider, General]
Interventions
Interventions:
*General Assessment Last Done: 09/26/25 13:53
*Neglect/Abuse Screening Last Done: 09/26/25 13:51
*ED COVID-19 Vaccine History Last Done: 09/26/25 13:53
*ED Influenza Vaccine History Last Done: 09/26/25 14:16
[facility] Fall Risk Assessment Tool Last Done: 09/26/25 13:54
ED- Cardiac Assessment Last Done: 09/26/25 13:56
ED- Neurological Assessment Last Done: 09/26/25 13:56
ED- Pulmonary Assessment Last Done: 09/26/25 13:56
Discharge Date and Time
Print Language: MALIAN
--- NOTE | 2025-09-26 16:05 | W.PN.UPDATE ---
Update Note
Progress Note Update
This note serves as an addendum to the H&P by tube draw helper Viviana Cardozo
HPI
65F HX Lewis's palsy, chronic right facial droop, opioid dependence, A Fib, chr gait dysfunction ( useses WC and Recliner ) and recent admission for PNA in early August seen at ER
- [facility] after caregiver noted that she was unable to transfer from [facility] where she typically spends her day to a wheelchair.
- increased weakness this morning
- cough for the past several days.
- poor historian but is reportedly at her normal baseline.
Relevant VS
Temp Pulse Resp BP Pulse Ox
98.9 F 85 22 120/89 96
09/26/25 13:46 09/26/25 14:45 09/26/25 14:45 09/26/25 14:40 09/26/25 15:54
09/26/25
13:44 09/26/25
13:46 09/26/25
14:40
Blood pressure 87/54 99/57 120/89
PE
Calss III Obese
Gen: drowsy but easily arousable and follow commands
HEENT: anicteric
Neck: supple
Lungs: BBS at Rt mid and lower canalse posteriorly , slight rales
Cor: RRR S1
Abdomen:�obese
COMMUTER PILOT: chr R facial weakness
MS: no edema
Psych: appropriate
Relevant data�
08/06/25 09/26/25 09/26/25
06:46 14:01 15:14
WBC 16.3 H
Hgb 12.7 11.9 L
Potassium 3.1 L
Creatinine 0.7
eGFR > 60.00
Lactic Acid 1.3
Leukocyte Esterase Rfl 1+ A
Urine WBC (Reflex) 3-5
Ur Squamous Epith Cells 16-20
SARS-CoV-2 Antigen Negative
NEG Flu A & B
CXR
Rght mid/lower lung airspace opacities which likely represents pneumonia.
EKG
NORMAL SINUS RHYTHM WITH SINUS ARRHYTHMIA
NORMAL ECG
WHEN COMPARED WITH ECG OF 31-Jul-2025 04:19,
NONSPECIFIC T WAVE ABNORMALITY NOW EVIDENT IN INFERIOR LEADS
Confirmed by RONAN KRISHNAMURTHY MD ([id number]) on 09/26/2025 2:23:38 PM
Last hospitalist admission: 07/31 - 08/09/25
ASSESSMENT & PLAN
Pending Rx reconciliation
PNA @ R ML and LL - Aspiration vs CAP
Adequate Oxygenation on RA
Hypotensive - improved with IV Fluid bolus
- POS cough + Leucocytosis
- NEG MRSA screen in Jul 2025
- BCx sent
- Hold off further IV Vanco
- c/w Zosyn
- Hold anti HTN Meds for now
- Keep MAP > 65
- FU T, WCC
- ST evaluation
Lethargy but arousable - suspect element of encephalopathy fue to PNA
Stable HCO3
- any deterioration of lethargy , will check ABG ( Not VBG) to eval for Hypercapnic RF
Hypokalemia K 3.1
- KCL 40
- FU K
Currently in NSR EKG
HX Paroxysmal AF
- Hold Amlodipine
- c/w metoprolol XL but hold for SBP < 105
- Continue Xarelto
C hr WC and recliner bound ambulatory dysfunction
- Has home care daily
DVT Px: HIGH SCHOOL PROFESSIONAL Xarelto
Ful code
IP TLM
--- NOTE | 2025-09-26 16:05 | HPS.HSE ---
Family Physician
-
Family Physician: Bree Martinez
Chief Complaint
-
generalized weakness
History of Present Illness
Patient is a 65-year-old female with past medical history significant for hypertension, hyperlipidemia, paroxysmal atrial fibrillation, chronic pain syndrome and anxiety/depression who presented to [facility] ED for evaluation of generalized weakness. HPI
through patient assessment and chart review as patient presents as poor historian. EMS was dispatched to patients home when patient was unable to transfer from chair to . Patient endorses productive cough for past few days. Patient reported to EMS
that she has noticed steady decline in strength since hospital discharge a few weeks ago. No reported fevers, chills, shortness of breath, chest pain, nausea, vomiting, constipation, dairrhea or urinary symptoms.
Medical History
Past Medical History
Past Medical History: Reports Other
Additional Past Medical History:
Hypertension
Hyperlipidemia
Paroxysmal Atrial Fibrillation
Reflex Sympathetic Dystrophy
Chronic Pain Syndrome
Chronic Opioid Dependence
Mild Persistent Asthma
Lewis's Palsy
Anxiety / Depression
Past Surgical History: Reports Other
Additional Past Surgical History:
cholecystectomy
sinus surgery
left oophorectomy
Social History
Tobacco: Non-smoker
Alcohol: None
Drug: None
Living: With Family
Family History
Family History: Unable to Obtain
Allergies / Home Medications
Allergies reflects when Allergies were last updated in [facility].
Home Medications with original date entered in [facility]
Allergy/Medication List:
Allergies
Allergy/AdvReac Type Severity Reaction Status Date / Time
carbamazepine (From Tegretol) Allergy Reports Verified 07/31/25 04:03
acts like
she's on
LSD.
moxifloxacin (From Avelox) Allergy Unknown Verified 07/31/25 04:03
Home Medications
atorvastatin 40 mg tablet (Lipitor) 40 mg PO QPM High Cholesterol 06/16/25
ezetimibe 10 mg tablet (Zetia) 10 mg PO DAILY High Cholesterol 06/16/25
ferrous sulfate 325 mg (65 mg iron) tablet 650 mg PO DAILY Supplement 06/16/25
metoprolol succinate 25 mg tablet,extended release 24 hr (Toprol XL) 25 mg PO DAILY Blood Pressure 06/16/25
montelukast 10 mg tablet (Singulair) 10 mg PO HS Allergies 06/16/25
paroxetine HCl 40 mg tablet (Paxil) 40 mg PO DAILY Depression 06/16/25
rivaroxaban 20 mg tablet (Xarelto) 20 mg PO HS Blood Clot Prevention/Tx 06/16/25
pantoprazole 40 mg tablet,delayed release 40 mg PO DAILY Gastrointestinal Issue 06/27/25
tiotropium bromide 2.5 mcg/actuation mist for inhalation (Spiriva Respimat) 2 puff inhalation R DAILY Lung/Breathing Issues 07/31/25
alprazolam 1 mg tablet (Xanax) 0.5 mg (1/2 x 1 mg) PO TIDPRN PRN anxiety #0 tabs 08/09/25
amlodipine 2.5 mg tablet 2.5 mg PO DAILY #0 tabs 08/09/25
budesonide-formoterol HFA 160 mcg-4.5 mcg/actuation aerosol inhaler (Symbicort) 2 puff inhalation R BID #0 grams 08/09/25
cyclobenzaprine 10 mg tablet 5 mg (1/2 x 10 mg) PO TIDPRN PRN spasms #0 tabs 08/09/25
gabapentin 300 mg capsule 600 mg (2 x 300 mg) PO BID #0 caps 08/09/25
Review of Systems
-
History Source: Patient
Constitutional: Denies Fever or Chills
EENT: Denies Sore Throat
Respiratory: Reports Cough; Denies Trouble Breathing
Cardiac: Denies Chest Pain, Palpitations or Syncope
Abdomen/GI: Denies Abdominal Pain, Nausea, Vomiting or Diarrhea
: Denies Dysuria, Frequency or Urgency
Musculoskeletal: Denies Joint Pain
Skin: Denies Rash
Neurological: Reports Weakness; Denies Dizzy, Headache or Numbness
Physical Exam
Vital Signs
Vital Signs
Temp Pulse Resp BP Pulse Ox
98.9 F 85 22 120/89 96
09/26/25 13:46 09/26/25 14:45 09/26/25 14:45 09/26/25 14:40 09/26/25 15:54
Physical Exam
General: Well Developed, Well Nourished, No Apparent Distress, Comfortable and Obese
HEENT: NormoCephalic, PERRLA, Nose Appears Normal and Ears Appear Normal
Respiratory: Clear, Crackles (scattered on the right) and Non Labored Respirations; No Wheezes
Cardiac: S1/S2, Regular Rhythm and Tachycardia; No Murmur or Peripheral Edema
GI: Soft, Non Tender, Non Distended and Normal Bowel Sounds
Genito-urinary: Clear Urine
Musculoskeletal: No Clubbing and No Cyanosis
Skin: Warm and IV/Catheter Site
Neuro: Awake and Other (lethargic )
Psych: Calm
Laboratory Results
-
09/26/25 14:01
09/26/25 14:01
Laboratory Results
Lactic Acid 1.3 mmol/L (0.7-2.0) 09/26/25 14:01
Total Bilirubin 0.9 mg/dl (0.2-1.3) 09/26/25 14:01
AST 27 U/L (14-36) 09/26/25 14:01
ALT 17 U/L (0-35) 09/26/25 14:01
Alkaline Phosphatase 113 U/L (38-126) 09/26/25 14:01
Data Reviewed
-
Diagnostic Radiology: Report Reviewed by me (CXR: Right mid/lower lung airspace opacities which likely represents pneumonia.)
Medical Tests (Nuc Med, Echo, EKG etc): Report Reviewed by me (EKG: NORMAL SINUS RHYTHM WITH SINUS ARRHYTHMIA)
Lab Data: Labs Reviewed by me (WBC 16.3, K+ 3.1)
Impression/Plan
-
IMPRESSION/PLAN:
#generalized weakness and productive cough 2/2 AFTT vs. PNA
generalized weakness and productive cough for several days, recent hospitalization for pneumonia 07/31/25 - 08/09/25
WBC 16.3
Covid: negative
Influenza: negative
UA: not indicative of UTI
Blood Cx: pending
EKG: NORMAL SINUS RHYTHM WITH SINUS ARRHYTHMIA
CXR: Right mid/lower lung airspace opacities which likely represents pneumonia.
- Admit to telemetry
- Consult speech for evaluation for aspiration
- IV Zosyn
- supportive care
#hypokalemia
K+ 3.1
- repleted in ED
- trend BMP
#Hypertension
- hold amlodipine for hypotension
- continue metoprolol with hold parameters
#Hyperlipidemia
- continue atorvastatin
#Paroxysmal Atrial Fibrillation
- continue metoprolol and Xarelto
#Chronic Pain Syndrome
#Chronic Opioid Dependence
- continue gabapentin
#Mild Persistent Asthma
- continue Symbicort, montelukast and Spirivia
#Lewis's Palsy
#Anxiety / Depression
- continue PRN alprazolam and paroxetine
Code status: Full code
DVT prophylaxis: Xarelto
[2025-09-26] MEDS: VANCOCIN 540 MG IV (16:20)
[2025-09-26] MEDS: KCL 40 MEQ PO (16:26)
[2025-09-26] MEDS: SYMBICORT 160/4.5 MCG INHALER 2 PUFF INH (19:53)
[2025-09-26] MEDS: NEURONTIN 600 MG PO (20:38)
[2025-09-26] MEDS: LIPITOR 40 MG PO (20:38)
[2025-09-26] MEDS: DESENEX/MITRAZOL/ZEASORB 1 APPLIC TOPICAL (20:54)
[2025-09-26] MEDS: SINGULAIR 10 MG PO (22:09)
[2025-09-26] MEDS: XARELTO 20 MG PO (22:10)
[2025-09-27] MEDS: ZOSYN 100 IV (04:07)
[2025-09-27 04:11] VITALS: BP 120/69
[2025-09-27 04:12] VITALS: BMI 45.3
[2025-09-27 06:02] LABS: Hematocrit 34.0 % (37.0-47.0); Hemoglobin 11.1 g/dL (12.0-16.0); Mean Corp Hgb Conc. 32.6 g/dL (33.0-37.0); Mean Corpuscular Volume 89.0 fL (81.0-99.0); Platelet Count 212 10^3/uL (130-400); Red Cell Dist. Width 13.7 % (11.5-14.5)
[2025-09-27 06:24] LABS: Blood Urea Nitrogen 8 mg/dl (7-17); Calcium 9.0 mg/dl (8.4-10.2); Carbon Dioxide 30 mmol/L (22-30); Chloride 103 mmol/L (98-107); Estimated Creatinine Clearance 111 ml/min; Glucose 101 mg/dl (70-99); Potassium 3.7 mmol/L (3.5-5.1); Sodium 139 mmol/L (135-145); eGFR > 60.00
[2025-09-27] MEDS: SPIRIVA RESPIMAT 2.5 MCG 2 PUFF INH (07:26)
[2025-09-27] MEDS: SYMBICORT 160/4.5 MCG INHALER 2 PUFF INH ×2 (07:26→19:56)
[2025-09-27 07:30] VITALS: BP 115/73
[2025-09-27] MEDS: TOPROL XL 25 MG PO (08:46)
[2025-09-27] MEDS: ZETIA 10 MG PO (08:47)
[2025-09-27] MEDS: FEOSOL 650 MG PO (08:47)
[2025-09-27] MEDS: NEURONTIN 600 MG PO ×2 (08:47→20:17)
[2025-09-27] MEDS: PROTONIX 40 MG PO (08:47)
[2025-09-27] MEDS: PAXIL 40 MG PO (08:47)
--- NOTE | 2025-09-27 08:48 | W.PN.HOSP.TC ---
Addendum entered and electronically signed by Faisal Saha MD 09/27/25 15:42:
Correction to physical exam: Neuro: Right sided Lewis's palsy
Original Note:
Today's Communication/Plan
-
see bold
Assessment / Plan
Assessment / Plan
Gen: NAD, Awake and alert
Eyes: EOMI, PERRLA, no scleral icterus.
Neck: supple.
CV: RRR, +S1/S2, no m/r/g.
Resp: rhonchi in R base
Abd: +BS, soft, NT, ND
Skin: No rashes.
Neuro: CN 2-12 intact, non-focal.
Psych: Normal mood and affect.
CXR: Right mid/lower lung airspace opacities which likely represents pneumonia.
Acute RML/RLL PNA:
-p/w'd weakness, productive cough
-CXR above
-COVID/Flu NEG
-leukocytosis has resolved, afebrile
-currently saturating well on RA
-speech eval pending
-currently on Zosyn, transition to Augmentin/Doxy
Other problems:
Hypokalemia, resolved
Essential HTN: cont BB
Morbid obesity due to excess calories
HLD: cont statin
PAF: cont BB/Xarelto
Chronic Pain Syndrome: cont Neurontin
Mild Persistent Asthma: continue Symbicort, montelukast and Spirivia
Lewis's Palsy
Anxiety/Depression: cont PRN alprazolam and paroxetine
FULL/Xarelto
Medically cleared for d/c, case management aware.
Anticipated Discharge: Today
Subjective/Interval History
-
Date of Service: September 27, 2025
Objective Data
-
Labs:
Laboratory Results
09/27/25
05:22
WBC 9.1
Hgb 11.1 L
Hct 34.0 L
Plt Count 212
Sodium 139
Potassium 3.7
Chloride 103
Carbon Dioxide 30
BUN 8
Creatinine 0.7
Glucose 101 H
Calcium 9.0
Vital Signs:
Vital Signs
Temp Pulse Resp BP Pulse Ox
98.1 F 85 18 115/73 94
09/27/25 07:30 09/27/25 07:30 09/27/25 07:30 09/27/25 07:30 09/27/25 07:30
[2025-09-27] MEDS: FLEXERIL 5 MG PO (08:52)
[2025-09-27] MEDS: DESENEX/MITRAZOL/ZEASORB 1 APPLIC TOPICAL ×2 (08:57→20:17)
--- NOTE | 2025-09-27 09:08 | PTCARENOTE ---
pt c/o chronic pain from lower back down legs, requesting oxycodone 10mgs and reports that she has it ordered 4xday at home. Dr. Saha notified and will place order. will continue to monitor.
--- NOTE | 2025-09-27 09:15 | PTOTSP ---
Speech Language Pathology
Pt seen for clinical bedside swallow evaluation. P.O. trials of regular solids and thin liquids provided. Adequate mastication, bolus formation, and A-P transit noted with no oral residue. Slight cough noted at times with P.O. intake, but this
was also noted at rest. Pt reported this cough since admission in June with improvement over time. Pt denied any change in swallow function. On admission in July, pt had bronch and pulm suspected excessive dynamic airway collapse (EDAC).
WBC WNL this date.
Recommend:
(1) Continue regular solids/thin liquids
(2) General aspiration precautions
(3) Meds as tolerated
(4) APPLIANCE REPAIR TECHNICIAN to sign off. Please reconsult as indicated
[2025-09-27] MEDS: ROXICODONE 10 MG PO ×4 (09:47→21:35)
[2025-09-27] MEDS: VIBRAMYCIN 100 MG PO ×2 (09:47→20:17)
[2025-09-27] MEDS: AUGMENTIN 875 MG/125 MG 1 TABLET PO ×2 (09:48→20:17)
[2025-09-27 11:33] VITALS: BP 113/69; PULSE 76
[2025-09-27] MEDS: TYLENOL 650 MG PO (15:23)
[2025-09-27 16:00] VITALS: BP 107/71
--- NOTE | 2025-09-27 16:15 | CM ---
Alert awake oriented patient who lives with her mom Anne dad Clay sister Perla in a 12 story home with 1 steps to enter.She is assisted with activates of daily living.She does not drive .She uses a walker wheelchair..
Had [facility] and [facility] in past . [facility] hx
Pharmacy [facility]
PCP Dr Clarke/ Bree Martinez
PLAN PT indicated SNF . PT choice [facility] . [facility] accepted. Needs auth
--- NOTE | 2025-09-27 16:20 | CM ---
Addendum entered by Sarai Diaz RN 09/27/25 16:29:
Additional SNF referral placed.
Original Note:
Alert awake oriented patient who lives with her mom Anne dad Clay sister Perla in a 1 story home with 1 steps to enter.She is assisted with activates of daily living.She does not drive .She uses a walker wheelchair..
Had [facility] in past . [facility] hx
Pharmacy [facility]
PCP Dr Clarke/ Bree Martinez
PLAN PT indicated SNF . PT choice [facility] . [facility] accepted. Needs auth
[2025-09-27] MEDS: LIPITOR 40 MG PO (17:15)
[2025-09-27] MEDS: SINGULAIR 10 MG PO (21:35)
[2025-09-27] MEDS: XARELTO 20 MG PO (21:35)
[2025-09-27 23:26] VITALS: BP 139/66
[2025-09-28 05:26] VITALS: BMI 44.9
[2025-09-28 07:05] VITALS: BP 131/81
[2025-09-28] MEDS: SPIRIVA RESPIMAT 2.5 MCG 2 PUFF INH (08:06)
[2025-09-28] MEDS: SYMBICORT 160/4.5 MCG INHALER 2 PUFF INH ×2 (08:06→21:56)
[2025-09-28] MEDS: VIBRAMYCIN 100 MG PO ×2 (08:09→20:50)
[2025-09-28] MEDS: AUGMENTIN 875 MG/125 MG 1 TABLET PO ×2 (08:09→20:50)
[2025-09-28] MEDS: FEOSOL 650 MG PO (08:10)
[2025-09-28] MEDS: PAXIL 40 MG PO (08:10)
[2025-09-28] MEDS: ZETIA 10 MG PO (08:10)
[2025-09-28] MEDS: NEURONTIN 600 MG PO ×2 (08:11→20:50)
[2025-09-28] MEDS: DESENEX/MITRAZOL/ZEASORB 1 APPLIC TOPICAL ×2 (08:11→20:55)
[2025-09-28] MEDS: PROTONIX 40 MG PO (08:12)
[2025-09-28] MEDS: FLEXERIL 5 MG PO (08:18)
[2025-09-28] MEDS: ROXICODONE 10 MG PO ×4 (08:19→21:46)
[2025-09-28] MEDS: TOPROL XL 25 MG PO (08:21)
--- NOTE | 2025-09-28 08:32 | W.PN.HOSP.TC ---
Today's Communication/Plan
-
see plan
Assessment / Plan
Assessment / Plan
Gen: NAD, Awake and alert
Eyes: EOMI, PERRLA, no scleral icterus.
Neck: supple.
CV: RRR, +S1/S2, no m/r/g.
Resp: rhonchi in R base
Abd: +BS, soft, NT, ND
Skin: No rashes.
Neuro: CN 2-12 intact, non-focal.
Psych: Normal mood and affect.
CXR: Right mid/lower lung airspace opacities which likely represents pneumonia.
Acute RML/RLL PNA:
-p/w'd weakness, productive cough
-CXR above
-COVID/Flu NEG
-leukocytosis has resolved, afebrile
-saturating well on RA (never required O2 support)
-speech eval completed, reg/thins
-was on Zosyn briefly, now transitioned to Augmentin/Doxy to complete 5 days abx
Other problems:
Hypokalemia, resolved
Essential HTN: cont BB
Morbid obesity due to excess calories
HLD: cont statin
PAF: cont BB/Xarelto
Chronic Pain Syndrome: cont Neurontin
Mild Persistent Asthma: continue Symbicort, montelukast and Spirivia
Lewis's Palsy
Anxiety/Depression: cont PRN alprazolam and paroxetine
FULL/Xarelto
Remains medically cleared for d/c since 09/27/25AM, case management aware.
Anticipated Discharge: Today
Subjective/Interval History
-
Date of Service: September 28, 2025
No new complaints.
Objective Data
-
Vital Signs:
Vital Signs
Temp Pulse Resp BP Pulse Ox
98.0 F 76 18 131/81 95
09/28/25 07:05 09/28/25 08:21 09/28/25 08:12 09/28/25 08:21 09/28/25 08:12
[2025-09-28 15:05] VITALS: BP 113/50
[2025-09-28] MEDS: LIPITOR 40 MG PO (17:39)
[2025-09-28] MEDS: XARELTO 20 MG PO (21:46)
[2025-09-28] MEDS: SINGULAIR 10 MG PO (21:46)
[2025-09-28] MEDS: XANAX 0.5 MG PO (22:56)
[2025-09-28 23:00] VITALS: BP 116/58
[2025-09-29 06:00] VITALS: BMI 45.2
[2025-09-29 07:45] VITALS: BP 103/71
[2025-09-29] MEDS: NEURONTIN 600 MG PO (08:19)
[2025-09-29] MEDS: VIBRAMYCIN 100 MG PO (08:19)
[2025-09-29] MEDS: PROTONIX 40 MG PO (08:20)
[2025-09-29] MEDS: PAXIL 40 MG PO (08:20)
[2025-09-29] MEDS: FEOSOL 650 MG PO (08:20)
[2025-09-29] MEDS: ZETIA 10 MG PO (08:21)
[2025-09-29] MEDS: SPIRIVA RESPIMAT 2.5 MCG 2 PUFF INH (08:22)
[2025-09-29] MEDS: TOPROL XL PO (08:22)
[2025-09-29] MEDS: SYMBICORT 160/4.5 MCG INHALER 2 PUFF INH (08:22)
[2025-09-29] MEDS: AUGMENTIN 875 MG/125 MG 1 TABLET PO (08:22)
--- NOTE | 2025-09-29 08:45 | W.PN.HOSP.TC ---
Addendum entered and electronically signed by Faisal Saha MD 09/29/25 12:57:
After discussion with case management the patient is now going home with VN.
Total time spent on d/c = 34 min. This included today's physical exam, progress note, review of laboratory and diagnostic data, preparation of discharge documents and prescriptions, and discussions about the pt's hospital course and discharge plan
with the patient and other medical claims analyst involved in the patient's care.
Original Note:
Today's Communication/Plan
-
see plan
Assessment / Plan
Assessment / Plan
Gen: NAD, Awake and alert
Eyes: EOMI, PERRLA, no scleral icterus.
Neck: supple.
CV: remains RRR, +S1/S2, no m/r/g.
Resp: CTAB
Abd: remains +BS, soft, NT, ND
Skin: No rashes.
Neuro: CN 2-12 intact, non-focal.
Psych: Normal mood and affect.
CXR: Right mid/lower lung airspace opacities which likely represents pneumonia.
Acute RML/RLL PNA:
-p/w'd weakness, productive cough
-CXR above
-COVID/Flu NEG
-leukocytosis has resolved, afebrile
-saturating well on RA (never required O2 support)
-speech eval completed, reg/thins
-was on Zosyn briefly, now transitioned to Augmentin/Doxy to complete 5 days abx
Other problems:
Hypokalemia, resolved
Essential HTN: cont BB
Morbid obesity due to excess calories
HLD: cont statin
PAF: cont BB/Xarelto
Chronic Pain Syndrome: cont Neurontin
Mild Persistent Asthma: continue Symbicort, montelukast and Spirivia
Lewis's Palsy
Anxiety/Depression: cont PRN alprazolam and paroxetine
Encephalopathy was ruled out
FULL/Xarelto
Remains medically cleared for d/c since 09/27/25AM, case management aware.
Anticipated Discharge: Today
Subjective/Interval History
-
Date of Service: September 29, 2025
Objective Data
-
Vital Signs:
Vital Signs
Temp Pulse Resp BP Pulse Ox
98.6 F 70 18 103/71 95
09/29/25 07:45 09/29/25 08:26 09/29/25 08:26 09/29/25 07:45 09/29/25 08:26
I&O
09/28/25 09/29/25 09/30/25
06:59 06:59 06:59
Intake Total 1200 / 1200 240 / 240
Balance 1200 / 1200 240 / 240
--- NOTE | 2025-09-29 08:45 | PN.CDI ---
CDI
- -
CDI:
Physician Documentation Request
Admit Date: 09/26/25 17:28
Dear Doctor Yifan,
Please review the following and provide your response in the progress notes.
Clinical Indicators:
The diagnosis of encephalopathy was documented on 09/26 Update H&P but is not consistently noted in subsequent documentation.
- 09/26 ER Physician 'Pleasanty confused, oriented to self but not place'
- 09/26 H&P Update 'Lethargy but arousable - suspect element of encephalopathy fue to PNA'
- 09/27 PN 'Normal mood and affect'
Please clarify the following:
____ - Encephalopathy (specify type) was present on admission and is now resolved.
____ - Encephalopathy was ruled out
____ - Other (please specify)
____ - Unable to determine
Use of terms such as suspected, likely, concern for, or probable (associated with a specific diagnosis that is being evaluated, monitored, or treated as if it exists) are acceptable and can be coded in the inpatient setting, when documented at the
time of discharge.
Thank you,
Kasey Doe RN
CDI Specialist
Please use your independent medical judgment in providing your response.
[2025-09-29] MEDS: ROXICODONE 10 MG PO ×2 (08:50→13:08)
[2025-09-29] MEDS: DESENEX/MITRAZOL/ZEASORB 1 APPLIC TOPICAL (08:56)
[2025-09-29 11:38] VITALS: BP 132/72; PULSE 68; O2SAT 96
--- NOTE | 2025-09-29 12:47 | CM ---
YAKELIN met with Concepcion to discuss discharge plans. She feels that she is able to return home with home care services. Dr. Saha asked to place an order for [facility]. Pt reports having [facility] in the past and would like to have them provide services
again. Referral sent to [facility] for services.
[facility]
--- NOTE | 2025-09-29 12:58 | W.DCSUMMARY ---
Discharge Summary
Discharge Data
Date of Admission: 09/26/25
Date of Discharge: 09/29/25
-
Pending Results: No
Hospital Course
Primary diagnoses:
Acute right middle lobe and right lower lobe pneumonia
Secondary diagnoses:
Hypokalemia
Essential hypertension
Morbid obesity due to excess calories
Hyperlipidemia
Paroxysmal atrial fibrillation
Chronic Pain Syndrome
Mild Persistent Asthma
Lewis's Palsy
Anxiety
Depression
Consults:
None
Imaging:
CXR: Right mid/lower lung airspace opacities which likely represents pneumonia.
Hospital course: 65-year-old female who presented with a chief complaint of generalized weakness as outlined in the H&P done on admission. Initial workup was notable for right sided pneumonia on chest x-ray above. On admission she stated she also
had productive cough. COVID and flu testing were negative. She had a leukocytosis that rapidly resolved. She was afebrile throughout hospitalization. She did not require supplemental oxygen during hospitalization. She was seen in consultation
by speech and regular/thins was recommended for her diet. She was briefly on Zosyn and then transition to Augmentin and doxycycline to complete 5 days of antibiotic therapy.
Discharge Plan
-
Patient Disposition: Home (Routine Discharge)
Discharge Diagnosis/Procedures: Acute right-sided pneumonia without hypoxemia
Condition: Good
Diet: Other diet
Additional Diets: Heart healthy
Activity: As tolerated
Driving Restrictions: Not until seen by your Dr
Activity Restrictions/Additional Instructions:
Patient should be on Augmentin and doxycycline through October 01, 2025.
Referrals:
Bree Martinez CRNP [Family Provider, General] - in less than 1 week
Prescriptions:
New
doxycycline hyclate 100 mg Capsule
100 mg PO Q12 Qty: 10 0RF
amoxicillin-pot clavulanate 875-125 mg Tablet
1 tab PO Q12 Qty: 10 0RF
Continued
atorvastatin [Lipitor] 40 mg Tablet
40 mg PO QPM
ferrous sulfate 325 mg (65 mg iron) Tablet
650 mg PO DAILY
montelukast [Singulair] 10 mg Tablet
10 mg PO HS
metoprolol succinate [Toprol XL] 25 mg Tablet Extended Release 24 Hr
25 mg PO DAILY
paroxetine HCl [Paxil] 40 mg Tablet
40 mg PO DAILY
ezetimibe [Zetia] 10 mg Tablet
10 mg PO DAILY
Xarelto 20 mg Tablet
20 mg PO HS
pantoprazole 40 mg tablet,delayed release (DR/EC)
40 mg PO DAILY
Spiriva Respimat 2.5 mcg/actuation mist
2 puff inhalation R DAILY
cyclobenzaprine 10 mg Tablet
5 mg PO TIDPRN PRN (Reason: spasms) Qty: 0 0RF
gabapentin 300 mg Capsule
600 mg PO BID Qty: 0 0RF
budesonide-formoterol [Symbicort] 160-4.5 mcg/actuation Hfa Aerosol Inhaler
2 puff inhalation R BID Qty: 0 0RF
alprazolam [Xanax] 1 mg Tablet
0.5 mg PO TIDPRN PRN (Reason: anxiety) Qty: 0 0RF
oxycodone
10 mg PO QID
Discontinued
amlodipine 2.5 mg Tablet
2.5 mg PO DAILY Qty: 0 0RF
Discharge Orders:
Discharge Patient (As Directed); Ordered 09/29/25
Ordered By: Faisal Saha
Discharge Date and Time
Print Language: SCOTTISH
== END 2025-09-29 15:07 | disposition home health service (06) | DRG 194 ==
LOC: 3 WEST ACU 17:28
PROVIDERS: Nurse Practitioner Family; Surgery Trauma Surgery; ADMITTING PHYSICIAN Internal Medicine; ATTENDING PHYSICIAN Internal Medicine; EMERGENCY PHYSICIAN Emergency Medicine; FAMILY PHYSICIAN Nurse Practitioner Adult Health
DX: J18.9 Pneumonia, unspecified organism (principal); F11.20 Opioid dependence, uncomplicated; Z68.42 Body mass index [BMI] 45.0-49.9, adult; R53.1 Weakness; G51.0 Bell's palsy; I48.0 Paroxysmal atrial fibrillation; E87.6 Hypokalemia; I95.9 Hypotension, unspecified; R26.2 Difficulty in walking, not elsewhere classified; I10 Essential (primary) hypertension; G89.4 Chronic pain syndrome; E66.01 Morbid (severe) obesity due to excess calories; F41.9 Anxiety disorder, unspecified; F32.A Depression, unspecified; E78.5 Hyperlipidemia, unspecified; J45.30 Mild persistent asthma, uncomplicated; Z87.01 Personal history of pneumonia (recurrent); Z79.01 Long term (current) use of anticoagulants; Z79.51 Long term (current) use of inhaled steroids; Z90.49 Acquired absence of other specified parts of digestive tract; Z88.8 Allergy status to other drugs, medicaments and biological substances; Z90.721 Acquired absence of ovaries, unilateral; Z79.899 Other long term (current) drug therapy; Z11.52 Encounter for screening for COVID-19
CPT/HCPCS: 71046; 80048; 80053; 81003; 81015; 83605; 85027; 87040; 87086; 87449; 87502; 87811; 87899; 92610; 93005; 94640; 96365; 96366; 96367; 97116; 97163; 97530; 99285